=== PATIENT | male | born 1950 | race Caucasian/White ===

== ENCOUNTER 2017-10-13 17:18 | Inpatient (IN) | payer MEDICARE, OTHER ==
[2017-10-13] MEDS ORDERED: Ondansetron 4 MG Tab.DIS PO PRN (18:45)
[2017-10-13] MEDS ORDERED: Tamsulosin 0.4 MG Cap.ER PO ONE (18:54)
[2017-10-13] MEDS: buPROPion 150 MG Tab.ER PO SCH (20:20)
[2017-10-13] MEDS: DULoxetine 60 MG Cap PO SCH (20:20)
[2017-10-13] MEDS: Levofloxacin/Dextrose 5%-Water 500 MG in Premix Bag 1 BAG IV SCH (21:55)
[2017-10-13] MEDS: metroNIDAZOLE/Normal Saline 500 MG in Premix Bag 1 BAG IV SCH (23:03)
[2017-10-13] MEDS: Sodium Chloride 0.9% 10 ML Syringe FLUSH PRN (23:05)
[2017-10-13] MEDS: atorvaSTATin 40 MG Tab PO SCH (23:05)
[2017-10-13] MEDS: Baclofen 10 MG Tab PO SCH (23:05)
[2017-10-13] MEDS ORDERED: Vancomycin 1,000 MG SDV ONE (23:38)
[2017-10-14] MEDS: Sodium Chloride 0.9% 10 ML Syringe FLUSH PRN ×3 (02:31→05:33)
[2017-10-14] MEDS: metroNIDAZOLE/Normal Saline 500 MG in Premix Bag 1 BAG IV SCH ×3 (04:34→21:42)
[2017-10-14] MEDS: DULoxetine 60 MG Cap PO SCH (08:24)
[2017-10-14] MEDS: buPROPion 150 MG Tab.ER PO SCH (08:25)
[2017-10-14] MEDS: Baclofen 10 MG Tab PO SCH ×3 (08:25→21:46)
[2017-10-14] MEDS ORDERED: Furosemide 40 MG Tab PO SCH (09:00)
[2017-10-14] MEDS: Lactated Ringers 1,000 ML IV SCH ×2 (10:08→12:10)
[2017-10-14] MEDS ORDERED: Rocuronium 100 MG/10 ML MDV IV ONE (10:30)
[2017-10-14] MEDS ORDERED: Propofol 200 MG/20 ML SDV IV ONE (10:30)
[2017-10-14] MEDS ORDERED: Ondansetron 4 MG/2 ML SDV IVPUSH ONE (10:30)
[2017-10-14] MEDS ORDERED: Midazolam 1 MG/ML 2 ML SDV IV ONE (10:30)
[2017-10-14] MEDS ORDERED: Succinylcholine 200 MG/10 ML MDV IV ONE (10:30)
[2017-10-14] MEDS ORDERED: fentaNYL 100 MCG/2 ML SDV IV ONE (10:30)
--- NOTE | 2017-10-14 12:01 | PCM.OPNOTE ---
- General Post-Op/Procedure Note Date of Surgery/Procedure: 10/14/17 Operative Procedure(s): debridement of right buttock wound Findings: 12 x 16 cm decubitous ulcer Pre Op Diagnosis: Grade 3. 12 x 16 cm decubitous ulcer Post-Op Diagnosis: 12 x 16 cm decubitous ulcer Anesthesia Technique: General ET Tube Primary Surgeon: Salvador Hough Anesthesia Provider: Jonathan Ferguson Pathology: tissue for path and for culture Complications: None Condition: Good Free Text/Narrative:: Intake & Output 10/13/17 10/14/17 10/14/17 22:59 06:59 14:59 Intake Total 791 Balance 791 see dictation
--- NOTE | 2017-10-14 12:06 | CR ---
INDICATION: Preop, dyspnea. CHEST: An AP portable upright view of the chest was obtained. The right hemidiaphragm is somewhat elevated. This may be on the basis of anatomic variant. Subpulmonic effusion is felt to be less likely. A definite active infiltrate or effusion was not identified. The heart did not appear enlarged. The aorta is somewhat tortuous. IMPRESSION: No acute process. Report was given by phone to Dr. Hough at 1015 hours, 10/14/2017. [facility]
[2017-10-14] MEDS ORDERED: Vancomycin 1,000 MG, Vancomycin 750 MG in Sodium Chloride 0.9% 500 ML IV SCH (16:00)
--- NOTE | 2017-10-14 19:00 | PCM.CONS ---
H&P History of Present Illness - General Date of Service: 10/14/17 Admit Problem/Dx: Admission Diagnosis/Problem Admission Diagnosis/Problem Decubitus ulcer of buttock, stage 3 Source of Information: Patient History Limitations: Reports: No Limitations - History of Present Illness Initial Comments - Free Text/Narative: This patient is a 67-year-old male admitted yesterday for debridement of a large decubitus ulcer. I was asked to see the patient postoperatively for medical management and to aid in disposition by Dr. Hough. History of present illness: Patient has a history of multiple sclerosis and has been confined to a wheelchair for the most part for the past few years. A few months ago he was found to have a decubitus ulcer which she had seen Dr. Hough 4. He was supposed to follow up and when he came back into the clinic yesterday for follow -up, the original decubitus ulcer had healed but he developed a very large second decubitus ulcer which Dr. Hough felt should be debrided in the operating room. The patient's white count was quite elevated at almost 17,000 and he was admitted to the hospital for further management and antibiotic therapy. Patient currently lives in an assisted living type setting and requires significant help because of his weight and lack of mobility in repositioning so recommendation was made to look for long-term placement where the patient will have 24-hour nursing care. Past medical history: #1 multiple sclerosis currently confined to wheelchair. #2 hyperlipidemia #3 depression #4 thalassemia #5 hypertrophy of the prostate #6 neuropathic pain #7 hyperlipidemia #8 Pedal edema for which the patient takes Lasix. He does not believe he has any history of cardiovascular disease or congestive heart failure. Social history: The patient is a nonsmoker drinks an occasional glass of wine and lives in assisted living. Family history: Noncontributory. denies when asked Pain Score (Numeric/FACES): 0 - Related Data Allergies/Adverse Reactions: Allergies Allergy/AdvReac Type Severity Reaction Status Date / Time procaine [From Novocain] Allergy Numbness Verified 10/13/17 18:56 Home Medications: Home Meds Acetaminophen 2 cap PO ASDIRECTED PRN 10/14/17 [History] Aspirin [Low Dose Aspirin EC] 81 mg PO DAILY 10/14/17 [History] Baclofen 10 mg PO TID 10/14/17 [History] Calcium Carbonate/Vitamin D3 [Calcium Carb 500 MG] 1 tab PO BID 10/14/17 [ History] DULoxetine [Cymbalta] 60 mg PO DAILY 10/14/17 [History] Docusate Calcium [Stool Softener] 240 mg PO BID 10/14/17 [History] Furosemide [Lasix] 40 mg PO DAILY 10/14/17 [History] Psyllium [Metamucil] 1 gm PO DAILY 10/14/17 [History] Tamsulosin [Tamsulosin 24 Hr] 0.4 mg PO BEDTIME 10/14/17 [History] atorvaSTATin [Lipitor] 40 mg PO BEDTIME 10/14/17 [History] buPROPion HCl [Wellbutrin Xl] 300 mg PO DAILY 10/14/17 [History] Past Medical History HEENT History: Reports: Impaired Vision Other HEENT History: wears glasses that are not with him Cardiovascular History: Reports: High Cholesterol Other Cardiovascular History: edema to lower extremeties Respiratory History: Reports: SOB, Other (See Below) Other Respiratory History: sob with activity partly from obese abdomen Genitourinary History: Reports: Urinary Incontinence Musculoskeletal History: Reports: Other (See Below) Other Musculoskeletal History: multiple sclerosis muscle spasms Neurological History: Reports: Other (See Below) Other Neuro History: neuropathic pain Psychiatric History: Reports: Depression Other Psychiatric History: from record has depressive disorder Other Dermatologic History: scabbed areas on knees also decubitus of right buttock - Past Surgical History Male Surgical History: Reports: Other (See Below) Other Male Surgeries/Procedures: hypertrophy of prostate without urinary obstruction Social & Family History - Family History Family Medical History: Noncontributory - Tobacco Use Smoking Status *Q: Never Smoker Second Hand Smoke Exposure: No - Caffeine Use Caffeine Use: Reports: Coffee - Recreational Drug Use Recreational Drug Use: No H&P Review of Systems - Review of Systems: Review Of Systems: See Below General: Reports: No Symptoms (Patient specifically denies fevers, chills, fatigue, night sweats, or symptoms of illness.) HEENT: Reports: No Symptoms Pulmonary: Reports: No Symptoms Cardiovascular: Reports: No Symptoms Gastrointestinal: Reports: No Symptoms Genitourinary: Reports: No Symptoms Musculoskeletal: Reports: Other (Patient denies pain at this time. This decubitus ulcer is asymptomatic.) Exam - Exam Exam: See Below - Vital Signs Vital Signs: Last Vital Signs Temp 36.9 C 10/14/17 15:20 Pulse 65 10/14/17 15:20 Resp 18 10/14/17 15:20 BP 96/59 L 10/14/17 15:20 Pulse Ox 94 L 10/14/17 15:20 Weight: 143.335 kg - Exam General: Alert, Oriented, Cooperative HEENT: PERRLA Lungs: Clear to Auscultation, Normal Respiratory Effort Cardiovascular: Regular Rate, Regular Rhythm, Normal S1, Normal S2 GI/Abdominal Exam: Normal Bowel Sounds, Soft, Non-Tender, No Distention Extremities: Normal Inspection, Pedal Edema (Trace) Skin: Decubitis (Not examined by myself.) Psychiatric: Alert, Normal Affect, Normal Mood - Patient Data Lab Results Last 24 hrs: Laboratory Results - last 24 hr 10/13/17 10/13/17 10/14/17 Range/Units 19:00 19:00 09:45 WBC 16.7 H 8.9 (4.5-12.0) X10-3/uL RBC 6.32 H 5.62 (4.30-5.75) x10(6)uL Hgb 12.7 11.4 L (11.5-15.5) g/dL Hct 41.6 36.9 (30.0-51.3) % MCV 65.8 L 65.6 L (80-96) fL MCH 20.0 L 20.3 L (27.7-33.6) pg MCHC 30.4 L 31.0 L (32.2-35.4) g/dL RDW 14.3 14.4 (11.5-15.5) % Plt Count 634 H 605 H (125-369) X10(3)uL MPV 7.7 7.7 (7.4-10.4) fL Neut % (Auto) 71.1 (46-82) % Lymph % (Auto) 14.1 (13-37) % [place] % (Auto) 11.5 (4-12) % Eos % (Auto) 1 (1.0-5.0) % Baso % (Auto) 2 (0-2) % Neut # (Auto) 6.3 (1.6-8.3) # Lymph # (Auto) 1.3 (0.6-5.0) # [place] # (Auto) 1.0 (0.0-1.3) # Eos # (Auto) 0.1 (0.0-0.8) # Baso # (Auto) 0.2 (0.0-0.2) # Add Manual Diff Yes Neutrophils % (Manual) 80 (46-82) % Band Neutrophils % 2 (0-6) % Lymphocytes % (Manual) 10 L (13-37) % Monocytes % (Manual) 7 (4-12) % Basophils % (Manual) 1 (0-2) % Hypochromasia Moderate H Microcytosis Many H Sodium 138 (135-145) mmol/L Potassium 3.8 (3.5-5.3) mmol/L Chloride 99 L (100-110) mmol/L Carbon Dioxide 28 (21-32) mmol/L BUN 12 (7-18) mg/dL Creatinine 1.1 (0.70-1.30) mg/dL Est Cr Clr Drug Dosing 77.84 mL/min Estimated GFR (MDRD) > 60 (>60) BUN/Creatinine Ratio 10.9 (9-20) Glucose 114 (80-116) mg/dL Lactic Acid (0.4-2.2) mmol/L Calcium 8.8 (8.6-10.2) mg/dL Total Bilirubin 0.6 (0.1-1.3) mg/dL AST 35 H (5-25) IU/L ALT 35 (12-36) U/L Alkaline Phosphatase 129 H (56-112) IU/L Total Protein 7.8 (6.0-8.0) g/dL Albumin 2.4 L (3.2-4.6) g/dL Globulin 5.4 g/dL Albumin/Globulin Ratio 0.4 10/14/17 10/14/17 Range/Units 09:45 09:45 WBC (4.5-12.0) X10-3/uL RBC (4.30-5.75) x10(6)uL Hgb (11.5-15.5) g/dL Hct (30.0-51.3) % MCV (80-96) fL MCH (27.7-33.6) pg MCHC (32.2-35.4) g/dL RDW (11.5-15.5) % Plt Count (125-369) X10(3)uL MPV (7.4-10.4) fL Neut % (Auto) (46-82) % Lymph % (Auto) (13-37) % [place] % (Auto) (4-12) % Eos % (Auto) (1.0-5.0) % Baso % (Auto) (0-2) % Neut # (Auto) (1.6-8.3) # Lymph # (Auto) (0.6-5.0) # [place] # (Auto) (0.0-1.3) # Eos # (Auto) (0.0-0.8) # Baso # (Auto) (0.0-0.2) # Add Manual Diff Neutrophils % (Manual) (46-82) % Band Neutrophils % (0-6) % Lymphocytes % (Manual) (13-37) % Monocytes % (Manual) (4-12) % Basophils % (Manual) (0-2) % Hypochromasia Microcytosis Sodium 140 (135-145) mmol/L Potassium 3.6 (3.5-5.3) mmol/L Chloride 103 (100-110) mmol/L Carbon Dioxide 27 (21-32) mmol/L BUN 11 (7-18) mg/dL Creatinine 1.0 (0.70-1.30) mg/dL Est Cr Clr Drug Dosing 85.63 mL/min Estimated GFR (MDRD) > 60 (>60) BUN/Creatinine Ratio 11.0 (9-20) Glucose 110 (80-116) mg/dL Lactic Acid 0.7 (0.4-2.2) mmol/L Calcium 8.3 L (8.6-10.2) mg/dL Total Bilirubin 0.6 (0.1-1.3) mg/dL AST 24 D (5-25) IU/L ALT 27 D (12-36) U/L Alkaline Phosphatase 106 (56-112) IU/L Total Protein 6.8 (6.0-8.0) g/dL Albumin 2.0 L (3.2-4.6) g/dL Globulin 4.8 g/dL Albumin/Globulin Ratio 0.4 Result Diagrams: 10/14/17 09:45 03/16/18 09:45 Consult PN Assessment/Plan POD#: 0 (1) Decubitus skin ulcer SNOMED Code(s): 835868365 Code(s): L89.90 - PRESSURE ULCER OF UNSPECIFIED SITE, UNSPECIFIED STAGE Current Visit: Yes Comment: Now status post debridement. Patient is currently on vancomycin, Levaquin, Flagyl. Dr. Hough is directing antibiotic therapy. Wound culture and tissue cultures are pending. Patient will be having a PICC line placed by nursing staff is able to accommodate that. (2) Multiple sclerosis SNOMED Code(s): 81438251 Code(s): G35 - MULTIPLE SCLEROSIS Current Visit: Yes Comment: Currently quiescent. PT and OT to work with the patient and will be working with disposition. (3) Depression SNOMED Code(s): 91938216 Code(s): F32.9 - MAJOR DEPRESSIVE DISORDER, SINGLE EPISODE, UNSPECIFIED Current Visit: Yes Comment: Appears stable at this point. (4) DVT prophylaxis SNOMED Code(s): 853141491 Code(s): VFE4718 - Current Visit: Yes Comment: Would recommend twice a day Lovenox for subcutaneous DVT prophylaxis because of patient's weight (30 mg BID). With normal renal function he should be able to tolerate Lovenox. Will defer initiation of this to Dr. Hough as the surgeon. Patient is high risk for DVT/PE due to his obesity and immobility. Will see if PT/OT can mobilize this patient as well to offload buttocks more frequently during the day. Problem List Initiated/Reviewed/Updated: Yes Plan: Thank you for the consult. Will continue to follow to discharge.
--- NOTE | 2017-10-14 19:32 | OR ---
DATE OF OPERATION: 10/14/2017 SURGEON: Salvador Hough MD PROCEDURE PERFORMED: Debridement of decubitus ulcer, right buttock. PREOPERATIVE DIAGNOSIS: Grade 3 decubitus. POSTOPERATIVE DIAGNOSIS: Grade 3 decubitus. INDICATIONS FOR PROCEDURE: This is a 67-year-old white male who was referred to the clinic yesterday with a complaint of new decubitus ulcer basically involving the base of his right buttock. On exam, he was noted to have what appeared to be at least a 12 cm in diameter ulceration with necrotic skin. He was admitted for IV antibiotics and surgical debridement. DESCRIPTION OF OPERATION: After an excellent general anesthetic was administered, the patient was placed in left lateral decubitus position and using sharp dissection, the necrotic tissue was dissected free. The final size of the debrided wound was approximately 12 x 16 cm. This went down to the underlying muscle layer, but did not appear to track to the bone. Tissue that was debrided was passed off the field for both pathologic and culture. The patient tolerated the procedure well, and was taken to recovery room in good condition. /[id number] /MODL
[2017-10-14] MEDS: Levofloxacin/Dextrose 5%-Water 500 MG in Premix Bag 1 BAG IV SCH (20:11)
[2017-10-14] MEDS: atorvaSTATin 40 MG Tab PO SCH (21:46)
[2017-10-15] MEDS: Lactated Ringers 1,000 ML IV SCH (00:56)
[2017-10-15] MEDS: metroNIDAZOLE/Normal Saline 500 MG in Premix Bag 1 BAG IV SCH ×3 (05:09→21:07)
[2017-10-15] MEDS: Baclofen 10 MG Tab PO SCH ×3 (09:23→20:58)
[2017-10-15] MEDS: DULoxetine 60 MG Cap PO SCH (09:23)
[2017-10-15] MEDS: buPROPion 150 MG Tab.ER PO SCH (09:23)
--- NOTE | 2017-10-15 09:38 | PCM.SURGPN ---
- General Info Date of Service: 10/15/17 POD#: 1 Functional Status: Reports: Pain Controlled, Tolerating Diet, Urinating - Review of Systems General: Reports: No Symptoms Pulmonary: Reports: No Symptoms Cardiovascular: Reports: No Symptoms Gastrointestinal: Reports: No Symptoms - Patient Data Vitals - Most Recent: Last Vital Signs Temp 37.3 C 10/15/17 04:00 Pulse 86 10/15/17 04:00 Resp 20 10/15/17 01:00 BP 116/62 10/15/17 04:00 Pulse Ox 91 L 10/15/17 01:00 Weight - Most Recent: 143.335 kg I&O - Last 24 Hours: Intake & Output 10/14/17 10/15/17 10/15/17 22:59 06:59 14:59 Intake Total 1248 1014 Output Total 650 Balance 1248 364 Lab Results Last 24 Hrs: Laboratory Results - last 24 hr 10/14/17 10/14/17 10/14/17 Range/Units 09:45 09:45 09:45 WBC 8.9 (4.5-12.0) X10-3/uL RBC 5.62 (4.30-5.75) x10(6)uL Hgb 11.4 L (11.5-15.5) g/dL Hct 36.9 (30.0-51.3) % MCV 65.6 L (80-96) fL MCH 20.3 L (27.7-33.6) pg MCHC 31.0 L (32.2-35.4) g/dL RDW 14.4 (11.5-15.5) % Plt Count 605 H (125-369) X10(3)uL MPV 7.7 (7.4-10.4) fL Neut % (Auto) 71.1 (46-82) % Lymph % (Auto) 14.1 (13-37) % [place] % (Auto) 11.5 (4-12) % Eos % (Auto) 1 (1.0-5.0) % Baso % (Auto) 2 (0-2) % Neut # (Auto) 6.3 (1.6-8.3) # Lymph # (Auto) 1.3 (0.6-5.0) # [place] # (Auto) 1.0 (0.0-1.3) # Eos # (Auto) 0.1 (0.0-0.8) # Baso # (Auto) 0.2 (0.0-0.2) # Sodium 140 (135-145) mmol/L Potassium 3.6 (3.5-5.3) mmol/L Chloride 103 (100-110) mmol/L Carbon Dioxide 27 (21-32) mmol/L BUN 11 (7-18) mg/dL Creatinine 1.0 (0.70-1.30) mg/dL Est Cr Clr Drug Dosing 85.63 mL/min Estimated GFR (MDRD) > 60 (>60) BUN/Creatinine Ratio 11.0 (9-20) Glucose 110 (80-116) mg/dL Lactic Acid 0.7 (0.4-2.2) mmol/L Calcium 8.3 L (8.6-10.2) mg/dL Total Bilirubin 0.6 (0.1-1.3) mg/dL AST 24 D (5-25) IU/L ALT 27 D (12-36) U/L Alkaline Phosphatase 106 (56-112) IU/L Total Protein 6.8 (6.0-8.0) g/dL Albumin 2.0 L (3.2-4.6) g/dL Globulin 4.8 g/dL Albumin/Globulin Ratio 0.4 Vancomycin Trough (5.0-10.0) ug/mL 10/15/17 Range/Units 09:05 WBC (4.5-12.0) X10-3/uL RBC (4.30-5.75) x10(6)uL Hgb (11.5-15.5) g/dL Hct (30.0-51.3) % MCV (80-96) fL MCH (27.7-33.6) pg MCHC (32.2-35.4) g/dL RDW (11.5-15.5) % Plt Count (125-369) X10(3)uL MPV (7.4-10.4) fL Neut % (Auto) (46-82) % Lymph % (Auto) (13-37) % [place] % (Auto) (4-12) % Eos % (Auto) (1.0-5.0) % Baso % (Auto) (0-2) % Neut # (Auto) (1.6-8.3) # Lymph # (Auto) (0.6-5.0) # [place] # (Auto) (0.0-1.3) # Eos # (Auto) (0.0-0.8) # Baso # (Auto) (0.0-0.2) # Sodium (135-145) mmol/L Potassium (3.5-5.3) mmol/L Chloride (100-110) mmol/L Carbon Dioxide (21-32) mmol/L BUN (7-18) mg/dL Creatinine (0.70-1.30) mg/dL Est Cr Clr Drug Dosing mL/min Estimated GFR (MDRD) (>60) BUN/Creatinine Ratio (9-20) Glucose (80-116) mg/dL Lactic Acid (0.4-2.2) mmol/L Calcium (8.6-10.2) mg/dL Total Bilirubin (0.1-1.3) mg/dL AST (5-25) IU/L ALT (12-36) U/L Alkaline Phosphatase (56-112) IU/L Total Protein (6.0-8.0) g/dL Albumin (3.2-4.6) g/dL Globulin g/dL Albumin/Globulin Ratio Vancomycin Trough 7.4 (5.0-10.0) ug/mL Med Orders - Current: Current Medications Atorvastatin Calcium (Lipitor) 40 mg PO BEDTIME [facility] Last Admin: 10/14/17 21:46 Dose: 40 mg Baclofen (Lioresal) 10 mg PO TID [facility] Last Admin: 10/15/17 09:23 Dose: 10 mg Bupropion HCl (Wellbutrin Xl) 300 mg PO DAILY [facility] Last Admin: 10/15/17 09:23 Dose: 300 mg Duloxetine HCl (Cymbalta) 60 mg PO DAILY [facility] Last Admin: 10/15/17 09:23 Dose: 60 mg Levofloxacin/Dextrose 500 mg/ (Premix) 100 mls @ 100 mls/hr IV Q24H [facility] Last Admin: 10/14/17 20:11 Dose: 100 mls/hr Metronidazole 500 mg/ Premix 100 mls @ 100 mls/hr IV Q8H [facility] Last Admin: 10/15/17 05:09 Dose: 100 mls/hr Vancomycin HCl 500 mg/ Sodium (Chloride) 250 mls @ 166.667 mls/hr IV Q24H [facility] Lactated Ringer's (Ringers, Lactated) 1,000 mls @ 125 mls/hr IV ASDIRECTED [facility] Last Admin: 10/15/17 00:56 Dose: 125 mls/hr Vancomycin HCl 1,000 mg/Vancomycin HCl 750 mg/ Sodium Chloride 500 mls @ 250 mls/hr IV Q18H [facility] Last Admin: 10/14/17 16:38 Dose: 250 mls/hr Ondansetron HCl (Zofran Odt) 4 mg PO Q6H PRN PRN Reason: nausea, able to take PO Sodium Chloride (Saline Flush) 10 ml FLUSH ASDIRECTED PRN PRN Reason: Keep Vein Open Last Admin: 10/14/17 05:33 Dose: 10 ml Discontinued Medications Furosemide (Lasix) 40 mg PO DAILY [facility] Last Admin: 10/14/17 08:24 Dose: Not Given Vancomycin HCl 1,750 mg/ (Sodium Chloride) 500 mls @ 250 mls/hr IV Q18H [facility] Last Admin: 10/14/17 00:27 Dose: 250 mls/hr Tamsulosin HCl (Flomax) 0.4 mg PO ONETIME ONE Stop: 10/13/17 18:55 Last Admin: 10/13/17 20:19 Dose: 0.4 mg Vancomycin HCl (Vancomycin) Confirm Administered Dose 1,000 mg .ROUTE .STK-MED ONE Stop: 10/13/17 23:39 Last Admin: 10/14/17 00:33 Dose: Not Given - Exam Wound/Incisions: No Drainage, Erythema, Other (wound clean and dry with dressing change ) General: Alert, Cooperative, No Acute Distress Lungs: Clear to Auscultation, Normal Respiratory Effort Cardiovascular: Regular Rate, Regular Rhythm Physical Findings Comment:: dressing change performed. no signs of further necrosis at this time - Problem List & Annotations (1) Decubitus skin ulcer SNOMED Code(s): 747346273 Code(s): L89.90 - PRESSURE ULCER OF UNSPECIFIED SITE, UNSPECIFIED STAGE Status: Acute Current Visit: Yes Annotation/Comment:: Now status post debridement. Patient is currently on vancomycin, Levaquin, Flagyl. Dr. Hough is directing antibiotic therapy. Wound culture and tissue cultures are pending. Patient will be having a PICC line placed by nursing staff is able to accommodate that. - Problem List Review Problem List Initiated/Reviewed/Updated: Yes - My Orders Last 24 Hours: Active Orders 24 hr Category Date Time Status Central Line Assessment [RC] QSHIFT Care 10/14/17 11:55 Active Notify Provider Consults [RC] ASDIRECTED Care 10/14/17 09:31 Active Consult to Physician [CONS] Routine Cons 10/14/17 09:30 Ordered OT Evaluation and Treatment [CONS] Routine Cons 10/14/17 19:12 Active PT Evaluation and Treatment [CONS] Routine Cons 10/14/17 19:12 Active Regular Diet [DIET] Diet 10/14/17 Dinner Active CBC WITH AUTO DIFF [HEME] AM Lab 10/16/17 05:11 Ordered COMPREHENSIVE METABOLIC PN,CMP [CHEM] AM Lab 10/16/17 05:11 Ordered CULTURE ANAEROBIC + SMEAR [RM] Routine Lab 10/14/17 10:56 Received CULTURE ROUTINE + SMEAR [RM] Routine Lab 10/14/17 10:56 Received Vancomycin 1,000 mg Med 10/14/17 16:00 Active Vancomycin 750 mg Sodium Chloride 0.9% [Normal Saline] 500 ml IV Q18H Central Line PICC Insertion [Central Venous Line Oth 10/14/17 11:55 Ordered Insertion] [OM.PC] Routine Convert IV to Saline Lock [OM.PC] Routine Oth 10/15/17 09:35 Ordered Medication Orders Atorvastatin Calcium (Lipitor) 40 mg PO BEDTIME [facility] Last Admin: 10/14/17 21:46 Dose: 40 mg Admin: 10/13/17 23:05 Dose: 40 mg Baclofen (Lioresal) 10 mg PO TID [facility] Last Admin: 10/15/17 09:23 Dose: 10 mg Admin: 10/14/17 21:46 Dose: 10 mg Admin: 10/14/17 14:22 Dose: Not Given Admin: 10/14/17 08:25 Dose: Admin: 10/13/17 23:05 Dose: 10 mg Bupropion HCl (Wellbutrin Xl) 300 mg PO DAILY [facility] Last Admin: 10/15/17 09:23 Dose: 300 mg Admin: 10/14/17 08:25 Dose: Admin: 10/13/17 20:20 Dose: Duloxetine HCl (Cymbalta) 60 mg PO DAILY [facility] Last Admin: 10/15/17 09:23 Dose: 60 mg Admin: 10/14/17 08:24 Dose: Admin: 10/13/17 20:20 Dose: Levofloxacin/Dextrose 500 mg/ (Premix) 100 mls @ 100 mls/hr IV Q24H [facility] Last Admin: 10/14/17 20:11 Dose: 100 mls/hr Infusion: 10/13/17 22:55 Dose: 100 mls/hr Admin: 10/13/17 21:55 Dose: 100 mls/hr Metronidazole 500 mg/ Premix 100 mls @ 100 mls/hr IV Q8H [facility] Last Admin: 10/15/17 05:09 Dose: 100 mls/hr Infusion: 10/14/17 22:42 Dose: 100 mls/hr Admin: 10/14/17 21:42 Dose: 100 mls/hr Infusion: 10/14/17 14:03 Dose: 100 mls/hr Admin: 10/14/17 13:03 Dose: 100 mls/hr Infusion: 10/14/17 05:34 Dose: 100 mls/hr Admin: 10/14/17 04:34 Dose: 100 mls/hr Infusion: 10/14/17 00:03 Dose: 100 mls/hr Admin: 10/13/17 23:03 Dose: 100 mls/hr Vancomycin HCl 500 mg/ Sodium (Chloride) 250 mls @ 166.667 mls/hr IV Q24H [facility] Lactated Ringer's (Ringers, Lactated) 1,000 mls @ 125 mls/hr IV ASDIRECTED [facility] Last Admin: 10/15/17 00:56 Dose: 125 mls/hr Infusion: 10/14/17 20:10 Dose: 125 mls/hr Admin: 10/14/17 12:10 Dose: 125 mls/hr Infusion: 10/14/17 11:09 Dose: 999 mls/hr Admin: 10/14/17 10:08 Dose: 999 mls/hr Vancomycin HCl 1,000 mg/Vancomycin HCl 750 mg/ Sodium Chloride 500 mls @ 250 mls/hr IV Q18H [facility] Last Admin: 10/14/17 16:38 Dose: 250 mls/hr Ondansetron HCl (Zofran Odt) 4 mg PO Q6H PRN PRN Reason: nausea, able to take PO Sodium Chloride (Saline Flush) 10 ml FLUSH ASDIRECTED PRN PRN Reason: Keep Vein Open Last Admin: 10/14/17 05:33 Dose: 10 ml Admin: 10/14/17 02:31 Dose: 10 ml Admin: 10/14/17 00:00 Dose: 10 ml Admin: 10/13/17 23:05 Dose: 10 ml - Assessment Assessment (Free Text/Narrative):: unremarkable post op exam - Plan Plan (Free Text/Narrative):: saline lock iv start lovenox for dvt prophylaxis.
[2017-10-15] MEDS: Enoxaparin 40 MG/0.4 ML Syringe SUBCUT SCH ×2 (10:47→21:04)
[2017-10-15] MEDS: Vancomycin 1,000 MG, Vancomycin 750 MG in Sodium Chloride 0.9% 500 ML IV SCH ×2 (10:47→22:51)
--- NOTE | 2017-10-15 11:42 | PCM.PN ---
- General Info Date of Service: 10/15/17 Subjective Update: Feeling well, no concerns. No pain. No chest pain or shortness of breath. No nausea or vomiting. Has not yet had a bowel movement postoperatively. - Patient Data Vitals - Most Recent: Last Vital Signs Temp 37.3 C 10/15/17 04:00 Pulse 86 10/15/17 04:00 Resp 20 10/15/17 01:00 BP 116/62 10/15/17 04:00 Pulse Ox 91 L 10/15/17 01:00 Weight - Most Recent: 143.335 kg I&O - Last 24 Hours: Intake & Output 10/14/17 10/15/17 10/15/17 22:59 06:59 14:59 Intake Total 1248 1014 Output Total 650 Balance 1248 364 Lab Results Last 24 Hours: Laboratory Results - last 24 hr 10/15/17 Range/Units 09:05 Vancomycin Trough 7.4 (5.0-10.0) ug/mL Med Orders - Current: Current Medications Atorvastatin Calcium (Lipitor) 40 mg PO BEDTIME [facility] Last Admin: 10/14/17 21:46 Dose: 40 mg Baclofen (Lioresal) 10 mg PO TID [facility] Last Admin: 10/15/17 09:23 Dose: 10 mg Bupropion HCl (Wellbutrin Xl) 300 mg PO DAILY [facility] Last Admin: 10/15/17 09:23 Dose: 300 mg Duloxetine HCl (Cymbalta) 60 mg PO DAILY [facility] Last Admin: 10/15/17 09:23 Dose: 60 mg Enoxaparin Sodium (Lovenox) 40 mg SUBCUT Q12H [facility] Last Admin: 10/15/17 10:47 Dose: 40 mg Levofloxacin/Dextrose 500 mg/ (Premix) 100 mls @ 100 mls/hr IV Q24H [facility] Last Admin: 10/14/17 20:11 Dose: 100 mls/hr Metronidazole 500 mg/ Premix 100 mls @ 100 mls/hr IV Q8H [facility] Last Admin: 10/15/17 05:09 Dose: 100 mls/hr Vancomycin HCl 1,000 mg/Vancomycin HCl 750 mg/ Sodium Chloride 500 mls @ 250 mls/hr IV Q12H [facility] Last Admin: 10/15/17 10:47 Dose: 250 mls/hr Ondansetron HCl (Zofran Odt) 4 mg PO Q6H PRN PRN Reason: nausea, able to take PO Sodium Chloride (Saline Flush) 10 ml FLUSH ASDIRECTED PRN PRN Reason: Keep Vein Open Last Admin: 10/14/17 05:33 Dose: 10 ml Vancomycin HCl (Pharmacy To Dose - Vancomycin) 1 dose .XX ASDIRECTED [place] Discontinued Medications Furosemide (Lasix) 40 mg PO DAILY [facility] Last Admin: 10/14/17 08:24 Dose: Not Given Vancomycin HCl 500 mg/ Sodium (Chloride) 250 mls @ 166.667 mls/hr IV Q24H [facility] Vancomycin HCl 1,750 mg/ (Sodium Chloride) 500 mls @ 250 mls/hr IV Q18H [facility] Last Admin: 10/14/17 00:27 Dose: 250 mls/hr Lactated Ringer's (Ringers, Lactated) 1,000 mls @ 125 mls/hr IV ASDIRECTED [facility] Last Admin: 10/15/17 00:56 Dose: 125 mls/hr Vancomycin HCl 1,000 mg/Vancomycin HCl 750 mg/ Sodium Chloride 500 mls @ 250 mls/hr IV Q18H [facility] Last Admin: 10/14/17 16:38 Dose: 250 mls/hr Tamsulosin HCl (Flomax) 0.4 mg PO ONETIME ONE Stop: 10/13/17 18:55 Last Admin: 10/13/17 20:19 Dose: 0.4 mg Vancomycin HCl (Vancomycin) Confirm Administered Dose 1,000 mg .ROUTE .STK-MED ONE Stop: 10/13/17 23:39 Last Admin: 10/14/17 00:33 Dose: Not Given - Exam General: Alert, Oriented, Cooperative HEENT: Pupils Equal, Pupils Reactive Neck: Supple Lungs: Clear to Auscultation, Normal Respiratory Effort Cardiovascular: Regular Rate, Regular Rhythm, No Murmurs GI/Abdominal Exam: Normal Bowel Sounds, Soft, Non-Tender Back Exam: Normal Inspection Wound/Incisions: Dressing Dry and Intact - Problem List & Annotations (1) Decubitus skin ulcer SNOMED Code(s): 804354450 Code(s): L89.90 - PRESSURE ULCER OF UNSPECIFIED SITE, UNSPECIFIED STAGE Status: Acute Current Visit: Yes Annotation/Comment:: POD#1 debridement. Patient is currently on vancomycin, Levaquin, Flagyl. Dr. Hough is directing antibiotic therapy. Wound culture and tissue cultures are pending. (2) Multiple sclerosis SNOMED Code(s): 63667716 Code(s): G35 - MULTIPLE SCLEROSIS Status: Acute Current Visit: Yes Annotation/Comment:: Currently quiescent. PT and OT to work with the patient and will be working with disposition. (3) Depression SNOMED Code(s): 04235531 Code(s): F32.9 - MAJOR DEPRESSIVE DISORDER, SINGLE EPISODE, UNSPECIFIED Status: Acute Current Visit: Yes Annotation/Comment:: Appears stable at this point. (4) DVT prophylaxis SNOMED Code(s): 878510781 Code(s): BQG9753 - Status: Acute Current Visit: Yes Annotation/Comment :: Started today lovenox [address] Hough. - Problem List Review Problem List Initiated/Reviewed/Updated: Yes - My Orders Last 24 Hours: My Active Orders 10/14/17 19:12 OT Evaluation and Treatment [CONS] Routine PT Evaluation and Treatment [CONS] Routine 10/16/17 05:11 CBC WITH AUTO DIFF [HEME] AM COMPREHENSIVE METABOLIC PN,CMP [CHEM] AM
[2017-10-15] MEDS: Levofloxacin/Dextrose 5%-Water 500 MG in Premix Bag 1 BAG IV SCH (19:42)
[2017-10-15] MEDS: Sodium Chloride 0.9% 10 ML Syringe FLUSH PRN ×4 (19:42→22:50)
[2017-10-15] MEDS: atorvaSTATin 40 MG Tab PO SCH (20:59)
[2017-10-16] MEDS: Sodium Chloride 0.9% 10 ML Syringe FLUSH PRN ×2 (00:57→04:17)
[2017-10-16] MEDS: metroNIDAZOLE/Normal Saline 500 MG in Premix Bag 1 BAG IV SCH (04:15)
[2017-10-16] MEDS: DULoxetine 60 MG Cap PO SCH (08:43)
[2017-10-16] MEDS: buPROPion 150 MG Tab.ER PO SCH (08:44)
[2017-10-16] MEDS: Baclofen 10 MG Tab PO SCH ×3 (08:44→20:09)
--- NOTE | 2017-10-16 09:08 | PCM.SURGPN ---
- General Info Date of Service: 10/16/17 POD#: 2 Functional Status: Reports: Tolerating Diet - Review of Systems General: Reports: No Symptoms - Patient Data Vitals - Most Recent: Last Vital Signs Temp 37.0 C 10/16/17 04:00 Pulse 86 10/16/17 01:00 Resp 18 10/16/17 04:00 BP 117/62 10/16/17 01:00 Pulse Ox 90 L 10/16/17 01:00 Weight - Most Recent: 143.335 kg I&O - Last 24 Hours: Intake & Output 10/15/17 10/16/17 10/16/17 22:59 06:59 14:59 Intake Total 700 600 Output Total 650 1100 Balance 50 -500 Lab Results Last 24 Hrs: Laboratory Results - last 24 hr 10/15/17 10/16/17 10/16/17 Range/Units 09:05 05:50 05:50 WBC 7.7 (4.5-12.0) X10-3/uL RBC 5.24 (4.30-5.75) x10(6)uL Hgb 10.9 L (11.5-15.5) g/dL Hct 34.7 (30.0-51.3) % MCV 66.2 L (80-96) fL MCH 20.8 L (27.7-33.6) pg MCHC 31.4 L (32.2-35.4) g/dL RDW 14.6 (11.5-15.5) % Plt Count 524 H (125-369) X10(3)uL MPV 8.0 (7.4-10.4) fL Neut % (Auto) 70.7 (46-82) % Lymph % (Auto) 15.6 (13-37) % [place] % (Auto) 10.4 (4-12) % Eos % (Auto) 2 (1.0-5.0) % Baso % (Auto) 1 (0-2) % Neut # (Auto) 5.4 (1.6-8.3) # Lymph # (Auto) 1.2 (0.6-5.0) # [place] # (Auto) 0.8 (0.0-1.3) # Eos # (Auto) 0.2 (0.0-0.8) # Baso # (Auto) 0.1 (0.0-0.2) # Sodium 140 (135-145) mmol/L Potassium 3.6 (3.5-5.3) mmol/L Chloride 104 (100-110) mmol/L Carbon Dioxide 29 (21-32) mmol/L BUN 13 (7-18) mg/dL Creatinine 0.9 (0.70-1.30) mg/dL Est Cr Clr Drug Dosing 95.14 mL/min Estimated GFR (MDRD) > 60 (>60) BUN/Creatinine Ratio 14.4 (9-20) Glucose 104 (80-116) mg/dL Calcium 8.1 L (8.6-10.2) mg/dL Total Bilirubin 0.3 (0.1-1.3) mg/dL AST 29 H D (5-25) IU/L ALT 29 (12-36) U/L Alkaline Phosphatase 86 (56-112) IU/L Total Protein 6.2 (6.0-8.0) g/dL Albumin 1.8 L (3.2-4.6) g/dL Globulin 4.4 g/dL Albumin/Globulin Ratio 0.4 Vancomycin Trough 7.4 (5.0-10.0) ug/mL Med Orders - Current: Current Medications Atorvastatin Calcium (Lipitor) 40 mg PO BEDTIME [facility] Last Admin: 10/15/17 20:59 Dose: 40 mg Baclofen (Lioresal) 10 mg PO TID [facility] Last Admin: 10/16/17 08:44 Dose: 10 mg Bupropion HCl (Wellbutrin Xl) 300 mg PO DAILY [facility] Last Admin: 10/16/17 08:44 Dose: 300 mg Duloxetine HCl (Cymbalta) 60 mg PO DAILY [facility] Last Admin: 10/16/17 08:43 Dose: 60 mg Enoxaparin Sodium (Lovenox) 40 mg SUBCUT Q12H [facility] Last Admin: 10/15/17 21:04 Dose: 40 mg Levofloxacin (Levaquin) 500 mg PO Q24H [facility] Ondansetron HCl (Zofran Odt) 4 mg PO Q6H PRN PRN Reason: nausea, able to take PO Sodium Chloride (Saline Flush) 10 ml FLUSH ASDIRECTED PRN PRN Reason: Keep Vein Open Last Admin: 10/16/17 04:17 Dose: 10 ml Discontinued Medications Furosemide (Lasix) 40 mg PO DAILY [facility] Last Admin: 10/14/17 08:24 Dose: Not Given Levofloxacin/Dextrose 500 mg/ (Premix) 100 mls @ 100 mls/hr IV Q24H [facility] Last Admin: 10/15/17 19:42 Dose: 100 mls/hr Metronidazole 500 mg/ Premix 100 mls @ 100 mls/hr IV Q8H [facility] Last Admin: 10/16/17 04:15 Dose: 100 mls/hr Vancomycin HCl 500 mg/ Sodium (Chloride) 250 mls @ 166.667 mls/hr IV Q24H [facility] Last Admin: 10/15/17 23:56 Dose: Not Given Vancomycin HCl 1,750 mg/ (Sodium Chloride) 500 mls @ 250 mls/hr IV Q18H [facility] Last Admin: 10/14/17 00:27 Dose: 250 mls/hr Lactated Ringer's (Ringers, Lactated) 1,000 mls @ 125 mls/hr IV ASDIRECTED [facility] Last Admin: 10/15/17 00:56 Dose: 125 mls/hr Vancomycin HCl 1,000 mg/Vancomycin HCl 750 mg/ Sodium Chloride 500 mls @ 250 mls/hr IV Q18H [facility] Last Admin: 10/14/17 16:38 Dose: 250 mls/hr Vancomycin HCl 1,000 mg/Vancomycin HCl 750 mg/ Sodium Chloride 500 mls @ 250 mls/hr IV Q12H [facility] Last Admin: 10/15/17 22:51 Dose: 250 mls/hr Tamsulosin HCl (Flomax) 0.4 mg PO ONETIME ONE Stop: 10/13/17 18:55 Last Admin: 10/13/17 20:19 Dose: 0.4 mg Vancomycin HCl (Vancomycin) Confirm Administered Dose 1,000 mg .ROUTE .STK-MED ONE Stop: 10/13/17 23:39 Last Admin: 10/14/17 00:33 Dose: Not Given Vancomycin HCl (Pharmacy To Dose - Vancomycin) 1 dose .XX ASDIRECTED [facility] - Exam Wound/Incisions: No Drainage, Other (wound is dry. some color changes in the muscle bed. no evidence of active infection ) Lungs: Clear to Auscultation, Normal Respiratory Effort Cardiovascular: Regular Rate, Regular Rhythm Skin: Warm, Intact - Problem List & Annotations (1) Decubitus skin ulcer SNOMED Code(s): 807050257 Code(s): L89.90 - PRESSURE ULCER OF UNSPECIFIED SITE, UNSPECIFIED STAGE Status: Acute Current Visit: Yes Annotation/Comment:: POD#1 debridement. Patient is currently on vancomycin, Levaquin, Flagyl. Dr. Hough is directing antibiotic therapy. Wound culture and tissue cultures are pending. Qualifiers: Pressure ulcer location: buttock Pressure ulcer stage: stage 3 Laterality : right Qualified Code(s): L89.313 - Pressure ulcer of right buttock, stage 3 - Problem List Review Problem List Initiated/Reviewed/Updated: Yes - My Orders Last 24 Hours: Active Orders 24 hr Category Date Time Status PT Evaluation and Treatment [CONS] Routine Cons 10/16/17 09:04 Ordered VANCOMYCIN TROUGH [CHEM] Routine Lab 10/16/17 22:00 Ordered Enoxaparin [Lovenox] Med 10/15/17 10:00 Active 40 mg SUBCUT Q12H Levofloxacin [Levaquin] Med 10/16/17 09:15 Ordered 500 mg PO Q24H Convert IV to Saline Lock [OM.PC] Routine Oth 10/15/17 09:35 Ordered Medication Orders Atorvastatin Calcium (Lipitor) 40 mg PO BEDTIME [facility] Last Admin: 10/15/17 20:59 Dose: 40 mg Admin: 10/14/17 21:46 Dose: 40 mg Admin: 10/13/17 23:05 Dose: 40 mg Baclofen (Lioresal) 10 mg PO TID [facility] Last Admin: 10/16/17 08:44 Dose: 10 mg Admin: 10/15/17 20:58 Dose: 10 mg Admin: 10/15/17 14:14 Dose: 10 mg Admin: 10/15/17 09:23 Dose: 10 mg Admin: 10/14/17 21:46 Dose: 10 mg Admin: 10/14/17 14:22 Dose: Not Given Admin: 10/14/17 08:25 Dose: Admin: 10/13/17 23:05 Dose: 10 mg Bupropion HCl (Wellbutrin Xl) 300 mg PO DAILY [facility] Last Admin: 10/16/17 08:44 Dose: 300 mg Admin: 10/15/17 09:23 Dose: 300 mg Admin: 10/14/17 08:25 Dose: Admin: 10/13/17 20:20 Dose: Duloxetine HCl (Cymbalta) 60 mg PO DAILY [facility] Last Admin: 10/16/17 08:43 Dose: 60 mg Admin: 10/15/17 09:23 Dose: 60 mg Admin: 10/14/17 08:24 Dose: Admin: 10/13/17 20:20 Dose: Enoxaparin Sodium (Lovenox) 40 mg SUBCUT Q12H [facility] Last Admin: 10/15/17 21:04 Dose: 40 mg Admin: 10/15/17 10:47 Dose: 40 mg Levofloxacin (Levaquin) 500 mg PO Q24H [facility] Ondansetron HCl (Zofran Odt) 4 mg PO Q6H PRN PRN Reason: nausea, able to take PO Sodium Chloride (Saline Flush) 10 ml FLUSH ASDIRECTED PRN PRN Reason: Keep Vein Open Last Admin: 10/16/17 04:17 Dose: 10 ml Admin: 10/16/17 00:57 Dose: 10 ml Admin: 10/15/17 22:50 Dose: 10 ml Admin: 10/15/17 22:00 Dose: 10 ml Admin: 10/15/17 20:53 Dose: 10 ml Admin: 10/15/17 19:42 Dose: 10 ml Admin: 10/14/17 05:33 Dose: 10 ml Admin: 10/14/17 02:31 Dose: 10 ml Admin: 10/14/17 00:00 Dose: 10 ml Admin: 10/13/17 23:05 Dose: 10 ml - Assessment Assessment (Free Text/Narrative):: stable exam. culture results demonstrate light growth of strep dysgalactiae sensative to levaquin - Plan Plan (Free Text/Narrative):: cancel picc oral antibiotics wound vac consult in the am.
[2017-10-16] MEDS: Levofloxacin 500 MG Tab PO SCH (10:58)
[2017-10-16] MEDS: Enoxaparin 40 MG/0.4 ML Syringe SUBCUT SCH ×2 (10:58→21:40)
--- NOTE | 2017-10-16 12:53 | PCM.PN ---
- General Info Date of Service: 10/16/17 Subjective Update: Patient is a 67-year-old male currently on hospital day #4 postoperative day #2 for debridement of decubitus ulcer. Culture grew out Streptococcus collect a sensitive to Levaquin. Vancomycin has been stopped. PICC line placement has been canceled. The patient is doing well clinically. Dr. Hough feels he may require further debridement in the next few days. The patient denies chest pain , shortness of breath, nausea, vomiting, diarrhea. Feels things are going well. He normally straight catheterizes at home and has an indwelling Rivera catheter in at this time. He would like that removed. - Patient Data Vitals - Most Recent: Last Vital Signs Temp 37.0 C 10/16/17 08:00 Pulse 84 10/16/17 08:00 Resp 18 10/16/17 08:00 BP 120/78 10/16/17 08:00 Pulse Ox 91 L 10/16/17 08:00 Weight - Most Recent: 143.335 kg I&O - Last 24 Hours: Intake & Output 10/15/17 10/16/17 10/16/17 22:59 06:59 14:59 Intake Total 700 600 Output Total 650 1100 Balance 50 -500 Lab Results Last 24 Hours: Laboratory Results - last 24 hr 10/16/17 10/16/17 Range/Units 05:50 05:50 WBC 7.7 (4.5-12.0) X10-3/uL RBC 5.24 (4.30-5.75) x10(6)uL Hgb 10.9 L (11.5-15.5) g/dL Hct 34.7 (30.0-51.3) % MCV 66.2 L (80-96) fL MCH 20.8 L (27.7-33.6) pg MCHC 31.4 L (32.2-35.4) g/dL RDW 14.6 (11.5-15.5) % Plt Count 524 H (125-369) X10(3)uL MPV 8.0 (7.4-10.4) fL Neut % (Auto) 70.7 (46-82) % Lymph % (Auto) 15.6 (13-37) % [place] % (Auto) 10.4 (4-12) % Eos % (Auto) 2 (1.0-5.0) % Baso % (Auto) 1 (0-2) % Neut # (Auto) 5.4 (1.6-8.3) # Lymph # (Auto) 1.2 (0.6-5.0) # [place] # (Auto) 0.8 (0.0-1.3) # Eos # (Auto) 0.2 (0.0-0.8) # Baso # (Auto) 0.1 (0.0-0.2) # Sodium 140 (135-145) mmol/L Potassium 3.6 (3.5-5.3) mmol/L Chloride 104 (100-110) mmol/L Carbon Dioxide 29 (21-32) mmol/L BUN 13 (7-18) mg/dL Creatinine 0.9 (0.70-1.30) mg/dL Est Cr Clr Drug Dosing 95.14 mL/min Estimated GFR (MDRD) > 60 (>60) BUN/Creatinine Ratio 14.4 (9-20) Glucose 104 (80-116) mg/dL Calcium 8.1 L (8.6-10.2) mg/dL Total Bilirubin 0.3 (0.1-1.3) mg/dL AST 29 H D (5-25) IU/L ALT 29 (12-36) U/L Alkaline Phosphatase 86 (56-112) IU/L Total Protein 6.2 (6.0-8.0) g/dL Albumin 1.8 L (3.2-4.6) g/dL Globulin 4.4 g/dL Albumin/Globulin Ratio 0.4 Med Orders - Current: Current Medications Ascorbic Acid (Vitamin C) 500 mg PO DAILY [facility] Atorvastatin Calcium (Lipitor) 40 mg PO BEDTIME [facility] Last Admin: 10/15/17 20:59 Dose: 40 mg Baclofen (Lioresal) 10 mg PO TID [facility] Last Admin: 10/16/17 08:44 Dose: 10 mg Bupropion HCl (Wellbutrin Xl) 300 mg PO DAILY [facility] Last Admin: 10/16/17 08:44 Dose: 300 mg Duloxetine HCl (Cymbalta) 60 mg PO DAILY [facility] Last Admin: 10/16/17 08:43 Dose: 60 mg Enoxaparin Sodium (Lovenox) 40 mg SUBCUT Q12H [facility] Last Admin: 10/16/17 10:58 Dose: 40 mg Furosemide (Lasix) 20 mg PO DAILY [facility] Levofloxacin (Levaquin) 500 mg PO Q24H [facility] Last Admin: 10/16/17 10:58 Dose: 500 mg Ondansetron HCl (Zofran Odt) 4 mg PO Q6H PRN PRN Reason: nausea, able to take PO Sodium Chloride (Saline Flush) 10 ml FLUSH ASDIRECTED PRN PRN Reason: Keep Vein Open Last Admin: 10/16/17 04:17 Dose: 10 ml Zinc Sulfate (Zincate) 220 mg PO DAILY [facility] Discontinued Medications Furosemide (Lasix) 40 mg PO DAILY [facility] Last Admin: 10/14/17 08:24 Dose: Not Given Levofloxacin/Dextrose 500 mg/ (Premix) 100 mls @ 100 mls/hr IV Q24H [facility] Last Admin: 10/15/17 19:42 Dose: 100 mls/hr Metronidazole 500 mg/ Premix 100 mls @ 100 mls/hr IV Q8H [facility] Last Admin: 10/16/17 04:15 Dose: 100 mls/hr Vancomycin HCl 500 mg/ Sodium (Chloride) 250 mls @ 166.667 mls/hr IV Q24H [facility] Last Admin: 10/15/17 23:56 Dose: Not Given Vancomycin HCl 1,750 mg/ (Sodium Chloride) 500 mls @ 250 mls/hr IV Q18H [facility] Last Admin: 10/14/17 00:27 Dose: 250 mls/hr Lactated Ringer's (Ringers, Lactated) 1,000 mls @ 125 mls/hr IV ASDIRECTED [facility] Last Admin: 10/15/17 00:56 Dose: 125 mls/hr Vancomycin HCl 1,000 mg/Vancomycin HCl 750 mg/ Sodium Chloride 500 mls @ 250 mls/hr IV Q18H [facility] Last Admin: 10/14/17 16:38 Dose: 250 mls/hr Vancomycin HCl 1,000 mg/Vancomycin HCl 750 mg/ Sodium Chloride 500 mls @ 250 mls/hr IV Q12H [facility] Last Admin: 10/15/17 22:51 Dose: 250 mls/hr Tamsulosin HCl (Flomax) 0.4 mg PO ONETIME ONE Stop: 10/13/17 18:55 Last Admin: 10/13/17 20:19 Dose: 0.4 mg Vancomycin HCl (Vancomycin) Confirm Administered Dose 1,000 mg .ROUTE .STK-MED ONE Stop: 10/13/17 23:39 Last Admin: 10/14/17 00:33 Dose: Not Given Vancomycin HCl (Pharmacy To Dose - Vancomycin) 1 dose .XX ASDIRECTED [place] - Exam General: Alert, Oriented, Cooperative HEENT: Pupils Equal, Pupils Reactive Neck: Supple Lungs: Clear to Auscultation, Normal Respiratory Effort Cardiovascular: Regular Rate, Regular Rhythm, No Murmurs GI/Abdominal Exam: Normal Bowel Sounds, Soft, Non-Tender Extremities: Pedal Edema (+2 pitting edema on the legs and the hands bilaterally.) Psy/Mental Status: Alert (Affect is very flat.) - Problem List & Annotations (1) Decubitus skin ulcer SNOMED Code(s): 585687317 Code(s): L89.90 - PRESSURE ULCER OF UNSPECIFIED SITE, UNSPECIFIED STAGE Status: Acute Current Visit: Yes Qualifiers: Pressure ulcer location: buttock Pressure ulcer stage: stage 3 Laterality : right Qualified Code(s): L89.313 - Pressure ulcer of right buttock, stage 3 Annotation/Comment:: POD#2 debridement. Wound culture grew Streptococcus collect a sensitive to Levaquin. Vancomycin was stopped. Patient may require further debridement. (2) Multiple sclerosis SNOMED Code(s): 45897134 Code(s): G35 - MULTIPLE SCLEROSIS Status: Acute Current Visit: Yes Annotation/Comment:: We need to work on getting this patient out of bed and mobilized. PT/OT to work on chair accommodations to offload this ulcer. (3) Depression SNOMED Code(s): 76661082 Code(s): F32.9 - MAJOR DEPRESSIVE DISORDER, SINGLE EPISODE, UNSPECIFIED Status: Acute Current Visit: Yes Annotation/Comment:: Appears stable at this point. Patient denies depression but affect is very flat. (4) DVT prophylaxis SNOMED Code(s): 099203807 Code(s): KFA1282 - Status: Acute Current Visit: Yes Annotation/Comment :: Lovenox 40 mg BID, SCDs. (5) Hypoalbuminemia SNOMED Code(s): 792251196 Code(s): E88.09 - OTH DISORDERS OF PLASMA-PROTEIN METABOLISM, NEC Status: Acute Current Visit: Yes Annotation/Comment:: Recommended high protein diet. Discussed with the patient that an albumin below 2 impedes wound healing significantly. (6) Need for surveillance due to prolonged bedrest SNOMED Code(s): 684724909 Code(s): Z51.89 - ENCOUNTER FOR OTHER SPECIFIED AFTERCARE Status: Acute Current Visit: Yes Annotation/Comment:: We need to figure out a way that we can get this very heavy patient up and mobilized to improve his pulmonary toilet and decrease his risk of blood clots. We will work with PT/OT to come up with a chair that would be appropriate for this patient. The patient has been able to walk somewhat and hopefully ongoing physical therapy will improve his mobility. - Problem List Review Problem List Initiated/Reviewed/Updated: Yes - My Orders Last 24 Hours: My Active Orders 10/16/17 11:22 DC Rviera Catheter [Urinary Catheter Removal] [RC] Per Unit Routine 10/16/17 11:23 Communication Order [RC] ASDIRECTED Intermittent Pneumatic Compress Device [Sequential Compression Device] [OM.PC] Routine 10/16/17 11:25 Nutrition Dietitian Follow Up [OM.PC] Routine 10/16/17 11:30 Furosemide [Lasix] 20 mg PO DAILY 10/16/17 Dinner High Protein Diet [DIET] 10/17/17 09:00 Ascorbic Acid [Vitamin C] 500 mg PO DAILY Zinc Sulfate [Zincate] 220 mg PO DAILY
[2017-10-16] MEDS: Furosemide 20 MG Tab PO SCH (13:07)
--- NOTE | 2017-10-16 19:54 | PCM.SN ---
- Free Text/Narrative Note: called about T 101. other vitals are stable lungs are clear with some diminished breath sounds with wound's appearance this am, nl wbc this appears to represent atelectasis. will get ua, cbc in am, push IS.
[2017-10-16] MEDS: Acetaminophen 325 MG Tab PO PRN (20:08)
[2017-10-16] MEDS: atorvaSTATin 40 MG Tab PO SCH (20:09)
--- NOTE | 2017-10-17 07:56 | PCM.SURGPN ---
- General Info Date of Service: 10/17/17 Functional Status: Reports: Tolerating Diet (poor po intake ) - Review of Systems Pulmonary: Reports: No Symptoms Cardiovascular: Reports: No Symptoms Gastrointestinal: Reports: No Symptoms - Patient Data Vitals - Most Recent: Last Vital Signs Temp 36.9 C 10/17/17 04:15 Pulse 80 10/17/17 01:30 Resp 24 H 10/17/17 01:30 BP 108/68 10/17/17 01:30 Pulse Ox 96 10/17/17 01:30 Weight - Most Recent: 143.335 kg Med Orders - Current: Current Medications Acetaminophen (Tylenol) 650 mg PO Q6H PRN PRN Reason: Fever Last Admin: 10/16/17 20:08 Dose: 650 mg Ascorbic Acid (Vitamin C) 500 mg PO DAILY [facility] Atorvastatin Calcium (Lipitor) 40 mg PO BEDTIME [facility] Last Admin: 10/16/17 20:09 Dose: 40 mg Baclofen (Lioresal) 10 mg PO TID [facility] Last Admin: 10/16/17 20:09 Dose: 10 mg Bupropion HCl (Wellbutrin Xl) 300 mg PO DAILY [facility] Last Admin: 10/16/17 08:44 Dose: 300 mg Duloxetine HCl (Cymbalta) 60 mg PO DAILY [facility] Last Admin: 10/16/17 08:43 Dose: 60 mg Enoxaparin Sodium (Lovenox) 40 mg SUBCUT Q12H [facility] Last Admin: 10/16/17 21:40 Dose: 40 mg Furosemide (Lasix) 20 mg PO DAILY [facility] Last Admin: 10/16/17 13:07 Dose: 20 mg Levofloxacin (Levaquin) 500 mg PO Q24H [facility] Last Admin: 10/16/17 10:58 Dose: 500 mg Ondansetron HCl (Zofran Odt) 4 mg PO Q6H PRN PRN Reason: nausea, able to take PO Sodium Chloride (Saline Flush) 10 ml FLUSH ASDIRECTED PRN PRN Reason: Keep Vein Open Last Admin: 10/16/17 04:17 Dose: 10 ml Zinc Sulfate (Zincate) 220 mg PO DAILY [facility] Discontinued Medications Furosemide (Lasix) 40 mg PO DAILY [facility] Last Admin: 10/14/17 08:24 Dose: Not Given Levofloxacin/Dextrose 500 mg/ (Premix) 100 mls @ 100 mls/hr IV Q24H [facility] Last Admin: 10/15/17 19:42 Dose: 100 mls/hr Metronidazole 500 mg/ Premix 100 mls @ 100 mls/hr IV Q8H [facility] Last Admin: 10/16/17 04:15 Dose: 100 mls/hr Vancomycin HCl 500 mg/ Sodium (Chloride) 250 mls @ 166.667 mls/hr IV Q24H [facility] Last Admin: 10/15/17 23:56 Dose: Not Given Vancomycin HCl 1,750 mg/ (Sodium Chloride) 500 mls @ 250 mls/hr IV Q18H [facility] Last Admin: 10/14/17 00:27 Dose: 250 mls/hr Lactated Ringer's (Ringers, Lactated) 1,000 mls @ 125 mls/hr IV ASDIRECTED [facility] Last Admin: 10/15/17 00:56 Dose: 125 mls/hr Vancomycin HCl 1,000 mg/Vancomycin HCl 750 mg/ Sodium Chloride 500 mls @ 250 mls/hr IV Q18H [facility] Last Admin: 10/14/17 16:38 Dose: 250 mls/hr Vancomycin HCl 1,000 mg/Vancomycin HCl 750 mg/ Sodium Chloride 500 mls @ 250 mls/hr IV Q12H [facility] Last Admin: 10/15/17 22:51 Dose: 250 mls/hr Tamsulosin HCl (Flomax) 0.4 mg PO ONETIME ONE Stop: 10/13/17 18:55 Last Admin: 10/13/17 20:19 Dose: 0.4 mg Vancomycin HCl (Vancomycin) Confirm Administered Dose 1,000 mg .ROUTE .STK-MED ONE Stop: 10/13/17 23:39 Last Admin: 10/14/17 00:33 Dose: Not Given Vancomycin HCl (Pharmacy To Dose - Vancomycin) 1 dose .XX ASDIRECTED [facility] - Exam Wound/Incisions: No Drainage, Other (area of muscle that may require further debridement otherwise clean and dry ) Lungs: Clear to Auscultation, Decreased Breath Sounds Cardiovascular: Regular Rate, Regular Rhythm GI/Abdominal Exam: Normal Bowel Sounds - Problem List & Annotations (1) Decubitus skin ulcer SNOMED Code(s): 098745383 Code(s): L89.90 - PRESSURE ULCER OF UNSPECIFIED SITE, UNSPECIFIED STAGE Status: Acute Current Visit: Yes Annotation/Comment:: POD#2 debridement. Wound culture grew Streptococcus collect a sensitive to Levaquin. Vancomycin was stopped. Patient may require further debridement. Qualifiers: Pressure ulcer location: buttock Pressure ulcer stage: stage 3 Laterality : right Qualified Code(s): L89.313 - Pressure ulcer of right buttock, stage 3 - Problem List Review Problem List Initiated/Reviewed/Updated: Yes - My Orders Last 24 Hours: Active Orders 24 hr Category Date Time Status Communication Order [RC] 00,08,16 Care 10/16/17 11:23 Active Insert Rivera Catheter [Insert Urinary Catheter] [OM.PC] Care 10/17/17 08:00 Ordered Q24H Notify Provider Consults [RC] ASDIRECTED Care 10/17/17 07:52 Ordered Urinary Catheter Assessment [RC] QSHIFT Care 10/17/17 07:51 Ordered Consult to Physician [CONS] Routine Cons 10/17/17 07:51 Ordered PT Evaluation and Treatment [CONS] Routine Cons 10/16/17 09:04 Active High Protein Diet [DIET] Diet 10/16/17 Dinner Active CBC WITH AUTO DIFF [HEME] AM Lab 10/17/17 07:28 Received UA W/MICROSCOPIC [URIN] Routine Lab 10/17/17 06:00 Ordered Acetaminophen [Tylenol] Med 10/16/17 19:48 Active 650 mg PO Q6H PRN Ascorbic Acid [Vitamin C] Med 10/17/17 09:00 Active 500 mg PO DAILY Furosemide [Lasix] Med 10/16/17 11:30 Active 20 mg PO DAILY Levofloxacin [Levaquin] Med 10/16/17 10:00 Active 500 mg PO Q24H Zinc Sulfate [Zincate] Med 10/17/17 09:00 Active 220 mg PO DAILY Intermittent Pneumatic Compress Device [Sequential Oth 10/16/17 11:23 Ordered Compression Device] [OM.PC] Routine Nutrition Dietitian Follow Up [OM.PC] Routine Oth 10/16/17 11:25 Ordered Medication Orders Acetaminophen (Tylenol) 650 mg PO Q6H PRN PRN Reason: Fever Last Admin: 10/16/17 20:08 Dose: 650 mg Ascorbic Acid (Vitamin C) 500 mg PO DAILY [facility] Atorvastatin Calcium (Lipitor) 40 mg PO BEDTIME [facility] Last Admin: 10/16/17 20:09 Dose: 40 mg Admin: 10/15/17 20:59 Dose: 40 mg Admin: 10/14/17 21:46 Dose: 40 mg Admin: 10/13/17 23:05 Dose: 40 mg Baclofen (Lioresal) 10 mg PO TID [facility] Last Admin: 10/16/17 20:09 Dose: 10 mg Admin: 10/16/17 14:37 Dose: 10 mg Admin: 10/16/17 08:44 Dose: 10 mg Admin: 10/15/17 20:58 Dose: 10 mg Admin: 10/15/17 14:14 Dose: 10 mg Admin: 10/15/17 09:23 Dose: 10 mg Admin: 10/14/17 21:46 Dose: 10 mg Admin: 10/14/17 14:22 Dose: Not Given Admin: 10/14/17 08:25 Dose: Admin: 10/13/17 23:05 Dose: 10 mg Bupropion HCl (Wellbutrin Xl) 300 mg PO DAILY [facility] Last Admin: 10/16/17 08:44 Dose: 300 mg Admin: 10/15/17 09:23 Dose: 300 mg Admin: 10/14/17 08:25 Dose: Admin: 10/13/17 20:20 Dose: Duloxetine HCl (Cymbalta) 60 mg PO DAILY [facility] Last Admin: 10/16/17 08:43 Dose: 60 mg Admin: 10/15/17 09:23 Dose: 60 mg Admin: 10/14/17 08:24 Dose: Admin: 10/13/17 20:20 Dose: Enoxaparin Sodium (Lovenox) 40 mg SUBCUT Q12H [facility] Last Admin: 10/16/17 21:40 Dose: 40 mg Admin: 10/16/17 10:58 Dose: 40 mg Admin: 10/15/17 21:04 Dose: 40 mg Admin: 10/15/17 10:47 Dose: 40 mg Furosemide (Lasix) 20 mg PO DAILY [facility] Last Admin: 10/16/17 13:07 Dose: 20 mg Levofloxacin (Levaquin) 500 mg PO Q24H [facility] Last Admin: 10/16/17 10:58 Dose: 500 mg Ondansetron HCl (Zofran Odt) 4 mg PO Q6H PRN PRN Reason: nausea, able to take PO Sodium Chloride (Saline Flush) 10 ml FLUSH ASDIRECTED PRN PRN Reason: Keep Vein Open Last Admin: 10/16/17 04:17 Dose: 10 ml Admin: 10/16/17 00:57 Dose: 10 ml Admin: 10/15/17 22:50 Dose: 10 ml Admin: 10/15/17 22:00 Dose: 10 ml Admin: 10/15/17 20:53 Dose: 10 ml Admin: 10/15/17 19:42 Dose: 10 ml Admin: 10/14/17 05:33 Dose: 10 ml Admin: 10/14/17 02:31 Dose: 10 ml Admin: 10/14/17 00:00 Dose: 10 ml Admin: 10/13/17 23:05 Dose: 10 ml Zinc Sulfate (Zincate) 220 mg PO DAILY [facility] - Assessment Assessment (Free Text/Narrative):: low grades secondary to atelectasis wound may require further debridement will watch for now - Plan Plan (Free Text/Narrative):: tele psych consult rt consult
[2017-10-17] MEDS: buPROPion 150 MG Tab.ER PO SCH (08:45)
[2017-10-17] MEDS: Baclofen 10 MG Tab PO SCH ×3 (08:45→21:16)
[2017-10-17] MEDS: DULoxetine 60 MG Cap PO SCH (08:45)
[2017-10-17] MEDS: Ascorbic Acid 500 MG Tab PO SCH (08:47)
[2017-10-17] MEDS: Furosemide 20 MG Tab PO SCH (08:47)
[2017-10-17] MEDS ORDERED: Zinc Sulfate 220 MG Cap PO SCH (09:00)
[2017-10-17] MEDS: Enoxaparin 40 MG/0.4 ML Syringe SUBCUT SCH ×2 (10:16→21:16)
[2017-10-17] MEDS: Levofloxacin 500 MG Tab PO SCH (10:16)
[2017-10-17] MEDS: Zinc Sulfate 220 MG Cap PO SCH (12:36)
--- NOTE | 2017-10-17 13:09 | PCM.PN ---
- General Info Date of Service: 10/17/17 Subjective Update: Patient is a 67-year-old male currently on hospital day 5, postoperative day #3 for decubitus ulcer debridement. Patient had a temperature of 38.8 last night with sudden increased respiratory rate of 30 and O2 sats at 90% on room air. With I asked the fever resolved. Dr. Hough saw the patient and felt it was consistent with atelectasis. Physical therapy and occupational therapy have been working with the patient today and were able to get him up in the chair. The patient has been eating very little but took nutritional supplements without difficulty. He opened up her little bit to the single resource boss about her recent loss in the family that has been very difficult for him. He denies chest pain, shortness of breath, nausea, vomiting. Just doesn't have any appetite. Feels like it's good for him not to eat as he'll lose weight. - Patient Data Vitals - Most Recent: Last Vital Signs Temp 37.1 C 10/17/17 08:00 Pulse 88 10/17/17 08:00 Resp 18 10/17/17 08:00 BP 108/64 10/17/17 08:00 Pulse Ox 92 L 10/17/17 08:00 Weight - Most Recent: 143.335 kg Lab Results Last 24 Hours: Laboratory Results - last 24 hr 10/17/17 Range/Units 07:28 WBC 8.3 (4.5-12.0) X10-3/uL RBC 5.93 H (4.30-5.75) x10(6)uL Hgb 11.9 (11.5-15.5) g/dL Hct 38.7 (30.0-51.3) % MCV 65.3 L (80-96) fL MCH 20.1 L (27.7-33.6) pg MCHC 30.8 L (32.2-35.4) g/dL RDW 14.5 (11.5-15.5) % Plt Count 579 H (125-369) X10(3)uL MPV 7.6 (7.4-10.4) fL Neut % (Auto) 76.5 (46-82) % Lymph % (Auto) 11.3 L (13-37) % Mcmullen % (Auto) 8.2 (4-12) % Eos % (Auto) 1 (1.0-5.0) % Baso % (Auto) 3 H (0-2) % Neut # (Auto) 6.4 (1.6-8.3) # Lymph # (Auto) 0.9 (0.6-5.0) # Mcmullen # (Auto) 0.7 (0.0-1.3) # Eos # (Auto) 0.0 (0.0-0.8) # Baso # (Auto) 0.3 H (0.0-0.2) # Med Orders - Current: Current Medications Acetaminophen (Tylenol) 650 mg PO Q6H PRN PRN Reason: Fever Last Admin: 10/16/17 20:08 Dose: 650 mg Ascorbic Acid (Vitamin C) 500 mg PO DAILY [facility] Last Admin: 10/17/17 08:47 Dose: 500 mg Atorvastatin Calcium (Lipitor) 40 mg PO BEDTIME [facility] Last Admin: 10/16/17 20:09 Dose: 40 mg Baclofen (Lioresal) 10 mg PO TID [facility] Last Admin: 10/17/17 08:45 Dose: 10 mg Bupropion HCl (Wellbutrin Xl) 300 mg PO DAILY [facility] Last Admin: 10/17/17 08:45 Dose: 300 mg Duloxetine HCl (Cymbalta) 60 mg PO DAILY [facility] Last Admin: 10/17/17 08:45 Dose: 60 mg Enoxaparin Sodium (Lovenox) 40 mg SUBCUT Q12H [facility] Last Admin: 10/17/17 10:16 Dose: 40 mg Furosemide (Lasix) 20 mg PO DAILY [facility] Last Admin: 10/17/17 08:47 Dose: 20 mg Levofloxacin (Levaquin) 500 mg PO Q24H [facility] Last Admin: 10/17/17 10:16 Dose: 500 mg Ondansetron HCl (Zofran Odt) 4 mg PO Q6H PRN PRN Reason: nausea, able to take PO Sodium Chloride (Saline Flush) 10 ml FLUSH ASDIRECTED PRN PRN Reason: Keep Vein Open Last Admin: 10/16/17 04:17 Dose: 10 ml Zinc Sulfate (Zincate) 220 mg PO DAILY@1200 [facility] Last Admin: 10/17/17 12:36 Dose: 220 mg Discontinued Medications Furosemide (Lasix) 40 mg PO DAILY [facility] Last Admin: 10/14/17 08:24 Dose: Not Given Levofloxacin/Dextrose 500 mg/ (Premix) 100 mls @ 100 mls/hr IV Q24H [facility] Last Admin: 10/15/17 19:42 Dose: 100 mls/hr Metronidazole 500 mg/ Premix 100 mls @ 100 mls/hr IV Q8H [facility] Last Admin: 10/16/17 04:15 Dose: 100 mls/hr Vancomycin HCl 500 mg/ Sodium (Chloride) 250 mls @ 166.667 mls/hr IV Q24H [facility] Last Admin: 10/15/17 23:56 Dose: Not Given Vancomycin HCl 1,750 mg/ (Sodium Chloride) 500 mls @ 250 mls/hr IV Q18H [facility] Last Admin: 10/14/17 00:27 Dose: 250 mls/hr Lactated Ringer's (Ringers, Lactated) 1,000 mls @ 125 mls/hr IV ASDIRECTED [facility] Last Admin: 10/15/17 00:56 Dose: 125 mls/hr Vancomycin HCl 1,000 mg/Vancomycin HCl 750 mg/ Sodium Chloride 500 mls @ 250 mls/hr IV Q18H [facility] Last Admin: 10/14/17 16:38 Dose: 250 mls/hr Vancomycin HCl 1,000 mg/Vancomycin HCl 750 mg/ Sodium Chloride 500 mls @ 250 mls/hr IV Q12H [facility] Last Admin: 10/15/17 22:51 Dose: 250 mls/hr Tamsulosin HCl (Flomax) 0.4 mg PO ONETIME ONE Stop: 10/13/17 18:55 Last Admin: 10/13/17 20:19 Dose: 0.4 mg Vancomycin HCl (Vancomycin) Confirm Administered Dose 1,000 mg .ROUTE .STK-MED ONE Stop: 10/13/17 23:39 Last Admin: 10/14/17 00:33 Dose: Not Given Vancomycin HCl (Pharmacy To Dose - Vancomycin) 1 dose .XX ASDIRECTED [facility] Zinc Sulfate (Zincate) 220 mg PO DAILY [facility] - Exam Quality Assessment: Supplemental Oxygen General: Alert, Cooperative HEENT: Pupils Equal, Pupils Reactive Neck: Supple Lungs: Clear to Auscultation, Normal Respiratory Effort Cardiovascular: Regular Rate, Regular Rhythm, No Murmurs GI/Abdominal Exam: Normal Bowel Sounds, Soft, Non-Tender Extremities: Pedal Edema (Still has a trace pedal edema but no edema in the hands and the pedal edema is much improved.) Psy/Mental Status: Depressed - Problem List & Annotations (1) Decubitus skin ulcer SNOMED Code(s): 110747680 Code(s): L89.90 - PRESSURE ULCER OF UNSPECIFIED SITE, UNSPECIFIED STAGE Status: Acute Current Visit: Yes Qualifiers: Pressure ulcer location: buttock Pressure ulcer stage: stage 3 Laterality : right Qualified Code(s): L89.313 - Pressure ulcer of right buttock, stage 3 Annotation/Comment:: POD#3 after debridement. Wound culture grew Streptococcus galactaie sensitive to Levaquin. Patient may require further debridement. (2) Multiple sclerosis SNOMED Code(s): 46292558 Code(s): G35 - MULTIPLE SCLEROSIS Status: Acute Current Visit: Yes Annotation/Comment:: We need to work on getting this patient out of bed and mobilized. PT/OT to work on chair accommodations to offload this ulcer. vp celebrity services working on placement options. (3) Depression SNOMED Code(s): 98821264 Code(s): F32.9 - MAJOR DEPRESSIVE DISORDER, SINGLE EPISODE, UNSPECIFIED Status: Acute Current Visit: Yes Annotation/Comment:: Patient's affect is very flat and opened up about some grieving today with the single resource boss. Consult to telemedicine psychiatry to see if they can recommend atypical antidepressants or antipsychotics to help with the patient's mood. His social situation is very difficult as well. May be some adjustment disorder. (4) DVT prophylaxis SNOMED Code(s): 452081126 Code(s): PHV6369 - Status: Acute Current Visit: Yes Annotation/Comment :: Lovenox 40 mg BID, SCDs. (5) Hypoalbuminemia SNOMED Code(s): 020091174 Code(s): E88.09 - OTH DISORDERS OF PLASMA-PROTEIN METABOLISM, NEC Status: Acute Current Visit: Yes Annotation/Comment:: Continue high protein diet and mineral supplements to aid in wound healing. Wound VAC to be applied today. (6) Need for surveillance due to prolonged bedrest SNOMED Code(s): 553383255 Code(s): Z51.89 - ENCOUNTER FOR OTHER SPECIFIED AFTERCARE Status: Acute Current Visit: Yes Annotation/Comment:: PT and OT working with the patient. Continue to work with mobility and frequent position changes. (7) Urinary incontinence SNOMED Code(s): 026494228 Code(s): R32 - UNSPECIFIED URINARY INCONTINENCE Status: Acute Current Visit: Yes Annotation/Comment:: Patient states he straight catheters at home by yesterday with a Rivera removal the patient was incontinent multiple times. Rivera was replaced in order to protect the decubitus ulcer dressing and further skin breakdown. Ultimately this patient may just be incontinent and so foloey will be able to be removed since he was able to void without catheterization. Condom catheter would also be an option. - Problem List Review Problem List Initiated/Reviewed/Updated: Yes - My Orders Last 24 Hours: My Active Orders 10/16/17 Dinner High Protein Diet [DIET] 10/17/17 09:00 Ascorbic Acid [Vitamin C] 500 mg PO DAILY 10/17/17 10:45 Chest 1V Frontal [CR] Routine 10/17/17 12:00 Zinc Sulfate [Zincate] 220 mg PO DAILY@1200
[2017-10-17] MEDS ORDERED: Furosemide 40 MG/4 ML VIAL IVPUSH ONE (17:45)
[2017-10-17] MEDS: Sodium Chloride 0.9% 10 ML Syringe FLUSH PRN (19:08)
[2017-10-17] MEDS: Acetaminophen 325 MG Tab PO PRN (19:24)
[2017-10-17] MEDS: atorvaSTATin 40 MG Tab PO SCH (21:16)
[2017-10-18] MEDS: Acetaminophen 325 MG Tab PO PRN ×2 (02:48→09:02)
--- NOTE | 2017-10-18 08:29 | CR ---
INDICATION: Increasing cough. CHEST ONE VIEW FRONTAL: A single, semi-upright view of the chest was obtained, AP projection, and revealed patchily consolidating perihilar infiltration apparently in the right upper lobe, compatible with pneumonia. Follow-up to clearing is recommended, as a centrally obstructive lesion cannot be entirely excluded. No other evidence of an acute process was seen. Evidence of exogenous obesity is noted. The heart is normal in size and shape on this one projection. The aorta is somewhat tortuous. IMPRESSION: Right perihilar infiltration compatible with pneumonia. Follow-up to clearing recommended. Other findings as noted above. MTDD
[2017-10-18] MEDS: Baclofen 10 MG Tab PO SCH ×3 (08:30→20:24)
[2017-10-18] MEDS: DULoxetine 60 MG Cap PO SCH (08:30)
[2017-10-18] MEDS: buPROPion 150 MG Tab.ER PO SCH (08:30)
[2017-10-18] MEDS: Ascorbic Acid 500 MG Tab PO SCH (08:31)
[2017-10-18] MEDS: Furosemide 40 MG Tab PO SCH (09:02)
--- NOTE | 2017-10-18 09:41 | PCM.SN ---
- Free Text/Narrative Note: on 10/14/17 used succinylcholine 200mg IV and propofol 200mg.
--- NOTE | 2017-10-18 10:22 | PCM.PN ---
- General Info Date of Service: 10/18/17 Subjective Update: Patient is a 67-year-old male currently on hospital day #6 postoperative day #4 for decubitus ulcer debridement and infection. The patient spiked a temp overnight to MAXIMUM TEMPERATURE 38.8. Became hypoxic with this and respiratory rate increased to 28-30. IVS was done and was very low at 802,000. Was given Tylenol, I asked was done more aggressively over the night including waking him up to do deep breathing and he had no further temps overnight. Blood cultures were not done at the time of spike. This morning the patient has no complaints. Affect is still very flat. He denies chest pain, shortness of breath, pain, nausea or vomiting. Appetite is still poor but he's taking protein supplements well. He had a telemedicine video conference with psychiatry today, Dr. Kamran Murphy, who recommended continuing wellbutrin at current dose, could consider increasing cymbalta to 90 from 60 mg. 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 This will greatly inhibit his ability to participate in physical therapy and taken the nutrition that he needs in order to heal. With that additional information, Dr. Murphy recommended the addition of Abilify 2 mg daily. - Patient Data Vitals - Most Recent: Last Vital Signs Temp 36.1 C 10/18/17 06:30 Pulse 87 10/17/17 20:00 Resp 24 H 10/18/17 06:30 BP 121/77 10/18/17 04:05 Pulse Ox 96 10/18/17 06:30 Weight - Most Recent: 143.335 kg I&O - Last 24 Hours: Intake & Output 10/17/17 10/18/17 10/18/17 22:59 06:59 14:59 Intake Total 125 Output Total 400 Balance -275 Lab Results Last 24 Hours: Laboratory Results - last 24 hr 10/17/17 10/18/17 10/18/17 Range/Units 17:21 06:25 06:25 WBC 9.5 (4.5-12.0) X10-3/uL RBC 6.10 H (4.30-5.75) x10(6)uL Hgb 12.4 (11.5-15.5) g/dL Hct 39.2 (30.0-51.3) % MCV 64.3 L (80-96) fL MCH 20.3 L (27.7-33.6) pg MCHC 31.6 L (32.2-35.4) g/dL RDW 14.3 (11.5-15.5) % Plt Count 534 H (125-369) X10(3)uL MPV 7.9 (7.4-10.4) fL Neut % (Auto) 78.1 (46-82) % Lymph % (Auto) 15.1 (13-37) % [place] % (Auto) 6.5 (4-12) % Eos % (Auto) 0 L (1.0-5.0) % Baso % (Auto) 0 (0-2) % Neut # (Auto) 7.5 (1.6-8.3) # Lymph # (Auto) 1.4 (0.6-5.0) # [place] # (Auto) 0.6 (0.0-1.3) # Eos # (Auto) 0.0 (0.0-0.8) # Baso # (Auto) 0.0 (0.0-0.2) # Sodium 137 (135-145) mmol/L Potassium 3.8 (3.5-5.3) mmol/L Chloride 99 L D (100-110) mmol/L Carbon Dioxide 28 (21-32) mmol/L BUN 18 (7-18) mg/dL Creatinine 1.1 (0.70-1.30) mg/dL Est Cr Clr Drug Dosing 77.84 mL/min Estimated GFR (MDRD) > 60 (>60) BUN/Creatinine Ratio 16.4 (9-20) Glucose 121 H (80-116) mg/dL Calcium 8.5 L (8.6-10.2) mg/dL Urine Color Yellow (YELLOW) Urine Appearance Clear (CLEAR) Urine pH 7.0 H (5.0-6.5) Ur Specific [place] 1.005 L (1.010-1.025) Urine Protein Negative (NEGATIVE) mg/dL Urine Glucose (UA) Normal (NEGATIVE) mg/dL Urine Ketones Negative (NEGATIVE) mg/dL Urine Occult Blood Negative (NEGATIVE) Urine Nitrite Negative (NEGATIVE) Urine Bilirubin Negative (NEGATIVE) Urine Urobilinogen 8 H (NEGATIVE) mg/dL Ur Leukocyte Esterase Negative (NEGATIVE) Urine RBC 0-5 (0) Urine WBC 0-5 (0) Ur Squamous Epith Cells Few H (NS,R,O) Urine Bacteria Few H (NS) Urine Mucus Few H (NS) Jean-Pierre Results Last 24 Hours: Microbiology 10/14/17 10:56 Gram Stain - Final Buttock, Right Routine Culture - Preliminary Med Orders - Current: Current Medications Acetaminophen (Tylenol) 650 mg PO Q6H PRN PRN Reason: Fever Last Admin: 10/18/17 09:02 Dose: 650 mg Aripiprazole (Abilify) 2 mg PO DAILY [facility] Ascorbic Acid (Vitamin C) 500 mg PO DAILY [facility] Last Admin: 10/18/17 08:31 Dose: 500 mg Atorvastatin Calcium (Lipitor) 40 mg PO BEDTIME [facility] Last Admin: 10/17/17 21:16 Dose: 40 mg Baclofen (Lioresal) 10 mg PO TID [facility] Last Admin: 10/18/17 08:30 Dose: 10 mg Bupropion HCl (Wellbutrin Xl) 300 mg PO DAILY [facility] Last Admin: 10/18/17 08:30 Dose: 300 mg Duloxetine HCl (Cymbalta) 60 mg PO DAILY [facility] Last Admin: 10/18/17 08:30 Dose: 60 mg Enoxaparin Sodium (Lovenox) 40 mg SUBCUT Q12H [facility] Last Admin: 10/17/17 21:16 Dose: 40 mg Furosemide (Lasix) 40 mg PO DAILY [facility] Last Admin: 10/18/17 09:02 Dose: 40 mg Levofloxacin (Levaquin) 500 mg PO Q24H [facility] Last Admin: 10/17/17 10:16 Dose: 500 mg Ondansetron HCl (Zofran Odt) 4 mg PO Q6H PRN PRN Reason: nausea, able to take PO Sodium Chloride (Saline Flush) 10 ml FLUSH ASDIRECTED PRN PRN Reason: Keep Vein Open Last Admin: 10/17/17 19:08 Dose: 10 ml Zinc Sulfate (Zincate) 220 mg PO DAILY@1200 [facility] Last Admin: 10/17/17 12:36 Dose: 220 mg Discontinued Medications Furosemide (Lasix) 40 mg PO DAILY [facility] Last Admin: 10/14/17 08:24 Dose: Not Given Furosemide (Lasix) 20 mg PO DAILY [facility] Last Admin: 10/17/17 08:47 Dose: 20 mg Furosemide (Lasix) 40 mg IVPUSH NOW ONE Stop: 10/17/17 17:46 Last Admin: 10/17/17 19:05 Dose: 40 mg Levofloxacin/Dextrose 500 mg/ (Premix) 100 mls @ 100 mls/hr IV Q24H [facility] Last Admin: 10/15/17 19:42 Dose: 100 mls/hr Metronidazole 500 mg/ Premix 100 mls @ 100 mls/hr IV Q8H [facility] Last Admin: 10/16/17 04:15 Dose: 100 mls/hr Vancomycin HCl 500 mg/ Sodium (Chloride) 250 mls @ 166.667 mls/hr IV Q24H [facility] Last Admin: 10/15/17 23:56 Dose: Not Given Vancomycin HCl 1,750 mg/ (Sodium Chloride) 500 mls @ 250 mls/hr IV Q18H [facility] Last Admin: 10/14/17 00:27 Dose: 250 mls/hr Lactated Ringer's (Ringers, Lactated) 1,000 mls @ 125 mls/hr IV ASDIRECTED [facility] Last Admin: 10/15/17 00:56 Dose: 125 mls/hr Vancomycin HCl 1,000 mg/Vancomycin HCl 750 mg/ Sodium Chloride 500 mls @ 250 mls/hr IV Q18H [facility] Last Admin: 10/14/17 16:38 Dose: 250 mls/hr Vancomycin HCl 1,000 mg/Vancomycin HCl 750 mg/ Sodium Chloride 500 mls @ 250 mls/hr IV Q12H [facility] Last Admin: 10/15/17 22:51 Dose: 250 mls/hr Tamsulosin HCl (Flomax) 0.4 mg PO ONETIME ONE Stop: 10/13/17 18:55 Last Admin: 10/13/17 20:19 Dose: 0.4 mg Vancomycin HCl (Vancomycin) Confirm Administered Dose 1,000 mg .ROUTE .STK-MED ONE Stop: 10/13/17 23:39 Last Admin: 10/14/17 00:33 Dose: Not Given Vancomycin HCl (Pharmacy To Dose - Vancomycin) 1 dose .XX ASDIRECTED [facility] Zinc Sulfate (Zincate) 220 mg PO DAILY [facility] - Exam General: Alert, Oriented, Cooperative, No Acute Distress (To person and place only.) HEENT: Pupils Equal, Pupils Reactive Neck: Supple Lungs: Crackles (bibasilar crackles which clear with deep inspiration, rhonchi which clear with cough. ) Cardiovascular: Regular Rate, Regular Rhythm GI/Abdominal Exam: Normal Bowel Sounds, Soft, Non-Tender Extremities: Pedal Edema (1+ pedal edema. No calf tenderness.) - Problem List & Annotations (1) Decubitus skin ulcer SNOMED Code(s): 974562205 Code(s): L89.90 - PRESSURE ULCER OF UNSPECIFIED SITE, UNSPECIFIED STAGE Status: Acute Current Visit: Yes Qualifiers: Pressure ulcer location: buttock Pressure ulcer stage: stage 3 Laterality : right Qualified Code(s): L89.313 - Pressure ulcer of right buttock, stage 3 Annotation/Comment:: POD#4 after debridement. Wound culture grew Streptococcus galactaie sensitive to Levaquin. Patient may require further debridement. Wound vac and frequent repositioning. (2) Multiple sclerosis SNOMED Code(s): 41596972 Code(s): G35 - MULTIPLE SCLEROSIS Status: Acute Current Visit: Yes Annotation/Comment:: We need to work on getting this patient out of bed and mobilized. PT/OT to work on chair accommodations to offload this ulcer. director of special services working on placement options. Q2hour repositioning. (3) Depression SNOMED Code(s): 08700693 Code(s): F32.9 - MAJOR DEPRESSIVE DISORDER, SINGLE EPISODE, UNSPECIFIED Status: Acute Current Visit: Yes Annotation/Comment:: Saw telemedicine psych and will start Abilify. (4) Hypoalbuminemia SNOMED Code(s): 770541523 Code(s): E88.09 - [facility] DISORDERS OF PLASMA-PROTEIN METABOLISM, NEC Status: Acute Current Visit: Yes Annotation/Comment:: Continue high protein diet and mineral supplements to aid in wound healing. Wound VAC to be applied today. (5) Need for surveillance due to prolonged bedrest SNOMED Code(s): 245237887 Code(s): Z51.89 - ENCOUNTER FOR OTHER SPECIFIED AFTERCARE Status: Acute Current Visit: Yes Annotation/Comment:: PT and OT working with the patient. Continue to work with mobility and frequent position changes. (6) Urinary incontinence SNOMED Code(s): 843465695 Code(s): R32 - UNSPECIFIED URINARY INCONTINENCE Status: Acute Current Visit: Yes Annotation/Comment:: Patient states he straight catheters at home by yesterday with a Rivera removal the patient was incontinent multiple times. Rivera was replaced in order to protect the decubitus ulcer dressing and further skin breakdown. Ultimately this patient may just be incontinent and so foloey will be able to be removed since he was able to void without catheterization. Condom catheter would also be an option. (7) Fever SNOMED Code(s): 933446326 Code(s): R50.9 - FEVER, UNSPECIFIED Status: Acute Current Visit: Yes Annotation/Comment:: With the spike in temperature overnight and normal white count, chest x-ray yesterday which did not show any infiltrate, UA which did not show an infection, wound which is appropriately treated, I ordered a DVT study to rule out DVT as cause of fever. See below. (8) DVT (deep venous thrombosis) SNOMED Code(s): 753993989 Code(s): I82.409 - ACUTE EMBOLISM AND THOMBOS UNSP DEEP VN UNSP LOWER EXTREMITY Status: Acute Current Visit: Yes Annotation/Comment:: Because of the patient's ongoing fevers at night I ordered a DVT study and it was positive in the right lower extremity for DVT. Discussed with Dr. Hough. We'll going to get a CTA to see if there is any evidence of pulmonary embolus with a great enough clot burden that the patient would need intervention. Ordered full anticoagulation. - Problem List Review Problem List Initiated/Reviewed/Updated: Yes - My Orders Last 24 Hours: My Active Orders 10/17/17 12:00 Zinc Sulfate [Zincate] 220 mg PO DAILY@1200 10/18/17 06:25 RETIC AUTOMATED WITHOUT IRF [REF] Routine 10/18/17 07:11 CULTURE URINE [RM] Routine UA W/MICROSCOPIC [URIN] Routine 10/18/17 07:14 Communication Order [RC] QSHIFT 10/18/17 09:00 Furosemide [Lasix] 40 mg PO DAILY 10/18/17 10:00 ARIPiprazole [Abilify] 2 mg PO DAILY 10/19/17 05:00 FERRITIN [REF] Routine IRON AND IRON BINDING CAPACITY [REF] Routine
[2017-10-18] MEDS: Levofloxacin 500 MG Tab PO SCH (10:40)
[2017-10-18] MEDS: Enoxaparin 40 MG/0.4 ML Syringe SUBCUT SCH ×2 (10:41→19:14)
--- NOTE | 2017-10-18 10:50 | PCM.SURGPN ---
- General Info Date of Service: 10/18/17 - Review of Systems General: Reports: Fever, Malaise Pulmonary: Reports: No Symptoms Cardiovascular: Reports: No Symptoms Gastrointestinal: Reports: No Symptoms - Patient Data Vitals - Most Recent: Last Vital Signs Temp 36.1 C 10/18/17 06:30 Pulse 87 10/17/17 20:00 Resp 24 H 10/18/17 06:30 BP 121/77 10/18/17 04:05 Pulse Ox 96 10/18/17 06:30 Weight - Most Recent: 143.335 kg I&O - Last 24 Hours: Intake & Output 10/17/17 10/18/17 10/18/17 22:59 06:59 14:59 Intake Total 125 Output Total 400 Balance -275 Lab Results Last 24 Hrs: Laboratory Results - last 24 hr 10/17/17 10/18/17 10/18/17 Range/Units 17:21 06:25 06:25 WBC 9.5 (4.5-12.0) X10-3/uL RBC 6.10 H (4.30-5.75) x10(6)uL Hgb 12.4 (11.5-15.5) g/dL Hct 39.2 (30.0-51.3) % MCV 64.3 L (80-96) fL MCH 20.3 L (27.7-33.6) pg MCHC 31.6 L (32.2-35.4) g/dL RDW 14.3 (11.5-15.5) % Plt Count 534 H (125-369) X10(3)uL MPV 7.9 (7.4-10.4) fL Neut % (Auto) 78.1 (46-82) % Lymph % (Auto) 15.1 (13-37) % [place] % (Auto) 6.5 (4-12) % Eos % (Auto) 0 L (1.0-5.0) % Baso % (Auto) 0 (0-2) % Neut # (Auto) 7.5 (1.6-8.3) # Lymph # (Auto) 1.4 (0.6-5.0) # [place] # (Auto) 0.6 (0.0-1.3) # Eos # (Auto) 0.0 (0.0-0.8) # Baso # (Auto) 0.0 (0.0-0.2) # Sodium 137 (135-145) mmol/L Potassium 3.8 (3.5-5.3) mmol/L Chloride 99 L D (100-110) mmol/L Carbon Dioxide 28 (21-32) mmol/L BUN 18 (7-18) mg/dL Creatinine 1.1 (0.70-1.30) mg/dL Est Cr Clr Drug Dosing 77.84 mL/min Estimated GFR (MDRD) > 60 (>60) BUN/Creatinine Ratio 16.4 (9-20) Glucose 121 H (80-116) mg/dL Calcium 8.5 L (8.6-10.2) mg/dL Urine Color Yellow (YELLOW) Urine Appearance Clear (CLEAR) Urine pH 7.0 H (5.0-6.5) Ur Specific [place] 1.005 L (1.010-1.025) Urine Protein Negative (NEGATIVE) mg/dL Urine Glucose (UA) Normal (NEGATIVE) mg/dL Urine Ketones Negative (NEGATIVE) mg/dL Urine Occult Blood Negative (NEGATIVE) Urine Nitrite Negative (NEGATIVE) Urine Bilirubin Negative (NEGATIVE) Urine Urobilinogen 8 H (NEGATIVE) mg/dL Ur Leukocyte Esterase Negative (NEGATIVE) Urine RBC 0-5 (0) Urine WBC 0-5 (0) Ur Squamous Epith Cells Few H (NS,R,O) Urine Bacteria Few H (NS) Urine Mucus Few H (NS) 10/18/18 Range/Units 10:28 WBC (4.5-12.0) X10-3/uL RBC (4.30-5.75) x10(6)uL Hgb (11.5-15.5) g/dL Hct (30.0-51.3) % MCV (80-96) fL MCH (27.7-33.6) pg MCHC (32.2-35.4) g/dL RDW (11.5-15.5) % Plt Count (125-369) X10(3)uL MPV (7.4-10.4) fL Neut % (Auto) (46-82) % Lymph % (Auto) (13-37) % [place] % (Auto) (4-12) % Eos % (Auto) (1.0-5.0) % Baso % (Auto) (0-2) % Neut # (Auto) (1.6-8.3) # Lymph # (Auto) (0.6-5.0) # [place] # (Auto) (0.0-1.3) # Eos # (Auto) (0.0-0.8) # Baso # (Auto) (0.0-0.2) # Sodium (135-145) mmol/L Potassium (3.5-5.3) mmol/L Chloride (100-110) mmol/L Carbon Dioxide (21-32) mmol/L BUN (7-18) mg/dL Creatinine (0.70-1.30) mg/dL Est Cr Clr Drug Dosing mL/min Estimated GFR (MDRD) (>60) BUN/Creatinine Ratio (9-20) Glucose (80-116) mg/dL Calcium (8.6-10.2) mg/dL Urine Color Yellow (YELLOW) Urine Appearance Slightly cloudy (CLEAR) Urine pH 5.0 (5.0-6.5) Ur Specific [place] 1.020 (1.010-1.025) Urine Protein Negative (NEGATIVE) mg/dL Urine Glucose (UA) Normal (NEGATIVE) mg/dL Urine Ketones Negative (NEGATIVE) mg/dL Urine Occult Blood Moderate H (NEGATIVE) Urine Nitrite Negative (NEGATIVE) Urine Bilirubin Negative (NEGATIVE) Urine Urobilinogen 4 H (NEGATIVE) mg/dL Ur Leukocyte Esterase Negative (NEGATIVE) Urine RBC 10-20 H (0) Urine WBC 0-5 (0) Ur Squamous Epith Cells Occasional (NS,R,O) Urine Bacteria Rare H (NS) Urine Mucus (NS) Jean-Pierre Results Last 24 Hrs: Microbiology 10/14/17 10:56 Gram Stain - Final Buttock, Right Routine Culture - Preliminary Med Orders - Current: Current Medications Acetaminophen (Tylenol) 650 mg PO Q6H PRN PRN Reason: Fever Last Admin: 10/18/17 09:02 Dose: 650 mg Aripiprazole (Abilify) 2 mg PO DAILY [facility] Last Admin: 10/18/17 10:41 Dose: 2 mg Ascorbic Acid (Vitamin C) 500 mg PO DAILY [facility] Last Admin: 10/18/17 08:31 Dose: 500 mg Atorvastatin Calcium (Lipitor) 40 mg PO BEDTIME [facility] Last Admin: 10/17/17 21:16 Dose: 40 mg Baclofen (Lioresal) 10 mg PO TID [facility] Last Admin: 10/18/17 08:30 Dose: 10 mg Bupropion HCl (Wellbutrin Xl) 300 mg PO DAILY [facility] Last Admin: 10/18/17 08:30 Dose: 300 mg Duloxetine HCl (Cymbalta) 60 mg PO DAILY [facility] Last Admin: 10/18/17 08:30 Dose: 60 mg Enoxaparin Sodium (Lovenox) 40 mg SUBCUT Q12H [facility] Last Admin: 10/18/17 10:41 Dose: 40 mg Furosemide (Lasix) 40 mg PO DAILY [facility] Last Admin: 10/18/17 09:02 Dose: 40 mg Levofloxacin (Levaquin) 500 mg PO Q24H [facility] Last Admin: 10/18/17 10:40 Dose: 500 mg Ondansetron HCl (Zofran Odt) 4 mg PO Q6H PRN PRN Reason: nausea, able to take PO Sodium Chloride (Saline Flush) 10 ml FLUSH ASDIRECTED PRN PRN Reason: Keep Vein Open Last Admin: 10/17/17 19:08 Dose: 10 ml Zinc Sulfate (Zincate) 220 mg PO DAILY@1200 [facility] Last Admin: 10/17/17 12:36 Dose: 220 mg Discontinued Medications Furosemide (Lasix) 40 mg PO DAILY [facility] Last Admin: 10/14/17 08:24 Dose: Not Given Furosemide (Lasix) 20 mg PO DAILY [facility] Last Admin: 10/17/17 08:47 Dose: 20 mg Furosemide (Lasix) 40 mg IVPUSH NOW ONE Stop: 10/17/17 17:46 Last Admin: 10/17/17 19:05 Dose: 40 mg Levofloxacin/Dextrose 500 mg/ (Premix) 100 mls @ 100 mls/hr IV Q24H [facility] Last Admin: 10/15/17 19:42 Dose: 100 mls/hr Metronidazole 500 mg/ Premix 100 mls @ 100 mls/hr IV Q8H [facility] Last Admin: 10/16/17 04:15 Dose: 100 mls/hr Vancomycin HCl 500 mg/ Sodium (Chloride) 250 mls @ 166.667 mls/hr IV Q24H [facility] Last Admin: 10/15/17 23:56 Dose: Not Given Vancomycin HCl 1,750 mg/ (Sodium Chloride) 500 mls @ 250 mls/hr IV Q18H [facility] Last Admin: 10/14/17 00:27 Dose: 250 mls/hr Lactated Ringer's (Ringers, Lactated) 1,000 mls @ 125 mls/hr IV ASDIRECTED [facility] Last Admin: 10/15/17 00:56 Dose: 125 mls/hr Vancomycin HCl 1,000 mg/Vancomycin HCl 750 mg/ Sodium Chloride 500 mls @ 250 mls/hr IV Q18H [facility] Last Admin: 10/14/17 16:38 Dose: 250 mls/hr Vancomycin HCl 1,000 mg/Vancomycin HCl 750 mg/ Sodium Chloride 500 mls @ 250 mls/hr IV Q12H [facility] Last Admin: 10/15/17 22:51 Dose: 250 mls/hr Tamsulosin HCl (Flomax) 0.4 mg PO ONETIME ONE Stop: 10/13/17 18:55 Last Admin: 10/13/17 20:19 Dose: 0.4 mg Vancomycin HCl (Vancomycin) Confirm Administered Dose 1,000 mg .ROUTE .STK-MED ONE Stop: 10/13/17 23:39 Last Admin: 10/14/17 00:33 Dose: Not Given Vancomycin HCl (Pharmacy To Dose - Vancomycin) 1 dose .XX ASDIRECTED [facility] Zinc Sulfate (Zincate) 220 mg PO DAILY [place] - Exam Wound/Incisions: Other (wound vac in place ) General: Alert, Cooperative Lungs: Clear to Auscultation, Normal Respiratory Effort Cardiovascular: Regular Rate, Regular Rhythm GI/Abdominal Exam: Normal Bowel Sounds, Soft, Non-Tender - Problem List & Annotations (1) Decubitus skin ulcer SNOMED Code(s): 412421736 Code(s): L89.90 - PRESSURE ULCER OF UNSPECIFIED SITE, UNSPECIFIED STAGE Status: Acute Current Visit: Yes Annotation/Comment:: POD#3 after debridement. Wound culture grew Streptococcus galactaie sensitive to Levaquin. Patient may require further debridement. Qualifiers: Pressure ulcer location: buttock Pressure ulcer stage: stage 3 Laterality : right Qualified Code(s): L89.313 - Pressure ulcer of right buttock, stage 3 - Problem List Review Problem List Initiated/Reviewed/Updated: Yes - My Orders Last 24 Hours: Active Orders 24 hr Category Date Time Status Communication Order [RC] QSHIFT Care 10/18/17 07:14 Active VL Duplex Lwr Ext Veins Ltd Lt [US] Routine Exams 10/18/17 10:35 Ordered VL Duplex Lwr Ext Veins Ltd Rt [US] Routine Exams 10/18/17 10:35 Ordered CULTURE URINE [RM] Routine Lab 10/18/17 10:28 Received FERRITIN [REF] Routine Lab 10/19/17 05:00 Ordered IRON AND IRON BINDING CAPACITY [REF] Routine Lab 10/19/17 05:00 Ordered RETIC AUTOMATED WITHOUT IRF [REF] Routine Lab 10/18/17 06:25 Received ARIPiprazole [Abilify] Med 10/18/17 10:00 Active 2 mg PO DAILY Furosemide [Lasix] Med 10/18/17 09:00 Active 40 mg PO DAILY Zinc Sulfate [Zincate] Med 10/17/17 12:00 Active 220 mg PO DAILY@1200 Medication Orders Acetaminophen (Tylenol) 650 mg PO Q6H PRN PRN Reason: Fever Last Admin: 10/18/17 09:02 Dose: 650 mg Admin: 10/18/17 02:48 Dose: 650 mg Admin: 10/17/17 19:24 Dose: 650 mg Admin: 10/16/17 20:08 Dose: 650 mg Aripiprazole (Abilify) 2 mg PO DAILY [facility] Last Admin: 10/18/17 10:41 Dose: 2 mg Ascorbic Acid (Vitamin C) 500 mg PO DAILY [facility] Last Admin: 10/18/17 08:31 Dose: 500 mg Admin: 10/17/17 08:47 Dose: 500 mg Atorvastatin Calcium (Lipitor) 40 mg PO BEDTIME [facility] Last Admin: 10/17/17 21:16 Dose: 40 mg Admin: 10/16/17 20:09 Dose: 40 mg Admin: 10/15/17 20:59 Dose: 40 mg Admin: 10/14/17 21:46 Dose: 40 mg Admin: 10/13/17 23:05 Dose: 40 mg Baclofen (Lioresal) 10 mg PO TID [facility] Last Admin: 10/18/17 08:30 Dose: 10 mg Admin: 10/17/17 21:16 Dose: 10 mg Admin: 10/17/17 14:52 Dose: 10 mg Admin: 10/17/17 08:45 Dose: 10 mg Admin: 10/16/17 20:09 Dose: 10 mg Admin: 10/16/17 14:37 Dose: 10 mg Admin: 10/16/17 08:44 Dose: 10 mg Admin: 10/15/17 20:58 Dose: 10 mg Admin: 10/15/17 14:14 Dose: 10 mg Admin: 10/15/17 09:23 Dose: 10 mg Admin: 10/14/17 21:46 Dose: 10 mg Admin: 10/14/17 14:22 Dose: Not Given Admin: 10/14/17 08:25 Dose: Admin: 10/13/17 23:05 Dose: 10 mg Bupropion HCl (Wellbutrin Xl) 300 mg PO DAILY [facility] Last Admin: 10/18/17 08:30 Dose: 300 mg Admin: 10/17/17 08:45 Dose: 300 mg Admin: 10/16/17 08:44 Dose: 300 mg Admin: 10/15/17 09:23 Dose: 300 mg Admin: 10/14/17 08:25 Dose: Admin: 10/13/17 20:20 Dose: Duloxetine HCl (Cymbalta) 60 mg PO DAILY [facility] Last Admin: 10/18/17 08:30 Dose: 60 mg Admin: 10/17/17 08:45 Dose: 60 mg Admin: 10/16/17 08:43 Dose: 60 mg Admin: 10/15/17 09:23 Dose: 60 mg Admin: 10/14/17 08:24 Dose: Admin: 10/13/17 20:20 Dose: Enoxaparin Sodium (Lovenox) 40 mg SUBCUT Q12H [facility] Last Admin: 10/18/17 10:41 Dose: 40 mg Admin: 10/17/17 21:16 Dose: 40 mg Admin: 10/17/17 10:16 Dose: 40 mg Admin: 10/16/17 21:40 Dose: 40 mg Admin: 10/16/17 10:58 Dose: 40 mg Admin: 10/15/17 21:04 Dose: 40 mg Admin: 10/15/17 10:47 Dose: 40 mg Furosemide (Lasix) 40 mg PO DAILY [facility] Last Admin: 10/18/17 09:02 Dose: 40 mg Levofloxacin (Levaquin) 500 mg PO Q24H [facility] Last Admin: 10/18/17 10:40 Dose: 500 mg Admin: 10/17/17 10:16 Dose: 500 mg Admin: 03/18/18 10:58 Dose: 500 mg Ondansetron HCl (Zofran Odt) 4 mg PO Q6H PRN PRN Reason: nausea, able to take PO Sodium Chloride (Saline Flush) 10 ml FLUSH ASDIRECTED PRN PRN Reason: Keep Vein Open Last Admin: 10/17/17 19:08 Dose: 10 ml Admin: 10/16/17 04:17 Dose: 10 ml Admin: 10/16/17 00:57 Dose: 10 ml Admin: 10/15/17 22:50 Dose: 10 ml Admin: 10/15/17 22:00 Dose: 10 ml Admin: 10/15/17 20:53 Dose: 10 ml Admin: 10/15/17 19:42 Dose: 10 ml Admin: 10/14/17 05:33 Dose: 10 ml Admin: 10/14/17 02:31 Dose: 10 ml Admin: 10/14/17 00:00 Dose: 10 ml Admin: 10/13/17 23:05 Dose: 10 ml Zinc Sulfate (Zincate) 220 mg PO DAILY@1200 [place] Last Admin: 10/17/17 12:36 Dose: 220 mg - Assessment Assessment (Free Text/Narrative):: fevers most likely due to atelectasis. appreciate hospitalist assistance with management. - Plan Plan (Free Text/Narrative):: will reassess wound in am for need for further debridement.
[2017-10-18] MEDS: Zinc Sulfate 220 MG Cap PO SCH (12:42)
--- NOTE | 2017-10-18 14:52 | US ---
INDICATION: Fevers post-op. DUPLEX ULTRASOUND, LEFT LOWER EXTREMITY VEINS: Utilizing 2-D real time, duplex Doppler spectral analysis, and color flow imaging, examination of the left lower extremity veins revealed no evidence of deep venous thrombosis or obstruction. Compression views showed no abnormal lack of compression to suggest thrombosis. Valvular competence was not able to be obtained. IMPRESSION: Duplex ultrasound, left lower extremity veins, shows no evidence of deep venous thrombosis. DUPLEX ULTRASOUND, RIGHT LOWER EXTREMITY VEINS: Utilizing 2-D real time, duplex Doppler spectral analysis, and color flow imaging, examination of the right lower extremity veins revealed incompressible popliteal and posterior tibial veins, with suggestion of some very minimal flow within them. This is compatible with almost complete acute, not chronic, obstructive deep venous thrombosis in the popliteal and posterior tibial veins. The remainder of the deep venous structures was normal in appearance. Saphenous to the knee was patent also. IMPRESSION: Acute Deep venous thrombosis popliteal vein through the posterior tibial vein. Report was called to Dr. Ireland at 1434 hours, 10/18/2017. [place]
[2017-10-18] MEDS ORDERED: Iopamidol 755 Mg/ML 100 ML Bottle IV ONE (16:18)
[2017-10-18] MEDS: Enoxaparin 100 MG/1 ML Syringe SUBCUT SCH (19:26)
[2017-10-18] MEDS: Meropenem 1 GM in Sodium Chloride 0.9% 100 ML IV SCH (19:37)
[2017-10-18] MEDS: Sodium Chloride 0.9% 10 ML Syringe FLUSH PRN ×2 (19:41→20:20)
[2017-10-18] MEDS: atorvaSTATin 40 MG Tab PO SCH (20:24)
[2017-10-19] MEDS: Meropenem 1 GM in Sodium Chloride 0.9% 100 ML IV SCH ×2 (03:17→10:59)
[2017-10-19] MEDS: Sodium Chloride 0.9% 10 ML Syringe FLUSH PRN (03:20)
[2017-10-19] MEDS: Enoxaparin 40 MG/0.4 ML Syringe SUBCUT SCH (06:29)
[2017-10-19] MEDS: Enoxaparin 100 MG/1 ML Syringe SUBCUT SCH (06:29)
--- NOTE | 2017-10-19 08:59 | CONS ---
DATE OF CONSULTATION: 10/18/2017 IDENTIFICATION DATA: The patient is a 67-year-old male who was admitted to the inpatient medical unit at [facility] in [place], [place], secondary to decubitus ulcers on October 13, 2017. He is seen for psychiatric evaluation. CHIEF COMPLAINT: "Medical problems". HISTORY OF PRESENT ILLNESS: The patient is a 67-year-old male who was admitted for severe decubitus ulcers on his buttocks on October 13, 2017 from his assisted living facility in [place], [place]. The staff has been concerned that the patient has been having issues with possible dementia and they are wanting to see if the patient is able to go back to his assisted living facility or will he need a higher level of care such as usp placement when he is medically stabilized. On interviewing the patient, he has denied that he is depressed stating, "I am a happy person." He denies any suicidal or homicidal ideations. He denies any psychotic delusions or paranoid symptoms. He denies any problems with his memory, but he is alert and oriented x1 only for person. He is not able to state how old he is, what city he is in, or what the date is. He denies any illicit substance use or excessive alcohol use, complicating his clinical picture. He does feel that the medications he is taking for his mental health issues have helped him. He does not feel they need adjusting at this point in time when asked about these medications. MEDICATIONS: At the time of presentation: 1. Wellbutrin XL 300 mg q.a.m. 2. Cymbalta 60 mg q.a.m. 3. Oral Levaquin which had been switched from IV Levaquin for treatment of his decubitus ulcers. ALLERGIES: Procaine. PAST MEDICAL HISTORY: 1. Decubitus ulcer. 2. Status post stroke in the past. REVIEW OF SYSTEMS: Aside from musculoskeletal and neuro, all other major organ systems are negative at this point in time for acute difficulties or complications. FAMILY PSYCHIATRIC AND CD HISTORY: The patient denied. PAST PSYCHIATRIC AND CD HISTORY: Positive for depression. The patient is denying any previous psychiatric hospitalizations or chemical dependency treatments. He denies any excessive alcohol use or illicit substance use in the past. He states he is a nontobacco user. SOCIAL HISTORY: The patient was born in [place], [place], raised in the [place] area. He is the oldest of 2 siblings, had 1 younger sister. The patient's parents were throughout his childhood and adolescence. Father was a chapin, mother was a homemaker that worked in a local drug store. The patient highest level of education is trade school. 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 He has been x2, x2. He has "4 children maybe." It is unclear whether he has any meaningful relationship with his children at this point in time as he does not really articulate on that and is affirmative or negative when asked. He has most recently been living in [place], [place] in an assisted living facility. He states that he is in a relationship, but that his girlfriend is "down in [place]" at the moment. He denies any prior service, reports no legal difficulties. He states he was raised [facility], and he enjoys hunting and fishing. MENTAL STATUS EXAM: The patient is a 67-year-old white male in no apparent distress. Speech is of increased latency of response and shortened duration of utterance. There are no abnormal motor movements or tics. His gait and station are not observed as the patient is lying in bed during the interview. The patient is cognitively oriented x1 to person, but not the place and time. Mood is "good". Affect is cooperative overall for the purposes of the inpatient consult. There is no behavioral or stated evidence of acute suicidal or homicidal ideation or acute psychotic delusions or paranoid symptoms. Thought processes are significant for some thought blocking, possible dementia processes. There is no acute manic symptoms or loose associations evident. Judgement and insight appear impaired secondary to likely dementia process. Motivation throughout is fair to poor. IMPRESSION: [place] I: 1. Major depressive disorder, F32. 2. Suspected dementia, not otherwise specified, F03.90. 3. Rule out pseudo-dementia. 4. Rule out cognitive changes secondary to stroke. [place] II: None. [place] III: 1. Decubitus ulcer. 2. Status post stroke in the past. [place] IV: Severe. [place] V: 50. PLAN: 1. I would recommend possibly increasing the patient's Cymbalta from 60 mg to 90 mg q.a.m. to see if that will help with the patient's mood and cognition although this is at the discretion of the patient's medical staff. This patient does not appear overly depressed at this point in time. It is not entirely clear if the increase in Cymbalta would actually improve the patient's cognitive state, but it is worth a try if staff feel it is worthwhile. 2. Continue Wellbutrin XL 300 mg q.a.m. The possibility also exists to increase this medication if staff feels it is warranted although with past history of stroke, it might be better to continue this medication as currently dosed and prescribed. 3. May also begin a low dose trial of Abilify 2 mg q am to augment patient's current antidepressant medication regimen, and possibly provide enhanced clarity of thought and mood stability for the patient 4. I would recommend that OT Services be engaged to assess the patient for ADLs and to see if the patient can function independently if inpatient staff is looking to find usp placement for this patient. 5. Other medications as dosed and prescribed by the patient's inpatient medical treatment team. 6. We will continue to follow up with the patient on a regular basis as needed while he remains on the inpatient medical unit at [facility]. 7. We will follow up with the patient sooner if there are any complications in the interim. 8. Crisis plan is in place. /[id number] TYRESE/SUSAN BOYLE
[2017-10-19] MEDS: DULoxetine 60 MG Cap PO SCH (09:44)
[2017-10-19] MEDS: Furosemide 40 MG Tab PO SCH (09:45)
[2017-10-19] MEDS: buPROPion 150 MG Tab.ER PO SCH (09:45)
[2017-10-19] MEDS: Levofloxacin 500 MG Tab PO SCH (09:45)
[2017-10-19] MEDS: Ascorbic Acid 500 MG Tab PO SCH (09:45)
[2017-10-19] MEDS: Baclofen 10 MG Tab PO SCH ×3 (09:45→21:18)
--- NOTE | 2017-10-19 09:47 | CT ---
INDICATION: DVT by ultrasound, question pulmonary emboli with shortness of breath. COMPUTERIZED TOMOGRAPHY ANGIOGRAPHY OF THE CHEST FOR PULMONARY ARTERIES: Spiral 1.25-mm axial sections were obtained through the chest with 85-mL Isovue- 370 at 3 mL per second, with sagittal and coronal reconstructions. No comparison study was available. Total Exam DLP = 806.57 mGy-cm. Consolidating infiltration is noted in the right upper lobe with some extension into the right lower lobe from the apical superior segment through the posterior basilar segment, becoming less prominent at the posterior basilar segment. Findings may be on the basis of pneumonia. The left lung and both pleural spaces appeared relatively normal, with minimal basilar fibrosis at the left lower lobe. No definite mediastinal mass is identified. There are calcifications noted in the aorta. Coronary artery calcifications are suggested. The heart did not appear enlarged. The right adrenal gland was unremarkable. The left was unremarkable, as partly visualized - not fully included. There appears to be some renal cortical scarring on the small portion of the right kidney included on the study. There is an appearance suggesting a pulmonary embolus in a third order pulmonary artery extending into the anterior left upper lobe. No other filling defects suspicious for pulmonary emboli were identified. Detail of the arteries is slightly limited. IMPRESSION: 1. Extensive infiltration in the right upper lobe with extension of the infiltration into the right lower lobe. Significant degree of consolidation of the infiltrate is noted in the right upper lobe - densely consolidated. This infiltration is most likely on the basis of pneumonia, but should be correlated clinically. 2. What appears to be a single pulmonary embolus is noted in a third order left upper lobe pulmonary artery. 3. ASHD. Report was called to Dr. Mariel Espinoza at 1733 hours, 10/18/2017. MTDD
--- NOTE | 2017-10-19 09:57 | PCM.SURGPN ---
- General Info Date of Service: 10/19/17 POD#: 5 Functional Status: Reports: Pain Controlled, Tolerating Diet - Review of Systems Pulmonary: Reports: No Symptoms, Other (On ct scan noted to have a consolidation cw pneumonia. was started on wider antibiotics to cover. ) Cardiovascular: Reports: No Symptoms ( ) - Patient Data Vitals - Most Recent: Last Vital Signs Temp 36.9 C 10/19/17 07:19 Pulse 86 10/19/17 07:19 Resp 24 H 10/19/17 07:19 BP 106/62 10/19/17 07:19 Pulse Ox 92 L 10/19/17 08:37 Weight - Most Recent: 143.335 kg I&O - Last 24 Hours: Intake & Output 10/18/17 10/19/17 10/19/17 22:59 06:59 14:59 Intake Total 50 Output Total 450 400 Balance -450 -350 Lab Results Last 24 Hrs: Laboratory Results - last 24 hr 10/18/17 10/19/17 10/19/17 Range/Units 10:28 06:30 06:30 WBC 7.7 (4.5-12.0) X10-3/uL RBC 5.40 (4.30-5.75) x10(6)uL Hgb 11.1 L (11.5-15.5) g/dL Hct 34.8 (30.0-51.3) % MCV 64.4 L (80-96) fL MCH 20.5 L (27.7-33.6) pg MCHC 31.8 L (32.2-35.4) g/dL RDW 14.1 (11.5-15.5) % Plt Count 456 H (125-369) X10(3)uL MPV 8.2 (7.4-10.4) fL Add Manual Diff Yes Sodium 135 (135-145) mmol/L Potassium 3.6 (3.5-5.3) mmol/L Chloride 99 L (100-110) mmol/L Carbon Dioxide 27 (21-32) mmol/L BUN 17 (7-18) mg/dL Creatinine 0.9 (0.70-1.30) mg/dL Est Cr Clr Drug Dosing 95.14 mL/min Estimated GFR (MDRD) > 60 (>60) BUN/Creatinine Ratio 18.9 (9-20) Glucose 101 (80-116) mg/dL Calcium 8.0 L (8.6-10.2) mg/dL Urine Color Yellow (YELLOW) Urine Appearance Slightly cloudy (CLEAR) Urine pH 5.0 (5.0-6.5) Ur Specific Casey 1.020 (1.010-1.025) Urine Protein Negative (NEGATIVE) mg/dL Urine Glucose (UA) Normal (NEGATIVE) mg/dL Urine Ketones Negative (NEGATIVE) mg/dL Urine Occult Blood Moderate H (NEGATIVE) Urine Nitrite Negative (NEGATIVE) Urine Bilirubin Negative (NEGATIVE) Urine Urobilinogen 4 H (NEGATIVE) mg/dL Ur Leukocyte Esterase Negative (NEGATIVE) Urine RBC 10-20 H (0) Urine WBC 0-5 (0) Ur Squamous Epith Cells Occasional (NS,R,O) Urine Bacteria Rare H (NS) Med Orders - Current: Current Medications Acetaminophen (Tylenol) 650 mg PO Q6H PRN PRN Reason: Fever Last Admin: 10/18/17 09:02 Dose: 650 mg Aripiprazole (Abilify) 2 mg PO DAILY [facility] Last Admin: 10/19/17 09:44 Dose: 2 mg Ascorbic Acid (Vitamin C) 500 mg PO DAILY [facility] Last Admin: 10/19/17 09:45 Dose: 500 mg Atorvastatin Calcium (Lipitor) 40 mg PO BEDTIME [facility] Last Admin: 10/18/17 20:24 Dose: 40 mg Baclofen (Lioresal) 10 mg PO TID [facility] Last Admin: 10/19/17 09:45 Dose: 10 mg Bupropion HCl (Wellbutrin Xl) 300 mg PO DAILY [facility] Last Admin: 10/19/17 09:45 Dose: 300 mg Duloxetine HCl (Cymbalta) 60 mg PO DAILY [facility] Last Admin: 10/19/17 09:44 Dose: 60 mg Enoxaparin Sodium (Lovenox) 40 mg SUBCUT Q12H [facility] Last Admin: 10/19/17 06:29 Dose: 40 mg Enoxaparin Sodium (Lovenox) 100 mg SUBCUT Q12H [facility] Last Admin: 10/19/17 06:29 Dose: 100 mg Furosemide (Lasix) 40 mg PO DAILY [facility] Last Admin: 10/19/17 09:45 Dose: 40 mg Meropenem 1 gm/ Sodium (Chloride) 100 mls @ 200 mls/hr IV Q8H [facility] Last Admin: 10/19/17 03:17 Dose: 200 mls/hr Levofloxacin (Levaquin) 500 mg PO Q24H [facility] Last Admin: 10/19/17 09:45 Dose: 500 mg Ondansetron HCl (Zofran Odt) 4 mg PO Q6H PRN PRN Reason: nausea, able to take PO Sodium Chloride (Saline Flush) 10 ml FLUSH ASDIRECTED PRN PRN Reason: Keep Vein Open Last Admin: 10/19/17 03:20 Dose: 10 ml Zinc Sulfate (Zincate) 220 mg PO DAILY@1200 [facility] Last Admin: 10/18/17 12:42 Dose: 220 mg Discontinued Medications Enoxaparin Sodium (Lovenox) 40 mg SUBCUT Q12H [facility] Last Admin: 10/18/17 10:41 Dose: 40 mg Furosemide (Lasix) 40 mg PO DAILY [facility] Last Admin: 10/14/17 08:24 Dose: Not Given Furosemide (Lasix) 20 mg PO DAILY [facility] Last Admin: 10/17/17 08:47 Dose: 20 mg Furosemide (Lasix) 40 mg IVPUSH NOW ONE Stop: 10/17/17 17:46 Last Admin: 10/17/17 19:05 Dose: 40 mg Levofloxacin/Dextrose 500 mg/ (Premix) 100 mls @ 100 mls/hr IV Q24H [facility] Last Admin: 10/15/17 19:42 Dose: 100 mls/hr Metronidazole 500 mg/ Premix 100 mls @ 100 mls/hr IV Q8H [facility] Last Admin: 10/16/17 04:15 Dose: 100 mls/hr Vancomycin HCl 500 mg/ Sodium (Chloride) 250 mls @ 166.667 mls/hr IV Q24H [facility] Last Admin: 10/15/17 23:56 Dose: Not Given Vancomycin HCl 1,750 mg/ (Sodium Chloride) 500 mls @ 250 mls/hr IV Q18H [facility] Last Admin: 10/14/17 00:27 Dose: 250 mls/hr Lactated Ringer's (Ringers, Lactated) 1,000 mls @ 125 mls/hr IV ASDIRECTED [facility] Last Admin: 10/15/17 00:56 Dose: 125 mls/hr Vancomycin HCl 1,000 mg/Vancomycin HCl 750 mg/ Sodium Chloride 500 mls @ 250 mls/hr IV Q18H [facility] Last Admin: 10/14/17 16:38 Dose: 250 mls/hr Vancomycin HCl 1,000 mg/Vancomycin HCl 750 mg/ Sodium Chloride 500 mls @ 250 mls/hr IV Q12H [facility] Last Admin: 10/15/17 22:51 Dose: 250 mls/hr Iopamidol (Isovue-370 (76%)) 100 ml IV ONETIME ONE Stop: 10/18/17 16:19 Last Admin: 10/18/17 16:32 Dose: 85 ml Tamsulosin HCl (Flomax) 0.4 mg PO ONETIME ONE Stop: 10/13/17 18:55 Last Admin: 10/13/17 20:19 Dose: 0.4 mg Vancomycin HCl (Vancomycin) Confirm Administered Dose 1,000 mg .ROUTE .STK-MED ONE Stop: 10/13/17 23:39 Last Admin: 10/14/17 00:33 Dose: Not Given Vancomycin HCl (Pharmacy To Dose - Vancomycin) 1 dose .XX ASDIRECTED [facility] Zinc Sulfate (Zincate) 220 mg PO DAILY [facility] - Exam Wound/Incisions: Other (no sig changes still with a area muscle that may require debridment will reasses on Tuesday. ) Lungs: Decreased Breath Sounds Cardiovascular: Regular Rate, Regular Rhythm GI/Abdominal Exam: Normal Bowel Sounds Skin: Warm, Dry, Intact - Problem List & Annotations (1) Decubitus skin ulcer SNOMED Code(s): 514943165 Code(s): L89.90 - PRESSURE ULCER OF UNSPECIFIED SITE, UNSPECIFIED STAGE Status: Acute Current Visit: Yes Annotation/Comment:: POD#4 after debridement. Wound culture grew Streptococcus galactaie sensitive to Levaquin. Patient may require further debridement. Wound vac and frequent repositioning. Qualifiers: Pressure ulcer location: buttock Pressure ulcer stage: stage 3 Laterality : right Qualified Code(s): L89.313 - Pressure ulcer of right buttock, stage 3 - Problem List Review Problem List Initiated/Reviewed/Updated: Yes - My Orders Last 24 Hours: Active Orders 24 hr Category Date Time Status CBC WITH AUTO DIFF [HEME] Stat Lab 10/19/17 06:30 Results CULTURE URINE [RM] Routine Lab 10/18/17 10:28 Received FERRITIN [REF] Routine Lab 10/19/17 06:30 Received IRON AND IRON BINDING CAPACITY [REF] Routine Lab 10/19/17 06:30 Received ARIPiprazole [Abilify] Med 10/18/17 10:00 Active 2 mg PO DAILY Enoxaparin [Lovenox] Med 10/18/17 18:00 Active 100 mg SUBCUT Q12H Enoxaparin [Lovenox] Med 10/18/17 18:00 Active 40 mg SUBCUT Q12H Furosemide [Lasix] Med 10/18/17 09:00 Active 40 mg PO DAILY Meropenem [Merrem] 1 gm Med 10/18/17 19:00 Active Sodium Chloride 0.9% [Normal Saline] 100 ml IV Q8H Medication Orders Acetaminophen (Tylenol) 650 mg PO Q6H PRN PRN Reason: Fever Last Admin: 10/18/17 09:02 Dose: 650 mg Admin: 10/18/17 02:48 Dose: 650 mg Admin: 10/17/17 19:24 Dose: 650 mg Admin: 10/16/17 20:08 Dose: 650 mg Aripiprazole (Abilify) 2 mg PO DAILY [facility] Last Admin: 10/19/17 09:44 Dose: 2 mg Admin: 10/18/17 10:41 Dose: 2 mg Ascorbic Acid (Vitamin C) 500 mg PO DAILY [facility] Last Admin: 10/19/17 09:45 Dose: 500 mg Admin: 10/18/17 08:31 Dose: 500 mg Admin: 10/17/17 08:47 Dose: 500 mg Atorvastatin Calcium (Lipitor) 40 mg PO BEDTIME [facility] Last Admin: 10/18/17 20:24 Dose: 40 mg Admin: 10/17/17 21:16 Dose: 40 mg Admin: 10/16/17 20:09 Dose: 40 mg Admin: 10/15/17 20:59 Dose: 40 mg Admin: 10/14/17 21:46 Dose: 40 mg Admin: 10/13/17 23:05 Dose: 40 mg Baclofen (Lioresal) 10 mg PO TID [facility] Last Admin: 10/19/17 09:45 Dose: 10 mg Admin: 10/18/17 20:24 Dose: 10 mg Admin: 10/18/17 14:39 Dose: 10 mg Admin: 10/18/17 08:30 Dose: 10 mg Admin: 10/17/17 21:16 Dose: 10 mg Admin: 10/17/17 14:52 Dose: 10 mg Admin: 10/17/17 08:45 Dose: 10 mg Admin: 10/16/17 20:09 Dose: 10 mg Admin: 10/16/17 14:37 Dose: 10 mg Admin: 10/16/17 08:44 Dose: 10 mg Admin: 10/15/17 20:58 Dose: 10 mg Admin: 10/15/17 14:14 Dose: 10 mg Admin: 10/15/17 09:23 Dose: 10 mg Admin: 10/14/17 21:46 Dose: 10 mg Admin: 10/14/17 14:22 Dose: Not Given Admin: 10/14/17 08:25 Dose: Admin: 10/13/17 23:05 Dose: 10 mg Bupropion HCl (Wellbutrin Xl) 300 mg PO DAILY [facility] Last Admin: 10/19/17 09:45 Dose: 300 mg Admin: 10/18/17 08:30 Dose: 300 mg Admin: 10/17/17 08:45 Dose: 300 mg Admin: 10/16/17 08:44 Dose: 300 mg Admin: 10/15/17 09:23 Dose: 300 mg Admin: 10/14/17 08:25 Dose: Admin: 10/13/17 20:20 Dose: Duloxetine HCl (Cymbalta) 60 mg PO DAILY [facility] Last Admin: 10/19/17 09:44 Dose: 60 mg Admin: 10/18/17 08:30 Dose: 60 mg Admin: 10/17/17 08:45 Dose: 60 mg Admin: 10/16/17 08:43 Dose: 60 mg Admin: 10/15/17 09:23 Dose: 60 mg Admin: 10/14/17 08:24 Dose: Admin: 10/13/17 20:20 Dose: Enoxaparin Sodium (Lovenox) 40 mg SUBCUT Q12H [facility] Last Admin: 10/19/17 06:29 Dose: 40 mg Admin: 10/18/17 19:14 Dose: 40 mg Enoxaparin Sodium (Lovenox) 100 mg SUBCUT Q12H [facility] Last Admin: 10/19/17 06:29 Dose: 100 mg Admin: 10/18/17 19:26 Dose: 100 mg Furosemide (Lasix) 40 mg PO DAILY [facility] Last Admin: 10/19/17 09:45 Dose: 40 mg Admin: 10/18/17 09:02 Dose: 40 mg Meropenem 1 gm/ Sodium (Chloride) 100 mls @ 200 mls/hr IV Q8H [facility] Last Admin: 10/19/17 03:17 Dose: 200 mls/hr Admin: 10/18/17 19:37 Dose: 200 mls/hr Levofloxacin (Levaquin) 500 mg PO Q24H [facility] Last Admin: 10/19/17 09:45 Dose: 500 mg Admin: 10/18/17 10:40 Dose: 500 mg Admin: 10/17/17 10:16 Dose: 500 mg Admin: 10/16/17 10:58 Dose: 500 mg Ondansetron HCl (Zofran Odt) 4 mg PO Q6H PRN PRN Reason: nausea, able to take PO Sodium Chloride (Saline Flush) 10 ml FLUSH ASDIRECTED PRN PRN Reason: Keep Vein Open Last Admin: 10/19/17 03:20 Dose: 10 ml Admin: 10/18/17 20:20 Dose: 10 ml Admin: 10/18/17 19:41 Dose: 10 ml Admin: 10/17/17 19:08 Dose: 10 ml Admin: 10/16/17 04:17 Dose: 10 ml Admin: 10/16/17 00:57 Dose: 10 ml Admin: 10/15/17 22:50 Dose: 10 ml Admin: 10/15/17 22:00 Dose: 10 ml Admin: 10/15/17 20:53 Dose: 10 ml Admin: 10/15/17 19:42 Dose: 10 ml Admin: 10/14/17 05:33 Dose: 10 ml Admin: 10/14/17 02:31 Dose: 10 ml Admin: 10/14/17 00:00 Dose: 10 ml Admin: 10/13/17 23:05 Dose: 10 ml Zinc Sulfate (Zincate) 220 mg PO DAILY@1200 [facility] Last Admin: 10/18/17 12:42 Dose: 220 mg Admin: 10/17/17 12:36 Dose: 220 mg - Assessment Assessment (Free Text/Narrative):: decubitus ulcer healing slowly may need further debridement - Plan Plan (Free Text/Narrative):: reassess wound on Tuesday. will transfer to hospitalist.
[2017-10-19] MEDS: Zinc Sulfate 220 MG Cap PO SCH (11:00)
[2017-10-19] MEDS ORDERED: Meropenem 1 GM SDV IV SCH (11:15)
--- NOTE | 2017-10-19 12:06 | PCM.PN ---
- General Info Date of Service: 10/19/17 Subjective Update: Patient is a 67-year-old male currently on hospital day #7, postoperative day # 5 for decubitus ulcer. The patient's primary reason for remaining in the hospital at this time is right upper lobe pneumonia with hypoxia and PE. CT scan yesterday was done after DVT was found in the right lower leg because the patient was having nocturnal fevers and hypoxia. The patient is now fully anticoagulated and was started on meropenem in addition to his Levaquin because he developed this pneumonia on Levaquin, vancomycin, and Flagyl. The patient seems to be doing much better today. He is more talkative and actually smiles and laughs a couple of times in the room. He tells me that the decubitus ulcer is starting to become a little uncomfortable which previously had not been causing him any pain. He's had no chest pain, does not feel short of breath. He' s had no nausea, no vomiting, no loose stools. He does tell me his appetite is still quite diminished but taking the liquids has been fine and we are going to increase his protein in his liquids to be 100% of his calculated protein needs so that he can eat really for calories. - Patient Data Vitals - Most Recent: Last Vital Signs Temp 36.9 C 10/19/17 07:19 Pulse 86 10/19/17 07:19 Resp 24 H 10/19/17 07:19 BP 106/62 10/19/17 07:19 Pulse Ox 92 L 10/19/17 08:37 Weight - Most Recent: 143.335 kg I&O - Last 24 Hours: Intake & Output 10/18/17 10/19/17 10/19/17 22:59 06:59 14:59 Intake Total 50 360 Output Total 450 400 Balance -450 -350 360 Lab Results Last 24 Hours: Laboratory Results - last 24 hr 10/19/17 10/19/17 10/19/17 Range/Units 06:30 06:30 06:30 WBC Cancelled 8.0 Corrected WBC Cancelled RBC Cancelled 5.59 Hgb Cancelled 11.2 L Hct Cancelled 36.5 MCV Cancelled 65.3 L MCH Cancelled 20.0 L MCHC Cancelled 30.6 L RDW Cancelled 14.3 Plt Count Cancelled 448 H MPV Cancelled 8.3 Neut % (Auto) Cancelled 62.3 Lymph % (Auto) Cancelled 26.6 Carlton % (Auto) Cancelled 9.0 Eos % (Auto) Cancelled 1 Baso % (Auto) Cancelled 1 Neut # (Auto) Cancelled 4.9 Lymph # (Auto) Cancelled 2.1 Carlton # (Auto) Cancelled 0.7 Eos # (Auto) Cancelled 0.1 Baso # (Auto) Cancelled 0.1 Add Manual Diff Cancelled Neutrophils % (Manual) Cancelled Band Neutrophils % Cancelled Lymphocytes % (Manual) Cancelled Atypical Lymphs % Cancelled Monocytes % (Manual) Cancelled Eosinophils % (Manual) Cancelled Basophils % (Manual) Cancelled Metamyelocytes % Cancelled Myelocytes % Cancelled Promyelocytes % Cancelled Blast Cells % Cancelled Nucleated RBCs Cancelled Differential Comment Cancelled Hypersegmented Neuts Cancelled Smudge Cells Cancelled Toxic Granulation Cancelled Dohle Bodies Cancelled Patrick Rods Cancelled WBC Morphology Comment Cancelled Platelet Estimate Cancelled Clumped Platelets Cancelled Giant Platelets Cancelled Plt Morphology Comment Cancelled Polychromasia Cancelled Hypochromasia Cancelled Poikilocytosis Cancelled Basophilic Stippling Cancelled Anisocytosis Cancelled Microcytosis Cancelled Macrocytosis Cancelled Spherocytes Cancelled Pappenheimer Bodies Cancelled Siderocytes Cancelled Sickle Cells Cancelled Target Cells Cancelled Tear Drop Cells Cancelled Ovalocytes Cancelled Stomatocytes Cancelled Helmet Cells Cancelled [place] Bodies Cancelled Scott Rings Cancelled Sirena Cells Cancelled Elliptocytes Cancelled Acanthocytes (Spur) Cancelled Rouleaux Cancelled Schistocytes Cancelled Sodium 135 (135-145) mmol/L Potassium 3.6 (3.5-5.3) mmol/L Chloride 99 L (100-110) mmol/L Carbon Dioxide 27 (21-32) mmol/L BUN 17 (7-18) mg/dL Creatinine 0.9 (0.70-1.30) mg/dL Est Cr Clr Drug Dosing 95.14 mL/min Estimated GFR (MDRD) > 60 (>60) BUN/Creatinine Ratio 18.9 (9-20) Glucose 101 (80-116) mg/dL Calcium 8.0 L (8.6-10.2) mg/dL Jean-Pierre Results Last 24 Hours: Microbiology 10/18/17 10:28 Urine Culture - Preliminary Urine, Catheterized No Growth Med Orders - Current: Current Medications Acetaminophen (Tylenol) 650 mg PO Q6H PRN PRN Reason: Fever Last Admin: 10/18/17 09:02 Dose: 650 mg Albuterol/Ipratropium (Duoneb 3.0-0.5 Mg/3 Ml) 3 ml NEB QIDRT [facility] Aripiprazole (Abilify) 2 mg PO DAILY [facility] Last Admin: 10/19/17 09:44 Dose: 2 mg Ascorbic Acid (Vitamin C) 500 mg PO DAILY [facility] Last Admin: 10/19/17 09:45 Dose: 500 mg Atorvastatin Calcium (Lipitor) 40 mg PO BEDTIME [facility] Last Admin: 10/18/17 20:24 Dose: 40 mg Baclofen (Lioresal) 10 mg PO TID [facility] Last Admin: 10/19/17 09:45 Dose: 10 mg Bupropion HCl (Wellbutrin Xl) 300 mg PO DAILY [facility] Last Admin: 10/19/17 09:45 Dose: 300 mg Duloxetine HCl (Cymbalta) 60 mg PO DAILY [facility] Last Admin: 10/19/17 09:44 Dose: 60 mg Enoxaparin Sodium (Lovenox) 40 mg SUBCUT Q12H [facility] Last Admin: 10/19/17 06:29 Dose: 40 mg Enoxaparin Sodium (Lovenox) 100 mg SUBCUT Q12H [facility] Last Admin: 10/19/17 06:29 Dose: 100 mg Furosemide (Lasix) 40 mg PO DAILY [facility] Last Admin: 10/19/17 09:45 Dose: 40 mg Meropenem 1 gm/ Sodium (Chloride) 100 mls @ 200 mls/hr IV Q8H [facility] Stop: 10/19/17 13:00 Last Admin: 10/19/17 10:59 Dose: 200 mls/hr Levofloxacin (Levaquin) 500 mg PO Q24H [facility] Last Admin: 10/19/17 09:45 Dose: 500 mg Meropenem (Merrem) 1 gm IV Q8H [facility] Ondansetron HCl (Zofran Odt) 4 mg PO Q6H PRN PRN Reason: nausea, able to take PO Sodium Chloride (Saline Flush) 10 ml FLUSH ASDIRECTED PRN PRN Reason: Keep Vein Open Last Admin: 10/19/17 03:20 Dose: 10 ml Zinc Sulfate (Zincate) 220 mg PO DAILY@1200 [facility] Last Admin: 10/19/17 11:00 Dose: 220 mg Discontinued Medications Enoxaparin Sodium (Lovenox) 40 mg SUBCUT Q12H [facility] Last Admin: 10/18/17 10:41 Dose: 40 mg Furosemide (Lasix) 40 mg PO DAILY [facility] Last Admin: 10/14/17 08:24 Dose: Not Given Furosemide (Lasix) 20 mg PO DAILY [facility] Last Admin: 10/17/17 08:47 Dose: 20 mg Furosemide (Lasix) 40 mg IVPUSH NOW ONE Stop: 10/17/17 17:46 Last Admin: 10/17/17 19:05 Dose: 40 mg Levofloxacin/Dextrose 500 mg/ (Premix) 100 mls @ 100 mls/hr IV Q24H [facility] Last Admin: 10/15/17 19:42 Dose: 100 mls/hr Metronidazole 500 mg/ Premix 100 mls @ 100 mls/hr IV Q8H [facility] Last Admin: 10/16/17 04:15 Dose: 100 mls/hr Vancomycin HCl 500 mg/ Sodium (Chloride) 250 mls @ 166.667 mls/hr IV Q24H [facility] Last Admin: 10/15/17 23:56 Dose: Not Given Vancomycin HCl 1,750 mg/ (Sodium Chloride) 500 mls @ 250 mls/hr IV Q18H [facility] Last Admin: 10/14/17 00:27 Dose: 250 mls/hr Lactated Ringer's (Ringers, Lactated) 1,000 mls @ 125 mls/hr IV ASDIRECTED [facility] Last Admin: 10/15/17 00:56 Dose: 125 mls/hr Vancomycin HCl 1,000 mg/Vancomycin HCl 750 mg/ Sodium Chloride 500 mls @ 250 mls/hr IV Q18H [facility] Last Admin: 10/14/17 16:38 Dose: 250 mls/hr Vancomycin HCl 1,000 mg/Vancomycin HCl 750 mg/ Sodium Chloride 500 mls @ 250 mls/hr IV Q12H [facility] Last Admin: 10/15/17 22:51 Dose: 250 mls/hr Iopamidol (Isovue-370 (76%)) 100 ml IV ONETIME ONE Stop: 10/18/17 16:19 Last Admin: 10/18/17 16:32 Dose: 85 ml Tamsulosin HCl (Flomax) 0.4 mg PO ONETIME ONE Stop: 10/13/17 18:55 Last Admin: 10/13/17 20:19 Dose: 0.4 mg Vancomycin HCl (Vancomycin) Confirm Administered Dose 1,000 mg .ROUTE .STK-MED ONE Stop: 10/13/17 23:39 Last Admin: 10/14/17 00:33 Dose: Not Given Vancomycin HCl (Pharmacy To Dose - Vancomycin) 1 dose .XX ASDIRECTED [facility] Zinc Sulfate (Zincate) 220 mg PO DAILY [facility] - Exam General: Alert, Oriented, Cooperative, No Acute Distress HEENT: Pupils Equal, Pupils Reactive Neck: Supple Lungs: Crackles (Crackles, rhonchi, most prominent on the right. Groans on the left. Diminished breath sounds throughout. No wheezing.) Cardiovascular: Regular Rate, Regular Rhythm, No Murmurs GI/Abdominal Exam: Normal Bowel Sounds, Soft, Non-Tender, No Distention Back Exam: Normal Inspection Extremities: Pedal Edema (Trace.) - Problem List & Annotations (1) Decubitus skin ulcer SNOMED Code(s): 880434429 Code(s): L89.90 - PRESSURE ULCER OF UNSPECIFIED SITE, UNSPECIFIED STAGE Status: Acute Current Visit: Yes Qualifiers: Pressure ulcer location: buttock Pressure ulcer stage: stage 3 Laterality : right Qualified Code(s): L89.313 - Pressure ulcer of right buttock, stage 3 Annotation/Comment:: POD#5 after debridement. Currently on Levaquin and wound VAC. There is an area of muscle that's dusky and may need to go back to the OR on Tuesday for debridement. If so, Lovenox will need to be held Tuesday a.m. and restarted Tuesday p.m. Patient continues on Levaquin day #7. (2) Multiple sclerosis SNOMED Code(s): 72706819 Code(s): G35 - MULTIPLE SCLEROSIS Status: Acute Current Visit: Yes Annotation/Comment:: Continue PT/OT to work on chair accommodations to offload this ulcer. manager technical services working on placement options. Q2hour repositioning. (3) Depression SNOMED Code(s): 00644562 Code(s): F32.9 - MAJOR DEPRESSIVE DISORDER, SINGLE EPISODE, UNSPECIFIED Status: Acute Current Visit: Yes Annotation/Comment:: Soofy started yesterday. Tolerating well. (4) Hypoalbuminemia SNOMED Code(s): 079899734 Code(s): E88.09 - OTH DISORDERS OF PLASMA-PROTEIN METABOLISM, NEC Status: Acute Current Visit: Yes Annotation/Comment:: Continue high protein diet and mineral supplements to aid in wound healing. (5) Need for surveillance due to prolonged bedrest SNOMED Code(s): 040304533 Code(s): Z51.89 - ENCOUNTER FOR OTHER SPECIFIED AFTERCARE Status: Acute Current Visit: Yes Annotation/Comment:: PT and OT working with the patient. Continue to work with mobility and frequent position changes. (6) Urinary incontinence SNOMED Code(s): 654848040 Code(s): R32 - UNSPECIFIED URINARY INCONTINENCE Status: Acute Current Visit: Yes Annotation/Comment:: Rivera catheter in place for accurate I/O and to protect wound. (7) Fever SNOMED Code(s): 794969168 Code(s): R50.9 - FEVER, UNSPECIFIED Status: Acute Current Visit: Yes Annotation/Comment:: Still had temperature spike last night, not as high, blood cultures not done. (8) DVT (deep venous thrombosis) SNOMED Code(s): 404956632 Code(s): I82.409 - ACUTE EMBOLISM AND THOMBOS UNSP DEEP VN UNSP LOWER EXTREMITY Status: Acute Current Visit: Yes Annotation/Comment:: with small PE. Provoked or old, difficult to say. Continue full anticoagulation. Ultimately patient will require coumadinization. (9) HCAP (healthcare-associated pneumonia) SNOMED Code(s): 552167019 Code(s): J18.9 - PNEUMONIA, UNSPECIFIED ORGANISM Status: Acute Current Visit: Yes Annotation/Comment:: Right upper lobe. Because this developed on Levaquin, Flagyl, and vancomycin, patient was started on meropenem for this. Tolerated well. Significant consolidation so have asked RT to work with pulmonary toilet. Currently on day #2 of meropenem therapy. (10) Thalassemia SNOMED Code(s): 51211676 Code(s): D56.9 - THALASSEMIA, UNSPECIFIED Status: Acute Current Visit: Yes Annotation/Comment:: I did check iron studies just to make sure that the patient's microcytosis is purely a thalassemia issue and not due to iron deficiency. These are pending. - Problem List Review Problem List Initiated/Reviewed/Updated: Yes - My Orders Last 24 Hours: My Active Orders 10/18/17 18:00 Enoxaparin [Lovenox] 100 mg SUBCUT Q12H 10/18/17 19:00 Meropenem [Merrem] 1 gm Sodium Chloride 0.9% [Normal Saline] 100 ml IV Q8H 10/19/17 06:30 FERRITIN [REF] Routine IRON AND IRON BINDING CAPACITY [REF] Routine 10/19/17 11:54 Communication Order [RC] STAT 10/19/17 11:55 RT Communication [RC] Click to Edit 10/19/17 11:56 RT Aerosol Therapy [RC] ASDIRECTED 10/19/17 11:57 Positioning, Patient [RC] ASDIRECTED 10/19/17 16:00 Albuterol/Ipratropium [DuoNeb 3.0-0.5 MG/3 ML] 3 ml NEB QIDRT 10/19/17 19:00 Meropenem [Merrem] 1 gm IV Q8H - Assessment Assessment:: Disposition: [facility] agreed to accept on discharge.
[2017-10-19] MEDS: Albuterol/Ipratropium 3.0-0.5 MG/3 ML Neb Soln NEB SCH ×2 (15:38→21:17)
[2017-10-19] MEDS: Enoxaparin 150 MG/1 ML Syringe SUBCUT SCH (18:49)
[2017-10-19] MEDS: Meropenem 1 GM SDV IV SCH (19:03)
[2017-10-19] MEDS: atorvaSTATin 40 MG Tab PO SCH (21:18)
[2017-10-20] MEDS: Meropenem 1 GM SDV IV SCH ×3 (03:31→19:02)
[2017-10-20] MEDS: Sodium Chloride 0.9% 10 ML Syringe FLUSH PRN (03:31)
[2017-10-20] MEDS: Enoxaparin 150 MG/1 ML Syringe SUBCUT SCH ×2 (05:32→19:00)
[2017-10-20] MEDS: Albuterol/Ipratropium 3.0-0.5 MG/3 ML Neb Soln NEB SCH ×4 (07:04→20:04)
[2017-10-20] MEDS: Acetaminophen 325 MG Tab PO PRN (07:41)
[2017-10-20] MEDS: DULoxetine 60 MG Cap PO SCH (09:01)
[2017-10-20] MEDS: Baclofen 10 MG Tab PO SCH ×3 (09:01→20:05)
[2017-10-20] MEDS: Ascorbic Acid 500 MG Tab PO SCH (09:01)
[2017-10-20] MEDS: Furosemide 40 MG Tab PO SCH (09:01)
[2017-10-20] MEDS: buPROPion 150 MG Tab.ER PO SCH (09:02)
--- NOTE | 2017-10-20 13:35 | PCM.PN ---
- General Info Date of Service: 10/20/17 Subjective Update: Patient is a 67-year-old male currently on hospital day #8, postoperative day #6 , with decubitus ulcer stage III, DVT with small PE, right upper lobe pneumonia with large consolidation, hypoalbuminemia. The patient also struggles with severe depression and Abilify was started this hospitalization and he seems to be improving. His mood is better today. He tells me he is feeling better than yesterday. Interacting more with staff. Denies chest pain, shortness of breath, nausea, vomiting, diarrhea. Mobility is improving. Spoke with Dr. Hough, now consulting surgeon and he is still considering whether or not the patient should go to the operating room in the morning for debridement of an area of muscle that looks dusky. He is tentatively on the schedule for tomorrow. Lovenox will need to be held for this. I spoke with Dr. Hatfield from [facility] this morning regarding the patient's complex situation and his recommendations were to rule out hypoventilation syndrome with a blood gas. If the patient's PCO2 was greater than 45 he would be a candidate for BiPAP. He recommended an echocardiogram to look at his LV function and rule out pulmonary hypertension secondary to clot. Based on his infiltrate which was quite large he felt the patient should have a total of 7 days meropenem and then repeat the CAT scan in 6-8 weeks to make sure the infiltrate is resolving and there is not a malignancy in this consolidation. - Patient Data Vitals - Most Recent: Last Vital Signs Temp 36.6 C 10/20/17 08:00 Pulse 71 10/20/17 12:00 Resp 20 10/20/17 12:00 BP 113/72 10/20/17 12:00 Pulse Ox 93 L 10/20/17 12:00 Weight - Most Recent: 140.614 kg I&O - Last 24 Hours: Intake & Output 10/19/17 10/20/17 10/20/17 22:59 06:59 14:59 Intake Total 300 50 440 Output Total 350 400 Balance -50 -350 440 Lab Results Last 24 Hours: Laboratory Results - last 24 hr 10/18/17 10/20/17 Range/Units 06:25 08:38 Reticulocyte % (Auto) 1.4 (0.4-2.7) % Absolute Retic 86 (16-123) K/uL ABG pH 7.49 H (7.35-7.45) ABG pCO2 38 (35-45) mmHg ABG pO2 72 L (83-108) mmHg ABG HCO3 29 H (22-26) mmol/L ABG O2 Saturation 96 (96-97) % ABG Base Excess 5.7 H (-2-2) Mikey Test Passed O2 Delivery Device Nasal cannula Jean-Pierre Results Last 24 Hours: Microbiology 10/18/17 10:28 Urine Culture - Final Urine, Catheterized No Growth 10/14/17 10:56 Gram Stain - Final Buttock, Right Routine Culture - Final Anaerobic Culture - Final Med Orders - Current: Current Medications Acetaminophen (Tylenol) 650 mg PO Q6H PRN PRN Reason: Fever Last Admin: 10/20/17 07:41 Dose: 650 mg Albuterol/Ipratropium (Duoneb 3.0-0.5 Mg/3 Ml) 3 ml NEB QIDRT [facility] Last Admin: 10/20/17 10:46 Dose: 3 ml Aripiprazole (Abilify) 2 mg PO DAILY [facility] Last Admin: 10/20/17 09:00 Dose: 2 mg Ascorbic Acid (Vitamin C) 500 mg PO DAILY [facility] Last Admin: 10/20/17 09:01 Dose: 500 mg Atorvastatin Calcium (Lipitor) 40 mg PO BEDTIME [facility] Last Admin: 10/19/17 21:18 Dose: 40 mg Baclofen (Lioresal) 10 mg PO TID [facility] Last Admin: 10/20/17 09:01 Dose: 10 mg Bupropion HCl (Wellbutrin Xl) 300 mg PO DAILY [facility] Last Admin: 10/20/17 09:02 Dose: 300 mg Duloxetine HCl (Cymbalta) 60 mg PO DAILY [facility] Last Admin: 10/20/17 09:01 Dose: 60 mg Enoxaparin Sodium (Lovenox) 140 mg SUBCUT Q12H [facility] Last Admin: 10/20/17 05:32 Dose: 140 mg Furosemide (Lasix) 40 mg PO DAILY [facility] Last Admin: 10/20/17 09:01 Dose: 40 mg Meropenem (Merrem) 1 gm IV Q8H [facility] Last Admin: 10/20/17 10:23 Dose: 1 gm Ondansetron HCl (Zofran Odt) 4 mg PO Q6H PRN PRN Reason: nausea, able to take PO Sodium Chloride (Saline Flush) 10 ml FLUSH ASDIRECTED PRN PRN Reason: Keep Vein Open Last Admin: 10/20/17 03:31 Dose: 10 ml Zinc Sulfate (Zincate) 220 mg PO DAILY@1200 [facility] Last Admin: 10/19/17 11:00 Dose: 220 mg Discontinued Medications Enoxaparin Sodium (Lovenox) 40 mg SUBCUT Q12H [facility] Last Admin: 10/18/17 10:41 Dose: 40 mg Enoxaparin Sodium (Lovenox) 40 mg SUBCUT Q12H [facility] Last Admin: 10/19/17 06:29 Dose: 40 mg Enoxaparin Sodium (Lovenox) 100 mg SUBCUT Q12H [facility] Last Admin: 10/19/17 06:29 Dose: 100 mg Furosemide (Lasix) 40 mg PO DAILY [facility] Last Admin: 10/14/17 08:24 Dose: Not Given Furosemide (Lasix) 20 mg PO DAILY [facility] Last Admin: 10/17/17 08:47 Dose: 20 mg Furosemide (Lasix) 40 mg IVPUSH NOW ONE Stop: 10/17/17 17:46 Last Admin: 10/17/17 19:05 Dose: 40 mg Levofloxacin/Dextrose 500 mg/ (Premix) 100 mls @ 100 mls/hr IV Q24H [facility] Last Admin: 10/15/17 19:42 Dose: 100 mls/hr Metronidazole 500 mg/ Premix 100 mls @ 100 mls/hr IV Q8H [facility] Last Admin: 10/16/17 04:15 Dose: 100 mls/hr Vancomycin HCl 500 mg/ Sodium (Chloride) 250 mls @ 166.667 mls/hr IV Q24H [facility] Last Admin: 10/15/17 23:56 Dose: Not Given Vancomycin HCl 1,750 mg/ (Sodium Chloride) 500 mls @ 250 mls/hr IV Q18H [facility] Last Admin: 10/14/17 00:27 Dose: 250 mls/hr Lactated Ringer's (Ringers, Lactated) 1,000 mls @ 125 mls/hr IV ASDIRECTED [facility] Last Admin: 10/15/17 00:56 Dose: 125 mls/hr Vancomycin HCl 1,000 mg/Vancomycin HCl 750 mg/ Sodium Chloride 500 mls @ 250 mls/hr IV Q18H [facility] Last Admin: 10/14/17 16:38 Dose: 250 mls/hr Vancomycin HCl 1,000 mg/Vancomycin HCl 750 mg/ Sodium Chloride 500 mls @ 250 mls/hr IV Q12H [facility] Last Admin: 10/15/17 22:51 Dose: 250 mls/hr Meropenem 1 gm/ Sodium (Chloride) 100 mls @ 200 mls/hr IV Q8H [facility] Stop: 10/19/17 13:00 Last Admin: 10/19/17 10:59 Dose: 200 mls/hr Iopamidol (Isovue-370 (76%)) 100 ml IV ONETIME ONE Stop: 10/18/17 16:19 Last Admin: 10/18/17 16:32 Dose: 85 ml Levofloxacin (Levaquin) 500 mg PO Q24H [facility] Last Admin: 10/19/17 09:45 Dose: 500 mg Tamsulosin HCl (Flomax) 0.4 mg PO ONETIME ONE Stop: 10/13/17 18:55 Last Admin: 10/13/17 20:19 Dose: 0.4 mg Vancomycin HCl (Vancomycin) Confirm Administered Dose 1,000 mg .ROUTE .STK-MED ONE Stop: 10/13/17 23:39 Last Admin: 10/14/17 00:33 Dose: Not Given Vancomycin HCl (Pharmacy To Dose - Vancomycin) 1 dose .XX ASDIRECTED [facility] Zinc Sulfate (Zincate) 220 mg PO DAILY [facility] - Exam Quality Assessment: Supplemental Oxygen, Urine Catheter, Skin Breakdown General: Alert, Cooperative, No Acute Distress HEENT: Pupils Equal, Pupils Reactive Neck: Supple Lungs: Clear to Auscultation, Normal Respiratory Effort (Lungs are much clearer to auscultation today with just some fine crackles on the right upper lobe. No rhonchi, no wheezing, good air movement.) Cardiovascular: Regular Rate, Regular Rhythm, No Murmurs GI/Abdominal Exam: Normal Bowel Sounds, Soft, Non-Tender, No Distention Back Exam: Normal Inspection (On antibiotics the patient has a wound VAC over the right decubitus ulcer and he has a small linear abrasion on the upper portion of the right buttock.) Extremities: Pedal Edema (Trace pedal edema. Symmetric bilaterally.) Psy/Mental Status: Alert, Depressed (Patient's affect is still flat but he is much more talkative than he has been in the past.) - Problem List & Annotations (1) HCAP (healthcare-associated pneumonia) SNOMED Code(s): 108475302 Code(s): J18.9 - PNEUMONIA, UNSPECIFIED ORGANISM Status: Acute Current Visit: Yes Annotation/Comment:: Right upper lobe. Because this developed on Levaquin, Flagyl, and vancomycin, patient was started on meropenem for this at 7 PM on 10/18. Tolerated well. RT working with pulmonary toilet. Patient started to have some sputum so have asked for RT to get an induced sputum sample to see if we can get ID on this. Currently on day #3 of meropenem therapy. Per pulmonary's recommendations, 7 total days of therapy and repeat CT scan in 6-8 weeks. (2) Decubitus skin ulcer SNOMED Code(s): 880739331 Code(s): L89.90 - PRESSURE ULCER OF UNSPECIFIED SITE, UNSPECIFIED STAGE Status: Acute Current Visit: Yes Qualifiers: Pressure ulcer location: buttock Pressure ulcer stage: stage 3 Laterality : right Qualified Code(s): L89.313 - Pressure ulcer of right buttock, stage 3 Annotation/Comment:: POD#6 after debridement. Levaquin stopped yesterday after 7 days and wound VAC continued. There is an area of muscle that's dusky and may need to go back to the OR tomorrow for debridement. If so, Lovenox will need to be held Tuesday a.m. and restarted Tuesday p.m. (3) DVT (deep venous thrombosis) SNOMED Code(s): 402493417 Code(s): I82.409 - ACUTE EMBOLISM AND THOMBOS UNSP DEEP VN UNSP LOWER EXTREMITY Status: Acute Current Visit: Yes Annotation/Comment:: with small PE. Likely chronic as per US looked like organized clot and there was a small mount of tunneling through the clot, would recommend as long as patient remains minimally active and nonambulatory he should remain on lifetime anticoagulation. (4) Depression SNOMED Code(s): 75699448 Code(s): F32.9 - MAJOR DEPRESSIVE DISORDER, SINGLE EPISODE, UNSPECIFIED Status: Acute Current Visit: Yes Annotation/Comment:: Abilify started 10/18. Tolerating well. (5) Multiple sclerosis SNOMED Code(s): 21549791 Code(s): G35 - MULTIPLE SCLEROSIS Status: Acute Current Visit: Yes Annotation/Comment:: Continue PT/OT to work on chair accommodations to offload this ulcer. clinical services assistant working on placement options. Q2hour repositioning. (6) Hypoalbuminemia SNOMED Code(s): 337746332 Code(s): E88.09 - OTH DISORDERS OF PLASMA-PROTEIN METABOLISM, NEC Status: Acute Current Visit: Yes Annotation/Comment:: Continue high protein diet and mineral supplements to aid in wound healing. (7) Need for surveillance due to prolonged bedrest SNOMED Code(s): 652488598 Code(s): Z51.89 - ENCOUNTER FOR OTHER SPECIFIED AFTERCARE Status: Acute Current Visit: Yes Annotation/Comment:: PT and OT working with the patient. Continue to work with mobility and frequent position changes. (8) Urinary incontinence SNOMED Code(s): 682695116 Code(s): R32 - UNSPECIFIED URINARY INCONTINENCE Status: Acute Current Visit: Yes Annotation/Comment:: Rivera catheter in place for accurate I/O and to protect wound. (9) Fever SNOMED Code(s): 004419932 Code(s): R50.9 - FEVER, UNSPECIFIED Status: Acute Current Visit: Yes Annotation/Comment:: No fever spike last night. (10) Thalassemia SNOMED Code(s): 01901009 Code(s): D56.9 - THALASSEMIA, UNSPECIFIED Status: Acute Current Visit: Yes Annotation/Comment:: I did check iron studies just to make sure that the patient's microcytosis is purely a thalassemia issue and not due to iron deficiency. These are pending. (11) Morbid obesity with alveolar hypoventilation SNOMED Code(s): 038155371 Code(s): E66.2 - MORBID (SEVERE) OBESITY WITH ALVEOLAR HYPOVENTILATION Status: Acute Current Visit: Yes Annotation/Comment:: ABGs show a PCO2 of 38 during the day. We could recheck this before the patient gets up in the morning to the chair to see if he has hypoventilation syndrome. He still very highly suspect for this diagnosis. - Problem List Review Problem List Initiated/Reviewed/Updated: Yes - My Orders Last 24 Hours: My Active Orders 10/19/17 16:00 Albuterol/Ipratropium [DuoNeb 3.0-0.5 MG/3 ML] 3 ml NEB QIDRT 10/19/17 18:00 Enoxaparin [Lovenox] 140 mg SUBCUT Q12H 10/19/17 19:00 Meropenem [Merrem] 1 gm IV Q8H 10/20/17 13:22 RT Sputum Induction [RC] Click to Edit CULTURE SPUTUM + SMEAR [RM] Routine 10/21/17 05:11 CBC WITH AUTO DIFF [HEME] AM COMPREHENSIVE METABOLIC PN,CMP [CHEM] AM 10/21/17 08:21 Echo Comp wo Cont [US] Timed - Assessment Assessment:: [place] [facility] [facility] [place] their [place] given the patient's long-term need for wound VAC.
[2017-10-20] MEDS: Zinc Sulfate 220 MG Cap PO SCH (13:46)
[2017-10-20 16:55] LABS: UNSATURATED IRON BIND CAPACITY 111 ug/dL (112-347)
[2017-10-20] MEDS: atorvaSTATin 40 MG Tab PO SCH (20:05)
[2017-10-21] MEDS: Meropenem 1 GM SDV IV SCH ×3 (03:03→18:47)
[2017-10-21] MEDS: Sodium Chloride 0.9% 10 ML Syringe FLUSH PRN ×3 (03:03→18:51)
[2017-10-21] MEDS: Albuterol/Ipratropium 3.0-0.5 MG/3 ML Neb Soln NEB SCH ×5 (07:26→21:00)
--- NOTE | 2017-10-21 09:24 | PCM.PN ---
- General Info Date of Service: 10/21/17 Subjective Update: The vertebral 67-year-old male admitted for decubitus ulcer, depression, and diagnosed pneumonia and PE. He slept well overnight he has no complaints except mild pain around the wound VAC. He has no chest pain neither does have shortness of breath. - Review of Systems Gastrointestinal: Reports: No Symptoms Genitourinary: Reports: No Symptoms Musculoskeletal: Reports: No Symptoms - Patient Data Vitals - Most Recent: Last Vital Signs Temp 97.7 F 10/21/17 04:00 Pulse 76 10/21/17 07:30 Resp 20 10/21/17 04:00 BP 119/74 10/21/17 04:00 Pulse Ox 90 L 10/21/17 07:30 Weight - Most Recent: 141.43 kg I&O - Last 24 Hours: Intake & Output 10/20/17 10/21/17 10/21/17 22:59 06:59 14:59 Intake Total 673 Output Total 400 600 Balance 273 -600 Lab Results Last 24 Hours: Laboratory Results - last 24 hr 10/19/17 10/19/17 10/21/17 Range/Units 06:30 06:30 06:07 WBC 8.3 (4.5-12.0) X10-3/uL RBC 5.76 H (4.30-5.75) x10(6)uL Hgb 11.6 (11.5-15.5) g/dL Hct 37.7 (30.0-51.3) % MCV 65.4 L (80-96) fL MCH 20.1 L (27.7-33.6) pg MCHC 30.8 L (32.2-35.4) g/dL RDW 14.7 (11.5-15.5) % Plt Count 536 H (125-369) X10(3)uL MPV 7.8 (7.4-10.4) fL Neut % (Auto) 55.3 (46-82) % Lymph % (Auto) 32.2 (13-37) % Lucas % (Auto) 7.8 (4-12) % Eos % (Auto) 4 (1.0-5.0) % Baso % (Auto) 1 (0-2) % Neut # (Auto) 4.6 (1.6-8.3) # Lymph # (Auto) 2.7 (0.6-5.0) # Lucas # (Auto) 0.6 (0.0-1.3) # Eos # (Auto) 0.3 (0.0-0.8) # Baso # (Auto) 0.1 (0.0-0.2) # Sodium (135-145) mmol/L Potassium (3.5-5.3) mmol/L Chloride (100-110) mmol/L Carbon Dioxide (21-32) mmol/L BUN (7-18) mg/dL Creatinine (0.70-1.30) mg/dL Est Cr Clr Drug Dosing mL/min Estimated GFR (MDRD) (>60) BUN/Creatinine Ratio (9-20) Glucose (80-116) mg/dL Calcium (8.6-10.2) mg/dL Iron 20 L (45-190) ug/dL TIBC 131 L (157-537) ug/dL Iron Saturation 15 (15-55) % Unsaturated IBC 111 L (112-347) ug/dL Ferritin 1566 H (11-450) ng/mL Total Bilirubin (0.1-1.3) mg/dL AST (5-25) IU/L ALT (12-36) U/L Alkaline Phosphatase (56-112) IU/L Total Protein (6.0-8.0) g/dL Albumin (3.2-4.6) g/dL Globulin g/dL Albumin/Globulin Ratio //18 Range/Units 06:07 WBC (4.5-12.0) X10-3/uL RBC (4.30-5.75) x10(6)uL Hgb (11.5-15.5) g/dL Hct (30.0-51.3) % MCV (80-96) fL MCH (27.7-33.6) pg MCHC (32.2-35.4) g/dL RDW (11.5-15.5) % Plt Count (125-369) X10(3)uL MPV (7.4-10.4) fL Neut % (Auto) (46-82) % Lymph % (Auto) (13-37) % Lucas % (Auto) (4-12) % Eos % (Auto) (1.0-5.0) % Baso % (Auto) (0-2) % Neut # (Auto) (1.6-8.3) # Lymph # (Auto) (0.6-5.0) # Lucas # (Auto) (0.0-1.3) # Eos # (Auto) (0.0-0.8) # Baso # (Auto) (0.0-0.2) # Sodium 139 (135-145) mmol/L Potassium 3.8 (3.5-5.3) mmol/L Chloride 102 (100-110) mmol/L Carbon Dioxide 31 (21-32) mmol/L BUN 17 (7-18) mg/dL Creatinine 0.8 (0.70-1.30) mg/dL Est Cr Clr Drug Dosing 107.03 mL/min Estimated GFR (MDRD) > 60 (>60) BUN/Creatinine Ratio 21.3 H (9-20) Glucose 94 (80-116) mg/dL Calcium 8.2 L (8.6-10.2) mg/dL Iron (45-190) ug/dL TIBC (157-537) ug/dL Iron Saturation (15-55) % Unsaturated IBC (112-347) ug/dL Ferritin (11-450) ng/mL Total Bilirubin 0.4 (0.1-1.3) mg/dL AST 110 H D (5-25) IU/L ALT 81 H D (12-36) U/L Alkaline Phosphatase 133 H (56-112) IU/L Total Protein 6.5 (6.0-8.0) g/dL Albumin 2.0 L (3.2-4.6) g/dL Globulin 4.5 g/dL Albumin/Globulin Ratio 0.4 Jean-Pierre Results Last 24 Hours: Microbiology 10/18/17 10:28 Urine Culture - Final Urine, Catheterized No Growth Med Orders - Current: Current Medications Acetaminophen (Tylenol) 650 mg PO Q6H PRN PRN Reason: Fever Last Admin: 10/20/17 07:41 Dose: 650 mg Albuterol/Ipratropium (Duoneb 3.0-0.5 Mg/3 Ml) 3 ml NEB QIDRT [facility] Last Admin: 10/21/17 07:26 Dose: 3 ml Aripiprazole (Abilify) 2 mg PO DAILY [facility] Last Admin: 10/20/17 09:00 Dose: 2 mg Ascorbic Acid (Vitamin C) 500 mg PO DAILY [facility] Last Admin: 10/20/17 09:01 Dose: 500 mg Atorvastatin Calcium (Lipitor) 40 mg PO BEDTIME [facility] Last Admin: 10/20/17 20:05 Dose: 40 mg Baclofen (Lioresal) 10 mg PO TID [facility] Last Admin: 10/20/17 20:05 Dose: 10 mg Bupropion HCl (Wellbutrin Xl) 300 mg PO DAILY [facility] Last Admin: 10/20/17 09:02 Dose: 300 mg Duloxetine HCl (Cymbalta) 60 mg PO DAILY [facility] Last Admin: 10/20/17 09:01 Dose: 60 mg Enoxaparin Sodium (Lovenox) 140 mg SUBCUT Q12H [facility] Last Admin: 10/20/17 19:00 Dose: 140 mg Furosemide (Lasix) 40 mg PO DAILY [facility] Last Admin: 10/20/17 09:01 Dose: 40 mg Meropenem (Merrem) 1 gm IV Q8H [facility] Last Admin: 10/21/17 03:03 Dose: 1 gm Ondansetron HCl (Zofran Odt) 4 mg PO Q6H PRN PRN Reason: nausea, able to take PO Sodium Chloride (Saline Flush) 10 ml FLUSH ASDIRECTED PRN PRN Reason: Keep Vein Open Last Admin: 10/21/17 03:03 Dose: 10 ml Zinc Sulfate (Zincate) 220 mg PO DAILY@1200 [facility] Last Admin: 10/20/17 13:46 Dose: 220 mg Discontinued Medications Enoxaparin Sodium (Lovenox) 40 mg SUBCUT Q12H [facility] Last Admin: 10/18/17 10:41 Dose: 40 mg Enoxaparin Sodium (Lovenox) 40 mg SUBCUT Q12H [facility] Last Admin: 10/19/17 06:29 Dose: 40 mg Enoxaparin Sodium (Lovenox) 100 mg SUBCUT Q12H [facility] Last Admin: 10/19/17 06:29 Dose: 100 mg Furosemide (Lasix) 40 mg PO DAILY [facility] Last Admin: 10/14/17 08:24 Dose: Not Given Furosemide (Lasix) 20 mg PO DAILY [facility] Last Admin: 10/17/17 08:47 Dose: 20 mg Furosemide (Lasix) 40 mg IVPUSH NOW ONE Stop: 10/17/17 17:46 Last Admin: 10/17/17 19:05 Dose: 40 mg Levofloxacin/Dextrose 500 mg/ (Premix) 100 mls @ 100 mls/hr IV Q24H [facility] Last Admin: 10/15/17 19:42 Dose: 100 mls/hr Metronidazole 500 mg/ Premix 100 mls @ 100 mls/hr IV Q8H [facility] Last Admin: 10/16/17 04:15 Dose: 100 mls/hr Vancomycin HCl 500 mg/ Sodium (Chloride) 250 mls @ 166.667 mls/hr IV Q24H [facility] Last Admin: 10/15/17 23:56 Dose: Not Given Vancomycin HCl 1,750 mg/ (Sodium Chloride) 500 mls @ 250 mls/hr IV Q18H [facility] Last Admin: 10/14/17 00:27 Dose: 250 mls/hr Lactated Ringer's (Ringers, Lactated) 1,000 mls @ 125 mls/hr IV ASDIRECTED [facility] Last Admin: 10/15/17 00:56 Dose: 125 mls/hr Vancomycin HCl 1,000 mg/Vancomycin HCl 750 mg/ Sodium Chloride 500 mls @ 250 mls/hr IV Q18H [facility] Last Admin: 10/14/17 16:38 Dose: 250 mls/hr Vancomycin HCl 1,000 mg/Vancomycin HCl 750 mg/ Sodium Chloride 500 mls @ 250 mls/hr IV Q12H [facility] Last Admin: 10/15/17 22:51 Dose: 250 mls/hr Meropenem 1 gm/ Sodium (Chloride) 100 mls @ 200 mls/hr IV Q8H [facility] Stop: 10/19/17 13:00 Last Admin: 10/19/17 10:59 Dose: 200 mls/hr Iopamidol (Isovue-370 (76%)) 100 ml IV ONETIME ONE Stop: 10/18/17 16:19 Last Admin: 10/18/17 16:32 Dose: 85 ml Levofloxacin (Levaquin) 500 mg PO Q24H [facility] Last Admin: 10/19/17 09:45 Dose: 500 mg Tamsulosin HCl (Flomax) 0.4 mg PO ONETIME ONE Stop: 10/13/17 18:55 Last Admin: 10/13/17 20:19 Dose: 0.4 mg Vancomycin HCl (Vancomycin) Confirm Administered Dose 1,000 mg .ROUTE .STK-MED ONE Stop: 10/13/17 23:39 Last Admin: 10/14/17 00:33 Dose: Not Given Vancomycin HCl (Pharmacy To Dose - Vancomycin) 1 dose .XX ASDIRECTED [facility] Zinc Sulfate (Zincate) 220 mg PO DAILY [facility] - Exam Quality Assessment: Supplemental Oxygen General: Alert, Oriented HEENT: Pupils Equal Neck: Supple Lungs: Clear to Auscultation, Decreased Breath Sounds GI/Abdominal Exam: Normal Bowel Sounds Psy/Mental Status: Alert, Depressed. No: Hallucinations, Withdrawal Symptoms - Problem List & Annotations (1) Pulmonary emboli SNOMED Code(s): 90022805 Code(s): I26.99 - OTHER PULMONARY EMBOLISM WITHOUT ACUTE COR PULMONALE Status: Acute Current Visit: Yes Qualifiers: Pulmonary embolism type: other (2) DVT (deep venous thrombosis) SNOMED Code(s): 239582846 Code(s): I82.409 - ACUTE EMBOLISM AND THOMBOS UNSP DEEP VN UNSP LOWER EXTREMITY Status: Acute Current Visit: Yes Annotation/Comment:: with small PE. Likely chronic as per US looked like organized clot and there was a small mount of tunneling through the clot, would recommend as long as patient remains minimally active and nonambulatory he should remain on lifetime anticoagulation. (3) Decubitus skin ulcer SNOMED Code(s): 667576834 Code(s): L89.90 - PRESSURE ULCER OF UNSPECIFIED SITE, UNSPECIFIED STAGE Status: Acute Current Visit: Yes Qualifiers: Pressure ulcer location: buttock Pressure ulcer stage: stage 3 Laterality : right Qualified Code(s): L89.313 - Pressure ulcer of right buttock, stage 3 (4) Depression SNOMED Code(s): 46747577 Code(s): F32.9 - MAJOR DEPRESSIVE DISORDER, SINGLE EPISODE, UNSPECIFIED Status: Acute Current Visit: Yes Qualifiers: Depression Type: major depressive disorder Psychotic features: without psychotic features Annotation/Comment:: Abilify started 10/18. Tolerating well. (5) HCAP (healthcare-associated pneumonia) SNOMED Code(s): 164796132 Code(s): J18.9 - PNEUMONIA, UNSPECIFIED ORGANISM Status: Acute Current Visit: Yes (6) Morbid obesity with alveolar hypoventilation SNOMED Code(s): 673079702 Code(s): E66.2 - MORBID (SEVERE) OBESITY WITH ALVEOLAR HYPOVENTILATION Status: Acute Current Visit: Yes Annotation/Comment:: ABGs show a PCO2 of 38 during the day. We could recheck this before the patient gets up in the morning to the chair to see if he has hypoventilation syndrome. He still very highly suspect for this diagnosis. (7) Multiple sclerosis SNOMED Code(s): 49541048 Code(s): G35 - MULTIPLE SCLEROSIS Status: Acute Current Visit: Yes Annotation/Comment:: Continue PT/OT to work on chair accommodations to offload this ulcer. procurement services manager working on placement options. Q2hour repositioning. - Problem List Review Problem List Initiated/Reviewed/Updated: Yes - Assessment Assessment:: Disposition: [facility] rescinded their acceptance given the patient's long-term need for wound VAC. - Plan Plan:: Continue current therapy. Antibiotic and Lovenox. Dr. Hough managing pressure ulcer. Long-term disposition pending
[2017-10-21] MEDS ORDERED: Propofol 200 MG/20 ML SDV IV ONE (10:45)
[2017-10-21] MEDS ORDERED: Midazolam 1 MG/ML 2 ML SDV IV ONE (10:45)
[2017-10-21] MEDS ORDERED: Lidocaine 2% with EPINEPHrine 1:200,000 20 ML SDV INFILT ONE (10:54)
--- NOTE | 2017-10-21 11:29 | PCM.OPNOTE ---
- General Post-Op/Procedure Note Date of Surgery/Procedure: 10/21/17 Operative Procedure(s): debridement of decubitus ulcer Findings: two more pus pockets found opened and debrided. packed open Pre Op Diagnosis: decubitus ulcer with necrosis Post-Op Diagnosis: Same Anesthesia Technique: Local (7 ml 1 % lidos), MAC Primary Surgeon: Salvador Hough Anesthesia Provider: Ayde Gonzalez Complications: None Condition: Good Free Text/Narrative:: Intake & Output 10/20/17 10/21/17 10/21/17 22:59 06:59 14:59 Intake Total 673 Output Total 400 600 Balance 273 -600 see dictation
[2017-10-21] MEDS: Baclofen 10 MG Tab PO SCH ×3 (11:47→20:14)
[2017-10-21] MEDS: Ascorbic Acid 500 MG Tab PO SCH (11:47)
[2017-10-21] MEDS: DULoxetine 60 MG Cap PO SCH (11:47)
[2017-10-21] MEDS: Furosemide 40 MG Tab PO SCH (11:47)
[2017-10-21] MEDS: buPROPion 150 MG Tab.ER PO SCH (11:47)
[2017-10-21] MEDS: Zinc Sulfate 220 MG Cap PO SCH (12:17)
[2017-10-21] MEDS: Enoxaparin 150 MG/1 ML Syringe SUBCUT SCH (18:47)
[2017-10-21] MEDS: atorvaSTATin 40 MG Tab PO SCH (20:13)
[2017-10-22] MEDS ORDERED: Acetaminophen 325 MG Tab PO PRN (00:13)
[2017-10-22] MEDS: Sodium Chloride 0.9% 10 ML Syringe FLUSH PRN ×3 (02:38→11:36)
[2017-10-22] MEDS: Meropenem 1 GM SDV IV SCH ×3 (02:38→20:33)
[2017-10-22] MEDS ORDERED: Morphine 2 MG/ML Syringe IVPUSH ONE (05:42)
[2017-10-22] MEDS ORDERED: Morphine 2 MG/ML Syringe ONE (05:42)
[2017-10-22] MEDS: Enoxaparin 150 MG/1 ML Syringe SUBCUT SCH (06:00)
--- NOTE | 2017-10-22 06:04 | PCM.SURGPN ---
- General Info Date of Service: 10/22/17 POD#: 1 Functional Status: Reports: Pain Controlled, Tolerating Diet, New Symptoms ( some bleeding from the wound ) - Review of Systems Pulmonary: Reports: No Symptoms Cardiovascular: Reports: No Symptoms Gastrointestinal: Reports: No Symptoms - Patient Data Vitals - Most Recent: Last Vital Signs Temp 36.7 C 10/22/17 00:00 Pulse 88 10/22/17 00:00 Resp 19 10/22/17 00:00 BP 100/60 10/22/17 00:00 Pulse Ox 92 L 10/22/17 00:00 Weight - Most Recent: 141.43 kg I&O - Last 24 Hours: Intake & Output 10/21/17 10/21/17 10/22/17 14:59 22:59 06:59 Intake Total 337 Output Total 700 350 Balance -700 -13 Lab Results Last 24 Hrs: Laboratory Results - last 24 hr 10/21/17 10/21/17 Range/Units 06:07 06:07 WBC 8.3 (4.5-12.0) X10-3/uL RBC 5.76 H (4.30-5.75) x10(6)uL Hgb 11.6 (11.5-15.5) g/dL Hct 37.7 (30.0-51.3) % MCV 65.4 L (80-96) fL MCH 20.1 L (27.7-33.6) pg MCHC 30.8 L (32.2-35.4) g/dL RDW 14.7 (11.5-15.5) % Plt Count 536 H (125-369) X10(3)uL MPV 7.8 (7.4-10.4) fL Neut % (Auto) 55.3 (46-82) % Lymph % (Auto) 32.2 (13-37) % Hart % (Auto) 7.8 (4-12) % Eos % (Auto) 4 (1.0-5.0) % Baso % (Auto) 1 (0-2) % Neut # (Auto) 4.6 (1.6-8.3) # Lymph # (Auto) 2.7 (0.6-5.0) # Hart # (Auto) 0.6 (0.0-1.3) # Eos # (Auto) 0.3 (0.0-0.8) # Baso # (Auto) 0.1 (0.0-0.2) # Sodium 139 (135-145) mmol/L Potassium 3.8 (3.5-5.3) mmol/L Chloride 102 (100-110) mmol/L Carbon Dioxide 31 (21-32) mmol/L BUN 17 (7-18) mg/dL Creatinine 0.8 (0.70-1.30) mg/dL Est Cr Clr Drug Dosing 107.03 mL/min Estimated GFR (MDRD) > 60 (>60) BUN/Creatinine Ratio 21.3 H (9-20) Glucose 94 (80-116) mg/dL Calcium 8.2 L (8.6-10.2) mg/dL Total Bilirubin 0.4 (0.1-1.3) mg/dL AST 110 H D (5-25) IU/L ALT 81 H D (12-36) U/L Alkaline Phosphatase 133 H (56-112) IU/L Total Protein 6.5 (6.0-8.0) g/dL Albumin 2.0 L (3.2-4.6) g/dL Globulin 4.5 g/dL Albumin/Globulin Ratio 0.4 Med Orders - Current: Current Medications Acetaminophen (Tylenol) 650 mg PO Q6H PRN PRN Reason: Fever Last Admin: 10/20/17 07:41 Dose: 650 mg Acetaminophen (Tylenol) 650 mg PO Q4H PRN PRN Reason: Pain Last Admin: 10/22/17 00:56 Dose: 650 mg Albuterol/Ipratropium (Duoneb 3.0-0.5 Mg/3 Ml) 3 ml NEB QIDRT [facility] Last Admin: 10/21/17 21:00 Dose: 3 ml Aripiprazole (Abilify) 2 mg PO DAILY [facility] Last Admin: 10/21/17 11:46 Dose: 2 mg Ascorbic Acid (Vitamin C) 500 mg PO DAILY [facility] Last Admin: 10/21/17 11:47 Dose: 500 mg Atorvastatin Calcium (Lipitor) 40 mg PO BEDTIME [facility] Last Admin: 10/21/17 20:13 Dose: 40 mg Baclofen (Lioresal) 10 mg PO TID [facility] Last Admin: 10/21/17 20:14 Dose: 10 mg Bupropion HCl (Wellbutrin Xl) 300 mg PO DAILY [facility] Last Admin: 10/21/17 11:47 Dose: 300 mg Duloxetine HCl (Cymbalta) 60 mg PO DAILY [facility] Last Admin: 10/21/17 11:47 Dose: 60 mg Enoxaparin Sodium (Lovenox) 140 mg SUBCUT Q12H [facility] Last Admin: 10/21/17 18:47 Dose: 140 mg Furosemide (Lasix) 40 mg PO DAILY [facility] Last Admin: 10/21/17 11:47 Dose: 40 mg Meropenem (Merrem) 1 gm IV Q8H [facility] Last Admin: 10/22/17 02:38 Dose: 1 gm Ondansetron HCl (Zofran Odt) 4 mg PO Q6H PRN PRN Reason: nausea, able to take PO Sodium Chloride (Saline Flush) 10 ml FLUSH ASDIRECTED PRN PRN Reason: Keep Vein Open Last Admin: 10/22/17 02:38 Dose: 10 ml Zinc Sulfate (Zincate) 220 mg PO DAILY@1200 [facility] Last Admin: 10/21/17 12:17 Dose: 220 mg Discontinued Medications Enoxaparin Sodium (Lovenox) 40 mg SUBCUT Q12H [facility] Last Admin: 10/18/17 10:41 Dose: 40 mg Enoxaparin Sodium (Lovenox) 40 mg SUBCUT Q12H [facility] Last Admin: 10/19/17 06:29 Dose: 40 mg Enoxaparin Sodium (Lovenox) 100 mg SUBCUT Q12H [facility] Last Admin: 10/19/17 06:29 Dose: 100 mg Furosemide (Lasix) 40 mg PO DAILY [facility] Last Admin: 10/14/17 08:24 Dose: Not Given Furosemide (Lasix) 20 mg PO DAILY [facility] Last Admin: 10/17/17 08:47 Dose: 20 mg Furosemide (Lasix) 40 mg IVPUSH NOW ONE Stop: 10/17/17 17:46 Last Admin: 10/17/17 19:05 Dose: 40 mg Levofloxacin/Dextrose 500 mg/ (Premix) 100 mls @ 100 mls/hr IV Q24H [facility] Last Admin: 10/15/17 19:42 Dose: 100 mls/hr Metronidazole 500 mg/ Premix 100 mls @ 100 mls/hr IV Q8H [facility] Last Admin: 10/16/17 04:15 Dose: 100 mls/hr Vancomycin HCl 500 mg/ Sodium (Chloride) 250 mls @ 166.667 mls/hr IV Q24H [facility] Last Admin: 10/15/17 23:56 Dose: Not Given Vancomycin HCl 1,750 mg/ (Sodium Chloride) 500 mls @ 250 mls/hr IV Q18H [facility] Last Admin: 10/14/17 00:27 Dose: 250 mls/hr Lactated Ringer's (Ringers, Lactated) 1,000 mls @ 125 mls/hr IV ASDIRECTED [facility] Last Admin: 10/15/17 00:56 Dose: 125 mls/hr Vancomycin HCl 1,000 mg/Vancomycin HCl 750 mg/ Sodium Chloride 500 mls @ 250 mls/hr IV Q18H [facility] Last Admin: 10/14/17 16:38 Dose: 250 mls/hr Vancomycin HCl 1,000 mg/Vancomycin HCl 750 mg/ Sodium Chloride 500 mls @ 250 mls/hr IV Q12H [facility] Last Admin: 10/15/17 22:51 Dose: 250 mls/hr Meropenem 1 gm/ Sodium (Chloride) 100 mls @ 200 mls/hr IV Q8H [facility] Stop: 10/19/17 13:00 Last Admin: 10/19/17 10:59 Dose: 200 mls/hr Iopamidol (Isovue-370 (76%)) 100 ml IV ONETIME ONE Stop: 10/18/17 16:19 Last Admin: 10/18/17 16:32 Dose: 85 ml Levofloxacin (Levaquin) 500 mg PO Q24H [facility] Last Admin: 10/19/17 09:45 Dose: 500 mg Lidocaine/Epinephrine (Xylocaine-Mpf 2%-Epi 1:200,000) 20 ml INFILT .STK-MED ONE Stop: 10/21/17 10:55 Last Admin: 10/21/17 10:54 Dose: 20 ml Morphine Sulfate (Morphine) Confirm Administered Dose 2 mg .ROUTE .STK-MED ONE Stop: 10/22/17 05:43 Tamsulosin HCl (Flomax) 0.4 mg PO ONETIME ONE Stop: 10/13/17 18:55 Last Admin: 10/13/17 20:19 Dose: 0.4 mg Vancomycin HCl (Vancomycin) Confirm Administered Dose 1,000 mg .ROUTE .STK-MED ONE Stop: 10/13/17 23:39 Last Admin: 10/14/17 00:33 Dose: Not Given Vancomycin HCl (Pharmacy To Dose - Vancomycin) 1 dose .XX ASDIRECTED [facility] Zinc Sulfate (Zincate) 220 mg PO DAILY [facility] - Exam Wound/Incisions: Other (bleeding from the wound edge. controlled with electrocautery. otherwise wound was clean and dry. repacked with Kerlix. ) - Problem List & Annotations (1) Decubitus skin ulcer SNOMED Code(s): 386593161 Code(s): L89.90 - PRESSURE ULCER OF UNSPECIFIED SITE, UNSPECIFIED STAGE Status: Acute Current Visit: Yes Qualifiers: Pressure ulcer location: buttock Pressure ulcer stage: stage 3 Laterality : right Qualified Code(s): L89.313 - Pressure ulcer of right buttock, stage 3 - Problem List Review Problem List Initiated/Reviewed/Updated: Yes - My Orders Last 24 Hours: Active Orders 24 hr Category Date Time Status Verify Patient Consent Obtain [RC] ASDIRECTED Care 10/21/17 08:32 Active Echo Comp wo Cont [US] Routine Exams 10/25/17 08:00 Ordered CBC WITH AUTO DIFF [HEME] AM Lab 10/22/17 05:11 Ordered COMPREHENSIVE METABOLIC PN,CMP [CHEM] AM Lab 10/22/17 05:11 Ordered GLYCOSYLATED HEMOGLOBIN,HGBA1C [CHEM] AM Lab 10/22/17 05:11 Ordered Acetaminophen [Tylenol] Med 10/22/17 00:13 Active 650 mg PO Q4H PRN Medication Orders Acetaminophen (Tylenol) 650 mg PO Q6H PRN PRN Reason: Fever Last Admin: 10/20/17 07:41 Dose: 650 mg Admin: 10/18/17 09:02 Dose: 650 mg Admin: 10/18/17 02:48 Dose: 650 mg Admin: 10/17/17 19:24 Dose: 650 mg Admin: 10/16/17 20:08 Dose: 650 mg Acetaminophen (Tylenol) 650 mg PO Q4H PRN PRN Reason: Pain Last Admin: 10/22/17 00:56 Dose: 650 mg Albuterol/Ipratropium (Duoneb 3.0-0.5 Mg/3 Ml) 3 ml NEB QIDRT [facility] Last Admin: 10/21/17 21:00 Dose: 3 ml Admin: 10/21/17 12:03 Dose: 3 ml Admin: 10/21/17 07:26 Dose: 3 ml Admin: 10/20/17 20:04 Dose: 3 ml Admin: 10/20/17 15:26 Dose: 3 ml Admin: 10/20/17 10:46 Dose: 3 ml Admin: 10/20/17 07:04 Dose: 3 ml Admin: 10/19/17 21:17 Dose: 3 ml Admin: 10/19/17 15:38 Dose: 3 ml Aripiprazole (Abilify) 2 mg PO DAILY [facility] Last Admin: 10/21/17 11:46 Dose: 2 mg Admin: 10/20/17 09:00 Dose: 2 mg Admin: 10/19/17 09:44 Dose: 2 mg Admin: 10/18/17 10:41 Dose: 2 mg Ascorbic Acid (Vitamin C) 500 mg PO DAILY [facility] Last Admin: 10/21/17 11:47 Dose: 500 mg Admin: 10/20/17 09:01 Dose: 500 mg Admin: 10/19/17 09:45 Dose: 500 mg Admin: 10/18/17 08:31 Dose: 500 mg Admin: 10/17/17 08:47 Dose: 500 mg Atorvastatin Calcium (Lipitor) 40 mg PO BEDTIME [facility] Last Admin: 10/21/17 20:13 Dose: 40 mg Admin: 10/20/17 20:05 Dose: 40 mg Admin: 10/19/17 21:18 Dose: 40 mg Admin: 10/18/17 20:24 Dose: 40 mg Admin: 10/17/17 21:16 Dose: 40 mg Admin: 10/16/17 20:09 Dose: 40 mg Admin: 10/15/17 20:59 Dose: 40 mg Admin: 10/14/17 21:46 Dose: 40 mg Admin: 10/13/17 23:05 Dose: 40 mg Baclofen (Lioresal) 10 mg PO TID [facility] Last Admin: 10/21/17 20:14 Dose: 10 mg Admin: 10/21/17 14:22 Dose: 10 mg Admin: 10/21/17 11:47 Dose: 10 mg Admin: 10/20/17 20:05 Dose: 10 mg Admin: 10/20/17 13:46 Dose: 10 mg Admin: 10/20/17 09:01 Dose: 10 mg Admin: 10/19/17 21:18 Dose: 10 mg Admin: 10/19/17 14:42 Dose: 10 mg Admin: 10/19/17 09:45 Dose: 10 mg Admin: 10/18/17 20:24 Dose: 10 mg Admin: 10/18/17 14:39 Dose: 10 mg Admin: 10/18/17 08:30 Dose: 10 mg Admin: 10/17/17 21:16 Dose: 10 mg Admin: 10/17/17 14:52 Dose: 10 mg Admin: 10/17/17 08:45 Dose: 10 mg Admin: 10/16/17 20:09 Dose: 10 mg Admin: 10/16/17 14:37 Dose: 10 mg Admin: 10/16/17 08:44 Dose: 10 mg Admin: 10/15/17 20:58 Dose: 10 mg Admin: 10/15/17 14:14 Dose: 10 mg Admin: 10/15/17 09:23 Dose: 10 mg Admin: 10/14/17 21:46 Dose: 10 mg Admin: 10/14/17 14:22 Dose: Not Given Admin: 10/14/17 08:25 Dose: Admin: 10/13/17 23:05 Dose: 10 mg Bupropion HCl (Wellbutrin Xl) 300 mg PO DAILY [facility] Last Admin: 10/21/17 11:47 Dose: 300 mg Admin: 10/20/17 09:02 Dose: 300 mg Admin: 10/19/17 09:45 Dose: 300 mg Admin: 10/18/17 08:30 Dose: 300 mg Admin: 10/17/17 08:45 Dose: 300 mg Admin: 10/16/17 08:44 Dose: 300 mg Admin: 10/15/17 09:23 Dose: 300 mg Admin: 10/14/17 08:25 Dose: Admin: 10/13/17 20:20 Dose: Duloxetine HCl (Cymbalta) 60 mg PO DAILY [facility] Last Admin: 10/21/17 11:47 Dose: 60 mg Admin: 10/20/17 09:01 Dose: 60 mg Admin: 10/19/17 09:44 Dose: 60 mg Admin: 10/18/17 08:30 Dose: 60 mg Admin: 10/17/17 08:45 Dose: 60 mg Admin: 10/16/17 08:43 Dose: 60 mg Admin: 10/15/17 09:23 Dose: 60 mg Admin: 10/14/17 08:24 Dose: Admin: 10/13/17 20:20 Dose: Enoxaparin Sodium (Lovenox) 140 mg SUBCUT Q12H [facility] Last Admin: 10/21/17 18:47 Dose: 140 mg Admin: 10/20/17 19:00 Dose: 140 mg Admin: 10/20/17 05:32 Dose: 140 mg Admin: 10/19/17 18:49 Dose: 140 mg Furosemide (Lasix) 40 mg PO DAILY [facility] Last Admin: 10/21/17 11:47 Dose: 40 mg Admin: 10/20/17 09:01 Dose: 40 mg Admin: 10/19/17 09:45 Dose: 40 mg Admin: 10/18/17 09:02 Dose: 40 mg Meropenem (Merrem) 1 gm IV Q8H [facility] Last Admin: 10/22/17 02:38 Dose: 1 gm Admin: 10/21/17 18:47 Dose: 1 gm Admin: 10/21/17 12:07 Dose: 1 gm Admin: 10/21/17 03:03 Dose: 1 gm Admin: 10/20/17 19:02 Dose: 1 gm Admin: 10/20/17 10:23 Dose: 1 gm Admin: 10/20/17 03:31 Dose: 1 gm Admin: 10/19/17 19:03 Dose: 1 gm Ondansetron HCl (Zofran Odt) 4 mg PO Q6H PRN PRN Reason: nausea, able to take PO Sodium Chloride (Saline Flush) 10 ml FLUSH ASDIRECTED PRN PRN Reason: Keep Vein Open Last Admin: 10/22/17 02:38 Dose: 10 ml Admin: 10/21/17 18:51 Dose: 10 ml Admin: 10/21/17 12:14 Dose: 10 ml Admin: 10/21/17 03:03 Dose: 10 ml Admin: 10/20/17 03:31 Dose: 10 ml Admin: 10/19/17 03:20 Dose: 10 ml Admin: 10/18/17 20:20 Dose: 10 ml Admin: 10/18/17 19:41 Dose: 10 ml Admin: 10/17/17 19:08 Dose: 10 ml Admin: 10/16/17 04:17 Dose: 10 ml Admin: 10/16/17 00:57 Dose: 10 ml Admin: 10/15/17 22:50 Dose: 10 ml Admin: 10/15/17 22:00 Dose: 10 ml Admin: 10/15/17 20:53 Dose: 10 ml Admin: 10/15/17 19:42 Dose: 10 ml Admin: 10/14/17 05:33 Dose: 10 ml Admin: 10/14/17 02:31 Dose: 10 ml Admin: 10/14/17 00:00 Dose: 10 ml Admin: 10/13/17 23:05 Dose: 10 ml Zinc Sulfate (Zincate) 220 mg PO DAILY@1200 [facility] Last Admin: 10/21/17 12:17 Dose: 220 mg Admin: 10/20/17 13:46 Dose: 220 mg Admin: 10/19/17 11:00 Dose: 220 mg Admin: 10/18/17 12:42 Dose: 220 mg Admin: 10/17/17 12:36 Dose: 220 mg - Assessment Assessment (Free Text/Narrative):: wound is clean nursing requesting PICC line - Plan Plan (Free Text/Narrative):: will hold lovenox this am until assessed for PICC Line. continue current wound care.
[2017-10-22] MEDS: Albuterol/Ipratropium 3.0-0.5 MG/3 ML Neb Soln NEB SCH ×4 (07:09→20:46)
[2017-10-22] MEDS: Ascorbic Acid 500 MG Tab PO SCH (08:01)
[2017-10-22] MEDS: Baclofen 10 MG Tab PO SCH ×3 (08:01→20:46)
[2017-10-22] MEDS: DULoxetine 60 MG Cap PO SCH (08:01)
[2017-10-22] MEDS: Furosemide 40 MG Tab PO SCH (08:01)
[2017-10-22] MEDS: buPROPion 150 MG Tab.ER PO SCH (08:01)
--- NOTE | 2017-10-22 09:32 | PCM.PN ---
- General Info Date of Service: 10/22/17 Admission Dx/Problem (Free Text): Admission Diagnosis/Problem Admission Diagnosis/Problem Decubitus ulcer of buttock, stage 3 Subjective Update: Patient went for second debridement yesterday. He is POD #1.This evening and this morning when I saw him he was sleeping comfortably in the afternoon seated in the chair he did not have any specific complaints. He sleeps fairly well is eating well still has 2 L of oxygenation to keep his sats above 90% no fever. His Lovenox was held because of bleeding from the surgical wound. - Review of Systems HEENT: Reports: No Symptoms Pulmonary: Reports: Shortness of Breath. Denies: Sputum Cardiovascular: Reports: No Symptoms Gastrointestinal: Reports: No Symptoms Genitourinary: Reports: No Symptoms - Patient Data Vitals - Most Recent: Last Vital Signs Temp 98.1 F 10/22/17 04:00 Pulse 80 10/22/17 07:14 Resp 18 10/22/17 04:00 BP 111/63 10/22/17 04:00 Pulse Ox 90 L 10/22/17 07:15 Weight - Most Recent: 141.43 kg I&O - Last 24 Hours: Intake & Output 10/21/17 10/22/17 10/22/17 22:59 06:59 14:59 Intake Total 337 200 200 Output Total 350 300 Balance -13 -100 200 Lab Results Last 24 Hours: Laboratory Results - last 24 hr 10/22/17 10/22/17 10/22/17 Range/Units 06:18 06:18 06:18 WBC 11.6 (4.5-12.0) X10-3/uL RBC 5.85 H (4.30-5.75) x10(6)uL Hgb 11.7 (11.5-15.5) g/dL Hct 37.4 (30.0-51.3) % MCV 63.8 L (80-96) fL MCH 20.1 L (27.7-33.6) pg MCHC 31.4 L (32.2-35.4) g/dL RDW 14.5 (11.5-15.5) % Plt Count 570 H (125-369) X10(3)uL MPV 7.9 (7.4-10.4) fL Add Manual Diff Yes Neutrophils % (Manual) 70 (46-82) % Lymphocytes % (Manual) 24 (13-37) % Monocytes % (Manual) 5 (4-12) % Eosinophils % (Manual) 1 (0-5) % Hypochromasia Moderate H Microcytosis Many H Sodium 140 (135-145) mmol/L Potassium 4.1 (3.5-5.3) mmol/L Chloride 104 (100-110) mmol/L Carbon Dioxide 28 (21-32) mmol/L BUN 19 H (7-18) mg/dL Creatinine 0.9 (0.70-1.30) mg/dL Est Cr Clr Drug Dosing 95.14 mL/min Estimated GFR (MDRD) > 60 (>60) BUN/Creatinine Ratio 21.1 H (9-20) Glucose 110 (80-116) mg/dL Hemoglobin A1c 6.5 H (4.5-6.2) % Calcium 8.5 L (8.6-10.2) mg/dL Total Bilirubin 0.6 (0.1-1.3) mg/dL AST 147 H D (5-25) IU/L ALT 123 H D (12-36) U/L Alkaline Phosphatase 180 H (56-112) IU/L Total Protein 6.7 (6.0-8.0) g/dL Albumin 2.1 L (3.2-4.6) g/dL Globulin 4.6 g/dL Albumin/Globulin Ratio 0.5 Med Orders - Current: Current Medications Acetaminophen (Tylenol) 650 mg PO Q6H PRN PRN Reason: Fever Last Admin: 10/20/17 07:41 Dose: 650 mg Acetaminophen (Tylenol) 650 mg PO Q4H PRN PRN Reason: Pain Last Admin: 10/22/17 00:56 Dose: 650 mg Hydrocodone Bitart/Acetaminophen ([place] 325-10 Mg) 1 tab PO Q4H PRN PRN Reason: Pain Albuterol/Ipratropium (Duoneb 3.0-0.5 Mg/3 Ml) 3 ml NEB QIDRT [facility] Last Admin: 10/22/17 07:09 Dose: 3 ml Aripiprazole (Abilify) 2 mg PO DAILY [facility] Last Admin: 10/22/17 08:01 Dose: 2 mg Ascorbic Acid (Vitamin C) 500 mg PO DAILY [facility] Last Admin: 10/22/17 08:01 Dose: 500 mg Atorvastatin Calcium (Lipitor) 40 mg PO BEDTIME [facility] Last Admin: 10/21/17 20:13 Dose: 40 mg Baclofen (Lioresal) 10 mg PO TID [facility] Last Admin: 10/22/17 08:01 Dose: 10 mg Bupropion HCl (Wellbutrin Xl) 300 mg PO DAILY [facility] Last Admin: 10/22/17 08:01 Dose: 300 mg Duloxetine HCl (Cymbalta) 60 mg PO DAILY [facility] Last Admin: 10/22/17 08:01 Dose: 60 mg Enoxaparin Sodium (Lovenox) 140 mg SUBCUT Q12H [facility] Last Admin: 10/22/17 06:00 Dose: Not Given Furosemide (Lasix) 40 mg PO DAILY [facility] Last Admin: 10/22/17 08:01 Dose: 40 mg Meropenem (Merrem) 1 gm IV Q8H [facility] Last Admin: 10/22/17 02:38 Dose: 1 gm Ondansetron HCl (Zofran Odt) 4 mg PO Q6H PRN PRN Reason: nausea, able to take PO Sodium Chloride (Saline Flush) 10 ml FLUSH ASDIRECTED PRN PRN Reason: Keep Vein Open Last Admin: 10/22/17 07:55 Dose: 10 ml Zinc Sulfate (Zincate) 220 mg PO DAILY@1200 [facility] Last Admin: 10/21/17 12:17 Dose: 220 mg Discontinued Medications Enoxaparin Sodium (Lovenox) 40 mg SUBCUT Q12H [facility] Last Admin: 10/18/17 10:41 Dose: 40 mg Enoxaparin Sodium (Lovenox) 40 mg SUBCUT Q12H [facility] Last Admin: 10/19/17 06:29 Dose: 40 mg Enoxaparin Sodium (Lovenox) 100 mg SUBCUT Q12H [facility] Last Admin: 10/19/17 06:29 Dose: 100 mg Furosemide (Lasix) 40 mg PO DAILY [facility] Last Admin: 10/14/17 08:24 Dose: Not Given Furosemide (Lasix) 20 mg PO DAILY [facility] Last Admin: 10/17/17 08:47 Dose: 20 mg Furosemide (Lasix) 40 mg IVPUSH NOW ONE Stop: 10/17/17 17:46 Last Admin: 10/17/17 19:05 Dose: 40 mg Levofloxacin/Dextrose 500 mg/ (Premix) 100 mls @ 100 mls/hr IV Q24H [facility] Last Admin: 10/15/17 19:42 Dose: 100 mls/hr Metronidazole 500 mg/ Premix 100 mls @ 100 mls/hr IV Q8H [facility] Last Admin: 10/16/17 04:15 Dose: 100 mls/hr Vancomycin HCl 500 mg/ Sodium (Chloride) 250 mls @ 166.667 mls/hr IV Q24H [facility] Last Admin: 10/15/17 23:56 Dose: Not Given Vancomycin HCl 1,750 mg/ (Sodium Chloride) 500 mls @ 250 mls/hr IV Q18H [facility] Last Admin: 10/14/17 00:27 Dose: 250 mls/hr Lactated Ringer's (Ringers, Lactated) 1,000 mls @ 125 mls/hr IV ASDIRECTED [facility] Last Admin: 10/15/17 00:56 Dose: 125 mls/hr Vancomycin HCl 1,000 mg/Vancomycin HCl 750 mg/ Sodium Chloride 500 mls @ 250 mls/hr IV Q18H [facility] Last Admin: 10/14/17 16:38 Dose: 250 mls/hr Vancomycin HCl 1,000 mg/Vancomycin HCl 750 mg/ Sodium Chloride 500 mls @ 250 mls/hr IV Q12H [facility] Last Admin: 10/15/17 22:51 Dose: 250 mls/hr Meropenem 1 gm/ Sodium (Chloride) 100 mls @ 200 mls/hr IV Q8H [facility] Stop: 10/19/17 13:00 Last Admin: 10/19/17 10:59 Dose: 200 mls/hr Iopamidol (Isovue-370 (76%)) 100 ml IV ONETIME ONE Stop: 10/18/17 16:19 Last Admin: 10/18/17 16:32 Dose: 85 ml Levofloxacin (Levaquin) 500 mg PO Q24H [facility] Last Admin: 10/19/17 09:45 Dose: 500 mg Lidocaine/Epinephrine (Xylocaine-Mpf 2%-Epi 1:200,000) 20 ml INFILT .STK-MED ONE Stop: 10/21/17 10:55 Last Admin: 10/21/17 10:54 Dose: 20 ml Morphine Sulfate (Morphine) Confirm Administered Dose 2 mg .ROUTE .STK-MED ONE Stop: 10/22/17 05:43 Last Admin: 10/22/17 06:51 Dose: Not Given Morphine Sulfate (Morphine) 2 mg IVPUSH ONETIME ONE Stop: 10/22/17 05:43 Last Admin: 10/22/17 05:43 Dose: 2 mg Tamsulosin HCl (Flomax) 0.4 mg PO ONETIME ONE Stop: 10/13/17 18:55 Last Admin: 10/13/17 20:19 Dose: 0.4 mg Vancomycin HCl (Vancomycin) Confirm Administered Dose 1,000 mg .ROUTE .STK-MED ONE Stop: 10/13/17 23:39 Last Admin: 10/14/17 00:33 Dose: Not Given Vancomycin HCl (Pharmacy To Dose - Vancomycin) 1 dose .XX ASDIRECTED [facility] Zinc Sulfate (Zincate) 220 mg PO DAILY [facility] - Exam Quality Assessment: Supplemental Oxygen General: Alert HEENT: Pupils Equal Neck: Supple Lungs: Clear to Auscultation, Decreased Breath Sounds Extremities: Normal Inspection Skin: Warm Psy/Mental Status: Alert, Depressed - Problem List & Annotations (1) Pulmonary emboli SNOMED Code(s): 72814331 Code(s): I26.99 - OTHER PULMONARY EMBOLISM WITHOUT ACUTE COR PULMONALE Status: Acute Current Visit: Yes Qualifiers: Pulmonary embolism type: other (2) DVT (deep venous thrombosis) SNOMED Code(s): 415196303 Code(s): I82.409 - ACUTE EMBOLISM AND THOMBOS UNSP DEEP VN UNSP LOWER EXTREMITY Status: Acute Current Visit: Yes (3) Decubitus skin ulcer SNOMED Code(s): 580407797 Code(s): L89.90 - PRESSURE ULCER OF UNSPECIFIED SITE, UNSPECIFIED STAGE Status: Acute Current Visit: Yes Qualifiers: Pressure ulcer location: buttock Pressure ulcer stage: stage 3 Laterality : right Qualified Code(s): L89.313 - Pressure ulcer of right buttock, stage 3 (4) Depression SNOMED Code(s): 59160256 Code(s): F32.9 - MAJOR DEPRESSIVE DISORDER, SINGLE EPISODE, UNSPECIFIED Status: Acute Current Visit: Yes Qualifiers: Depression Type: major depressive disorder Psychotic features: without psychotic features Annotation/Comment:: Abilify started 10/18. Tolerating well. (5) HCAP (healthcare-associated pneumonia) SNOMED Code(s): 808725091 Code(s): J18.9 - PNEUMONIA, UNSPECIFIED ORGANISM Status: Acute Current Visit: Yes (6) Morbid obesity with alveolar hypoventilation SNOMED Code(s): 881232401 Code(s): E66.2 - MORBID (SEVERE) OBESITY WITH ALVEOLAR HYPOVENTILATION Status: Acute Current Visit: Yes (7) Multiple sclerosis SNOMED Code(s): 41574293 Code(s): G35 - MULTIPLE SCLEROSIS Status: Acute Current Visit: Yes Annotation/Comment:: Continue PT/OT to work on chair accommodations to offload this ulcer. outpatient services director working on placement options. Q2hour repositioning. - Problem List Review Problem List Initiated/Reviewed/Updated: Yes - Assessment Assessment:: Disposition: [facility] rescinded their acceptance given the patient's long-term need for wound VAC. - Plan Plan:: Continue current therapy- Antibiotic. Lovenox managed by Dr. Hough,along managing pressure ulcer. Long-term disposition pending
[2017-10-22] MEDS: Zinc Sulfate 220 MG Cap PO SCH (11:44)
[2017-10-22] MEDS ORDERED: Lidocaine 1% PF 2 ML SDV INJECT ONE (13:30)
[2017-10-22] MEDS: atorvaSTATin 40 MG Tab PO SCH (20:45)
[2017-10-23] MEDS: Acetaminophen/HYDROcodone 325-10 MG Tab PO PRN ×3 (01:47→20:19)
[2017-10-23] MEDS: Sodium Chloride 0.9% 10 ML Syringe FLUSH PRN ×3 (03:00→19:36)
[2017-10-23] MEDS: Meropenem 1 GM SDV IV SCH ×3 (03:02→19:33)
[2017-10-23] MEDS: Albuterol/Ipratropium 3.0-0.5 MG/3 ML Neb Soln NEB SCH ×4 (06:19→20:12)
[2017-10-23] MEDS: Enoxaparin 150 MG/1 ML Syringe SUBCUT SCH ×2 (06:58→17:35)
[2017-10-23] MEDS: Baclofen 10 MG Tab PO SCH ×3 (08:05→20:12)
[2017-10-23] MEDS: Furosemide 40 MG Tab PO SCH (08:05)
[2017-10-23] MEDS: buPROPion 150 MG Tab.ER PO SCH (08:05)
[2017-10-23] MEDS: Ascorbic Acid 500 MG Tab PO SCH (08:05)
[2017-10-23] MEDS: DULoxetine 60 MG Cap PO SCH (08:05)
--- NOTE | 2017-10-23 09:10 | PCM.PN ---
- General Info Date of Service: 10/23/17 Subjective Update: Sleeping comfortably. No new concerns - Review of Systems HEENT: Reports: No Symptoms Pulmonary: Reports: No Symptoms Cardiovascular: Reports: No Symptoms Gastrointestinal: Reports: No Symptoms - Patient Data Vitals - Most Recent: Last Vital Signs Temp 98.3 F 10/23/17 04:00 Pulse 79 10/23/17 04:00 Resp 20 10/23/17 04:00 BP 118/64 10/23/17 04:00 Pulse Ox 95 10/23/17 04:00 Weight - Most Recent: 140.869 kg I&O - Last 24 Hours: Intake & Output 10/22/17 10/23/17 10/23/17 22:59 06:59 14:59 Intake Total 100 Output Total 300 350 Balance -300 -350 100 Med Orders - Current: Current Medications Acetaminophen (Tylenol) 650 mg PO Q6H PRN PRN Reason: Fever Last Admin: 10/20/17 07:41 Dose: 650 mg Acetaminophen (Tylenol) 650 mg PO Q4H PRN PRN Reason: Pain Last Admin: 10/22/17 00:56 Dose: 650 mg Hydrocodone Bitart/Acetaminophen ([place] 325-10 Mg) 1 tab PO Q4H PRN PRN Reason: Pain Last Admin: 10/23/17 07:57 Dose: 1 tab Albuterol/Ipratropium (Duoneb 3.0-0.5 Mg/3 Ml) 3 ml NEB QIDRT [facility] Last Admin: 10/23/17 06:19 Dose: 3 ml Aripiprazole (Abilify) 2 mg PO DAILY [facility] Last Admin: 10/23/17 08:05 Dose: 2 mg Ascorbic Acid (Vitamin C) 500 mg PO DAILY [facility] Last Admin: 10/23/17 08:05 Dose: 500 mg Atorvastatin Calcium (Lipitor) 40 mg PO BEDTIME [facility] Last Admin: 10/22/17 20:45 Dose: 40 mg Baclofen (Lioresal) 10 mg PO TID [facility] Last Admin: 10/23/17 08:05 Dose: 10 mg Bupropion HCl (Wellbutrin Xl) 300 mg PO DAILY [facility] Last Admin: 10/23/17 08:05 Dose: 300 mg Duloxetine HCl (Cymbalta) 60 mg PO DAILY [facility] Last Admin: 10/23/17 08:05 Dose: 60 mg Enoxaparin Sodium (Lovenox) 140 mg SUBCUT Q12H [facility] Last Admin: 10/23/17 06:58 Dose: 140 mg Furosemide (Lasix) 40 mg PO DAILY [facility] Last Admin: 10/23/17 08:05 Dose: 40 mg Meropenem (Merrem) 1 gm IV Q8H [facility] Last Admin: 10/23/17 03:02 Dose: 1 gm Ondansetron HCl (Zofran Odt) 4 mg PO Q6H PRN PRN Reason: nausea, able to take PO Sodium Chloride (Saline Flush) 10 ml FLUSH ASDIRECTED PRN PRN Reason: Keep Vein Open Last Admin: 10/23/17 08:10 Dose: 10 ml Zinc Sulfate (Zincate) 220 mg PO DAILY@1200 [facility] Last Admin: 10/22/17 11:44 Dose: 220 mg Discontinued Medications Enoxaparin Sodium (Lovenox) 40 mg SUBCUT Q12H [facility] Last Admin: 10/18/17 10:41 Dose: 40 mg Enoxaparin Sodium (Lovenox) 40 mg SUBCUT Q12H [facility] Last Admin: 10/19/17 06:29 Dose: 40 mg Enoxaparin Sodium (Lovenox) 100 mg SUBCUT Q12H [facility] Last Admin: 10/19/17 06:29 Dose: 100 mg Furosemide (Lasix) 40 mg PO DAILY [facility] Last Admin: 10/14/17 08:24 Dose: Not Given Furosemide (Lasix) 20 mg PO DAILY [facility] Last Admin: 10/17/17 08:47 Dose: 20 mg Furosemide (Lasix) 40 mg IVPUSH NOW ONE Stop: 10/17/17 17:46 Last Admin: 10/17/17 19:05 Dose: 40 mg Levofloxacin/Dextrose 500 mg/ (Premix) 100 mls @ 100 mls/hr IV Q24H [facility] Last Admin: 10/15/17 19:42 Dose: 100 mls/hr Metronidazole 500 mg/ Premix 100 mls @ 100 mls/hr IV Q8H [facility] Last Admin: 10/16/17 04:15 Dose: 100 mls/hr Vancomycin HCl 500 mg/ Sodium (Chloride) 250 mls @ 166.667 mls/hr IV Q24H [facility] Last Admin: 10/15/17 23:56 Dose: Not Given Vancomycin HCl 1,750 mg/ (Sodium Chloride) 500 mls @ 250 mls/hr IV Q18H [facility] Last Admin: 10/14/17 00:27 Dose: 250 mls/hr Lactated Ringer's (Ringers, Lactated) 1,000 mls @ 125 mls/hr IV ASDIRECTED [facility] Last Admin: 10/15/17 00:56 Dose: 125 mls/hr Vancomycin HCl 1,000 mg/Vancomycin HCl 750 mg/ Sodium Chloride 500 mls @ 250 mls/hr IV Q18H [facility] Last Admin: 10/14/17 16:38 Dose: 250 mls/hr Vancomycin HCl 1,000 mg/Vancomycin HCl 750 mg/ Sodium Chloride 500 mls @ 250 mls/hr IV Q12H [facility] Last Admin: 10/15/17 22:51 Dose: 250 mls/hr Meropenem 1 gm/ Sodium (Chloride) 100 mls @ 200 mls/hr IV Q8H [facility] Stop: 10/19/17 13:00 Last Admin: 10/19/17 10:59 Dose: 200 mls/hr Iopamidol (Isovue-370 (76%)) 100 ml IV ONETIME ONE Stop: 10/18/17 16:19 Last Admin: 10/18/17 16:32 Dose: 85 ml Levofloxacin (Levaquin) 500 mg PO Q24H [facility] Last Admin: 10/19/17 09:45 Dose: 500 mg Lidocaine HCl (Xylocaine-Mpf 1%) 2 ml INJECT ONETIME ONE Stop: 10/22/17 13:31 Last Admin: 10/22/17 14:10 Dose: 2 ml Lidocaine/Epinephrine (Xylocaine-Mpf 2%-Epi 1:200,000) 20 ml INFILT .STK-MED ONE Stop: 10/21/17 10:55 Last Admin: 10/21/17 10:54 Dose: 20 ml Morphine Sulfate (Morphine) Confirm Administered Dose 2 mg .ROUTE .STK-MED ONE Stop: 10/22/17 05:43 Last Admin: 10/22/17 06:51 Dose: Not Given Morphine Sulfate (Morphine) 2 mg IVPUSH ONETIME ONE Stop: 10/22/17 05:43 Last Admin: 10/22/17 05:43 Dose: 2 mg Tamsulosin HCl (Flomax) 0.4 mg PO ONETIME ONE Stop: 10/13/17 18:55 Last Admin: 10/13/17 20:19 Dose: 0.4 mg Vancomycin HCl (Vancomycin) Confirm Administered Dose 1,000 mg .ROUTE .STK-MED ONE Stop: 10/13/17 23:39 Last Admin: 10/14/17 00:33 Dose: Not Given Vancomycin HCl (Pharmacy To Dose - Vancomycin) 1 dose .XX ASDIRECTED [facility] Zinc Sulfate (Zincate) 220 mg PO DAILY [facility] - Exam Quality Assessment: Supplemental Oxygen General: Other (sleeping) Lungs: Decreased Breath Sounds Cardiovascular: Regular Rate - Problem List & Annotations (1) Pulmonary emboli SNOMED Code(s): 08578391 Code(s): I26.99 - OTHER PULMONARY EMBOLISM WITHOUT ACUTE COR PULMONALE Status: Acute Current Visit: Yes Qualifiers: Pulmonary embolism type: other (2) DVT (deep venous thrombosis) SNOMED Code(s): 550578518 Code(s): I82.409 - ACUTE EMBOLISM AND THOMBOS UNSP DEEP VN UNSP LOWER EXTREMITY Status: Acute Current Visit: Yes (3) Decubitus skin ulcer SNOMED Code(s): 628593195 Code(s): L89.90 - PRESSURE ULCER OF UNSPECIFIED SITE, UNSPECIFIED STAGE Status: Acute Current Visit: Yes Qualifiers: Pressure ulcer location: buttock Pressure ulcer stage: stage 3 Laterality : right Qualified Code(s): L89.313 - Pressure ulcer of right buttock, stage 3 (4) Depression SNOMED Code(s): 72943574 Code(s): F32.9 - MAJOR DEPRESSIVE DISORDER, SINGLE EPISODE, UNSPECIFIED Status: Acute Current Visit: Yes Qualifiers: Depression Type: major depressive disorder Psychotic features: without psychotic features Annotation/Comment:: [place] started 10/18. Tolerating well. (5) HCAP (healthcare-associated pneumonia) SNOMED Code(s): 903380916 Code(s): J18.9 - PNEUMONIA, UNSPECIFIED ORGANISM Status: Acute Current Visit: Yes (6) Morbid obesity with alveolar hypoventilation SNOMED Code(s): 661979054 Code(s): E66.2 - MORBID (SEVERE) OBESITY WITH ALVEOLAR HYPOVENTILATION Status: Acute Current Visit: Yes (7) Multiple sclerosis SNOMED Code(s): 17430434 Code(s): G35 - MULTIPLE SCLEROSIS Status: Acute Current Visit: Yes Annotation/Comment:: Continue PT/OT to work on chair accommodations to offload this ulcer. phlebotomy services technician working on placement options. Q2hour repositioning. - Problem List Review Problem List Initiated/Reviewed/Updated: Yes - Assessment Assessment:: Disposition: [facility] rescinded their acceptance given the patient's long-term need for wound VAC. - Plan Plan:: Post op #2. IV Meropenem day #5. Complete 7 days. Lovenox managed by Dr Hough.
[2017-10-23] MEDS ORDERED: Morphine 2 MG/ML Syringe IM ONE (10:01)
--- NOTE | 2017-10-23 10:21 | PCM.SURGPN ---
- General Info Date of Service: 10/23/17 POD#: 2 Functional Status: Reports: Pain Controlled, Tolerating Diet, New Symptoms - Patient Data Vitals - Most Recent: Last Vital Signs Temp 36.3 C 10/23/17 08:00 Pulse 82 10/23/17 08:00 Resp 22 H 10/23/17 08:00 BP 121/85 10/23/17 08:00 Pulse Ox 93 L 10/23/17 08:00 Weight - Most Recent: 140.869 kg I&O - Last 24 Hours: Intake & Output 10/22/17 10/23/17 10/23/17 22:59 06:59 14:59 Intake Total 100 Output Total 300 350 Balance -300 -350 100 Med Orders - Current: Current Medications Acetaminophen (Tylenol) 650 mg PO Q6H PRN PRN Reason: Fever Last Admin: 10/20/17 07:41 Dose: 650 mg Acetaminophen (Tylenol) 650 mg PO Q4H PRN PRN Reason: Pain Last Admin: 10/22/17 00:56 Dose: 650 mg Hydrocodone Bitart/Acetaminophen ([place] 325-10 Mg) 1 tab PO Q4H PRN PRN Reason: Pain Last Admin: 10/23/17 07:57 Dose: 1 tab Albuterol/Ipratropium (Duoneb 3.0-0.5 Mg/3 Ml) 3 ml NEB QIDRT [facility] Last Admin: 10/23/17 06:19 Dose: 3 ml Aripiprazole (Abilify) 2 mg PO DAILY [facility] Last Admin: 10/23/17 08:05 Dose: 2 mg Ascorbic Acid (Vitamin C) 500 mg PO DAILY [facility] Last Admin: 10/23/17 08:05 Dose: 500 mg Atorvastatin Calcium (Lipitor) 40 mg PO BEDTIME [facility] Last Admin: 10/22/17 20:45 Dose: 40 mg Baclofen (Lioresal) 10 mg PO TID [facility] Last Admin: 10/23/17 08:05 Dose: 10 mg Bupropion HCl (Wellbutrin Xl) 300 mg PO DAILY [facility] Last Admin: 10/23/17 08:05 Dose: 300 mg Duloxetine HCl (Cymbalta) 60 mg PO DAILY [facility] Last Admin: 10/23/17 08:05 Dose: 60 mg Enoxaparin Sodium (Lovenox) 140 mg SUBCUT Q12H [facility] Last Admin: 10/23/17 06:58 Dose: 140 mg Furosemide (Lasix) 40 mg PO DAILY [facility] Last Admin: 10/23/17 08:05 Dose: 40 mg Meropenem (Merrem) 1 gm IV Q8H [facility] Last Admin: 10/23/17 03:02 Dose: 1 gm Ondansetron HCl (Zofran Odt) 4 mg PO Q6H PRN PRN Reason: nausea, able to take PO Sodium Chloride (Saline Flush) 10 ml FLUSH ASDIRECTED PRN PRN Reason: Keep Vein Open Last Admin: 10/23/17 08:10 Dose: 10 ml Zinc Sulfate (Zincate) 220 mg PO DAILY@1200 [facility] Last Admin: 10/22/17 11:44 Dose: 220 mg Discontinued Medications Enoxaparin Sodium (Lovenox) 40 mg SUBCUT Q12H [facility] Last Admin: 10/18/17 10:41 Dose: 40 mg Enoxaparin Sodium (Lovenox) 40 mg SUBCUT Q12H [facility] Last Admin: 10/19/17 06:29 Dose: 40 mg Enoxaparin Sodium (Lovenox) 100 mg SUBCUT Q12H [facility] Last Admin: 10/19/17 06:29 Dose: 100 mg Furosemide (Lasix) 40 mg PO DAILY [facility] Last Admin: 10/14/17 08:24 Dose: Not Given Furosemide (Lasix) 20 mg PO DAILY [facility] Last Admin: 10/17/17 08:47 Dose: 20 mg Furosemide (Lasix) 40 mg IVPUSH NOW ONE Stop: 10/17/17 17:46 Last Admin: 10/17/17 19:05 Dose: 40 mg Levofloxacin/Dextrose 500 mg/ (Premix) 100 mls @ 100 mls/hr IV Q24H [facility] Last Admin: 10/15/17 19:42 Dose: 100 mls/hr Metronidazole 500 mg/ Premix 100 mls @ 100 mls/hr IV Q8H [facility] Last Admin: 10/16/17 04:15 Dose: 100 mls/hr Vancomycin HCl 500 mg/ Sodium (Chloride) 250 mls @ 166.667 mls/hr IV Q24H [facility] Last Admin: 10/15/17 23:56 Dose: Not Given Vancomycin HCl 1,750 mg/ (Sodium Chloride) 500 mls @ 250 mls/hr IV Q18H [facility] Last Admin: 10/14/17 00:27 Dose: 250 mls/hr Lactated Ringer's (Ringers, Lactated) 1,000 mls @ 125 mls/hr IV ASDIRECTED [facility] Last Admin: 10/15/17 00:56 Dose: 125 mls/hr Vancomycin HCl 1,000 mg/Vancomycin HCl 750 mg/ Sodium Chloride 500 mls @ 250 mls/hr IV Q18H [facility] Last Admin: 10/14/17 16:38 Dose: 250 mls/hr Vancomycin HCl 1,000 mg/Vancomycin HCl 750 mg/ Sodium Chloride 500 mls @ 250 mls/hr IV Q12H [facility] Last Admin: 10/15/17 22:51 Dose: 250 mls/hr Meropenem 1 gm/ Sodium (Chloride) 100 mls @ 200 mls/hr IV Q8H [facility] Stop: 10/19/17 13:00 Last Admin: 10/19/17 10:59 Dose: 200 mls/hr Iopamidol (Isovue-370 (76%)) 100 ml IV ONETIME ONE Stop: 10/18/17 16:19 Last Admin: 10/18/17 16:32 Dose: 85 ml Levofloxacin (Levaquin) 500 mg PO Q24H [facility] Last Admin: 10/19/17 09:45 Dose: 500 mg Lidocaine HCl (Xylocaine-Mpf 1%) 2 ml INJECT ONETIME ONE Stop: 10/22/17 13:31 Last Admin: 10/22/17 14:10 Dose: 2 ml Lidocaine/Epinephrine (Xylocaine-Mpf 2%-Epi 1:200,000) 20 ml INFILT .STK-MED ONE Stop: 10/21/17 10:55 Last Admin: 10/21/17 10:54 Dose: 20 ml Morphine Sulfate (Morphine) Confirm Administered Dose 2 mg .ROUTE .STK-MED ONE Stop: 10/22/17 05:43 Last Admin: 10/22/17 06:51 Dose: Not Given Morphine Sulfate (Morphine) 2 mg IVPUSH ONETIME ONE Stop: 10/22/17 05:43 Last Admin: 10/22/17 05:43 Dose: 2 mg Morphine Sulfate (Morphine) 2 mg IM ONETIME ONE Stop: 10/23/17 10:02 Last Admin: 10/23/17 10:07 Dose: 2 mg Tamsulosin HCl (Flomax) 0.4 mg PO ONETIME ONE Stop: 10/13/17 18:55 Last Admin: 10/13/17 20:19 Dose: 0.4 mg Vancomycin HCl (Vancomycin) Confirm Administered Dose 1,000 mg .ROUTE .STK-MED ONE Stop: 10/13/17 23:39 Last Admin: 10/14/17 00:33 Dose: Not Given Vancomycin HCl (Pharmacy To Dose - Vancomycin) 1 dose .XX ASDIRECTED [facility] Zinc Sulfate (Zincate) 220 mg PO DAILY [facility] - Exam Wound/Incisions: No Drainage, Other (wound is clean and dry on dressing change. redressed. ) - Problem List & Annotations (1) Decubitus skin ulcer SNOMED Code(s): 555792068 Code(s): L89.90 - PRESSURE ULCER OF UNSPECIFIED SITE, UNSPECIFIED STAGE Status: Acute Current Visit: Yes Qualifiers: Pressure ulcer location: buttock Pressure ulcer stage: stage 3 Laterality : right Qualified Code(s): L89.313 - Pressure ulcer of right buttock, stage 3 - Problem List Review Problem List Initiated/Reviewed/Updated: Yes - My Orders Last 24 Hours: Active Orders 24 hr Category Date Time Status Echo Comp wo Cont [US] Routine Exams 10/25/17 08:00 Ordered Medication Orders Acetaminophen (Tylenol) 650 mg PO Q6H PRN PRN Reason: Fever Last Admin: 10/20/17 07:41 Dose: 650 mg Admin: 10/18/17 09:02 Dose: 650 mg Admin: 10/18/17 02:48 Dose: 650 mg Admin: 10/17/17 19:24 Dose: 650 mg Admin: 10/16/17 20:08 Dose: 650 mg Acetaminophen (Tylenol) 650 mg PO Q4H PRN PRN Reason: Pain Last Admin: 10/22/17 00:56 Dose: 650 mg Hydrocodone Bitart/Acetaminophen (Verbena 325-10 Mg) 1 tab PO Q4H PRN PRN Reason: Pain Last Admin: 10/23/17 07:57 Dose: 1 tab Admin: 10/23/17 01:47 Dose: 1 tab Albuterol/Ipratropium (Duoneb 3.0-0.5 Mg/3 Ml) 3 ml NEB QIDRT [facility] Last Admin: 10/23/17 06:19 Dose: 3 ml Admin: 10/22/17 20:46 Dose: 3 ml Admin: 10/22/17 14:59 Dose: 3 ml Admin: 10/22/17 11:42 Dose: 3 ml Admin: 10/22/17 07:09 Dose: 3 ml Admin: 10/21/17 21:00 Dose: 3 ml Admin: 10/21/17 15:10 Dose: 3 ml Admin: 10/21/17 12:03 Dose: 3 ml Admin: 10/21/17 07:26 Dose: 3 ml Admin: 10/20/17 20:04 Dose: 3 ml Admin: 10/20/17 15:26 Dose: 3 ml Admin: 10/20/17 10:46 Dose: 3 ml Admin: 10/20/17 07:04 Dose: 3 ml Admin: 10/19/17 21:17 Dose: 3 ml Admin: 10/19/17 15:38 Dose: 3 ml Aripiprazole (Abilify) 2 mg PO DAILY [facility] Last Admin: 10/23/17 08:05 Dose: 2 mg Admin: 10/22/17 08:01 Dose: 2 mg Admin: 10/21/17 11:46 Dose: 2 mg Admin: 10/20/17 09:00 Dose: 2 mg Admin: 10/19/17 09:44 Dose: 2 mg Admin: 10/18/17 10:41 Dose: 2 mg Ascorbic Acid (Vitamin C) 500 mg PO DAILY [facility] Last Admin: 10/23/17 08:05 Dose: 500 mg Admin: 10/22/17 08:01 Dose: 500 mg Admin: 10/21/17 11:47 Dose: 500 mg Admin: 10/20/17 09:01 Dose: 500 mg Admin: 10/19/17 09:45 Dose: 500 mg Admin: 10/18/17 08:31 Dose: 500 mg Admin: 10/17/17 08:47 Dose: 500 mg Atorvastatin Calcium (Lipitor) 40 mg PO BEDTIME [facility] Last Admin: 10/22/17 20:45 Dose: 40 mg Admin: 10/21/17 20:13 Dose: 40 mg Admin: 10/20/17 20:05 Dose: 40 mg Admin: 10/19/17 21:18 Dose: 40 mg Admin: 10/18/17 20:24 Dose: 40 mg Admin: 10/17/17 21:16 Dose: 40 mg Admin: 10/16/17 20:09 Dose: 40 mg Admin: 10/15/17 20:59 Dose: 40 mg Admin: 10/14/17 21:46 Dose: 40 mg Admin: 10/13/17 23:05 Dose: 40 mg Baclofen (Lioresal) 10 mg PO TID [facility] Last Admin: 10/23/17 08:05 Dose: 10 mg Admin: 10/22/17 20:46 Dose: 10 mg Admin: 10/22/17 14:43 Dose: 10 mg Admin: 10/22/17 08:01 Dose: 10 mg Admin: 10/21/17 20:14 Dose: 10 mg Admin: 10/21/17 14:22 Dose: 10 mg Admin: 10/21/17 11:47 Dose: 10 mg Admin: 10/20/17 20:05 Dose: 10 mg Admin: 10/20/17 13:46 Dose: 10 mg Admin: 10/20/17 09:01 Dose: 10 mg Admin: 10/19/17 21:18 Dose: 10 mg Admin: 10/19/17 14:42 Dose: 10 mg Admin: 10/19/17 09:45 Dose: 10 mg Admin: 10/18/17 20:24 Dose: 10 mg Admin: 10/18/17 14:39 Dose: 10 mg Admin: 10/18/17 08:30 Dose: 10 mg Admin: 10/17/17 21:16 Dose: 10 mg Admin: 10/17/17 14:52 Dose: 10 mg Admin: 10/17/17 08:45 Dose: 10 mg Admin: 10/16/17 20:09 Dose: 10 mg Admin: 10/16/17 14:37 Dose: 10 mg Admin: 10/16/17 08:44 Dose: 10 mg Admin: 10/15/17 20:58 Dose: 10 mg Admin: 10/15/17 14:14 Dose: 10 mg Admin: 10/15/17 09:23 Dose: 10 mg Admin: 10/14/17 21:46 Dose: 10 mg Admin: 10/14/17 14:22 Dose: Not Given Admin: 10/14/17 08:25 Dose: Admin: 10/13/17 23:05 Dose: 10 mg Bupropion HCl (Wellbutrin Xl) 300 mg PO DAILY [facility] Last Admin: 10/23/17 08:05 Dose: 300 mg Admin: 10/22/17 08:01 Dose: 300 mg Admin: 10/21/17 11:47 Dose: 300 mg Admin: 10/20/17 09:02 Dose: 300 mg Admin: 10/19/17 09:45 Dose: 300 mg Admin: 10/18/17 08:30 Dose: 300 mg Admin: 10/17/17 08:45 Dose: 300 mg Admin: 10/16/17 08:44 Dose: 300 mg Admin: 10/15/17 09:23 Dose: 300 mg Admin: 10/14/17 08:25 Dose: Admin: 10/13/17 20:20 Dose: Duloxetine HCl (Cymbalta) 60 mg PO DAILY [facility] Last Admin: 10/23/17 08:05 Dose: 60 mg Admin: 10/22/17 08:01 Dose: 60 mg Admin: 10/21/17 11:47 Dose: 60 mg Admin: 10/20/17 09:01 Dose: 60 mg Admin: 10/19/17 09:44 Dose: 60 mg Admin: 10/18/17 08:30 Dose: 60 mg Admin: 10/17/17 08:45 Dose: 60 mg Admin: 10/16/17 08:43 Dose: 60 mg Admin: 10/15/17 09:23 Dose: 60 mg Admin: 10/14/17 08:24 Dose: Admin: 10/13/17 20:20 Dose: Enoxaparin Sodium (Lovenox) 140 mg SUBCUT Q12H [facility] Last Admin: 10/23/17 06:58 Dose: 140 mg Admin: 10/22/17 06:00 Dose: Admin: 10/21/17 18:47 Dose: 140 mg Admin: 10/20/17 19:00 Dose: 140 mg Admin: 10/20/17 05:32 Dose: 140 mg Admin: 10/19/17 18:49 Dose: 140 mg Furosemide (Lasix) 40 mg PO DAILY [facility] Last Admin: 10/23/17 08:05 Dose: 40 mg Admin: 10/22/17 08:01 Dose: 40 mg Admin: 10/21/17 11:47 Dose: 40 mg Admin: 10/20/17 09:01 Dose: 40 mg Admin: 10/19/17 09:45 Dose: 40 mg Admin: 10/18/17 09:02 Dose: 40 mg Meropenem (Merrem) 1 gm IV Q8H [facility] Last Admin: 10/23/17 03:02 Dose: 1 gm Admin: 10/22/17 20:33 Dose: 1 gm Admin: 10/22/17 11:29 Dose: 1 gm Admin: 10/22/17 02:38 Dose: 1 gm Admin: 10/21/17 18:47 Dose: 1 gm Admin: 10/21/17 12:07 Dose: 1 gm Admin: 10/21/17 03:03 Dose: 1 gm Admin: 10/20/17 19:02 Dose: 1 gm Admin: 10/20/17 10:23 Dose: 1 gm Admin: 10/20/17 03:31 Dose: 1 gm Admin: 10/19/17 19:03 Dose: 1 gm Ondansetron HCl (Zofran Odt) 4 mg PO Q6H PRN PRN Reason: nausea, able to take PO Sodium Chloride (Saline Flush) 10 ml FLUSH ASDIRECTED PRN PRN Reason: Keep Vein Open Last Admin: 10/23/17 08:10 Dose: 10 ml Admin: 10/23/17 03:00 Dose: 10 ml Admin: 10/22/17 11:36 Dose: 10 ml Admin: 10/22/17 07:55 Dose: 10 ml Admin: 10/22/17 02:38 Dose: 10 ml Admin: 10/21/17 18:51 Dose: 10 ml Admin: 10/21/17 12:14 Dose: 10 ml Admin: 10/21/17 03:03 Dose: 10 ml Admin: 10/20/17 03:31 Dose: 10 ml Admin: 10/19/17 03:20 Dose: 10 ml Admin: 10/18/17 20:20 Dose: 10 ml Admin: 10/18/17 19:41 Dose: 10 ml Admin: 10/17/17 19:08 Dose: 10 ml Admin: 10/16/17 04:17 Dose: 10 ml Admin: 10/16/17 00:57 Dose: 10 ml Admin: 10/15/17 22:50 Dose: 10 ml Admin: 10/15/17 22:00 Dose: 10 ml Admin: 10/15/17 20:53 Dose: 10 ml Admin: 10/15/17 19:42 Dose: 10 ml Admin: 10/14/17 05:33 Dose: 10 ml Admin: 10/14/17 02:31 Dose: 10 ml Admin: 10/14/17 00:00 Dose: 10 ml Admin: 10/13/17 23:05 Dose: 10 ml Zinc Sulfate (Zincate) 220 mg PO DAILY@1200 [facility] Last Admin: 10/22/17 11:44 Dose: 220 mg Admin: 10/21/17 12:17 Dose: 220 mg Admin: 10/20/17 13:46 Dose: 220 mg Admin: 10/19/17 11:00 Dose: 220 mg Admin: 10/18/17 12:42 Dose: 220 mg Admin: 10/17/17 12:36 Dose: 220 mg - Assessment Assessment (Free Text/Narrative):: will be okay to progress to wound vac in am. - Plan Plan (Free Text/Narrative):: wound vac in am.
[2017-10-23] MEDS: Zinc Sulfate 220 MG Cap PO SCH (11:17)
[2017-10-23] MEDS: atorvaSTATin 40 MG Tab PO SCH (20:12)
[2017-10-24] MEDS: Acetaminophen/HYDROcodone 325-10 MG Tab PO PRN ×3 (02:14→23:48)
[2017-10-24] MEDS: Meropenem 1 GM SDV IV SCH ×3 (03:30→22:20)
[2017-10-24] MEDS: Sodium Chloride 0.9% 10 ML Syringe FLUSH PRN ×4 (03:30→22:21)
[2017-10-24] MEDS: Albuterol/Ipratropium 3.0-0.5 MG/3 ML Neb Soln NEB SCH ×4 (07:05→20:34)
[2017-10-24] MEDS ORDERED: Enoxaparin 150 MG/1 ML Syringe SUBCUT SCH (08:00)
[2017-10-24] MEDS: Ascorbic Acid 500 MG Tab PO SCH (08:09)
[2017-10-24] MEDS: Furosemide 40 MG Tab PO SCH (08:09)
[2017-10-24] MEDS: buPROPion 150 MG Tab.ER PO SCH (08:09)
[2017-10-24] MEDS: DULoxetine 60 MG Cap PO SCH (08:09)
[2017-10-24] MEDS: Baclofen 10 MG Tab PO SCH ×3 (08:09→20:34)
--- NOTE | 2017-10-24 09:23 | PCM.PN ---
- General Info Date of Service: 10/24/17 Subjective Update: Patient has no new complaints today. He sedated in the room appears comfortable in no distress, more verbal today and smiling at times. - Review of Systems General: Reports: No Symptoms Pulmonary: Reports: No Symptoms - Patient Data Vitals - Most Recent: Last Vital Signs Temp 98.0 F 10/24/17 08:00 Pulse 66 10/24/17 08:00 Resp 18 10/24/17 08:00 BP 108/71 10/24/17 08:00 Pulse Ox 94 L 10/24/17 08:00 Weight - Most Recent: 140.886 kg I&O - Last 24 Hours: Intake & Output 10/23/17 10/24/17 10/24/17 22:59 06:59 14:59 Intake Total 537 100 240 Output Total 250 250 Balance 287 -150 240 Lab Results Last 24 Hours: Laboratory Results - last 24 hr 10/24/17 10/24/17 10/24/17 Range/Units 06:35 06:35 06:35 WBC 11.3 (4.5-12.0) X10-3/uL RBC 5.60 (4.30-5.75) x10(6)uL Hgb 11.1 L (11.5-15.5) g/dL Hct 36.2 (30.0-51.3) % MCV 64.7 L (80-96) fL MCH 19.8 L (27.7-33.6) pg MCHC 30.7 L (32.2-35.4) g/dL RDW 14.8 (11.5-15.5) % Plt Count 668 H (125-369) X10(3)uL MPV 8.2 (7.4-10.4) fL Neut % (Auto) 64.7 (46-82) % Lymph % (Auto) 21.8 (13-37) % [place] % (Auto) 8.3 (4-12) % Eos % (Auto) 4 (1.0-5.0) % Baso % (Auto) 1 (0-2) % Neut # (Auto) 7.3 (1.6-8.3) # Lymph # (Auto) 2.5 (0.6-5.0) # [place] # (Auto) 0.9 (0.0-1.3) # Eos # (Auto) 0.5 (0.0-0.8) # Baso # (Auto) 0.1 (0.0-0.2) # Sodium 137 (135-145) mmol/L Potassium 4.1 (3.5-5.3) mmol/L Chloride 101 (100-110) mmol/L Carbon Dioxide 29 (21-32) mmol/L BUN 21 H (7-18) mg/dL Creatinine 0.8 (0.70-1.30) mg/dL Est Cr Clr Drug Dosing 107.03 mL/min Estimated GFR (MDRD) > 60 (>60) BUN/Creatinine Ratio 26.3 H (9-20) Glucose 109 (80-116) mg/dL Calcium 8.5 L (8.6-10.2) mg/dL Total Bilirubin 0.6 (0.1-1.3) mg/dL AST 81 H D (5-25) IU/L ALT 109 H D (12-36) U/L Alkaline Phosphatase 206 H (56-112) IU/L C-Reactive Protein 5.2 H* (0.5-0.9) mg/dL Total Protein 6.7 (6.0-8.0) g/dL Albumin 2.1 L (3.2-4.6) g/dL Globulin 4.6 g/dL Albumin/Globulin Ratio 0.5 Med Orders - Current: Current Medications Acetaminophen (Tylenol) 650 mg PO Q6H PRN PRN Reason: Fever Last Admin: 10/20/17 07:41 Dose: 650 mg Acetaminophen (Tylenol) 650 mg PO Q4H PRN PRN Reason: Pain Last Admin: 10/22/17 00:56 Dose: 650 mg Hydrocodone Bitart/Acetaminophen ([place] 325-10 Mg) 1 tab PO Q4H PRN PRN Reason: Pain Last Admin: 10/24/17 02:14 Dose: 1 tab Albuterol/Ipratropium (Duoneb 3.0-0.5 Mg/3 Ml) 3 ml NEB QIDRT [facility] Last Admin: 10/24/17 07:05 Dose: 3 ml Aripiprazole (Abilify) 2 mg PO DAILY [facility] Last Admin: 10/24/17 08:09 Dose: 2 mg Ascorbic Acid (Vitamin C) 500 mg PO DAILY [facility] Last Admin: 10/24/17 08:09 Dose: 500 mg Atorvastatin Calcium (Lipitor) 40 mg PO BEDTIME [facility] Last Admin: 10/23/17 20:12 Dose: 40 mg Baclofen (Lioresal) 10 mg PO TID [facility] Last Admin: 10/24/17 08:09 Dose: 10 mg Bupropion HCl (Wellbutrin Xl) 300 mg PO DAILY [facility] Last Admin: 10/24/17 08:09 Dose: 300 mg Duloxetine HCl (Cymbalta) 60 mg PO DAILY [facility] Last Admin: 10/24/17 08:09 Dose: 60 mg Enoxaparin Sodium (Lovenox) 140 mg SUBCUT Q12H [facility] Furosemide (Lasix) 40 mg PO DAILY [facility] Last Admin: 10/24/17 08:09 Dose: 40 mg Meropenem (Merrem) 1 gm IV Q8H [facility] Last Admin: 10/24/17 03:30 Dose: 1 gm Ondansetron HCl (Zofran Odt) 4 mg PO Q6H PRN PRN Reason: nausea, able to take PO Sodium Chloride (Saline Flush) 10 ml FLUSH ASDIRECTED PRN PRN Reason: Keep Vein Open Last Admin: 10/24/17 03:30 Dose: 10 ml Zinc Sulfate (Zincate) 220 mg PO DAILY@1200 [facility] Last Admin: 10/23/17 11:17 Dose: 220 mg Discontinued Medications Enoxaparin Sodium (Lovenox) 40 mg SUBCUT Q12H [facility] Last Admin: 10/18/17 10:41 Dose: 40 mg Enoxaparin Sodium (Lovenox) 40 mg SUBCUT Q12H [facility] Last Admin: 10/19/17 06:29 Dose: 40 mg Enoxaparin Sodium (Lovenox) 100 mg SUBCUT Q12H [facility] Last Admin: 10/19/17 06:29 Dose: 100 mg Enoxaparin Sodium (Lovenox) 140 mg SUBCUT Q12H [facility] Last Admin: 10/23/17 17:35 Dose: 140 mg Enoxaparin Sodium (Lovenox) 140 mg SUBCUT Q12H [facility] Last Admin: 10/24/17 08:04 Dose: 140 mg Fentanyl (Sublimaze) 100 mcg IV .STK-MED ONE Stop: 10/14/17 10:31 Furosemide (Lasix) 40 mg PO DAILY [facility] Last Admin: 10/14/17 08:24 Dose: Not Given Furosemide (Lasix) 20 mg PO DAILY [facility] Last Admin: 10/17/17 08:47 Dose: 20 mg Furosemide (Lasix) 40 mg IVPUSH NOW ONE Stop: 10/17/17 17:46 Last Admin: 10/17/17 19:05 Dose: 40 mg Levofloxacin/Dextrose 500 mg/ (Premix) 100 mls @ 100 mls/hr IV Q24H [facility] Last Admin: 10/15/17 19:42 Dose: 100 mls/hr Metronidazole 500 mg/ Premix 100 mls @ 100 mls/hr IV Q8H [facility] Last Admin: 10/16/17 04:15 Dose: 100 mls/hr Vancomycin HCl 500 mg/ Sodium (Chloride) 250 mls @ 166.667 mls/hr IV Q24H [facility] Last Admin: 10/15/17 23:56 Dose: Not Given Vancomycin HCl 1,750 mg/ (Sodium Chloride) 500 mls @ 250 mls/hr IV Q18H [facility] Last Admin: 10/14/17 00:27 Dose: 250 mls/hr Lactated Ringer's (Ringers, Lactated) 1,000 mls @ 125 mls/hr IV ASDIRECTED [facility] Last Admin: 10/15/17 00:56 Dose: 125 mls/hr Vancomycin HCl 1,000 mg/Vancomycin HCl 750 mg/ Sodium Chloride 500 mls @ 250 mls/hr IV Q18H [facility] Last Admin: 10/14/17 16:38 Dose: 250 mls/hr Vancomycin HCl 1,000 mg/Vancomycin HCl 750 mg/ Sodium Chloride 500 mls @ 250 mls/hr IV Q12H [facility] Last Admin: 10/15/17 22:51 Dose: 250 mls/hr Meropenem 1 gm/ Sodium (Chloride) 100 mls @ 200 mls/hr IV Q8H [facility] Stop: 10/19/17 13:00 Last Admin: 10/19/17 10:59 Dose: 200 mls/hr Iopamidol (Isovue-370 (76%)) 100 ml IV ONETIME ONE Stop: 10/18/17 16:19 Last Admin: 10/18/17 16:32 Dose: 85 ml Levofloxacin (Levaquin) 500 mg PO Q24H [facility] Last Admin: 10/19/17 09:45 Dose: 500 mg Lidocaine HCl (Xylocaine-Mpf 1%) 2 ml INJECT ONETIME ONE Stop: 10/22/17 13:31 Last Admin: 10/22/17 14:10 Dose: 2 ml Lidocaine/Epinephrine (Xylocaine-Mpf 2%-Epi 1:200,000) 20 ml INFILT .STK-MED ONE Stop: 10/21/17 10:55 Last Admin: 10/21/17 10:54 Dose: 20 ml Midazolam HCl (Versed 1 Mg/Ml) 3 mg IV .STK-MED ONE Stop: 10/21/17 10:46 Midazolam HCl (Versed 1 Mg/Ml) 2 mg IV .STK-MED ONE Stop: 10/14/17 10:31 Morphine Sulfate (Morphine) Confirm Administered Dose 2 mg .ROUTE .STK-MED ONE Stop: 10/22/17 05:43 Last Admin: 10/22/17 06:51 Dose: Not Given Morphine Sulfate (Morphine) 2 mg IVPUSH ONETIME ONE Stop: 10/22/17 05:43 Last Admin: 10/22/17 05:43 Dose: 2 mg Morphine Sulfate (Morphine) 2 mg IM ONETIME ONE Stop: 10/23/17 10:02 Last Admin: 10/23/17 10:07 Dose: 2 mg Ondansetron HCl (Zofran) 4 mg IVPUSH .STK-MED ONE Stop: 10/14/17 10:31 Propofol (Diprivan 20 Ml) 70 mg IV .STK-MED ONE Stop: 10/21/17 10:46 Propofol (Diprivan 20 Ml) 200 mg IV .STK-MED ONE Stop: 10/14/17 10:31 Rocuronium [place] (Zemuron) 25 mg IV .STK-MED ONE Stop: 10/14/17 10:31 Succinylcholine Chloride (Quelicin) 200 mg IV .STK-MED ONE Stop: 10/14/17 10:31 Tamsulosin HCl (Flomax) 0.4 mg PO ONETIME ONE Stop: 10/13/17 18:55 Last Admin: 10/13/17 20:19 Dose: 0.4 mg Vancomycin HCl (Vancomycin) Confirm Administered Dose 1,000 mg .ROUTE .STK-MED ONE Stop: 10/13/17 23:39 Last Admin: 10/14/17 00:33 Dose: Not Given Vancomycin HCl (Pharmacy To Dose - Vancomycin) 1 dose .XX ASDIRECTED [facility] Zinc Sulfate (Zincate) 220 mg PO DAILY [facility] - Exam Quality Assessment: Supplemental Oxygen General: Alert HEENT: Pupils Equal, Pupils Reactive, EOMI, Mucous Membr. Moist/[place] Neck: Supple Lungs: Clear to Auscultation, Normal Respiratory Effort Cardiovascular: Regular Rate Psy/Mental Status: Alert, Normal Affect - Problem List & Annotations (1) Pulmonary emboli SNOMED Code(s): 75452067 Code(s): I26.99 - OTHER PULMONARY EMBOLISM WITHOUT ACUTE COR PULMONALE Status: Acute Current Visit: Yes Qualifiers: Pulmonary embolism type: other (2) DVT (deep venous thrombosis) SNOMED Code(s): 379450543 Code(s): I82.409 - ACUTE EMBOLISM AND THOMBOS UNSP DEEP VN UNSP LOWER EXTREMITY Status: Acute Current Visit: Yes (3) Decubitus skin ulcer SNOMED Code(s): 561246570 Code(s): L89.90 - PRESSURE ULCER OF UNSPECIFIED SITE, UNSPECIFIED STAGE Status: Acute Current Visit: Yes Qualifiers: Pressure ulcer location: buttock Pressure ulcer stage: stage 3 Laterality : right Qualified Code(s): L89.313 - Pressure ulcer of right buttock, stage 3 (4) Depression SNOMED Code(s): 80000726 Code(s): F32.9 - MAJOR DEPRESSIVE DISORDER, SINGLE EPISODE, UNSPECIFIED Status: Acute Current Visit: Yes Qualifiers: Depression Type: major depressive disorder Psychotic features: without psychotic features Annotation/Comment:: [place] started 10/18. Tolerating well. (5) HCAP (healthcare-associated pneumonia) SNOMED Code(s): 982301900 Code(s): J18.9 - PNEUMONIA, UNSPECIFIED ORGANISM Status: Acute Current Visit: Yes (6) Morbid obesity with alveolar hypoventilation SNOMED Code(s): 966004278 Code(s): E66.2 - MORBID (SEVERE) OBESITY WITH ALVEOLAR HYPOVENTILATION Status: Acute Current Visit: Yes (7) Multiple sclerosis SNOMED Code(s): 46375778 Code(s): G35 - MULTIPLE SCLEROSIS Status: Acute Current Visit: Yes Annotation/Comment:: Continue PT/OT to work on chair accommodations to offload this ulcer. account services coordinator working on placement options. Q2hour repositioning. - Problem List Review Problem List Initiated/Reviewed/Updated: Yes - Assessment Assessment:: Disposition: [facility] rescinded their acceptance given the patient's long-term need for wound VAC. - Plan Plan:: Post op #3,s/o Debridement Decubitous Ulcer. IV Meropenem day #5. Complete 7 days on 10/26.I see no reason to keep him here,except I suggest starting Coumadin for VTE,in place of LMWH,if no further pkans for Surgery. I allso discuss terminal superintendent disposition-patient has no current plans. I will consult [facility] WORKER
--- NOTE | 2017-10-24 10:59 | US ---
INDICATION: Guide for PICC line placement. ULTRASONIC GUIDANCE FOR VASCULAR ACCESS: Ultrasonic guidance was utilized. A depth of 1.8 cm is noted apparently to the required vessel. Apparently access was not able to be obtained despite use of ultrasonic guidance - left anterior arm. MTDD
[2017-10-24] MEDS: Zinc Sulfate 220 MG Cap PO SCH (14:27)
[2017-10-24] MEDS ORDERED: Warfarin 5 MG Tab PO SCH (16:00)
[2017-10-24] MEDS ORDERED: Warfarin Sliding Scale PO SCH (16:30)
--- NOTE | 2017-10-24 16:52 | PCM.SN ---
- Free Text/Narrative Note: wound vac reapplied today. okay to change levenox to coumadin.
[2017-10-24] MEDS: Enoxaparin 150 MG/1 ML Syringe SUBCUT SCH (20:33)
[2017-10-24] MEDS: atorvaSTATin 40 MG Tab PO SCH (20:34)
[2017-10-25] MEDS: Albuterol/Ipratropium 3.0-0.5 MG/3 ML Neb Soln NEB SCH ×3 (07:05→15:23)
--- NOTE | 2017-10-25 10:42 | PCM.PN ---
- General Info Date of Service: 10/25/17 Subjective Update: Patient has no new complaints today. He sedated in the room appears comfortable in no distress, more verbal today and smiling at times. - Review of Systems HEENT: Reports: No Symptoms Pulmonary: Reports: No Symptoms Cardiovascular: Reports: No Symptoms - Patient Data Vitals - Most Recent: Last Vital Signs Temp 97.6 F 10/25/17 08:00 Pulse 78 10/25/17 08:00 Resp 18 10/25/17 08:00 BP 107/61 10/25/17 08:00 Pulse Ox 91 L 10/25/17 08:00 Weight - Most Recent: 140.886 kg I&O - Last 24 Hours: Intake & Output 10/24/17 10/25/17 10/25/17 22:59 06:59 14:59 Intake Total 660 Output Total 300 Balance 360 Lab Results Last 24 Hours: Laboratory Results - last 24 hr 10/24/17 10/25/17 Range/Units 16:34 06:30 PT 10.4 10.4 (8.7-11.1) INR 1.03 1.03 (0.89-1.13) Med Orders - Current: Current Medications Acetaminophen (Tylenol) 650 mg PO Q6H PRN PRN Reason: Fever Last Admin: 10/20/17 07:41 Dose: 650 mg Acetaminophen (Tylenol) 650 mg PO Q4H PRN PRN Reason: Pain Last Admin: 10/22/17 00:56 Dose: 650 mg Hydrocodone Bitart/Acetaminophen ([place] 325-10 Mg) 1 tab PO Q4H PRN PRN Reason: Pain Last Admin: 10/24/17 23:48 Dose: 1 tab Albuterol/Ipratropium (Duoneb 3.0-0.5 Mg/3 Ml) 3 ml NEB QIDRT [facility] Last Admin: 10/24/17 20:34 Dose: 3 ml Aripiprazole (Abilify) 2 mg PO DAILY [facility] Last Admin: 10/24/17 08:09 Dose: 2 mg Ascorbic Acid (Vitamin C) 500 mg PO DAILY [facility] Last Admin: 10/24/17 08:09 Dose: 500 mg Atorvastatin Calcium (Lipitor) 40 mg PO BEDTIME [facility] Last Admin: 10/24/17 20:34 Dose: 40 mg Baclofen (Lioresal) 10 mg PO TID [facility] Last Admin: 10/24/17 20:34 Dose: 10 mg Bupropion HCl (Wellbutrin Xl) 300 mg PO DAILY [facility] Last Admin: 10/24/17 08:09 Dose: 300 mg Duloxetine HCl (Cymbalta) 60 mg PO DAILY [facility] Last Admin: 10/24/17 08:09 Dose: 60 mg Enoxaparin Sodium (Lovenox) 140 mg SUBCUT Q12H [facility] Last Admin: 10/24/17 20:33 Dose: 140 mg Furosemide (Lasix) 40 mg PO DAILY [facility] Last Admin: 10/24/17 08:09 Dose: 40 mg Meropenem (Merrem) 1 gm IV Q8H [facility] Stop: 10/25/17 14:01 Last Admin: 10/24/17 22:20 Dose: 1 gm Ondansetron HCl (Zofran Odt) 4 mg PO Q6H PRN PRN Reason: nausea, able to take PO Sodium Chloride (Saline Flush) 10 ml FLUSH ASDIRECTED PRN PRN Reason: Keep Vein Open Last Admin: 10/24/17 22:21 Dose: 10 ml Warfarin Sodium (Coumadin Sliding Scale) 0 each PO ASDIRECTED [facility] Warfarin Sodium 2.5 mg/ (Warfarin Sodium 5 mg) 7.5 mg PO 10/25/17@1600 [facility] Stop: 10/25/17 17:00 Zinc Sulfate (Zincate) 220 mg PO DAILY@1200 [facility] Last Admin: 10/24/17 14:27 Dose: 220 mg Discontinued Medications Enoxaparin Sodium (Lovenox) 40 mg SUBCUT Q12H [facility] Last Admin: 10/18/17 10:41 Dose: 40 mg Enoxaparin Sodium (Lovenox) 40 mg SUBCUT Q12H [facility] Last Admin: 10/19/17 06:29 Dose: 40 mg Enoxaparin Sodium (Lovenox) 100 mg SUBCUT Q12H [facility] Last Admin: 10/19/17 06:29 Dose: 100 mg Enoxaparin Sodium (Lovenox) 140 mg SUBCUT Q12H [facility] Last Admin: 10/23/17 17:35 Dose: 140 mg Enoxaparin Sodium (Lovenox) 140 mg SUBCUT Q12H [facility] Last Admin: 10/24/17 08:04 Dose: 140 mg Fentanyl (Sublimaze) 100 mcg IV .STK-MED ONE Stop: 10/14/17 10:31 Furosemide (Lasix) 40 mg PO DAILY [facility] Last Admin: 10/14/17 08:24 Dose: Not Given Furosemide (Lasix) 20 mg PO DAILY [facility] Last Admin: 10/17/17 08:47 Dose: 20 mg Furosemide (Lasix) 40 mg IVPUSH NOW ONE Stop: 10/17/17 17:46 Last Admin: 10/17/17 19:05 Dose: 40 mg Levofloxacin/Dextrose 500 mg/ (Premix) 100 mls @ 100 mls/hr IV Q24H [facility] Last Admin: 10/15/17 19:42 Dose: 100 mls/hr Metronidazole 500 mg/ Premix 100 mls @ 100 mls/hr IV Q8H [facility] Last Admin: 10/16/17 04:15 Dose: 100 mls/hr Vancomycin HCl 500 mg/ Sodium (Chloride) 250 mls @ 166.667 mls/hr IV Q24H [facility] Last Admin: 10/15/17 23:56 Dose: Not Given Vancomycin HCl 1,750 mg/ (Sodium Chloride) 500 mls @ 250 mls/hr IV Q18H [facility] Last Admin: 10/14/17 00:27 Dose: 250 mls/hr Lactated Ringer's (Ringers, Lactated) 1,000 mls @ 125 mls/hr IV ASDIRECTED [facility] Last Admin: 10/15/17 00:56 Dose: 125 mls/hr Vancomycin HCl 1,000 mg/Vancomycin HCl 750 mg/ Sodium Chloride 500 mls @ 250 mls/hr IV Q18H [facility] Last Admin: 10/14/17 16:38 Dose: 250 mls/hr Vancomycin HCl 1,000 mg/Vancomycin HCl 750 mg/ Sodium Chloride 500 mls @ 250 mls/hr IV Q12H [facility] Last Admin: 10/15/17 22:51 Dose: 250 mls/hr Meropenem 1 gm/ Sodium (Chloride) 100 mls @ 200 mls/hr IV Q8H [facility] Stop: 10/19/17 13:00 Last Admin: 10/19/17 10:59 Dose: 200 mls/hr Iopamidol (Isovue-370 (76%)) 100 ml IV ONETIME ONE Stop: 10/18/17 16:19 Last Admin: 10/18/17 16:32 Dose: 85 ml Levofloxacin (Levaquin) 500 mg PO Q24H [facility] Last Admin: 10/19/17 09:45 Dose: 500 mg Lidocaine HCl (Xylocaine-Mpf 1%) 2 ml INJECT ONETIME ONE Stop: 10/22/17 13:31 Last Admin: 10/22/17 14:10 Dose: 2 ml Lidocaine/Epinephrine (Xylocaine-Mpf 2%-Epi 1:200,000) 20 ml INFILT .STK-MED ONE Stop: 10/21/17 10:55 Last Admin: 10/21/17 10:54 Dose: 20 ml Meropenem (Merrem) 1 gm IV Q8H [facility] Stop: 10/25/17 11:01 Last Admin: 10/24/17 14:52 Dose: 1 gm Midazolam HCl (Versed 1 Mg/Ml) 3 mg IV .STK-MED ONE Stop: 10/21/17 10:46 Midazolam HCl (Versed 1 Mg/Ml) 2 mg IV .STK-MED ONE Stop: 10/14/17 10:31 Morphine Sulfate (Morphine) Confirm Administered Dose 2 mg .ROUTE .STK-MED ONE Stop: 10/22/17 05:43 Last Admin: 10/22/17 06:51 Dose: Not Given Morphine Sulfate (Morphine) 2 mg IVPUSH ONETIME ONE Stop: 10/22/17 05:43 Last Admin: 10/22/17 05:43 Dose: 2 mg Morphine Sulfate (Morphine) 2 mg IM ONETIME ONE Stop: 10/23/17 10:02 Last Admin: 10/23/17 10:07 Dose: 2 mg Ondansetron HCl (Zofran) 4 mg IVPUSH .STK-MED ONE Stop: 10/14/17 10:31 Propofol (Diprivan 20 Ml) 70 mg IV .STK-MED ONE Stop: 10/21/17 10:46 Propofol (Diprivan 20 Ml) 200 mg IV .STK-MED ONE Stop: 10/14/17 10:31 Rocuronium [place] (Zemuron) 25 mg IV .STK-MED ONE Stop: 10/14/17 10:31 Succinylcholine Chloride (Quelicin) 200 mg IV .STK-MED ONE Stop: 10/14/17 10:31 Tamsulosin HCl (Flomax) 0.4 mg PO ONETIME ONE Stop: 10/13/17 18:55 Last Admin: 10/13/17 20:19 Dose: 0.4 mg Vancomycin HCl (Vancomycin) Confirm Administered Dose 1,000 mg .ROUTE .STK-MED ONE Stop: 10/13/17 23:39 Last Admin: 10/14/17 00:33 Dose: Not Given Vancomycin HCl (Pharmacy To Dose - Vancomycin) 1 dose .XX ASDIRECTED [facility] Warfarin Sodium (Coumadin) 5 mg PO 1600 [facility] Stop: 10/24/17 16:01 Last Admin: 10/24/17 17:48 Dose: 5 mg Zinc Sulfate (Zincate) 220 mg PO DAILY [facility] - Exam Quality Assessment: No: Supplemental Oxygen General: Alert, Oriented HEENT: Pupils Equal Neck: Supple Lungs: Clear to Auscultation Cardiovascular: Regular Rate Psy/Mental Status: Alert, Normal Affect - Problem List & Annotations (1) Pulmonary emboli SNOMED Code(s): 09064636 Code(s): I26.99 - OTHER PULMONARY EMBOLISM WITHOUT ACUTE COR PULMONALE Status: Acute Current Visit: Yes Qualifiers: Pulmonary embolism type: other (2) DVT (deep venous thrombosis) SNOMED Code(s): 907947966 Code(s): I82.409 - ACUTE EMBOLISM AND THOMBOS UNSP DEEP VN UNSP LOWER EXTREMITY Status: Acute Current Visit: Yes (3) Decubitus skin ulcer SNOMED Code(s): 029281944 Code(s): L89.90 - PRESSURE ULCER OF UNSPECIFIED SITE, UNSPECIFIED STAGE Status: Acute Current Visit: Yes Qualifiers: Pressure ulcer location: buttock Pressure ulcer stage: stage 3 Laterality : right Qualified Code(s): L89.313 - Pressure ulcer of right buttock, stage 3 (4) Depression SNOMED Code(s): 81508719 Code(s): F32.9 - MAJOR DEPRESSIVE DISORDER, SINGLE EPISODE, UNSPECIFIED Status: Acute Current Visit: Yes Qualifiers: Depression Type: major depressive disorder Psychotic features: without psychotic features Annotation/Comment:: [place] started 10/18. Tolerating well. (5) HCAP (healthcare-associated pneumonia) SNOMED Code(s): 006463997 Code(s): J18.9 - PNEUMONIA, UNSPECIFIED ORGANISM Status: Acute Current Visit: Yes (6) Morbid obesity with alveolar hypoventilation SNOMED Code(s): 061120996 Code(s): E66.2 - MORBID (SEVERE) OBESITY WITH ALVEOLAR HYPOVENTILATION Status: Acute Current Visit: Yes (7) Multiple sclerosis SNOMED Code(s): 90648456 Code(s): G35 - MULTIPLE SCLEROSIS Status: Acute Current Visit: Yes Annotation/Comment:: Continue PT/OT to work on chair accommodations to offload this ulcer. office services representative working on placement options. Q2hour repositioning. - Problem List Review Problem List Initiated/Reviewed/Updated: Yes - My Orders Last 24 Hours: My Active Orders 10/24/17 16:30 Warfarin Sliding Scale [Coumadin Sliding Scale] See Dose Instructions PO ASDIRECTED 10/25/17 16:00 Warfarin [Coumadin] 7.5 mg PO 10/25/17@1600 10/26/17 06:00 INR,PT,PROTHROMBIN TIME [COAG] DAILY 10/27/17 06:00 INR,PT,PROTHROMBIN TIME [COAG] DAILY 10/28/17 06:00 INR,PT,PROTHROMBIN TIME [COAG] DAILY 10/29/17 06:00 INR,PT,PROTHROMBIN TIME [COAG] DAILY 10/30/17 06:00 INR,PT,PROTHROMBIN TIME [COAG] DAILY 10/31/17 06:00 INR,PT,PROTHROMBIN TIME [COAG] DAILY - Assessment Assessment:: Disposition: [facility] rescinded their acceptance given the patient's long-term need for wound VAC. - Plan Plan:: He is post post op#4. He is off O2. Started Coumadin yesterday.I will Plan discharge in AM,after completion of IV abx. Continue Lovenox until INR is 2-3
[2017-10-25] MEDS: Enoxaparin 150 MG/1 ML Syringe SUBCUT SCH ×2 (11:12→20:28)
[2017-10-25] MEDS: Ascorbic Acid 500 MG Tab PO SCH (11:13)
[2017-10-25] MEDS: Baclofen 10 MG Tab PO SCH ×3 (11:13→20:30)
[2017-10-25] MEDS: Furosemide 40 MG Tab PO SCH (11:13)
[2017-10-25] MEDS: buPROPion 150 MG Tab.ER PO SCH (11:13)
[2017-10-25] MEDS: DULoxetine 60 MG Cap PO SCH (11:13)
[2017-10-25] MEDS: Zinc Sulfate 220 MG Cap PO SCH (11:53)
[2017-10-25] MEDS: Meropenem 1 GM SDV IV SCH ×2 (14:59→15:55)
[2017-10-25] MEDS: Sodium Chloride 0.9% 10 ML Syringe FLUSH PRN (15:14)
[2017-10-25] MEDS ORDERED: Warfarin 2.5 MG, Warfarin 5 MG PO SCH ×2 (16:00)
[2017-10-26] MEDS: Albuterol/Ipratropium 3.0-0.5 MG/3 ML Neb Soln NEB SCH ×5 (07:06→20:11)
[2017-10-26] MEDS: Enoxaparin 150 MG/1 ML Syringe SUBCUT SCH ×2 (08:34→20:08)
[2017-10-26] MEDS: DULoxetine 60 MG Cap PO SCH (08:35)
[2017-10-26] MEDS: Furosemide 40 MG Tab PO SCH (08:36)
[2017-10-26] MEDS: Ascorbic Acid 500 MG Tab PO SCH (08:37)
[2017-10-26] MEDS: buPROPion 150 MG Tab.ER PO SCH (08:37)
[2017-10-26] MEDS: Baclofen 10 MG Tab PO SCH ×3 (08:37→20:10)
--- NOTE | 2017-10-26 08:52 | PCM.PN ---
- General Info Date of Service: 10/26/17 Subjective Update: Patient has no new complaints today. He sedated in the room appears comfortable in no distress, more verbal today and smiling at times. Functional Status: Reports: Pain Controlled - Review of Systems HEENT: Reports: No Symptoms Pulmonary: Reports: Cough Gastrointestinal: Reports: No Symptoms Genitourinary: Reports: No Symptoms - Patient Data Vitals - Most Recent: Last Vital Signs Temp 97.9 F 10/26/17 07:41 Pulse 76 10/26/17 07:41 Resp 18 10/26/17 07:41 BP 112/69 10/26/17 07:41 Pulse Ox 91 L 10/26/17 07:41 Weight - Most Recent: 139.797 kg I&O - Last 24 Hours: Intake & Output 10/25/17 10/26/17 10/26/17 22:59 06:59 14:59 Intake Total 2040 0 Output Total 750 2000 Balance 1290 -2000 Lab Results Last 24 Hours: Laboratory Results - last 24 hr 10/25/17 10/26/17 Range/Units 06:30 06:05 PT 10.4 11.4 H (8.7-11.1) INR 1.03 1.13 (0.89-1.13) Med Orders - Current: Current Medications Acetaminophen (Tylenol) 650 mg PO Q6H PRN PRN Reason: Fever Last Admin: 10/20/17 07:41 Dose: 650 mg Acetaminophen (Tylenol) 650 mg PO Q4H PRN PRN Reason: Pain Last Admin: 10/22/17 00:56 Dose: 650 mg Hydrocodone Bitart/Acetaminophen ([place] 325-10 Mg) 1 tab PO Q4H PRN PRN Reason: Pain Last Admin: 10/24/17 23:48 Dose: 1 tab Albuterol/Ipratropium (Duoneb 3.0-0.5 Mg/3 Ml) 3 ml NEB QIDRT [facility] Last Admin: 10/26/17 07:06 Dose: 3 ml Aripiprazole (Abilify) 2 mg PO DAILY [facility] Last Admin: 10/26/17 08:35 Dose: 2 mg Ascorbic Acid (Vitamin C) 500 mg PO DAILY [facility] Last Admin: 10/26/17 08:37 Dose: 500 mg Atorvastatin Calcium (Lipitor) 40 mg PO BEDTIME [facility] Last Admin: 10/24/17 20:34 Dose: 40 mg Baclofen (Lioresal) 10 mg PO TID [facility] Last Admin: 10/26/17 08:37 Dose: 10 mg Bupropion HCl (Wellbutrin Xl) 300 mg PO DAILY [facility] Last Admin: 10/26/17 08:37 Dose: 300 mg Duloxetine HCl (Cymbalta) 60 mg PO DAILY [facility] Last Admin: 10/26/17 08:35 Dose: 60 mg Enoxaparin Sodium (Lovenox) 140 mg SUBCUT Q12H [facility] Last Admin: 10/26/17 08:34 Dose: 140 mg Furosemide (Lasix) 40 mg PO DAILY [facility] Last Admin: 10/26/17 08:36 Dose: 40 mg Ondansetron HCl (Zofran Odt) 4 mg PO Q6H PRN PRN Reason: nausea, able to take PO Sodium Chloride (Saline Flush) 10 ml FLUSH ASDIRECTED PRN PRN Reason: Keep Vein Open Last Admin: 10/25/17 15:14 Dose: 10 ml Warfarin Sodium (Coumadin Sliding Scale) 0 each PO ASDIRECTED [facility] Warfarin Sodium (Coumadin) 10 mg PO 10/26/17@1600 [facility] Stop: 10/26/17 17:00 Zinc Sulfate (Zincate) 220 mg PO DAILY@1200 [facility] Last Admin: 10/25/17 11:53 Dose: 220 mg Discontinued Medications Enoxaparin Sodium (Lovenox) 40 mg SUBCUT Q12H [facility] Last Admin: 10/18/17 10:41 Dose: 40 mg Enoxaparin Sodium (Lovenox) 40 mg SUBCUT Q12H [facility] Last Admin: 10/19/17 06:29 Dose: 40 mg Enoxaparin Sodium (Lovenox) 100 mg SUBCUT Q12H [facility] Last Admin: 10/19/17 06:29 Dose: 100 mg Enoxaparin Sodium (Lovenox) 140 mg SUBCUT Q12H [facility] Last Admin: 10/23/17 17:35 Dose: 140 mg Enoxaparin Sodium (Lovenox) 140 mg SUBCUT Q12H [facility] Last Admin: 10/24/17 08:04 Dose: 140 mg Fentanyl (Sublimaze) 100 mcg IV .STK-MED ONE Stop: 10/14/17 10:31 Furosemide (Lasix) 40 mg PO DAILY [facility] Last Admin: 10/14/17 08:24 Dose: Not Given Furosemide (Lasix) 20 mg PO DAILY [facility] Last Admin: 10/17/17 08:47 Dose: 20 mg Furosemide (Lasix) 40 mg IVPUSH NOW ONE Stop: 10/17/17 17:46 Last Admin: 10/17/17 19:05 Dose: 40 mg Levofloxacin/Dextrose 500 mg/ (Premix) 100 mls @ 100 mls/hr IV Q24H [facility] Last Admin: 10/15/17 19:42 Dose: 100 mls/hr Metronidazole 500 mg/ Premix 100 mls @ 100 mls/hr IV Q8H [facility] Last Admin: 10/16/17 04:15 Dose: 100 mls/hr Vancomycin HCl 500 mg/ Sodium (Chloride) 250 mls @ 166.667 mls/hr IV Q24H [facility] Last Admin: 10/15/17 23:56 Dose: Not Given Vancomycin HCl 1,750 mg/ (Sodium Chloride) 500 mls @ 250 mls/hr IV Q18H [facility] Last Admin: 10/14/17 00:27 Dose: 250 mls/hr Lactated Ringer's (Ringers, Lactated) 1,000 mls @ 125 mls/hr IV ASDIRECTED [facility] Last Admin: 10/15/17 00:56 Dose: 125 mls/hr Vancomycin HCl 1,000 mg/Vancomycin HCl 750 mg/ Sodium Chloride 500 mls @ 250 mls/hr IV Q18H [facility] Last Admin: 10/14/17 16:38 Dose: 250 mls/hr Vancomycin HCl 1,000 mg/Vancomycin HCl 750 mg/ Sodium Chloride 500 mls @ 250 mls/hr IV Q12H [facility] Last Admin: 10/15/17 22:51 Dose: 250 mls/hr Meropenem 1 gm/ Sodium (Chloride) 100 mls @ 200 mls/hr IV Q8H [facility] Stop: 10/19/17 13:00 Last Admin: 10/19/17 10:59 Dose: 200 mls/hr Iopamidol (Isovue-370 (76%)) 100 ml IV ONETIME ONE Stop: 10/18/17 16:19 Last Admin: 10/18/17 16:32 Dose: 85 ml Levofloxacin (Levaquin) 500 mg PO Q24H [facility] Last Admin: 10/19/17 09:45 Dose: 500 mg Lidocaine HCl (Xylocaine-Mpf 1%) 2 ml INJECT ONETIME ONE Stop: 10/22/17 13:31 Last Admin: 10/22/17 14:10 Dose: 2 ml Lidocaine/Epinephrine (Xylocaine-Mpf 2%-Epi 1:200,000) 20 ml INFILT .STK-MED ONE Stop: 10/21/17 10:55 Last Admin: 10/21/17 10:54 Dose: 20 ml Meropenem (Merrem) 1 gm IV Q8H [facility] Stop: 10/25/17 11:01 Last Admin: 10/24/17 14:52 Dose: 1 gm Meropenem (Merrem) 1 gm IV Q8H [facility] Stop: 10/25/17 14:01 Last Admin: 10/25/17 15:55 Dose: Not Given Midazolam HCl (Versed 1 Mg/Ml) 3 mg IV .STK-MED ONE Stop: 10/21/17 10:46 Midazolam HCl (Versed 1 Mg/Ml) 2 mg IV .STK-MED ONE Stop: 10/14/17 10:31 Morphine Sulfate (Morphine) Confirm Administered Dose 2 mg .ROUTE .STK-MED ONE Stop: 10/22/17 05:43 Last Admin: 10/22/17 06:51 Dose: Not Given Morphine Sulfate (Morphine) 2 mg IVPUSH ONETIME ONE Stop: 10/22/17 05:43 Last Admin: 10/22/17 05:43 Dose: 2 mg Morphine Sulfate (Morphine) 2 mg IM ONETIME ONE Stop: 10/23/17 10:02 Last Admin: 10/23/17 10:07 Dose: 2 mg Ondansetron HCl (Zofran) 4 mg IVPUSH .STK-MED ONE Stop: 10/14/17 10:31 Propofol (Diprivan 20 Ml) 70 mg IV .STK-MED ONE Stop: 10/21/17 10:46 Propofol (Diprivan 20 Ml) 200 mg IV .STK-MED ONE Stop: 10/14/17 10:31 Rocuronium [place] (Zemuron) 25 mg IV .STK-MED ONE Stop: 10/14/17 10:31 Succinylcholine Chloride (Quelicin) 200 mg IV .STK-MED ONE Stop: 10/14/17 10:31 Tamsulosin HCl (Flomax) 0.4 mg PO ONETIME ONE Stop: 10/13/17 18:55 Last Admin: 10/13/17 20:19 Dose: 0.4 mg Vancomycin HCl (Vancomycin) Confirm Administered Dose 1,000 mg .ROUTE .STK-MED ONE Stop: 10/13/17 23:39 Last Admin: 10/14/17 00:33 Dose: Not Given Vancomycin HCl (Pharmacy To Dose - Vancomycin) 1 dose .XX ASDIRECTED [facility] Warfarin Sodium (Coumadin) 5 mg PO 1600 [facility] Stop: 10/24/17 16:01 Last Admin: 10/24/17 17:48 Dose: 5 mg Warfarin Sodium 2.5 mg/ (Warfarin Sodium 5 mg) 7.5 mg PO 10/25/17@1600 [facility] Stop: 10/25/17 17:00 Last Admin: 10/25/17 15:56 Dose: 7.5 mg Zinc Sulfate (Zincate) 220 mg PO DAILY [facility] - Exam Quality Assessment: No: Supplemental Oxygen General: Alert, Oriented HEENT: Pupils Equal, Pupils Reactive, EOMI, Mucous Membr. Moist/[place] Neck: Supple Lungs: Decreased Breath Sounds, Rhonchi - Problem List & Annotations (1) Pulmonary emboli SNOMED Code(s): 06660069 Code(s): I26.99 - OTHER PULMONARY EMBOLISM WITHOUT ACUTE COR PULMONALE Status: Acute Current Visit: Yes Qualifiers: Pulmonary embolism type: other (2) DVT (deep venous thrombosis) SNOMED Code(s): 905068807 Code(s): I82.409 - ACUTE EMBOLISM AND THOMBOS UNSP DEEP VN UNSP LOWER EXTREMITY Status: Acute Current Visit: Yes (3) Decubitus skin ulcer SNOMED Code(s): 460418770 Code(s): L89.90 - PRESSURE ULCER OF UNSPECIFIED SITE, UNSPECIFIED STAGE Status: Acute Current Visit: Yes Qualifiers: Pressure ulcer location: buttock Pressure ulcer stage: stage 3 Laterality : right Qualified Code(s): L89.313 - Pressure ulcer of right buttock, stage 3 (4) Depression SNOMED Code(s): 18958585 Code(s): F32.9 - MAJOR DEPRESSIVE DISORDER, SINGLE EPISODE, UNSPECIFIED Status: Acute Current Visit: Yes Qualifiers: Depression Type: major depressive disorder Psychotic features: without psychotic features Annotation/Comment:: Horacio started 10/18. Tolerating well. (5) HCAP (healthcare-associated pneumonia) SNOMED Code(s): 662438927 Code(s): J18.9 - PNEUMONIA, UNSPECIFIED ORGANISM Status: Acute Current Visit: Yes (6) Morbid obesity with alveolar hypoventilation SNOMED Code(s): 519849190 Code(s): E66.2 - MORBID (SEVERE) OBESITY WITH ALVEOLAR HYPOVENTILATION Status: Acute Current Visit: Yes (7) Multiple sclerosis SNOMED Code(s): 98586167 Code(s): G35 - MULTIPLE SCLEROSIS Status: Acute Current Visit: Yes Annotation/Comment:: Continue PT/OT to work on chair accommodations to offload this ulcer. environmental services specialist working on placement options. Q2hour repositioning. - Problem List Review Problem List Initiated/Reviewed/Updated: Yes - My Orders Last 24 Hours: My Active Orders 10/26/17 16:00 Warfarin [Coumadin] 10 mg PO 10/26/17@1600 10/27/17 06:00 INR,PT,PROTHROMBIN TIME [COAG] DAILY 10/28/17 06:00 INR,PT,PROTHROMBIN TIME [COAG] DAILY 10/29/17 06:00 INR,PT,PROTHROMBIN TIME [COAG] DAILY 10/30/17 06:00 INR,PT,PROTHROMBIN TIME [COAG] DAILY 10/31/17 06:00 INR,PT,PROTHROMBIN TIME [COAG] DAILY - Plan Plan:: He is post post op#5. He is off O2. Started Coumadin yesterday.I will Plan discharge in AM,after completion of IV abx today. Continue Lovenox until INR is 2-3
[2017-10-26] MEDS: Zinc Sulfate 220 MG Cap PO SCH (12:04)
--- NOTE | 2017-10-26 14:13 | PCM.SN ---
- Free Text/Narrative Note: wound vac change.. wound is granulating except for a 2 cm wide strip which will need to be debrided will plan on doing at the bedside on Tuesday.
[2017-10-26] MEDS ORDERED: Warfarin 10 MG Tab PO SCH (16:00)
[2017-10-26] MEDS: atorvaSTATin 40 MG Tab PO SCH ×2 (20:10→20:11)
[2017-10-27] MEDS: Albuterol/Ipratropium 3.0-0.5 MG/3 ML Neb Soln NEB SCH ×2 (07:33→10:58)
[2017-10-27] MEDS: Enoxaparin 150 MG/1 ML Syringe SUBCUT SCH (08:08)
[2017-10-27] MEDS: DULoxetine 60 MG Cap PO SCH (08:11)
[2017-10-27] MEDS: Baclofen 10 MG Tab PO SCH (08:12)
[2017-10-27] MEDS: Furosemide 40 MG Tab PO SCH (08:12)
[2017-10-27] MEDS: Ascorbic Acid 500 MG Tab PO SCH (08:13)
[2017-10-27] MEDS: buPROPion 150 MG Tab.ER PO SCH (08:14)
--- NOTE | 2017-10-27 09:15 | PCM.PN ---
- General Info Date of Service: 10/27/17 Subjective Update: Patient has no new complaints today. He sedated in the room appears comfortable in no distress, more verbal today and smiling at times. Functional Status: Reports: Pain Controlled, Tolerating Diet. Denies: New Symptoms, Incentive Spirometry - Review of Systems General: Reports: No Symptoms HEENT: Reports: No Symptoms Pulmonary: Reports: No Symptoms Cardiovascular: Reports: No Symptoms Gastrointestinal: Reports: No Symptoms - Patient Data Vitals - Most Recent: Last Vital Signs Temp 97.4 F 10/27/17 00:18 Pulse 76 10/27/17 07:36 Resp 18 10/27/17 04:00 BP 128/63 10/27/17 00:18 Pulse Ox 93 L 10/27/17 07:36 Weight - Most Recent: 142.247 kg I&O - Last 24 Hours: Intake & Output 10/26/17 10/27/17 10/27/17 22:59 06:59 14:59 Intake Total 240 Output Total 450 600 Balance -210 -600 Lab Results Last 24 Hours: Laboratory Results - last 24 hr 10/27/17 Range/Units 06:30 PT 16.6 H (8.7-11.1) INR 1.62 H (0.89-1.13) Med Orders - Current: Current Medications Acetaminophen (Tylenol) 650 mg PO Q6H PRN PRN Reason: Fever Last Admin: 10/20/17 07:41 Dose: 650 mg Acetaminophen (Tylenol) 650 mg PO Q4H PRN PRN Reason: Pain Last Admin: 10/22/17 00:56 Dose: 650 mg Hydrocodone Bitart/Acetaminophen ([place] 325-10 Mg) 1 tab PO Q4H PRN PRN Reason: Pain Last Admin: 10/24/17 23:48 Dose: 1 tab Albuterol/Ipratropium (Duoneb 3.0-0.5 Mg/3 Ml) 3 ml NEB QIDRT [facility] Last Admin: 10/27/17 07:33 Dose: 3 ml Aripiprazole (Abilify) 2 mg PO DAILY [facility] Last Admin: 10/27/17 08:11 Dose: 2 mg Ascorbic Acid (Vitamin C) 500 mg PO DAILY [facility] Last Admin: 10/27/17 08:13 Dose: 500 mg Atorvastatin Calcium (Lipitor) 40 mg PO BEDTIME [facility] Last Admin: 10/26/17 20:11 Dose: 40 mg Baclofen (Lioresal) 10 mg PO TID [facility] Last Admin: 10/27/17 08:12 Dose: 10 mg Bupropion HCl (Wellbutrin Xl) 300 mg PO DAILY [facility] Last Admin: 10/27/17 08:14 Dose: 300 mg Duloxetine HCl (Cymbalta) 60 mg PO DAILY [facility] Last Admin: 10/27/17 08:11 Dose: 60 mg Enoxaparin Sodium (Lovenox) 140 mg SUBCUT Q12H [facility] Last Admin: 10/27/17 08:08 Dose: 140 mg Furosemide (Lasix) 40 mg PO DAILY [facility] Last Admin: 10/27/17 08:12 Dose: 40 mg Ondansetron HCl (Zofran Odt) 4 mg PO Q6H PRN PRN Reason: nausea, able to take PO Sodium Chloride (Saline Flush) 10 ml FLUSH ASDIRECTED PRN PRN Reason: Keep Vein Open Last Admin: 10/25/17 15:14 Dose: 10 ml Warfarin Sodium (Coumadin Sliding Scale) 0 each PO ASDIRECTED [facility] Warfarin Sodium (Coumadin) 7.5 mg PO 1600 [facility] Stop: 10/27/17 16:01 Zinc Sulfate (Zincate) 220 mg PO DAILY@1200 [facility] Last Admin: 10/26/17 12:04 Dose: 220 mg Discontinued Medications Enoxaparin Sodium (Lovenox) 40 mg SUBCUT Q12H [facility] Last Admin: 10/18/17 10:41 Dose: 40 mg Enoxaparin Sodium (Lovenox) 40 mg SUBCUT Q12H [facility] Last Admin: 10/19/17 06:29 Dose: 40 mg Enoxaparin Sodium (Lovenox) 100 mg SUBCUT Q12H [facility] Last Admin: 10/19/17 06:29 Dose: 100 mg Enoxaparin Sodium (Lovenox) 140 mg SUBCUT Q12H [facility] Last Admin: 10/23/17 17:35 Dose: 140 mg Enoxaparin Sodium (Lovenox) 140 mg SUBCUT Q12H [facility] Last Admin: 10/24/17 08:04 Dose: 140 mg Fentanyl (Sublimaze) 100 mcg IV .STK-MED ONE Stop: 10/14/17 10:31 Furosemide (Lasix) 40 mg PO DAILY [facility] Last Admin: 10/14/17 08:24 Dose: Not Given Furosemide (Lasix) 20 mg PO DAILY [facility] Last Admin: 10/17/17 08:47 Dose: 20 mg Furosemide (Lasix) 40 mg IVPUSH NOW ONE Stop: 10/17/17 17:46 Last Admin: 10/17/17 19:05 Dose: 40 mg Levofloxacin/Dextrose 500 mg/ (Premix) 100 mls @ 100 mls/hr IV Q24H [facility] Last Admin: 10/15/17 19:42 Dose: 100 mls/hr Metronidazole 500 mg/ Premix 100 mls @ 100 mls/hr IV Q8H [facility] Last Admin: 10/16/17 04:15 Dose: 100 mls/hr Vancomycin HCl 500 mg/ Sodium (Chloride) 250 mls @ 166.667 mls/hr IV Q24H [facility] Last Admin: 10/15/17 23:56 Dose: Not Given Vancomycin HCl 1,750 mg/ (Sodium Chloride) 500 mls @ 250 mls/hr IV Q18H [facility] Last Admin: 10/14/17 00:27 Dose: 250 mls/hr Lactated Ringer's (Ringers, Lactated) 1,000 mls @ 125 mls/hr IV ASDIRECTED [facility] Last Admin: 10/15/17 00:56 Dose: 125 mls/hr Vancomycin HCl 1,000 mg/Vancomycin HCl 750 mg/ Sodium Chloride 500 mls @ 250 mls/hr IV Q18H [facility] Last Admin: 10/14/17 16:38 Dose: 250 mls/hr Vancomycin HCl 1,000 mg/Vancomycin HCl 750 mg/ Sodium Chloride 500 mls @ 250 mls/hr IV Q12H [facility] Last Admin: 10/15/17 22:51 Dose: 250 mls/hr Meropenem 1 gm/ Sodium (Chloride) 100 mls @ 200 mls/hr IV Q8H [facility] Stop: 10/19/17 13:00 Last Admin: 10/19/17 10:59 Dose: 200 mls/hr Iopamidol (Isovue-370 (76%)) 100 ml IV ONETIME ONE Stop: 10/18/17 16:19 Last Admin: 10/18/17 16:32 Dose: 85 ml Levofloxacin (Levaquin) 500 mg PO Q24H [facility] Last Admin: 10/19/17 09:45 Dose: 500 mg Lidocaine HCl (Xylocaine-Mpf 1%) 2 ml INJECT ONETIME ONE Stop: 10/22/17 13:31 Last Admin: 10/22/17 14:10 Dose: 2 ml Lidocaine/Epinephrine (Xylocaine-Mpf 2%-Epi 1:200,000) 20 ml INFILT .STK-MED ONE Stop: 10/21/17 10:55 Last Admin: 10/21/17 10:54 Dose: 20 ml Meropenem (Merrem) 1 gm IV Q8H [facility] Stop: 10/25/17 11:01 Last Admin: 10/24/17 14:52 Dose: 1 gm Meropenem (Merrem) 1 gm IV Q8H [facility] Stop: 10/25/17 14:01 Last Admin: 10/25/17 15:55 Dose: Not Given Midazolam HCl (Versed 1 Mg/Ml) 3 mg IV .STK-MED ONE Stop: 10/21/17 10:46 Midazolam HCl (Versed 1 Mg/Ml) 2 mg IV .STK-MED ONE Stop: 10/14/17 10:31 Morphine Sulfate (Morphine) Confirm Administered Dose 2 mg .ROUTE .STK-MED ONE Stop: 10/22/17 05:43 Last Admin: 10/22/17 06:51 Dose: Not Given Morphine Sulfate (Morphine) 2 mg IVPUSH ONETIME ONE Stop: 10/22/17 05:43 Last Admin: 10/22/17 05:43 Dose: 2 mg Morphine Sulfate (Morphine) 2 mg IM ONETIME ONE Stop: 10/23/17 10:02 Last Admin: 10/23/17 10:07 Dose: 2 mg Ondansetron HCl (Zofran) 4 mg IVPUSH .STK-MED ONE Stop: 10/14/17 10:31 Propofol (Diprivan 20 Ml) 70 mg IV .STK-MED ONE Stop: 10/21/17 10:46 Propofol (Diprivan 20 Ml) 200 mg IV .STK-MED ONE Stop: 10/14/17 10:31 Rocuronium [place] (Zemuron) 25 mg IV .STK-MED ONE Stop: 10/14/17 10:31 Succinylcholine Chloride (Quelicin) 200 mg IV .STK-MED ONE Stop: 10/14/17 10:31 Tamsulosin HCl (Flomax) 0.4 mg PO ONETIME ONE Stop: 10/13/17 18:55 Last Admin: 10/13/17 20:19 Dose: 0.4 mg Vancomycin HCl (Vancomycin) Confirm Administered Dose 1,000 mg .ROUTE .STK-MED ONE Stop: 10/13/17 23:39 Last Admin: 10/14/17 00:33 Dose: Not Given Vancomycin HCl (Pharmacy To Dose - Vancomycin) 1 dose .XX ASDIRECTED [facility] Warfarin Sodium (Coumadin) 5 mg PO 1600 [facility] Stop: 10/24/17 16:01 Last Admin: 10/24/17 17:48 Dose: 5 mg Warfarin Sodium 2.5 mg/ (Warfarin Sodium 5 mg) 7.5 mg PO 10/25/17@1600 [facility] Stop: 10/25/17 17:00 Last Admin: 10/25/17 15:56 Dose: 7.5 mg Warfarin Sodium (Coumadin) 10 mg PO 10/26/17@1600 [facility] Stop: 10/26/17 17:00 Last Admin: 10/26/17 16:46 Dose: 10 mg Zinc Sulfate (Zincate) 220 mg PO DAILY [facility] - Exam Quality Assessment: No: Supplemental Oxygen General: Alert, Oriented HEENT: Pupils Equal, Pupils Reactive, EOMI, Mucous Membr. Moist/[place] Neck: Supple Lungs: Clear to Auscultation, Normal Respiratory Effort Cardiovascular: Regular Rate, Regular Rhythm Psy/Mental Status: Alert, Depressed - Problem List & Annotations (1) Pulmonary emboli SNOMED Code(s): 94537708 Code(s): I26.99 - OTHER PULMONARY EMBOLISM WITHOUT ACUTE COR PULMONALE Status: Acute Current Visit: Yes Qualifiers: Pulmonary embolism type: other (2) DVT (deep venous thrombosis) SNOMED Code(s): 650358814 Code(s): I82.409 - ACUTE EMBOLISM AND THOMBOS UNSP DEEP VN UNSP LOWER EXTREMITY Status: Acute Current Visit: Yes (3) Decubitus skin ulcer SNOMED Code(s): 621087965 Code(s): L89.90 - PRESSURE ULCER OF UNSPECIFIED SITE, UNSPECIFIED STAGE Status: Acute Current Visit: Yes Qualifiers: Pressure ulcer location: buttock Pressure ulcer stage: stage 3 Laterality : right Qualified Code(s): L89.313 - Pressure ulcer of right buttock, stage 3 (4) Depression SNOMED Code(s): 06470660 Code(s): F32.9 - MAJOR DEPRESSIVE DISORDER, SINGLE EPISODE, UNSPECIFIED Status: Acute Current Visit: Yes Qualifiers: Depression Type: major depressive disorder Psychotic features: without psychotic features Annotation/Comment:: Horacio started 10/18. Tolerating well. (5) HCAP (healthcare-associated pneumonia) SNOMED Code(s): 334504814 Code(s): J18.9 - PNEUMONIA, UNSPECIFIED ORGANISM Status: Acute Current Visit: Yes (6) Morbid obesity with alveolar hypoventilation SNOMED Code(s): 486622962 Code(s): E66.2 - MORBID (SEVERE) OBESITY WITH ALVEOLAR HYPOVENTILATION Status: Acute Current Visit: Yes (7) Multiple sclerosis SNOMED Code(s): 90735334 Code(s): G35 - MULTIPLE SCLEROSIS Status: Acute Current Visit: Yes Annotation/Comment:: Continue PT/OT to work on chair accommodations to offload this ulcer. volunteer services coordinator working on placement options. Q2hour repositioning. - Problem List Review Problem List Initiated/Reviewed/Updated: Yes - My Orders Last 24 Hours: My Active Orders 10/27/17 16:00 Warfarin [Coumadin] 7.5 mg PO 1600 10/28/17 06:00 INR,PT,PROTHROMBIN TIME [CO[facility]] DAILY 10/29/17 06:00 INR,PT,PROTHROMBIN TIME [[facility]] DAILY 10/30/17 06:00 INR,PT,PROTHROMBIN TIME [COAG] DAILY 10/31/17 06:00 INR,PT,PROTHROMBIN TIME [COAG] DAILY - Assessment Assessment:: Disposition: [facility] rescinded their acceptance given the patient's long-term need for wound VAC. - Plan Plan:: He is post post op#6. He is off O2. Started Coumadin yesterday.I will Plan discharge today to for PT and OT,Wound Vac Management Continue Lovenox until INR is 2-3
[2017-10-27] MEDS: Zinc Sulfate 220 MG Cap PO SCH (11:34)
--- NOTE | 2017-10-27 14:11 | DISCH ---
DISCHARGE DATE: 10/27/2017 REASON FOR ADMISSION: 1. Bed ulcer. 2. Multiple sclerosis, confined to a wheelchair. 3. Depression. 4. Thalassemia. 5. Hypertrophy of the prostate. 6. Neuropathic pain. 7. Hyperlipidemia. 8. Pulmonary embolism. 9. Pneumonia. DISCHARGE DIAGNOSES: He had acute deep venous thrombosis of the popliteal vein on 10/18/2017. BRIEF HISTORY AND HOSPITAL COURSE: This is a 67-year-old male who was admitted by Dr. Hough for a decubitus ulcer treatment. The [facility] service was consulted because of multiple medical problems. The patient is confined to a wheelchair for the past few years because of multiple sclerosis. He also has depression, hyperlipidemia, history of thalassemia, and neuropathic pain. He had debridement of the ulcer, and on postoperative day #3 the patient was hypoxic and a CT of the chest revealed PE and mass that was possibly due to pneumonia. The patient was placed on IV antibiotics, meropenem and Lovenox. 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 Murphy was consulted, Cymbalta was increased, and Abilify was given during the day, and his symptoms seemed to have improved. Pulmonology was consulted over the telephone and suggested IV antibiotics and a repeat CT scan in 4 weeks. Physical Therapy was working with him throughout. He went back to surgery on the for debridement, and this went well. He was off oxygen 2 days later and finished 7 days of IV meropenem on the . I discharged him to swing bed for physical rehab, strengthening, and wound VAC management on the . He will go there on Coumadin and Lovenox until his INR is therapeutic. Other medications that he will be continuing will be albuterol p.r.n., Abilify 2 mg a day, acetaminophen as needed, Cymbalta 60 mg a day, Wellbutrin 300 mg a day, baclofen 10 mg t.i.d., Lipitor 40 mg at bedtime, ascorbic 500 mg p.o. daily, Lasix 40 mg a day, and zinc sulfate 220 mg daily. FOLLOWUP: The patient will continue physical therapy for 7 weeks. Please note that a CT scan needs to be done in 3 weeks' time. Pharmacy will be managing his Coumadin and anticoagulation. It is suggested that he continue long-term anticoagulation because of his bedridden status and multiple sclerosis, and therefore, he is high risk for development of recurrent PE. Please note that I spent more than 35 minutes in the discharge of the patient. /[id number] ABHISHEK/SUSAN
[2017-10-27] MEDS ORDERED: Warfarin 2.5 MG Tab PO SCH (16:00)
== END 2017-10-27 10:00 | disposition swing bed (61) | DRG 579 ==
LOC: FB.MS 17:18
PROVIDERS: ADMIT Family Medicine; ATTEND Family Medicine
PROC: 0KBN0ZZ Excision of Right Hip Muscle, Open Approach (ICD-10-PCS; principal; 2017-10-14)
PROC: 0HD8XZZ Extraction of Buttock Skin, External Approach (ICD-10-PCS; 2017-10-21)
PROC: 05JY3ZZ Inspection of Upper Vein, Percutaneous Approach (ICD-10-PCS; 2017-10-22)
PROC: 2W05X6Z Change Pressure Dressing on Back (ICD-10-PCS; 2017-10-24)
PROC: 2W05X6Z Change Pressure Dressing on Back (ICD-10-PCS; 2017-10-26)
DX: L89.313 Pressure ulcer of right buttock, stage 3 (principal); I26.99 Other pulmonary embolism without acute cor pulmonale; J18.9 Pneumonia, unspecified organism; J98.11 Atelectasis; I82.4Z1 Acute embolism and thrombosis of unspecified deep veins of right distal lower extremity; E66.2 Morbid (severe) obesity with alveolar hypoventilation; Z68.41 Body mass index [BMI] 40.0-44.9, adult; G35 Multiple sclerosis; Z99.3 Dependence on wheelchair; E78.5 Hyperlipidemia, unspecified; F32.9 Major depressive disorder, single episode, unspecified; N40.0 Benign prostatic hyperplasia without lower urinary tract symptoms; R60.9 Edema, unspecified; M79.2 Neuralgia and neuritis, unspecified; H54.7 Unspecified visual loss; Z79.82 Long term (current) use of aspirin; Z88.8 Allergy status to other drugs, medicaments and biological substances; E88.09 Other disorders of plasma-protein metabolism, not elsewhere classified; R32 Unspecified urinary incontinence; Z86.73 Personal history of transient ischemic attack (TIA), and cerebral infarction without residual deficits; R50.9 Fever, unspecified; R09.02 Hypoxemia; Y95 Nosocomial condition; D56.9 Thalassemia, unspecified; Z79.01 Long term (current) use of anticoagulants
CPT/HCPCS: 36415; 36569; 36600; 51702; 71045; 71275; 76937; 80048; 80053; 80202; 81001; 82728; 82803; 83036; 83540; 83550; 83605; 85025; 85045; 85610; 86140; 87070; 87075; 87086; 87205; 88304; 93005; 93306; 93970; 94150; 94640; 94667; 94668; 97110-GO; 97163-GP; 97165-GO; 97530-GO; 97535-GO; 97542-GO; 97606-GP; A9270-GY; G0425; J0330; J1650; J1940; J1956; J2185; J2250; J2270; J2405; J2704; J3010; J3370; J7030; J7040; J7050; J7120; J7620; Q9967

== ENCOUNTER 2017-10-27 10:00 | Inpatient (IN) | payer MEDICARE, OTHER ==
[2017-10-27] MEDS ORDERED: Albuterol/Ipratropium 3.0-0.5 MG/3 ML Neb Soln NEB PRN (12:53)
[2017-10-27] MEDS: Baclofen 10 MG Tab PO SCH ×2 (14:08→20:32)
[2017-10-27] MEDS ORDERED: Warfarin Sliding Scale PO SCH (14:15)
[2017-10-27] MEDS ORDERED: Warfarin 2.5 MG Tab PO SCH (16:00)
[2017-10-27] MEDS ORDERED: Enoxaparin 150 MG/1 ML Syringe SUBCUT SCH (20:00)
[2017-10-27] MEDS: Docusate Sodium 250 MG Cap PO SCH (20:31)
[2017-10-27] MEDS: atorvaSTATin 40 MG Tab PO SCH (20:32)
[2017-10-28] MEDS: Acetaminophen 325 MG Tab PO PRN (09:37)
[2017-10-28] MEDS: Ascorbic Acid 500 MG Tab PO SCH (09:37)
[2017-10-28] MEDS: buPROPion 150 MG Tab.ER PO SCH (09:37)
[2017-10-28] MEDS: Docusate Sodium 250 MG Cap PO SCH ×2 (09:37→20:12)
[2017-10-28] MEDS: DULoxetine 60 MG Cap PO SCH (09:37)
[2017-10-28] MEDS: Baclofen 10 MG Tab PO SCH ×3 (09:37→20:12)
[2017-10-28] MEDS: Furosemide 40 MG Tab PO SCH (09:37)
[2017-10-28] MEDS ORDERED: Zinc Sulfate 220 MG Cap PO SCH (12:00)
--- NOTE | 2017-10-28 12:27 | PCM.SN ---
- Free Text/Narrative Note: wound vac dressing change performed. wound looks better than it did earlier this week. some necrotic tissue removed. wound does track inferio/anteriorly. however no pus noted when clean packing inserted, and this is the same tract noted in the OR. it is deeper will continue wound vac, I will restart levaquin. understand coumadin is affected, and this was discussed with pharm. should be okay since we are tracking. clinically he is better. will recheck cbc. w
--- NOTE | 2017-10-28 13:35 | PN ---
DATE SEEN: 10/28/2017 HISTORY OF PRESENT ILLNESS: Crow Lunsford is a 67-year-old, male, admitted to swing bed. He has a complicated decubitus ulcer, being followed by Surgery. Health issues include MS, Rivera catheter, and decubitus ulcer. Being followed closely by Surgery. MEDICATIONS: Reviewed and include: 1. Tylenol 650 q.4 hours p.r.n. for pain. 2. DuoNeb 3 mL q.i.d. p.r.n. breathing. 3. Abilify 2 mg 1 p.o. daily, mood stabilizer. 4. Vitamin C 500 mg 1 p.o. daily, nutrition. 5. Lipitor 40 mg 1 p.o. daily, hyperlipidemia. 6. Baclofen 10 mg t.i.d., muscle spasm. 7. Wellbutrin XL 300 mg 1 p.o. daily, mood stabilizer. 8. Docusate 250 1 p.o. b.i.d., stools. 9. Cymbalta 60 mg 1 p.o. daily, mood stabilizer. 10.Furosemide 40 mg p.o. daily, edema. 11.Coumadin per protocol. 12.Zinc sulfate 220 1 p.o. daily, nutrition. 13.Lovenox 140 mg subcu q.12 hours, transitioning from Coumadin. ALLERGIES: To procaine. PAST MEDICAL HISTORY: Updated on most recent visit. SOCIAL HISTORY: Updated on most recent visit. CLINICAL DATA: Updated on most recent visit. PHYSICAL EXAMINATION: VITAL SIGNS: Stable. 142.2 kg, 36.6, pulse is 100, blood pressure 104/72, respirations 20, O2 saturation 95%. GENERAL: Young man, cooperative, conversant, heavily bearded, long nice hair. HEENT: Speech was fluent. Clear nasal discharge. Mouth and oropharynx clear. CHEST: Clear in all lung boone. HEART: Regular rate without ectopy or murmur. ABDOMEN: Benign. No hepatosplenomegaly. EXTREMITIES: Moderate edema and venous stasis in lower extremities. Rivera catheter in place. Decubitus ulcer not viewed per Surgery. IMPRESSION: Decubitus ulcer, wound VAC, surgical intervention. PLAN: Medications, care and treatment appropriate. Dr. Hough will continue care and treatment. /[id number] YUDITH/SUSAN
[2017-10-28] MEDS: Levofloxacin 500 MG Tab PO SCH (13:44)
[2017-10-28] MEDS ORDERED: Warfarin 2.5 MG Tab PO SCH (16:00)
[2017-10-28] MEDS ORDERED: Warfarin 5 MG Tab PO SCH (16:00)
[2017-10-28] MEDS: atorvaSTATin 40 MG Tab PO SCH (20:12)
[2017-10-29] MEDS: buPROPion 150 MG Tab.ER PO SCH (08:54)
[2017-10-29] MEDS: Zinc Sulfate 220 MG Cap PO SCH (08:55)
[2017-10-29] MEDS: Ascorbic Acid 500 MG Tab PO SCH (08:55)
[2017-10-29] MEDS: Furosemide 40 MG Tab PO SCH (08:55)
[2017-10-29] MEDS: Docusate Sodium 250 MG Cap PO SCH ×2 (08:55→20:29)
[2017-10-29] MEDS: DULoxetine 60 MG Cap PO SCH (08:55)
[2017-10-29] MEDS: Baclofen 10 MG Tab PO SCH ×3 (08:55→20:30)
[2017-10-29] MEDS: Levofloxacin 500 MG Tab PO SCH (13:07)
[2017-10-29] MEDS ORDERED: Warfarin 2.5 MG Tab PO SCH (16:00)
[2017-10-29] MEDS: atorvaSTATin 40 MG Tab PO SCH (20:30)
[2017-10-30] MEDS: Baclofen 10 MG Tab PO SCH ×3 (08:56→20:02)
[2017-10-30] MEDS: Ascorbic Acid 500 MG Tab PO SCH (08:56)
[2017-10-30] MEDS: buPROPion 150 MG Tab.ER PO SCH (08:56)
[2017-10-30] MEDS: Zinc Sulfate 220 MG Cap PO SCH (08:56)
[2017-10-30] MEDS: Acetaminophen 325 MG Tab PO PRN (08:56)
[2017-10-30] MEDS: DULoxetine 60 MG Cap PO SCH (08:56)
[2017-10-30] MEDS: Docusate Sodium 250 MG Cap PO SCH ×2 (08:56→20:01)
[2017-10-30] MEDS: Furosemide 40 MG Tab PO SCH (08:56)
--- NOTE | 2017-10-30 12:27 | PN ---
DATE SEEN: 10/30/2017 Crow Lunsford is a young man, 67 years of age, seen today for review. Long-term stay plan, complicated decubitus ulcer with wound VAC intact. Doing well. Pain is controlled. Medications and timing appropriate. He voices no complaints. We will review his wound tomorrow with change of wound VAC. /[id number] YUDITH/SUSAN
[2017-10-30] MEDS: Levofloxacin 500 MG Tab PO SCH (13:07)
[2017-10-30] MEDS ORDERED: Warfarin 3 MG Tab PO SCH (16:00)
[2017-10-30] MEDS: atorvaSTATin 40 MG Tab PO SCH (20:02)
--- NOTE | 2017-10-31 09:33 | PN ---
DATE SEEN: 10/29/2017 SUBJECTIVE: Crow Lunsford is a 67-year-old male, in swing bed. Treatment of complicated decubitus ulcer. Dr. Hough involved surgically. LABORATORY DATA: Lab work today: White count 14,500, hemoglobin 11.7, microcytic indices of interest, platelets elevated at 208,000. INR therapeutic at 2.77. OBJECTIVE: VITAL SIGNS: Otherwise stable. 142 kg, 60 is the pulse, blood pressure 113/58, pulse 76, respirations 20, O2 saturations 94%. GENERAL: In good spirits. Supine. NECK: Benign. Thyroid small. CHEST: Clear. HEART: Regular. IMPRESSION: Decubitus ulcer, under treatment. PLAN: Medications, care, and treatment appropriate. Dr. Hough will continue his care. /[id number] YUDITH/SUSAN
--- NOTE | 2017-10-31 09:37 | PN ---
DATE SEEN: 10/31/2017 Mr. Lunsford's wound was inspected with Dr. Hough and Physical Therapy. Granulation and healing are slow, but intact. No changes. CBC revealed mildly elevated white count of 12,500, INR satisfactory at 1.86. Intervention and care, surgery, primary provider. /[id number] YUDITH/SUSAN
[2017-10-31] MEDS: buPROPion 150 MG Tab.ER PO SCH (09:53)
[2017-10-31] MEDS: Ascorbic Acid 500 MG Tab PO SCH (09:53)
[2017-10-31] MEDS: Baclofen 10 MG Tab PO SCH ×3 (09:53→20:40)
[2017-10-31] MEDS: Furosemide 40 MG Tab PO SCH (09:53)
[2017-10-31] MEDS: DULoxetine 60 MG Cap PO SCH (09:53)
[2017-10-31] MEDS: Docusate Sodium 250 MG Cap PO SCH ×2 (09:53→20:40)
[2017-10-31] MEDS: Zinc Sulfate 220 MG Cap PO SCH (09:53)
[2017-10-31] MEDS: Levofloxacin 500 MG Tab PO SCH (13:30)
--- NOTE | 2017-10-31 14:10 | PCM.SN ---
- Free Text/Narrative Note: dressing change this am. wound bed is clean. the tract noted on Tuesday appeared to have closed. gentle palpation did not reveal any abscess. will continue current rx and antibiotic. wound vac change on Tuesday.
[2017-10-31] MEDS ORDERED: Warfarin 5 MG, Warfarin 2.5 MG PO SCH ×2 (16:00)
[2017-10-31] MEDS: atorvaSTATin 40 MG Tab PO SCH (20:40)
[2017-11-01] MEDS: Furosemide 40 MG Tab PO SCH (09:46)
[2017-11-01] MEDS: DULoxetine 60 MG Cap PO SCH (09:46)
[2017-11-01] MEDS: Zinc Sulfate 220 MG Cap PO SCH (09:47)
[2017-11-01] MEDS: Ascorbic Acid 500 MG Tab PO SCH (09:47)
[2017-11-01] MEDS: buPROPion 150 MG Tab.ER PO SCH (09:47)
[2017-11-01] MEDS: Baclofen 10 MG Tab PO SCH ×3 (09:47→20:29)
[2017-11-01] MEDS: Docusate Sodium 250 MG Cap PO SCH ×2 (09:47→20:29)
[2017-11-01] MEDS: Levofloxacin 500 MG Tab PO SCH (14:46)
[2017-11-01] MEDS ORDERED: Warfarin 5 MG, Warfarin 2.5 MG PO SCH ×2 (16:00)
[2017-11-01] MEDS: atorvaSTATin 40 MG Tab PO SCH (20:29)
[2017-11-01] MEDS: Acetaminophen 325 MG Tab PO PRN (20:31)
[2017-11-01] MEDS: Sodium Chloride 0.9% 10 ML Syringe FLUSH PRN (20:40)
[2017-11-02] MEDS: Acetaminophen 325 MG Tab PO PRN (09:12)
[2017-11-02] MEDS: Zinc Sulfate 220 MG Cap PO SCH (09:15)
[2017-11-02] MEDS: DULoxetine 60 MG Cap PO SCH (09:15)
[2017-11-02] MEDS: Ascorbic Acid 500 MG Tab PO SCH (09:15)
[2017-11-02] MEDS: Docusate Sodium 250 MG Cap PO SCH ×2 (09:16→21:16)
[2017-11-02] MEDS: buPROPion 150 MG Tab.ER PO SCH (09:16)
[2017-11-02] MEDS: Furosemide 40 MG Tab PO SCH (09:17)
[2017-11-02] MEDS: Baclofen 10 MG Tab PO SCH ×3 (09:17→21:16)
[2017-11-02] MEDS: Levofloxacin 500 MG Tab PO SCH (14:00)
[2017-11-02] MEDS ORDERED: Warfarin 5 MG Tab PO SCH (16:00)
[2017-11-02] MEDS: atorvaSTATin 40 MG Tab PO SCH (21:16)
[2017-11-03] MEDS: Acetaminophen 325 MG Tab PO PRN (08:27)
[2017-11-03] MEDS: Baclofen 10 MG Tab PO SCH ×3 (08:28→20:57)
[2017-11-03] MEDS: Furosemide 40 MG Tab PO SCH (08:28)
[2017-11-03] MEDS: Docusate Sodium 250 MG Cap PO SCH ×2 (08:29→20:57)
[2017-11-03] MEDS: buPROPion 150 MG Tab.ER PO SCH (08:29)
[2017-11-03] MEDS: DULoxetine 60 MG Cap PO SCH (08:29)
[2017-11-03] MEDS: Zinc Sulfate 220 MG Cap PO SCH (08:29)
[2017-11-03] MEDS: Ascorbic Acid 500 MG Tab PO SCH (08:29)
--- NOTE | 2017-11-03 13:41 | PN ---
DATE SEEN: 11/03/2017 Crow Lunsford is a 67-year-old male, predominantly being followed by Surgery. Wound VAC for large right buttock's decubitus ulcer. INR returned 3.39, PT 35.1. Adjustments accordingly. Has been therapeutic prior to that time. Pharmacy involved accordingly. Surgical care per Dr. Hough. /[id number] YUDITH/SUSAN
[2017-11-03] MEDS: Levofloxacin 500 MG Tab PO SCH (13:50)
[2017-11-03] MEDS ORDERED: Warfarin 2 MG Tab PO SCH (16:00)
[2017-11-03] MEDS: atorvaSTATin 40 MG Tab PO SCH (20:58)
[2017-11-04] MEDS: Baclofen 10 MG Tab PO SCH ×3 (08:28→21:47)
[2017-11-04] MEDS: Furosemide 40 MG Tab PO SCH (08:28)
[2017-11-04] MEDS: DULoxetine 60 MG Cap PO SCH (08:28)
[2017-11-04] MEDS: Ascorbic Acid 500 MG Tab PO SCH (08:28)
[2017-11-04] MEDS: Zinc Sulfate 220 MG Cap PO SCH (08:29)
[2017-11-04] MEDS: Docusate Sodium 250 MG Cap PO SCH ×2 (08:29→21:47)
[2017-11-04] MEDS: buPROPion 150 MG Tab.ER PO SCH (08:29)
[2017-11-04] MEDS: Acetaminophen 325 MG Tab PO PRN ×2 (08:32→13:53)
[2017-11-04] MEDS: Levofloxacin 500 MG Tab PO SCH (13:53)
[2017-11-04] MEDS: Warfarin 4 MG Tab PO SCH (16:55)
[2017-11-04] MEDS: atorvaSTATin 40 MG Tab PO SCH (21:47)
[2017-11-05] MEDS: buPROPion 150 MG Tab.ER PO SCH (09:26)
[2017-11-05] MEDS: Docusate Sodium 250 MG Cap PO SCH ×2 (09:26→20:24)
[2017-11-05] MEDS: Ascorbic Acid 500 MG Tab PO SCH (09:26)
[2017-11-05] MEDS: Furosemide 40 MG Tab PO SCH (09:26)
[2017-11-05] MEDS: Zinc Sulfate 220 MG Cap PO SCH (09:26)
[2017-11-05] MEDS: DULoxetine 60 MG Cap PO SCH (09:27)
[2017-11-05] MEDS: Baclofen 10 MG Tab PO SCH ×3 (09:27→20:24)
[2017-11-05] MEDS: Levofloxacin 500 MG Tab PO SCH (13:44)
[2017-11-05] MEDS: Warfarin 4 MG Tab PO SCH (17:00)
[2017-11-05] MEDS: atorvaSTATin 40 MG Tab PO SCH (20:24)
[2017-11-05] MEDS: Acetaminophen 325 MG Tab PO PRN (20:25)
[2017-11-06] MEDS: buPROPion 150 MG Tab.ER PO SCH (08:39)
[2017-11-06] MEDS: Baclofen 10 MG Tab PO SCH ×3 (08:39→20:09)
[2017-11-06] MEDS: Docusate Sodium 250 MG Cap PO SCH ×2 (08:39→20:09)
[2017-11-06] MEDS: Furosemide 40 MG Tab PO SCH (08:39)
[2017-11-06] MEDS: Ascorbic Acid 500 MG Tab PO SCH (08:39)
[2017-11-06] MEDS: DULoxetine 60 MG Cap PO SCH (08:39)
[2017-11-06] MEDS: Zinc Sulfate 220 MG Cap PO SCH (08:40)
--- NOTE | 2017-11-06 09:51 | PCM.SN ---
- Free Text/Narrative Note: wound vac was leaking suction tube had been pulled off the sponge. new one was applied with good suction maintained.
[2017-11-06] MEDS: Levofloxacin 500 MG Tab PO SCH (13:24)
[2017-11-06] MEDS: Warfarin 4 MG Tab PO SCH (15:47)
[2017-11-06] MEDS: Acetaminophen 325 MG Tab PO PRN (19:30)
[2017-11-06] MEDS: atorvaSTATin 40 MG Tab PO SCH (20:08)
[2017-11-07] MEDS: Docusate Sodium 250 MG Cap PO SCH ×2 (08:47→21:07)
[2017-11-07] MEDS: DULoxetine 60 MG Cap PO SCH (08:47)
[2017-11-07] MEDS: Furosemide 40 MG Tab PO SCH (08:47)
[2017-11-07] MEDS: buPROPion 150 MG Tab.ER PO SCH (08:48)
[2017-11-07] MEDS: Ascorbic Acid 500 MG Tab PO SCH (08:48)
[2017-11-07] MEDS: Baclofen 10 MG Tab PO SCH ×3 (08:48→21:07)
[2017-11-07] MEDS: Zinc Sulfate 220 MG Cap PO SCH (08:48)
[2017-11-07] MEDS: Levofloxacin 500 MG Tab PO SCH (13:23)
[2017-11-07] MEDS: Acetaminophen 325 MG Tab PO PRN (14:13)
--- NOTE | 2017-11-07 16:27 | PCM.SN ---
- Free Text/Narrative Note: wound vac changed. wound demonstrates a good bed of granulation tissue. no measurements taken. sponge reapplied. good suction noted.
[2017-11-07] MEDS: Warfarin 4 MG Tab PO SCH (16:28)
[2017-11-07] MEDS: atorvaSTATin 40 MG Tab PO SCH (21:07)
[2017-11-08] MEDS: DULoxetine 60 MG Cap PO SCH (09:21)
[2017-11-08] MEDS: Docusate Sodium 250 MG Cap PO SCH ×2 (09:21→21:11)
[2017-11-08] MEDS: Baclofen 10 MG Tab PO SCH ×3 (09:24→21:11)
[2017-11-08] MEDS: buPROPion 150 MG Tab.ER PO SCH (09:24)
[2017-11-08] MEDS: Ascorbic Acid 500 MG Tab PO SCH (09:24)
[2017-11-08] MEDS: Furosemide 40 MG Tab PO SCH (09:26)
[2017-11-08] MEDS: Zinc Sulfate 220 MG Cap PO SCH (09:26)
[2017-11-08] MEDS: Warfarin 4 MG Tab PO SCH (16:20)
[2017-11-08] MEDS: atorvaSTATin 40 MG Tab PO SCH (21:11)
[2017-11-09] MEDS: Docusate Sodium 250 MG Cap PO SCH ×2 (08:37→21:28)
[2017-11-09] MEDS: DULoxetine 60 MG Cap PO SCH (08:37)
[2017-11-09] MEDS: Furosemide 40 MG Tab PO SCH (08:38)
[2017-11-09] MEDS: Baclofen 10 MG Tab PO SCH ×3 (08:38→21:28)
[2017-11-09] MEDS: Ascorbic Acid 500 MG Tab PO SCH (08:38)
[2017-11-09] MEDS: buPROPion 150 MG Tab.ER PO SCH (08:39)
[2017-11-09] MEDS: Zinc Sulfate 220 MG Cap PO SCH (08:39)
[2017-11-09] MEDS: Warfarin 4 MG Tab PO SCH (15:48)
[2017-11-09] MEDS: atorvaSTATin 40 MG Tab PO SCH (21:28)
--- NOTE | 2017-11-10 07:47 | PCM.PN ---
- General Info Date of Service: 11/10/17 Subjective Update: Mr. Lunsford is a 67-year-old gentleman admitted from the clinic on 10/13/2017 for surgical debridement of right lower buttock decubitus ulcer and IV antibiotic. He underwent surgical debridement 10/14/2017 in the care of Dr. Gianluca Kennedy which resulted in a clean 12 x 16 cm diameter surgical wound with the depth down to the muscle layer. Wound VAC was instituted to help with healing. Wound cultures came back Streptococcus for which IV vancomycin and metronidazole were discontinued. On 10/18/2017 patient developed dyspnea, hypoxia and elevated temp prompting DVT PE evaluation which both were positive. Full anticoagulation was been started and will be continued long-term due to the likelihood of chronicity.. Pharmacy is an monitoring warfarin dose and INRs. Thus far no complications regarding bleeding and wound management. He was on appropriate DVT prophylaxis prior to this. Also developed right upper lobe consolidating pneumonia, prompting pulmonary consult who requested meropenem IV for 7 days which have been completed. Recommendation for repeat CT lungs to show resolving consolidation and to ensure no mass within is recommended for November 29, 2017. This will be scheduled. He was showing severe depressive state for which psychiatry was consult to who recommended addition of Abilify to his current outpatient regimen. Tells me he has no concerns. Denies pain. He is being lifted with a mechanical lift onto his wheelchair to sit up for that. He does not blindness. Wound VAC in place. Salvador catheter in place. No shortness of breath or chest pain. No headache fevers chills nausea vomiting back pain or intolerance of wound VAC. No bleeding from injection site or wound VAC site. Feels his outlook is improved. Eating better. Allergies/Adverse Reactions: Allergies Allergy/AdvReac Type Severity Reaction Status Date / Time procaine [From Novocain] Allergy Numbness Verified 10/13/17 18:56 Home Medications Upon Admission to hospital 10/13/2017: Acetaminophen 2 cap PO ASDIRECTED PRN 10/14/17 [History] Aspirin [Low Dose Aspirin EC] 81 mg PO DAILY 10/14/17 [History] Baclofen 10 mg PO TID 10/14/17 [History] Calcium Carbonate/Vitamin D3 [Calcium Carb 500 MG] 1 tab PO BID 10/14/17 [ History] DULoxetine [Cymbalta] 60 mg PO DAILY 10/14/17 [History] Docusate Calcium [Stool Softener] 240 mg PO BID 10/14/17 [History] Furosemide [Lasix] 40 mg PO DAILY 10/14/17 [History] Psyllium [Metamucil] 1 gm PO DAILY 10/14/17 [History] Tamsulosin [Tamsulosin 24 Hr] 0.4 mg PO BEDTIME 10/14/17 [History] atorvaSTATin [Lipitor] 40 mg PO BEDTIME 10/14/17 [History] buPROPion HCl [Wellbutrin Xl] 300 mg PO DAILY 10/14/17 [History] Past Medical History HEENT History: Impaired Vision Other HEENT History: wears glasses Cardiovascular History: High Cholesterol Cardiovascular History: edema to lower extremeties Respiratory History: SOB with activity secondary to restrictive from obesity and deconditioning. Musculoskeletal History: Impaired mobility and weakness of the proximal muscle secondary to MS with frequent muscle spasms. No contractures. Uses a motorized wheelchair with pressure reducing cushion. Neuro History: Polyneuropathy Psychiatric History: Depression-active Dermatologic History: decubitus of right buttock active with recent healed left decubitus ulcer of the buttocks. Status post operative debridement. - Past Surgical History Male Surgeries/Procedures: hypertrophy of prostate with urinary obstruction leading to episodes of incontinence which complicates jenna-cares and skin integrity. Social & Family History Comes from assisted living center, but current status will likely be for placement in a long term secondary to above - Family History Family Medical History: Noncontributory - Tobacco Use Smoking Status *Q: Never Smoker Second Hand Smoke Exposure: No - Caffeine Use Caffeine Use: Reports: Coffee - Recreational Drug Use Recreational Drug Use: No - Review of Systems Systems Review Comment:: Please see subjective - Patient Data Vitals - Most Recent: Last Vital Signs Temp 97.8 F 11/09/17 07:24 Pulse 92 11/09/17 07:24 Resp 16 11/09/17 07:24 BP 122/74 11/09/17 07:24 Pulse Ox 91 L 11/09/17 07:24 Weight - Most Recent: 142.247 kg I&O - Last 24 Hours: Intake & Output 11/09/17 11/10/17 11/10/17 22:59 06:59 14:59 Output Total 550 Balance -550 Lab Results Last 24 Hours: Laboratory Results - last 24 hr 11/10/17 Range/Units 06:35 PT 28.9 H (8.7-11.1) INR 2.80 H (0.89-1.13) Med Orders - Current: Current Medications Acetaminophen (Tylenol) 650 mg PO Q4H PRN PRN Reason: PAIN Last Admin: 11/07/17 14:13 Dose: 650 mg Albuterol/Ipratropium (Duoneb 3.0-0.5 Mg/3 Ml) 3 ml NEB QID PRN PRN Reason: wheezing Aripiprazole (Abilify) 2 mg PO DAILY [facility] Last Admin: 11/09/17 08:37 Dose: 2 mg Ascorbic Acid (Vitamin C) 500 mg PO DAILY [facility] Last Admin: 11/09/17 08:38 Dose: 500 mg Atorvastatin Calcium (Lipitor) 40 mg PO BEDTIME [facility] Last Admin: 11/09/17 21:28 Dose: 40 mg Baclofen (Lioresal) 10 mg PO TID [facility] Last Admin: 11/09/17 21:28 Dose: 10 mg Bupropion HCl (Wellbutrin Xl) 300 mg PO DAILY [facility] Last Admin: 11/09/17 08:39 Dose: 300 mg Docusate Sodium (Dok) 250 mg PO BID [facility] Last Admin: 11/09/17 21:28 Dose: 250 mg Duloxetine HCl (Cymbalta) 60 mg PO DAILY [facility] Last Admin: 11/09/17 08:37 Dose: 60 mg Furosemide (Lasix) 40 mg PO DAILY [facility] Last Admin: 11/09/17 08:38 Dose: 40 mg Sodium Chloride (Saline Flush) 10 ml FLUSH ASDIRECTED PRN PRN Reason: Keep Vein Open Last Admin: 11/01/17 20:40 Dose: 10 ml Warfarin Sodium (Coumadin Sliding Scale) 0 each PO ASDIRECTED [facility] Warfarin Sodium (Coumadin) 4 mg PO DAILY@1600 [facility] Last Admin: 11/09/17 15:48 Dose: 4 mg Zinc Sulfate (Zincate) 220 mg PO DAILY [facility] Last Admin: 11/09/17 08:39 Dose: 220 mg Discontinued Medications Enoxaparin Sodium (Lovenox) 140 mg SUBCUT Q12H [facility] Last Admin: 10/27/17 20:30 Dose: 140 mg Levofloxacin (Levaquin) 500 mg PO Q24H [facility] Last Admin: 11/07/17 13:23 Dose: 500 mg Warfarin Sodium (Coumadin) 7.5 mg PO 1600 [facility] Stop: 10/27/17 16:01 Last Admin: 10/27/17 16:17 Dose: 7.5 mg Warfarin Sodium (Coumadin) 2.5 mg PO 1600 [facility] Stop: 10/28/17 16:01 Last Admin: 10/28/17 16:52 Dose: 2.5 mg Warfarin Sodium (Coumadin) 2.5 mg PO 1600 [facility] Stop: 10/29/17 16:01 Last Admin: 10/29/17 16:28 Dose: 2.5 mg Warfarin Sodium (Coumadin) 3 mg PO 1600 [facility] Stop: 10/30/17 16:01 Last Admin: 10/30/17 16:58 Dose: 3 mg Warfarin Sodium (Coumadin) Confirm Administered Dose 1 mg .ROUTE .STK-MED [facility] Stop: 10/30/17 16:56 Last Admin: 10/30/17 16:57 Dose: Not Given Warfarin Sodium (Coumadin) Confirm Administered Dose 2 mg .ROUTE .STK-MED [facility] Stop: 10/30/17 16:56 Last Admin: 10/30/17 18:07 Dose: Not Given Warfarin Sodium 5 mg/ Warfarin (Sodium 2.5 mg) 7.5 mg PO 1600 [facility] Stop: 10/31/17 16:01 Last Admin: 10/31/17 16:55 Dose: 7.5 mg Warfarin Sodium 5 mg/ Warfarin (Sodium 2.5 mg) 7.5 mg PO 1600 [facility] Stop: 11/01/17 16:01 Last Admin: 11/01/17 16:01 Dose: 7.5 mg Warfarin Sodium (Coumadin) 5 mg PO 1600 [facility] Stop: 11/02/17 16:30 Last Admin: 11/02/17 15:38 Dose: 5 mg Warfarin Sodium (Coumadin) 2 mg PO 1600 [facility] Stop: 11/03/17 16:01 Last Admin: 11/03/17 18:19 Dose: 2 mg Zinc Sulfate (Zincate) 220 mg PO DAILY@1200 [facility] Last Admin: 10/28/17 13:11 Dose: 220 mg - Exam Quality Assessment: Urine Catheter, Skin Breakdown General: Alert, Oriented, Cooperative, No Acute Distress HEENT: Mucous Membr. Moist/[place] Lungs: Normal Respiratory Effort Cardiovascular: Regular Rate, Regular Rhythm GI/Abdominal Exam: Soft Back Exam: Other (Right lower buttock with malodorous drainage.) Extremities: Pedal Edema. No: Leg Pain Wound/Incisions: Decubitis Neurological: Normal Speech Psy/Mental Status: Normal Affect, Normal Mood - Problem List & Annotations (1) Decubitus skin ulcer SNOMED Code(s): 581655322 Code(s): L89.90 - PRESSURE ULCER OF UNSPECIFIED SITE, UNSPECIFIED STAGE Status: Acute Current Visit: Yes Qualifiers: Pressure ulcer location: buttock Pressure ulcer stage: stage 3 Laterality : right Qualified Code(s): L89.313 - Pressure ulcer of right buttock, stage 3 (2) HCAP (healthcare-associated pneumonia) SNOMED Code(s): 695015633 Code(s): J18.9 - PNEUMONIA, UNSPECIFIED ORGANISM Status: Acute Current Visit: Yes (3) Morbid obesity with alveolar hypoventilation SNOMED Code(s): 921325656 Code(s): E66.2 - MORBID (SEVERE) OBESITY WITH ALVEOLAR HYPOVENTILATION Status: Chronic Current Visit: Yes (4) Pulmonary emboli SNOMED Code(s): 27772731 Code(s): I26.99 - OTHER PULMONARY EMBOLISM WITHOUT ACUTE COR PULMONALE Status: Acute Current Visit: Yes Qualifiers: Pulmonary embolism type: other Chronicity: unspecified (5) DVT (deep venous thrombosis) SNOMED Code(s): 401948551 Code(s): I82.409 - ACUTE EMBOLISM AND THOMBOS UNSP DEEP VN UNSP LOWER EXTREMITY Status: Acute Current Visit: Yes Qualifiers: DVT location: lower extremity Chronicity: unspecified (6) Chronic anticoagulation SNOMED Code(s): 840134544 Code(s): Z79.01 - [facility] (CURRENT) USE OF ANTICOAGULANTS Status: Acute Current Visit: Yes (7) Urinary incontinence SNOMED Code(s): 122460706 Code(s): R32 - UNSPECIFIED URINARY INCONTINENCE Status: Chronic Current Visit: Yes Annotation/Comment:: Salvador catheter in place for accurate I/O and to protect wound. (8) Depression SNOMED Code(s): 08955141 Code(s): F32.9 - MAJOR DEPRESSIVE DISORDER, SINGLE EPISODE, UNSPECIFIED Status: Chronic Current Visit: Yes Qualifiers: Depression Type: major depressive disorder Psychotic features: without psychotic features Annotation/Comment:: Abilify started 10/18. Tolerating well. (9) Hypoalbuminemia SNOMED Code(s): 714091562 Code(s): E88.09 - OTH DISORDERS OF PLASMA-PROTEIN METABOLISM, NEC Status: Chronic Current Visit: Yes Annotation/Comment:: Continue high protein diet and mineral supplements to aid in wound healing. (10) Encounter for management of wound VAC SNOMED Code(s): 212382672 Code(s): EKG3482 - Status: Acute Current Visit: Yes (11) Salvador catheter in place SNOMED Code(s): 865433566 Code(s): Z92.89 - PERSONAL HISTORY OF OTHER MEDICAL TREATMENT Status: Acute Current Visit: Yes (12) Thalassemia SNOMED Code(s): 04267645 Code(s): D56.9 - THALASSEMIA, UNSPECIFIED Status: Chronic Current Visit: Yes (13) Need for surveillance due to prolonged bedrest SNOMED Code(s): 566899575 Code(s): Z51.89 - ENCOUNTER FOR OTHER SPECIFIED AFTERCARE Status: Chronic Current Visit: Yes Annotation/Comment:: PT and OT working with the patient. Continue to work with mobility and frequent position changes. (14) Multiple sclerosis SNOMED Code(s): 29366613 Code(s): G35 - MULTIPLE SCLEROSIS Status: Chronic Current Visit: Yes Annotation/Comment:: Continue PT/OT to work on chair accommodations to offload this ulcer. patient services specialist working on placement options. Q2hour repositioning. (15) Fever SNOMED Code(s): 953468125 Code(s): R50.9 - FEVER, UNSPECIFIED Status: Resolved Current Visit: Yes - Problem List Review Problem List Initiated/Reviewed/Updated: Yes - My Orders Last 24 Hours: Active Orders 24 hr Category Date Time Status Chest w wo Cont [CT] Routine Exams 11/29/17 08:00 Ordered INR,PT,PROTHROMBIN TIME [COAG] Q72H Lab 11/13/17 06:00 Ordered INR,PT,PROTHROMBIN TIME [COAG] Q72H Lab 11/16/17 06:00 Ordered INR,PT,PROTHROMBIN TIME [COAG] Q72H Lab 11/19/17 06:00 Ordered INR,PT,PROTHROMBIN TIME [COAG] Q72H Lab 11/22/17 06:00 Ordered INR,PT,PROTHROMBIN TIME [COAG] Q72H Lab 11/25/17 06:00 Ordered My Active Orders 11/29/17 08:00 Chest w wo Cont [CT] Routine - Plan Plan:: continue wound cares per surgery. antibiotic regimen per surgery. repeat ct chest on 11/29/17 per pulmonology recommendations. pharmacy continuing to monitory anticoag to maintain inr 2-3. nutrition management. salvador cares. depression controlled. PT OT and social work nurse to continue for strengthening, mobility and disposition at discharge.
[2017-11-10] MEDS: DULoxetine 60 MG Cap PO SCH (08:53)
[2017-11-10] MEDS: Docusate Sodium 250 MG Cap PO SCH ×2 (08:54→22:13)
[2017-11-10] MEDS: Ascorbic Acid 500 MG Tab PO SCH (08:54)
[2017-11-10] MEDS: Baclofen 10 MG Tab PO SCH ×3 (08:54→22:13)
[2017-11-10] MEDS: Furosemide 40 MG Tab PO SCH (08:54)
[2017-11-10] MEDS: Zinc Sulfate 220 MG Cap PO SCH (08:55)
[2017-11-10] MEDS: buPROPion 150 MG Tab.ER PO SCH (09:03)
[2017-11-10] MEDS: Warfarin 4 MG Tab PO SCH (15:40)
[2017-11-10] MEDS: atorvaSTATin 40 MG Tab PO SCH (22:13)
[2017-11-11] MEDS: Acetaminophen 325 MG Tab PO PRN ×2 (08:29→13:00)
[2017-11-11] MEDS: Docusate Sodium 250 MG Cap PO SCH ×2 (08:40→20:00)
[2017-11-11] MEDS: DULoxetine 60 MG Cap PO SCH (08:40)
[2017-11-11] MEDS: Furosemide 40 MG Tab PO SCH (08:40)
[2017-11-11] MEDS: Ascorbic Acid 500 MG Tab PO SCH (08:41)
[2017-11-11] MEDS: Baclofen 10 MG Tab PO SCH ×3 (08:41→20:00)
[2017-11-11] MEDS: Zinc Sulfate 220 MG Cap PO SCH (08:41)
[2017-11-11] MEDS: buPROPion 150 MG Tab.ER PO SCH (08:41)
[2017-11-11] MEDS: Warfarin 4 MG Tab PO SCH (17:11)
[2017-11-11] MEDS: atorvaSTATin 40 MG Tab PO SCH (20:00)
[2017-11-12] MEDS: Acetaminophen 325 MG Tab PO PRN ×2 (09:03→20:33)
[2017-11-12] MEDS: Furosemide 40 MG Tab PO SCH (09:05)
[2017-11-12] MEDS: buPROPion 150 MG Tab.ER PO SCH (09:05)
[2017-11-12] MEDS: Baclofen 10 MG Tab PO SCH ×3 (09:06→20:34)
[2017-11-12] MEDS: Docusate Sodium 250 MG Cap PO SCH ×2 (09:06→20:34)
[2017-11-12] MEDS: Ascorbic Acid 500 MG Tab PO SCH (09:06)
[2017-11-12] MEDS: DULoxetine 60 MG Cap PO SCH (09:06)
[2017-11-12] MEDS: Zinc Sulfate 220 MG Cap PO SCH (09:07)
[2017-11-12] MEDS: Warfarin 4 MG Tab PO SCH (16:57)
[2017-11-12] MEDS: atorvaSTATin 40 MG Tab PO SCH (20:34)
[2017-11-13] MEDS: Acetaminophen 325 MG Tab PO PRN (09:00)
[2017-11-13] MEDS: buPROPion 150 MG Tab.ER PO SCH (09:01)
[2017-11-13] MEDS: Baclofen 10 MG Tab PO SCH ×3 (09:02→20:12)
[2017-11-13] MEDS: Docusate Sodium 250 MG Cap PO SCH ×2 (09:02→20:11)
[2017-11-13] MEDS: Ascorbic Acid 500 MG Tab PO SCH (09:02)
[2017-11-13] MEDS: Zinc Sulfate 220 MG Cap PO SCH (09:02)
[2017-11-13] MEDS: Furosemide 40 MG Tab PO SCH (09:03)
[2017-11-13] MEDS: DULoxetine 60 MG Cap PO SCH (09:03)
[2017-11-13] MEDS: atorvaSTATin 40 MG Tab PO SCH (20:12)
[2017-11-14] MEDS: DULoxetine 60 MG Cap PO SCH (08:50)
[2017-11-14] MEDS: buPROPion 150 MG Tab.ER PO SCH (08:50)
[2017-11-14] MEDS: Zinc Sulfate 220 MG Cap PO SCH (08:50)
[2017-11-14] MEDS: Furosemide 40 MG Tab PO SCH (08:50)
[2017-11-14] MEDS: Ascorbic Acid 500 MG Tab PO SCH (08:50)
[2017-11-14] MEDS: Docusate Sodium 250 MG Cap PO SCH ×2 (08:50→20:39)
[2017-11-14] MEDS: Baclofen 10 MG Tab PO SCH ×3 (08:50→20:41)
[2017-11-14] MEDS: Acetaminophen 325 MG Tab PO PRN (08:56)
[2017-11-14] MEDS ORDERED: Warfarin 2 MG Tab PO SCH (16:00)
[2017-11-14] MEDS: atorvaSTATin 40 MG Tab PO SCH (20:41)
--- NOTE | 2017-11-15 08:55 | PCM.PN ---
- General Info Date of Service: 11/15/17 Admission Dx/Problem (Free Text): Patient is without complaints. Says his wound is healing nicely. He has no fevers, chills, cough or chest pain. I told him there is concerns from registered dietitian that he is not eating well and taking supplements. He says he feels he is eating fine. - Patient Data Vitals - Most Recent: Last Vital Signs Temp 97.8 F 11/15/17 07:27 Pulse 79 11/15/17 07:27 Resp 18 11/15/17 07:27 BP 112/79 11/15/17 07:27 Pulse Ox 97 11/15/17 07:27 Weight - Most Recent: 302 lb I&O - Last 24 Hours: Intake & Output 11/14/17 11/15/17 11/15/17 22:59 06:59 14:59 Intake Total 600 Output Total 900 Balance 600 -900 Lab Results Last 24 Hours: Laboratory Results - last 24 hr 11/15/17 Range/Units 06:15 PT 23.2 H (8.7-11.1) INR 2.26 H (0.89-1.13) Med Orders - Current: Current Medications Acetaminophen (Tylenol) 650 mg PO Q4H PRN PRN Reason: PAIN Last Admin: 11/14/17 08:56 Dose: 650 mg Albuterol/Ipratropium (Duoneb 3.0-0.5 Mg/3 Ml) 3 ml NEB QID PRN PRN Reason: wheezing Aripiprazole (Abilify) 2 mg PO DAILY [facility] Last Admin: 11/14/17 08:50 Dose: 2 mg Ascorbic Acid (Vitamin C) 500 mg PO DAILY [facility] Last Admin: 11/14/17 08:50 Dose: 500 mg Atorvastatin Calcium (Lipitor) 40 mg PO BEDTIME [facility] Last Admin: 11/14/17 20:41 Dose: 40 mg Baclofen (Lioresal) 10 mg PO TID [facility] Last Admin: 11/14/17 20:41 Dose: 10 mg Bupropion HCl (Wellbutrin Xl) 300 mg PO DAILY [facility] Last Admin: 11/14/17 08:50 Dose: 300 mg Docusate Sodium (Dok) 250 mg PO BID [facility] Last Admin: 11/14/17 20:39 Dose: 250 mg Duloxetine HCl (Cymbalta) 60 mg PO DAILY [facility] Last Admin: 11/14/17 08:50 Dose: 60 mg Furosemide (Lasix) 40 mg PO DAILY [facility] Last Admin: 11/14/17 08:50 Dose: 40 mg Sodium Chloride (Saline Flush) 10 ml FLUSH ASDIRECTED PRN PRN Reason: Keep Vein Open Last Admin: 11/01/17 20:40 Dose: 10 ml Warfarin Sodium (Coumadin Sliding Scale) 0 each PO ASDIRECTED [facility] Warfarin Sodium (Coumadin) 3 mg PO 1600 [facility] Zinc Sulfate (Zincate) 220 mg PO DAILY [facility] Last Admin: 11/14/17 08:50 Dose: 220 mg Discontinued Medications Enoxaparin Sodium (Lovenox) 140 mg SUBCUT Q12H [facility] Last Admin: 10/27/17 20:30 Dose: 140 mg Levofloxacin (Levaquin) 500 mg PO Q24H [facility] Last Admin: 11/07/17 13:23 Dose: 500 mg Warfarin Sodium (Coumadin) 7.5 mg PO 1600 [facility] Stop: 10/27/17 16:01 Last Admin: 10/27/17 16:17 Dose: 7.5 mg Warfarin Sodium (Coumadin) 2.5 mg PO 1600 [facility] Stop: 10/28/17 16:01 Last Admin: 10/28/17 16:52 Dose: 2.5 mg Warfarin Sodium (Coumadin) 2.5 mg PO 1600 [facility] Stop: 10/29/17 16:01 Last Admin: 10/29/17 16:28 Dose: 2.5 mg Warfarin Sodium (Coumadin) 3 mg PO 1600 [facility] Stop: 10/30/17 16:01 Last Admin: 10/30/17 16:58 Dose: 3 mg Warfarin Sodium (Coumadin) Confirm Administered Dose 1 mg .ROUTE .STK-MED [facility] Stop: 10/30/17 16:56 Last Admin: 10/30/17 16:57 Dose: Not Given Warfarin Sodium (Coumadin) Confirm Administered Dose 2 mg .ROUTE .STK-MED [facility] Stop: 10/30/17 16:56 Last Admin: 10/30/17 18:07 Dose: Not Given Warfarin Sodium 5 mg/ Warfarin (Sodium 2.5 mg) 7.5 mg PO 1600 [facility] Stop: 10/31/17 16:01 Last Admin: 10/31/17 16:55 Dose: 7.5 mg Warfarin Sodium 5 mg/ Warfarin (Sodium 2.5 mg) 7.5 mg PO 1600 [facility] Stop: 11/01/17 16:01 Last Admin: 11/01/17 16:01 Dose: 7.5 mg Warfarin Sodium (Coumadin) 5 mg PO 1600 [facility] Stop: 11/02/17 16:30 Last Admin: 11/02/17 15:38 Dose: 5 mg Warfarin Sodium (Coumadin) 2 mg PO 1600 [facility] Stop: 11/03/17 16:01 Last Admin: 11/03/17 18:19 Dose: 2 mg Warfarin Sodium (Coumadin) 4 mg PO DAILY@1600 [facility] Last Admin: 11/12/17 16:57 Dose: 4 mg Warfarin Sodium (Coumadin) 2 mg PO 1600 [facility] Stop: 11/14/17 16:01 Last Admin: 11/14/17 17:42 Dose: 2 mg Zinc Sulfate (Zincate) 220 mg PO DAILY@1200 [facility] Last Admin: 10/28/17 13:11 Dose: 220 mg - Exam General: Alert, Oriented, Cooperative Lungs: Clear to Auscultation, Normal Respiratory Effort Cardiovascular: Regular Rate, Regular Rhythm, No Murmurs Skin: Other (Deferred to [place]) - Problem List & Annotations (1) DVT (deep venous thrombosis) SNOMED Code(s): 636551704 Code(s): I82.409 - ACUTE EMBOLISM AND THOMBOS UNSP DEEP VN UNSP LOWER EXTREMITY Status: Acute Current Visit: Yes Qualifiers: DVT location: lower extremity Chronicity: unspecified (2) Decubitus skin ulcer SNOMED Code(s): 437527470 Code(s): L89.90 - PRESSURE ULCER OF UNSPECIFIED SITE, UNSPECIFIED STAGE Status: Acute Current Visit: Yes Qualifiers: Pressure ulcer location: buttock Pressure ulcer stage: stage 3 Laterality : right Qualified Code(s): L89.313 - Pressure ulcer of right buttock, stage 3 (3) Encounter for management of wound VAC SNOMED Code(s): 489522504 Code(s): YIE6613 - Status: Acute Current Visit: Yes (4) Pulmonary emboli SNOMED Code(s): 90540107 Code(s): I26.99 - OTHER PULMONARY EMBOLISM WITHOUT ACUTE COR PULMONALE Status: Acute Current Visit: Yes Qualifiers: Pulmonary embolism type: other Chronicity: unspecified - Problem List Review Problem List Initiated/Reviewed/Updated: Yes - My Orders Last 24 Hours: My Active Orders 11/15/17 16:00 Warfarin [Coumadin] 3 mg PO 1600 11/16/17 07:54 INR,PT,PROTHROMBIN TIME [COAG] DAILY 11/17/17 07:54 INR,PT,PROTHROMBIN TIME [[facility]] DAILY 11/18/17 07:54 INR,PT,PROTHROMBIN TIME [[facility]] DAILY 11/19/17 07:54 INR,PT,PROTHROMBIN TIME [[facility]] DAILY 11/20/17 06:00 Weight [Height and Weight] [RC] ASDIRECTED 11/20/17 07:54 INR,PT,PROTHROMBIN TIME [[facility]] DAILY - Plan Plan:: 1. Continue current care. Dr. Hough in charge of wound management
[2017-11-15] MEDS: DULoxetine 60 MG Cap PO SCH (08:57)
[2017-11-15] MEDS: Docusate Sodium 250 MG Cap PO SCH ×2 (08:58→20:11)
[2017-11-15] MEDS: Furosemide 40 MG Tab PO SCH (08:58)
[2017-11-15] MEDS: Baclofen 10 MG Tab PO SCH ×3 (08:59→20:11)
[2017-11-15] MEDS: buPROPion 150 MG Tab.ER PO SCH (08:59)
[2017-11-15] MEDS: Ascorbic Acid 500 MG Tab PO SCH (08:59)
[2017-11-15] MEDS: Zinc Sulfate 220 MG Cap PO SCH (08:59)
[2017-11-15] MEDS: Warfarin 3 MG Tab PO SCH (16:25)
[2017-11-15] MEDS: atorvaSTATin 40 MG Tab PO SCH (20:11)
[2017-11-15] MEDS: Acetaminophen 325 MG Tab PO PRN (20:11)
[2017-11-16] MEDS: DULoxetine 60 MG Cap PO SCH (08:46)
[2017-11-16] MEDS: Ascorbic Acid 500 MG Tab PO SCH (08:46)
[2017-11-16] MEDS: Furosemide 40 MG Tab PO SCH (08:46)
[2017-11-16] MEDS: Docusate Sodium 250 MG Cap PO SCH ×2 (08:46→20:21)
[2017-11-16] MEDS: Baclofen 10 MG Tab PO SCH ×3 (08:46→20:21)
[2017-11-16] MEDS: Zinc Sulfate 220 MG Cap PO SCH (08:47)
[2017-11-16] MEDS: buPROPion 150 MG Tab.ER PO SCH (08:47)
--- NOTE | 2017-11-16 13:56 | PCM.SN ---
- Free Text/Narrative Note: Present for the wound vac change. granulating has a small area that may need some sharp debridement in furture. will continue current rx for now.
[2017-11-16] MEDS: Warfarin 3 MG Tab PO SCH (16:24)
[2017-11-16] MEDS: atorvaSTATin 40 MG Tab PO SCH (20:21)
[2017-11-17] MEDS: Furosemide 40 MG Tab PO SCH (08:50)
[2017-11-17] MEDS: DULoxetine 60 MG Cap PO SCH (08:50)
[2017-11-17] MEDS: Docusate Sodium 250 MG Cap PO SCH ×2 (08:50→20:00)
[2017-11-17] MEDS: Baclofen 10 MG Tab PO SCH ×3 (08:50→20:00)
[2017-11-17] MEDS: buPROPion 150 MG Tab.ER PO SCH (08:51)
[2017-11-17] MEDS: Ascorbic Acid 500 MG Tab PO SCH (08:51)
[2017-11-17] MEDS: Zinc Sulfate 220 MG Cap PO SCH (08:55)
[2017-11-17] MEDS ORDERED: Warfarin 5 MG Tab PO SCH (16:00)
[2017-11-17] MEDS: Acetaminophen 325 MG Tab PO PRN (16:20)
[2017-11-17] MEDS: atorvaSTATin 40 MG Tab PO SCH (20:00)
[2017-11-18] MEDS: Docusate Sodium 250 MG Cap PO SCH ×2 (09:08→21:18)
[2017-11-18] MEDS: Furosemide 40 MG Tab PO SCH (09:08)
[2017-11-18] MEDS: DULoxetine 60 MG Cap PO SCH (09:08)
[2017-11-18] MEDS: Baclofen 10 MG Tab PO SCH ×3 (09:08→21:18)
[2017-11-18] MEDS: Zinc Sulfate 220 MG Cap PO SCH (09:09)
[2017-11-18] MEDS: buPROPion 150 MG Tab.ER PO SCH (09:09)
[2017-11-18] MEDS: Ascorbic Acid 500 MG Tab PO SCH (09:09)
[2017-11-18] MEDS: Acetaminophen 325 MG Tab PO PRN ×2 (09:09→20:17)
--- NOTE | 2017-11-18 10:44 | PCM.PN ---
- General Info Date of Service: 11/18/17 Admission Dx/Problem (Free Text): Patient is a 67-year-old male currently on swing bed day #23 with decubitus ulcer with wound VAC, status post PE/DVT from immobility due to multiple sclerosis and partial paralysis. He also has depression and anxiety. I cared for the patient while he was inpatient and he was subsequently placed in swing bed status to continue wound care. Per Dr. Hough, the patient will likely need further debridement. However, much of the wound is healing well. The patient's mood has improved. There is no plan for long-term disposition at this point. He is on anticoagulation with warfarin which has been difficult to manage per pharmacy due to the patient's irregular oral intake. The patient has had no chest pain, no shortness of breath, no nausea or vomiting, continues to have Rivera catheter in place. As an outpatient was doing intermittent straight catheterization with significant incontinence. He has been incontinent of bowels as well. Functional Status: Reports: Pain Controlled, Tolerating Diet - Patient Data Vitals - Most Recent: Last Vital Signs Temp 36.8 C 11/18/17 08:00 Pulse 88 11/17/17 08:45 Resp 20 11/18/17 08:00 BP 107/75 11/18/17 08:00 Pulse Ox 94 L 11/18/17 08:00 Weight - Most Recent: 136.985 kg I&O - Last 24 Hours: Intake & Output 11/17/17 11/18/17 11/18/17 22:59 06:59 14:59 Intake Total 500 0 Output Total 300 400 Balance 200 -400 Lab Results Last 24 Hours: Laboratory Results - last 24 hr 11/18/17 Range/Units 06:55 PT 20.4 H (8.7-11.1) INR 1.99 H (0.89-1.13) Med Orders - Current: Current Medications Acetaminophen (Tylenol) 650 mg PO Q4H PRN PRN Reason: PAIN Last Admin: 11/18/17 09:09 Dose: 650 mg Albuterol/Ipratropium (Duoneb 3.0-0.5 Mg/3 Ml) 3 ml NEB QID PRN PRN Reason: wheezing Aripiprazole (Abilify) 2 mg PO DAILY [facility] Last Admin: 11/18/17 09:07 Dose: 2 mg Ascorbic Acid (Vitamin C) 500 mg PO DAILY [facility] Last Admin: 11/18/17 09:09 Dose: 500 mg Atorvastatin Calcium (Lipitor) 40 mg PO BEDTIME [facility] Last Admin: 11/17/17 20:00 Dose: 40 mg Baclofen (Lioresal) 10 mg PO TID [facility] Last Admin: 11/18/17 09:08 Dose: 10 mg Bupropion HCl (Wellbutrin Xl) 300 mg PO DAILY [facility] Last Admin: 11/18/17 09:09 Dose: 300 mg Docusate Sodium (Dok) 250 mg PO BID [facility] Last Admin: 11/18/17 09:08 Dose: 250 mg Duloxetine HCl (Cymbalta) 60 mg PO DAILY [facility] Last Admin: 11/18/17 09:08 Dose: 60 mg Furosemide (Lasix) 40 mg PO DAILY [facility] Last Admin: 11/18/17 09:08 Dose: 40 mg Sodium Chloride (Saline Flush) 10 ml FLUSH ASDIRECTED PRN PRN Reason: Keep Vein Open Last Admin: 11/01/17 20:40 Dose: 10 ml Warfarin Sodium (Coumadin Sliding Scale) 0 each PO ASDIRECTED [facility] Warfarin Sodium (Coumadin) 4 mg PO DAILY@1600 [facility] Zinc Sulfate (Zincate) 220 mg PO DAILY [facility] Last Admin: 11/18/17 09:09 Dose: 220 mg Discontinued Medications Enoxaparin Sodium (Lovenox) 140 mg SUBCUT Q12H [facility] Last Admin: 10/27/17 20:30 Dose: 140 mg Levofloxacin (Levaquin) 500 mg PO Q24H [facility] Last Admin: 11/07/17 13:23 Dose: 500 mg Warfarin Sodium (Coumadin) 7.5 mg PO 1600 [facility] Stop: 10/27/17 16:01 Last Admin: 10/27/17 16:17 Dose: 7.5 mg Warfarin Sodium (Coumadin) 2.5 mg PO 1600 [facility] Stop: 10/28/17 16:01 Last Admin: 10/28/17 16:52 Dose: 2.5 mg Warfarin Sodium (Coumadin) 2.5 mg PO 1600 [facility] Stop: 10/29/17 16:01 Last Admin: 10/29/17 16:28 Dose: 2.5 mg Warfarin Sodium (Coumadin) 3 mg PO 1600 [facility] Stop: 10/30/17 16:01 Last Admin: 10/30/17 16:58 Dose: 3 mg Warfarin Sodium (Coumadin) Confirm Administered Dose 1 mg .ROUTE .STK-MED ONE Stop: 10/30/17 16:56 Last Admin: 10/30/17 16:57 Dose: Not Given Warfarin Sodium (Coumadin) Confirm Administered Dose 2 mg .ROUTE .STK-MED ONE Stop: 10/30/17 16:56 Last Admin: 10/30/17 18:07 Dose: Not Given Warfarin Sodium 5 mg/ Warfarin (Sodium 2.5 mg) 7.5 mg PO 1600 [facility] Stop: 10/31/17 16:01 Last Admin: 10/31/17 16:55 Dose: 7.5 mg Warfarin Sodium 5 mg/ Warfarin (Sodium 2.5 mg) 7.5 mg PO 1600 [facility] Stop: 11/01/17 16:01 Last Admin: 11/01/17 16:01 Dose: 7.5 mg Warfarin Sodium (Coumadin) 5 mg PO 1600 [facility] Stop: 11/02/17 16:30 Last Admin: 11/02/17 15:38 Dose: 5 mg Warfarin Sodium (Coumadin) 2 mg PO 1600 [facility] Stop: 11/03/17 16:01 Last Admin: 11/03/17 18:19 Dose: 2 mg Warfarin Sodium (Coumadin) 4 mg PO DAILY@1600 [facility] Last Admin: 11/12/17 16:57 Dose: 4 mg Warfarin Sodium (Coumadin) 2 mg PO 1600 [facility] Stop: 11/14/17 16:01 Last Admin: 11/14/17 17:42 Dose: 2 mg Warfarin Sodium (Coumadin) 3 mg PO 1600 [facility] Last Admin: 11/16/17 16:24 Dose: 3 mg Warfarin Sodium (Coumadin) 5 mg PO 1600 [facility] Stop: 11/17/17 16:01 Last Admin: 11/17/17 16:20 Dose: 5 mg Zinc Sulfate (Zincate) 220 mg PO DAILY@1200 [facility] Last Admin: 10/28/17 13:11 Dose: 220 mg - Exam Quality Assessment: Urine Catheter, Skin Breakdown (wound vac) General: Alert, Oriented, Cooperative HEENT: Pupils Equal, Pupils Reactive Neck: Supple Lungs: Clear to Auscultation, Normal Respiratory Effort Cardiovascular: Regular Rate, Regular Rhythm, No Murmurs GI/Abdominal Exam: Normal Bowel Sounds, Soft, Non-Tender, No Distention Back Exam: Normal Inspection, Full Range of Motion Extremities: Normal Inspection, Pedal Edema (trace) Skin: Warm Wound/Incisions: Healing Well Psy/Mental Status: Alert (much brighter than when I previously saw him, more spontaneous speech and affect is more labile.) - Problem List & Annotations (1) Decubitus skin ulcer SNOMED Code(s): 289290060 Code(s): L89.90 - PRESSURE ULCER OF UNSPECIFIED SITE, UNSPECIFIED STAGE Status: Acute Current Visit: Yes Qualifiers: Pressure ulcer location: buttock Pressure ulcer stage: stage 3 Laterality : right Qualified Code(s): L89.313 - Pressure ulcer of right buttock, stage 3 Annotation/Comment:: Surgery continues to follow. Wound VAC in place. May require further debridement per Dr. Hough. 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 Would recommend lifetime therapy for this patient as long as he continues to have limited mobility. Indication as DVT/PE. (3) Rivera catheter in place SNOMED Code(s): 505953866 Code(s): Z92.89 - PERSONAL HISTORY OF OTHER MEDICAL TREATMENT Status: Acute Current Visit: Yes Annotation/Comment:: Patient previously was incontinent with intermittent straight catheterization. We'll plan to DC Rivera, attempt Condom catheterization or bag placement externally to reduce risk of infection. Of importance to keep skin dry and protected due to ulcer. Straight catheter and bladder scan when necessary for residuals greater than 350 mL. (4) Pulmonary emboli SNOMED Code(s): 08376064 Code(s): I26.99 - OTHER PULMONARY EMBOLISM WITHOUT ACUTE COR PULMONALE Status: Acute Current Visit: Yes Qualifiers: Pulmonary embolism type: other Chronicity: unspecified Annotation/Comment:: Anticoagulation as above. (5) Depression SNOMED Code(s): 53572235 Code(s): F32.9 - MAJOR DEPRESSIVE DISORDER, SINGLE EPISODE, UNSPECIFIED Status: Chronic Current Visit: Yes Qualifiers: Depression Type: major depressive disorder Psychotic features: without psychotic features Annotation/Comment:: Abilify started 10/18. Tolerating well. Much improved from my last visit with him on the . (6) Hypoalbuminemia SNOMED Code(s): 168103342 Code(s): E88.09 - OTH DISORDERS OF PLASMA-PROTEIN METABOLISM, NEC Status: Chronic Current Visit: Yes Annotation/Comment:: Continue high protein diet and mineral supplements to aid in wound healing. We will recheck albumin level tomorrow. (7) Multiple sclerosis SNOMED Code(s): 75103776 Code(s): G35 - MULTIPLE SCLEROSIS Status: Chronic Current Visit: Yes Annotation/Comment:: Continue PT/OT to work on chair accommodations to offload this ulcer. Q2hour repositioning. Will need to work with guardian to pursue ultimate disposition. - Problem List Review Problem List Initiated/Reviewed/Updated: Yes - My Orders Last 24 Hours: My Active Orders 11/18/17 16:00 Warfarin [Coumadin] 4 mg PO DAILY@1600 11/19/17 05:11 CBC WITH AUTO DIFF [HEME] AM COMPREHENSIVE METABOLIC PN,CMP [CHEM] AM
[2017-11-18] MEDS: Warfarin 4 MG Tab PO SCH (16:47)
[2017-11-18] MEDS: atorvaSTATin 40 MG Tab PO SCH (21:18)
[2017-11-19] MEDS: DULoxetine 60 MG Cap PO SCH (09:02)
[2017-11-19] MEDS: Baclofen 10 MG Tab PO SCH ×3 (09:03→21:26)
[2017-11-19] MEDS: Furosemide 40 MG Tab PO SCH (09:03)
[2017-11-19] MEDS: Docusate Sodium 250 MG Cap PO SCH ×2 (09:03→21:26)
[2017-11-19] MEDS: Ascorbic Acid 500 MG Tab PO SCH (09:04)
[2017-11-19] MEDS: buPROPion 150 MG Tab.ER PO SCH (09:04)
[2017-11-19] MEDS: Zinc Sulfate 220 MG Cap PO SCH (09:04)
--- NOTE | 2017-11-19 12:44 | PCM.SN ---
- Free Text/Narrative Note: Patient doing well today. Catheter was removed yesterday and condom catheter with reinforced pad has prevented incontinence from wetting vacuum dressing. Patient has not required straight catheterization as of yet. We'll continue to monitor.
[2017-11-19] MEDS: Warfarin 4 MG Tab PO SCH (16:22)
[2017-11-19] MEDS: atorvaSTATin 40 MG Tab PO SCH (21:26)
[2017-11-20] MEDS: Acetaminophen 325 MG Tab PO PRN (09:22)
[2017-11-20] MEDS: buPROPion 150 MG Tab.ER PO SCH (09:23)
[2017-11-20] MEDS: Baclofen 10 MG Tab PO SCH ×3 (09:23→21:46)
[2017-11-20] MEDS: Docusate Sodium 250 MG Cap PO SCH ×2 (09:23→21:45)
[2017-11-20] MEDS: DULoxetine 60 MG Cap PO SCH (09:23)
[2017-11-20] MEDS: Ascorbic Acid 500 MG Tab PO SCH (09:23)
[2017-11-20] MEDS: Furosemide 40 MG Tab PO SCH (09:23)
[2017-11-20] MEDS: Zinc Sulfate 220 MG Cap PO SCH (09:24)
[2017-11-20] MEDS: Warfarin 4 MG Tab PO SCH (16:28)
[2017-11-20] MEDS: atorvaSTATin 40 MG Tab PO SCH (21:46)
[2017-11-21] MEDS: Docusate Sodium 250 MG Cap PO SCH ×2 (08:34→20:43)
[2017-11-21] MEDS: Baclofen 10 MG Tab PO SCH ×3 (08:34→20:43)
[2017-11-21] MEDS: Furosemide 40 MG Tab PO SCH (08:34)
[2017-11-21] MEDS: Ascorbic Acid 500 MG Tab PO SCH (08:35)
[2017-11-21] MEDS: Zinc Sulfate 220 MG Cap PO SCH (08:35)
[2017-11-21] MEDS: buPROPion 150 MG Tab.ER PO SCH (08:35)
[2017-11-21] MEDS: DULoxetine 60 MG Cap PO SCH (08:37)
--- NOTE | 2017-11-21 08:46 | PCM.PN ---
- General Info Date of Service: 11/21/17 Subjective Update: Patient says he is doing well today. He is more alert and interactive than I have ever seen him. He actually smiles and laughs once during our conversation. He says his care is going well here. He has no chest pain, no shortness of breath, no nausea or vomiting. Bowels are moving well. His appetite is still somewhat poor but he is trying to take high protein. For long-term disposition, he feels staying in [place] is the closest family he has and would like to remain in this area. He continues to require straight catheterization about once a day and otherwise is voiding on his own. He is incontinent of both urine and stool. - Patient Data Vitals - Most Recent: Last Vital Signs Temp 36.7 C 11/20/17 08:00 Pulse 87 11/20/17 08:00 Resp 18 11/20/17 08:00 BP 120/72 11/20/17 08:00 Pulse Ox 95 11/20/17 08:00 Weight - Most Recent: 138.572 kg I&O - Last 24 Hours: Intake & Output 11/20/17 11/21/17 11/21/17 22:59 06:59 14:59 Output Total 1100 1100 Balance -1100 -1100 Med Orders - Current: Current Medications Acetaminophen (Tylenol) 650 mg PO Q4H PRN PRN Reason: PAIN Last Admin: 11/20/17 09:22 Dose: 650 mg Albuterol/Ipratropium (Duoneb 3.0-0.5 Mg/3 Ml) 3 ml NEB QID PRN PRN Reason: wheezing Aripiprazole (Abilify) 2 mg PO DAILY [facility] Last Admin: 11/21/17 08:34 Dose: 2 mg Ascorbic Acid (Vitamin C) 500 mg PO DAILY [facility] Last Admin: 11/21/17 08:35 Dose: 500 mg Atorvastatin Calcium (Lipitor) 40 mg PO BEDTIME [facility] Last Admin: 11/20/17 21:46 Dose: 40 mg Baclofen (Lioresal) 10 mg PO TID [facility] Last Admin: 11/21/17 08:34 Dose: 10 mg Bupropion HCl (Wellbutrin Xl) 300 mg PO DAILY [facility] Last Admin: 11/21/17 08:35 Dose: 300 mg Docusate Sodium (Dok) 250 mg PO BID [facility] Last Admin: 11/21/17 08:34 Dose: 250 mg Duloxetine HCl (Cymbalta) 60 mg PO DAILY [facility] Last Admin: 11/21/17 08:37 Dose: 60 mg Furosemide (Lasix) 40 mg PO DAILY [facility] Last Admin: 11/21/17 08:34 Dose: 40 mg Sodium Chloride (Saline Flush) 10 ml FLUSH ASDIRECTED PRN PRN Reason: Keep Vein Open Last Admin: 11/01/17 20:40 Dose: 10 ml Warfarin Sodium (Coumadin Sliding Scale) 0 each PO ASDIRECTED [facility] Warfarin Sodium (Coumadin) 4 mg PO DAILY@1600 [facility] Last Admin: 11/20/17 16:28 Dose: 4 mg Zinc Sulfate (Zincate) 220 mg PO DAILY [facility] Last Admin: 11/21/17 08:35 Dose: 220 mg Discontinued Medications Enoxaparin Sodium (Lovenox) 140 mg SUBCUT Q12H [facility] Last Admin: 10/27/17 20:30 Dose: 140 mg Levofloxacin (Levaquin) 500 mg PO Q24H [facility] Last Admin: 11/07/17 13:23 Dose: 500 mg Warfarin Sodium (Coumadin) 7.5 mg PO 1600 [facility] Stop: 10/27/17 16:01 Last Admin: 10/27/17 16:17 Dose: 7.5 mg Warfarin Sodium (Coumadin) 2.5 mg PO 1600 [facility] Stop: 10/28/17 16:01 Last Admin: 10/28/17 16:52 Dose: 2.5 mg Warfarin Sodium (Coumadin) 2.5 mg PO 1600 [facility] Stop: 10/29/17 16:01 Last Admin: 10/29/17 16:28 Dose: 2.5 mg Warfarin Sodium (Coumadin) 3 mg PO 1600 [facility] Stop: 10/30/17 16:01 Last Admin: 10/30/17 16:58 Dose: 3 mg Warfarin Sodium (Coumadin) Confirm Administered Dose 1 mg .ROUTE .STK-MED [facility] Stop: 10/30/17 16:56 Last Admin: 10/30/17 16:57 Dose: Not Given Warfarin Sodium (Coumadin) Confirm Administered Dose 2 mg .ROUTE .STK-MED ONE Stop: 10/30/17 16:56 Last Admin: 10/30/17 18:07 Dose: Not Given Warfarin Sodium 5 mg/ Warfarin (Sodium 2.5 mg) 7.5 mg PO 1600 [facility] Stop: 10/31/17 16:01 Last Admin: 10/31/17 16:55 Dose: 7.5 mg Warfarin Sodium 5 mg/ Warfarin (Sodium 2.5 mg) 7.5 mg PO 1600 [facility] Stop: 11/01/17 16:01 Last Admin: 11/01/17 16:01 Dose: 7.5 mg Warfarin Sodium (Coumadin) 5 mg PO 1600 [facility] Stop: 11/02/17 16:30 Last Admin: 11/02/17 15:38 Dose: 5 mg Warfarin Sodium (Coumadin) 2 mg PO 1600 [facility] Stop: 11/03/17 16:01 Last Admin: 11/03/17 18:19 Dose: 2 mg Warfarin Sodium (Coumadin) 4 mg PO DAILY@1600 [facility] Last Admin: 11/12/17 16:57 Dose: 4 mg Warfarin Sodium (Coumadin) 2 mg PO 1600 [facility] Stop: 11/14/17 16:01 Last Admin: 11/14/17 17:42 Dose: 2 mg Warfarin Sodium (Coumadin) 3 mg PO 1600 [facility] Last Admin: 11/16/17 16:24 Dose: 3 mg Warfarin Sodium (Coumadin) 5 mg PO 1600 [facility] Stop: 11/17/17 16:01 Last Admin: 11/17/17 16:20 Dose: 5 mg Zinc Sulfate (Zincate) 220 mg PO DAILY@1200 [facility] Last Admin: 10/28/17 13:11 Dose: 220 mg - Exam General: Alert, Oriented, Cooperative, No Acute Distress HEENT: Pupils Equal, Pupils Reactive Neck: Supple Lungs: Clear to Auscultation, Normal Respiratory Effort Cardiovascular: Regular Rate, Regular Rhythm, No Murmurs GI/Abdominal Exam: Normal Bowel Sounds, Soft, Non-Tender, No Distention Extremities: Normal Inspection (improved woody stasis dermatitis and less edema , still about 1+.) Psy/Mental Status: Alert - Problem List & Annotations (1) Decubitus skin ulcer SNOMED Code(s): 420392996 Code(s): L89.90 - PRESSURE ULCER OF UNSPECIFIED SITE, UNSPECIFIED STAGE Status: Acute Current Visit: Yes Qualifiers: Pressure ulcer location: buttock Pressure ulcer stage: stage 3 Laterality : right Qualified Code(s): L89.313 - Pressure ulcer of right buttock, stage 3 Annotation/Comment:: Surgery continues to follow. Wound VAC in place. May require further debridement per Dr. Hough. 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 Continue warfarin. Would recommend lifetime therapy for this patient as long as he continues to have limited mobility. Indication as DVT/PE. (3) Rivera catheter in place SNOMED Code(s): 200414491 Code(s): Z92.89 - PERSONAL HISTORY OF OTHER MEDICAL TREATMENT Status: Acute Current Visit: Yes Annotation/Comment:: Doing well with bladder scan, intermittent catheterization about once day. Straight catheter for residuals greater than 350 mL. (4) Pulmonary emboli SNOMED Code(s): 74843217 Code(s): I26.99 - OTHER PULMONARY EMBOLISM WITHOUT ACUTE COR PULMONALE Status: Acute Current Visit: Yes Qualifiers: Pulmonary embolism type: other Chronicity: unspecified Annotation/Comment:: Anticoagulation as above. (5) Depression SNOMED Code(s): 40151026 Code(s): F32.9 - MAJOR DEPRESSIVE DISORDER, SINGLE EPISODE, UNSPECIFIED Status: Chronic Current Visit: Yes Qualifiers: Depression Type: major depressive disorder Psychotic features: without psychotic features Annotation/Comment:: Abilify started 10/18. Tolerating well. Continues to improve. Increase social support, get patient into the sun and doing activities as much as possible. (6) Hypoalbuminemia SNOMED Code(s): 139803041 Code(s): E88.09 - [facility] DISORDERS OF PLASMA-PROTEIN METABOLISM, NEC Status: Chronic Current Visit: Yes Annotation/Comment:: Continue high protein diet and mineral supplements to aid in wound healing. We will recheck albumin level tomorrow. (7) Multiple sclerosis SNOMED Code(s): 65212794 Code(s): G35 - MULTIPLE SCLEROSIS Status: Chronic Current Visit: Yes Annotation/Comment:: Continue PT/OT. Q2hour repositioning. Will need to work with guardian to pursue ultimate disposition. Patient prefers to stay in [place] area. - Problem List Review Problem List Initiated/Reviewed/Updated: Yes - My Orders Last 24 Hours: My Active Orders 11/21/17 08:25 INR,PT,PROTHROMBIN TIME [[facility]] Q2D 11/23/17 08:25 INR,PT,PROTHROMBIN TIME [[facility]] Q2D 11/25/17 08:25 INR,PT,PROTHROMBIN TIME [[facility]] Q2D 11/27/17 08:25 INR,PT,PROTHROMBIN TIME [[facility]] Q2D 11/29/17 08:25 INR,PT,PROTHROMBIN TIME [[facility]] Q2D 12/01/17 08:25 INR,PT,PROTHROMBIN TIME [[facility]] Q2D 12/03/17 08:25 INR,PT,PROTHROMBIN TIME [[facility]] Q2D
[2017-11-21] MEDS: Warfarin 4 MG Tab PO SCH (15:58)
[2017-11-21] MEDS: atorvaSTATin 40 MG Tab PO SCH (20:43)
[2017-11-21] MEDS: Acetaminophen 325 MG Tab PO PRN (23:39)
[2017-11-22] MEDS: Levofloxacin 750 MG Tab PO SCH (03:09)
[2017-11-22] MEDS: buPROPion 150 MG Tab.ER PO SCH (09:10)
[2017-11-22] MEDS: DULoxetine 60 MG Cap PO SCH (09:10)
[2017-11-22] MEDS: Ascorbic Acid 500 MG Tab PO SCH (09:11)
[2017-11-22] MEDS: Docusate Sodium 250 MG Cap PO SCH ×2 (09:11→20:25)
[2017-11-22] MEDS: Baclofen 10 MG Tab PO SCH ×3 (09:11→20:25)
[2017-11-22] MEDS: Furosemide 40 MG Tab PO SCH (09:12)
[2017-11-22] MEDS: Zinc Sulfate 220 MG Cap PO SCH (09:12)
--- NOTE | 2017-11-22 10:24 | PCM.PN ---
- General Info Date of Service: 11/22/17 Subjective Update: Patient is a 67-year-old male currently on hospital day #27 swing bed status for decubitus ulcer. Last night the patient spiked a fever of 102.3. Urinalysis was grossly positive for white blood cells and bacteria as well as nitrates and leukocyte esterase. The patient was started on Levaquin 750 mg IV every 24 hours. He defervesced and has had no further fevers. He feels well this morning. Denies chest pain, shortness of breath, nausea, vomiting. He's had no burning with urination and is incontinent of both urine and stool. He also has some urinary retention and has been requiring straight catheterization intermittently about once a day. Currently has condom catheter on. - Patient Data Vitals - Most Recent: Last Vital Signs Temp 37.2 C 11/22/17 04:00 Pulse 96 11/21/17 08:30 Resp 16 11/21/17 08:30 BP 135/82 11/21/17 08:30 Pulse Ox 95 11/21/17 08:30 Weight - Most Recent: 138.572 kg I&O - Last 24 Hours: Intake & Output 11/21/17 11/22/17 11/22/17 22:59 06:59 14:59 Output Total 650 1600 Balance -650 -1600 Lab Results Last 24 Hours: Laboratory Results - last 24 hr 11/21/17 11/21/17 11/21/17 Range/Units 17:19 17:19 19:25 WBC 13.3 H (4.5-12.0) X10-3/uL RBC 6.02 H (4.30-5.75) x10(6)uL Hgb 12.3 (11.5-15.5) g/dL Hct 39.2 (30.0-51.3) % MCV 65.1 L (80-96) fL MCH 20.4 L (27.7-33.6) pg MCHC 31.3 L (32.2-35.4) g/dL RDW 16.7 H (11.5-15.5) % Plt Count 677 H (125-369) X10(3)uL MPV 7.6 (7.4-10.4) fL Add Manual Diff Yes Neutrophils % (Manual) 74 (46-82) % Band Neutrophils % 4 (0-6) % Lymphocytes % (Manual) 16 (13-37) % Monocytes % (Manual) 6 (4-12) % Sodium 139 (135-145) mmol/L Potassium 3.7 (3.5-5.3) mmol/L Chloride 100 (100-110) mmol/L Carbon Dioxide 30 (21-32) mmol/L BUN 20 H (7-18) mg/dL Creatinine 1.0 (0.70-1.30) mg/dL Est Cr Clr Drug Dosing 61.67 mL/min Estimated GFR (MDRD) > 60 (>60) BUN/Creatinine Ratio 20.0 (9-20) Glucose 129 H (80-116) mg/dL Calcium 8.9 (8.6-10.2) mg/dL Total Bilirubin 0.4 (0.1-1.3) mg/dL AST 24 (5-25) IU/L ALT 35 (12-36) U/L Alkaline Phosphatase 170 H (56-112) IU/L Total Protein 7.7 (6.0-8.0) g/dL Albumin 2.3 L (3.2-4.6) g/dL Globulin 5.4 g/dL Albumin/Globulin Ratio 0.4 Urine Color Yellow (YELLOW) Urine Appearance Cloudy (CLEAR) Urine pH 6.0 (5.0-6.5) Ur Specific [place] 1.020 (1.010-1.025) Urine Protein Negative (NEGATIVE) mg/dL Urine Glucose (UA) Normal (NEGATIVE) mg/dL Urine Ketones Negative (NEGATIVE) mg/dL Urine Occult Blood Negative (NEGATIVE) Urine Nitrite Positive H (NEGATIVE) Urine Bilirubin Negative (NEGATIVE) Urine Urobilinogen Normal (NEGATIVE) mg/dL Ur Leukocyte Esterase Large H (NEGATIVE) Urine RBC 0-5 (0) Urine WBC 30-40 H (0) Ur Squamous Epith Cells Rare (NS,R,O) Urine Bacteria Moderate H (NS) Urine Yeast Rare H (NS) Med Orders - Current: Current Medications Acetaminophen (Tylenol) 650 mg PO Q4H PRN PRN Reason: PAIN Last Admin: 11/21/17 23:39 Dose: 650 mg Albuterol/Ipratropium (Duoneb 3.0-0.5 Mg/3 Ml) 3 ml NEB QID PRN PRN Reason: wheezing Aripiprazole (Abilify) 2 mg PO DAILY [facility] Last Admin: 11/22/17 09:10 Dose: 2 mg Ascorbic Acid (Vitamin C) 500 mg PO DAILY [facility] Last Admin: 11/22/17 09:11 Dose: 500 mg Atorvastatin Calcium (Lipitor) 40 mg PO BEDTIME [facility] Last Admin: 11/21/17 20:43 Dose: 40 mg Baclofen (Lioresal) 10 mg PO TID [facility] Last Admin: 11/22/17 09:11 Dose: 10 mg Bupropion HCl (Wellbutrin Xl) 300 mg PO DAILY [facility] Last Admin: 11/22/17 09:10 Dose: 300 mg Docusate Sodium (Dok) 250 mg PO BID [facility] Last Admin: 11/22/17 09:11 Dose: 250 mg Duloxetine HCl (Cymbalta) 60 mg PO DAILY [facility] Last Admin: 11/22/17 09:10 Dose: 60 mg Furosemide (Lasix) 40 mg PO DAILY [facility] Last Admin: 11/22/17 09:12 Dose: 40 mg Levofloxacin (Levaquin) 750 mg PO Q24H [facility] Last Admin: 11/22/17 03:09 Dose: 750 mg Sodium Chloride (Saline Flush) 10 ml FLUSH ASDIRECTED PRN PRN Reason: Keep Vein Open Last Admin: 11/01/17 20:40 Dose: 10 ml Warfarin Sodium (Coumadin Sliding Scale) 0 each PO ASDIRECTED [facility] Warfarin Sodium (Coumadin) 4 mg PO DAILY@1600 [facility] Last Admin: 11/21/17 15:58 Dose: 4 mg Zinc Sulfate (Zincate) 220 mg PO DAILY [facility] Last Admin: 11/22/17 09:12 Dose: 220 mg Discontinued Medications Enoxaparin Sodium (Lovenox) 140 mg SUBCUT Q12H [facility] Last Admin: 10/27/17 20:30 Dose: 140 mg Levofloxacin (Levaquin) 500 mg PO Q24H [facility] Last Admin: 11/07/17 13:23 Dose: 500 mg Warfarin Sodium (Coumadin) 7.5 mg PO 1600 [facility] Stop: 10/27/17 16:01 Last Admin: 10/27/17 16:17 Dose: 7.5 mg Warfarin Sodium (Coumadin) 2.5 mg PO 1600 [facility] Stop: 10/28/17 16:01 Last Admin: 10/28/17 16:52 Dose: 2.5 mg Warfarin Sodium (Coumadin) 2.5 mg PO 1600 [facility] Stop: 10/29/17 16:01 Last Admin: 10/29/17 16:28 Dose: 2.5 mg Warfarin Sodium (Coumadin) 3 mg PO 1600 [facility] Stop: 10/30/17 16:01 Last Admin: 10/30/17 16:58 Dose: 3 mg Warfarin Sodium (Coumadin) Confirm Administered Dose 1 mg .ROUTE .STK-MED [facility] Stop: 10/30/17 16:56 Last Admin: 10/30/17 16:57 Dose: Not Given Warfarin Sodium (Coumadin) Confirm Administered Dose 2 mg .ROUTE .STK-MED [facility] Stop: 10/30/17 16:56 Last Admin: 10/30/17 18:07 Dose: Not Given Warfarin Sodium 5 mg/ Warfarin (Sodium 2.5 mg) 7.5 mg PO 1600 [facility] Stop: 10/31/17 16:01 Last Admin: 10/31/17 16:55 Dose: 7.5 mg Warfarin Sodium 5 mg/ Warfarin (Sodium 2.5 mg) 7.5 mg PO 1600 [facility] Stop: 11/01/17 16:01 Last Admin: 11/01/17 16:01 Dose: 7.5 mg Warfarin Sodium (Coumadin) 5 mg PO 1600 [facility] Stop: 11/02/17 16:30 Last Admin: 11/02/17 15:38 Dose: 5 mg Warfarin Sodium (Coumadin) 2 mg PO 1600 [facility] Stop: 11/03/17 16:01 Last Admin: 11/03/17 18:19 Dose: 2 mg Warfarin Sodium (Coumadin) 4 mg PO DAILY@1600 [facility] Last Admin: 11/12/17 16:57 Dose: 4 mg Warfarin Sodium (Coumadin) 2 mg PO 1600 [facility] Stop: 11/14/17 16:01 Last Admin: 11/14/17 17:42 Dose: 2 mg Warfarin Sodium (Coumadin) 3 mg PO 1600 [facility] Last Admin: 11/16/17 16:24 Dose: 3 mg Warfarin Sodium (Coumadin) 5 mg PO 1600 [facility] Stop: 11/17/17 16:01 Last Admin: 11/17/17 16:20 Dose: 5 mg Zinc Sulfate (Zincate) 220 mg PO DAILY@1200 [facility] Last Admin: 10/28/17 13:11 Dose: 220 mg - Exam General: Alert, Oriented, Cooperative, No Acute Distress HEENT: Pupils Equal, Pupils Reactive Neck: Supple (to person and place only.) Lungs: Clear to Auscultation, Normal Respiratory Effort Cardiovascular: Regular Rate, Regular Rhythm, No Murmurs GI/Abdominal Exam: Normal Bowel Sounds, Soft, Non-Tender, No Distention Extremities: Pedal Edema (1+ pedal edema unchanged.) Skin: Warm, Dry Psy/Mental Status: Alert - Problem List & Annotations (1) Complicated UTI (urinary tract infection) SNOMED Code(s): 35400079 Code(s): N39.0 - URINARY TRACT INFECTION, SITE NOT SPECIFIED Status: Acute Current Visit: Yes Annotation/Comment:: Patient was started on Levaquin with defervescence. Urine cultures pending and will narrow spectrum as soon as ID and sensitivities are back. Of note, patient has had a number of courses of Levaquin in the past 2 months. (2) Decubitus skin ulcer SNOMED Code(s): 015712708 Code(s): L89.90 - PRESSURE ULCER OF UNSPECIFIED SITE, UNSPECIFIED STAGE Status: Acute Current Visit: Yes Qualifiers: Pressure ulcer location: buttock Pressure ulcer stage: stage 3 Laterality : right Qualified Code(s): L89.313 - Pressure ulcer of right buttock, stage 3 Annotation/Comment:: Surgery continues to follow. Wound VAC in place. May require further debridement per Dr. Hough. (3) Chronic anticoagulation SNOMED Code(s): 985272771 Code(s): Z79.01 - MAMMOGRAPHER (CURRENT) USE OF ANTICOAGULANTS Status: Acute Current Visit: Yes Annotation/Comment:: Patient's insurance will not cover direct oral anticoagulants. Continue warfarin. Would recommend lifetime therapy for this patient as long as he continues to have limited mobility. Indication as DVT/PE. (4) Pulmonary emboli SNOMED Code(s): 78556815 Code(s): I26.99 - OTHER PULMONARY EMBOLISM WITHOUT ACUTE COR PULMONALE Status: Acute Current Visit: Yes Qualifiers: Pulmonary embolism type: other Chronicity: unspecified Annotation/Comment:: Anticoagulation as above. (5) Depression SNOMED Code(s): 01850154 Code(s): F32.9 - MAJOR DEPRESSIVE DISORDER, SINGLE EPISODE, UNSPECIFIED Status: Chronic Current Visit: Yes Qualifiers: Depression Type: major depressive disorder Psychotic features: without psychotic features Annotation/Comment:: Horacio started 10/18. Tolerating well. Continues to improve. Increase social support, get patient into the sun and doing activities as much as possible. (6) Hypoalbuminemia SNOMED Code(s): 003957199 Code(s): E88.09 - OT DISORDERS OF PLASMA-PROTEIN METABOLISM, NEC Status: Chronic Current Visit: Yes Annotation/Comment:: Continue high protein diet and mineral supplements to aid in wound healing. We will recheck albumin level tomorrow. (7) Multiple sclerosis SNOMED Code(s): 05459779 Code(s): G35 - MULTIPLE SCLEROSIS Status: Chronic Current Visit: Yes Annotation/Comment:: Continue PT/OT. Q2hour repositioning. Will need to work with guardian to pursue ultimate disposition. Patient prefers to stay in [facility]. (8) Urinary retention with incomplete bladder emptying SNOMED Code(s): 380308324 Code(s): R33.9 - RETENTION OF URINE, UNSPECIFIED Status: Acute Current Visit: Yes Annotation/Comment:: Continues with incontinence and intermittent straight catheterization about once daily. 4 times a day bladder scans. - Problem List Review Problem List Initiated/Reviewed/Updated: Yes - My Orders Last 24 Hours: My Active Orders 11/21/17 17:19 CULTURE BLOOD [BC] Urgent 11/21/17 19:25 CULTURE URINE [RM] Routine URINALYSIS W/MICROSCOPIC [UA W/MICROSCOPIC] [URIN] Routine 11/23/17 08:25 INR,PT,PROTHROMBIN TIME [COAG] Q2D 11/25/17 08:25 INR,PT,PROTHROMBIN TIME [COAG] Q2D 11/27/17 08:25 INR,PT,PROTHROMBIN TIME [COAG] Q2D 11/29/17 08:25 INR,PT,PROTHROMBIN TIME [COAG] Q2D 12/01/17 08:25 INR,PT,PROTHROMBIN TIME [COAG] Q2D 12/03/17 08:25 INR,PT,PROTHROMBIN TIME [COAG] Q2D - Plan Plan:: 1. Continue current care. Dr. Hough in charge of wound management
[2017-11-22] MEDS: Acetaminophen 325 MG Tab PO PRN (14:32)
[2017-11-22] MEDS: Warfarin 4 MG Tab PO SCH (15:51)
[2017-11-22] MEDS ORDERED: Sodium Chloride 0.9% 10 ML Syringe FLUSH PRN (18:33)
[2017-11-22] MEDS: atorvaSTATin 40 MG Tab PO SCH (20:25)
[2017-11-23] MEDS: Levofloxacin 750 MG Tab PO SCH (00:53)
[2017-11-23] MEDS: Acetaminophen 325 MG Tab PO PRN (08:07)
[2017-11-23] MEDS: Sodium Chloride 0.9% 10 ML Syringe FLUSH PRN ×3 (08:57→22:59)
[2017-11-23] MEDS: Ascorbic Acid 500 MG Tab PO SCH (09:03)
[2017-11-23] MEDS: Docusate Sodium 250 MG Cap PO SCH ×2 (09:04→21:51)
[2017-11-23] MEDS: Baclofen 10 MG Tab PO SCH ×3 (09:04→21:51)
[2017-11-23] MEDS: Zinc Sulfate 220 MG Cap PO SCH (09:04)
[2017-11-23] MEDS: Furosemide 40 MG Tab PO SCH (09:05)
[2017-11-23] MEDS: buPROPion 150 MG Tab.ER PO SCH (09:05)
[2017-11-23] MEDS: DULoxetine 60 MG Cap PO SCH (09:07)
--- NOTE | 2017-11-23 11:38 | PCM.PN ---
- General Info Date of Service: 11/23/17 Subjective Update: 67-year-old male currently on swing bed day #28 for decubitus ulcer with wound VAC, depression, PE/DVT, status post healthcare acquired pneumonia. Patient developed a UTI with fever on the evening of the . Started on Levaquin at that time. Yesterday initial urine culture came back showing gram-positive cocci and I started vancomycin. Patient doing well today. No chest pain or shortness of breath. No nausea or vomiting. Eating well. Is alert and cheerful. Much brighter affect than previous. He actually laughs a couple of times in the exam room. He realizes is in the hospital but doesn't know what city. Knows that it's October but doesn't know the year or the date. Knew today was Tuesday. - Patient Data Vitals - Most Recent: Last Vital Signs Temp 37.4 C 11/23/17 08:00 Pulse 99 11/23/17 08:00 Resp 18 11/23/17 08:00 BP 118/60 11/23/17 08:00 Pulse Ox 93 L 11/23/17 08:00 Weight - Most Recent: 138.572 kg I&O - Last 24 Hours: Intake & Output 11/22/17 11/23/17 11/23/17 22:59 06:59 14:59 Intake Total 1702 500 Output Total 1000 Balance 702 500 Lab Results Last 24 Hours: Laboratory Results - last 24 hr 11/23/17 Range/Units 06:20 PT 26.1 H (8.7-11.1) INR 2.53 H (0.89-1.13) Jean-Pierre Results Last 24 Hours: Microbiology 11/21/17 17:19 Aerobic Blood Culture - Preliminary Blood - Venous NO GROWTH AFTER 1 DAY Anaerobic Blood Culture - Preliminary NO GROWTH AFTER 1 DAY 11/21/17 19:25 Urine Culture - Preliminary Urine, Catheterized Gram Positive Cocci Med Orders - Current: Current Medications Acetaminophen (Tylenol) 650 mg PO Q4H PRN PRN Reason: PAIN Last Admin: 11/23/17 08:07 Dose: 650 mg Albuterol/Ipratropium (Duoneb 3.0-0.5 Mg/3 Ml) 3 ml NEB QID PRN PRN Reason: wheezing Aripiprazole (Abilify) 2 mg PO DAILY [facility] Last Admin: 11/23/17 09:03 Dose: 2 mg Ascorbic Acid (Vitamin C) 500 mg PO DAILY [facility] Last Admin: 11/23/17 09:03 Dose: 500 mg Atorvastatin Calcium (Lipitor) 40 mg PO BEDTIME [facility] Last Admin: 11/22/17 20:25 Dose: 40 mg Baclofen (Lioresal) 10 mg PO TID [facility] Last Admin: 11/23/17 09:04 Dose: 10 mg Bupropion HCl (Wellbutrin Xl) 300 mg PO DAILY [facility] Last Admin: 11/23/17 09:05 Dose: 300 mg Docusate Sodium (Dok) 250 mg PO BID [facility] Last Admin: 11/23/17 09:04 Dose: 250 mg Duloxetine HCl (Cymbalta) 60 mg PO DAILY [facility] Last Admin: 11/23/17 09:07 Dose: 60 mg Furosemide (Lasix) 40 mg PO DAILY [facility] Last Admin: 11/23/17 09:05 Dose: 40 mg Vancomycin HCl 2,000 mg/ (Sodium Chloride) 500 mls @ 250 mls/hr IV Q12H [facility] Last Admin: 11/23/17 08:58 Dose: 250 mls/hr Levofloxacin (Levaquin) 750 mg PO Q24H [facility] Last Admin: 11/23/17 00:53 Dose: 750 mg Sodium Chloride (Saline Flush) 10 ml FLUSH ASDIRECTED PRN PRN Reason: Keep Vein Open Last Admin: 11/23/17 11:15 Dose: 10 ml Sodium Chloride (Saline Flush) 10 ml FLUSH ASDIRECTED PRN PRN Reason: Keep Vein Open Vancomycin HCl (Pharmacy To Dose - Vancomycin) 1 dose .XX ASDIRECTED [facility] Warfarin Sodium (Coumadin Sliding Scale) 0 each PO ASDIRECTED [facility] Warfarin Sodium (Coumadin) 4 mg PO DAILY@1600 [facility] Last Admin: 11/22/17 15:51 Dose: 4 mg Zinc Sulfate (Zincate) 220 mg PO DAILY [facility] Last Admin: 11/23/17 09:04 Dose: 220 mg Discontinued Medications Enoxaparin Sodium (Lovenox) 140 mg SUBCUT Q12H [facility] Last Admin: 10/27/17 20:30 Dose: 140 mg Vancomycin HCl 2,500 mg/ (Sodium Chloride) 500 mls @ 200 mls/hr IV Q18H [facility] Last Admin: 11/22/17 18:35 Dose: 200 mls/hr Levofloxacin (Levaquin) 500 mg PO Q24H [facility] Last Admin: 11/07/17 13:23 Dose: 500 mg Warfarin Sodium (Coumadin) 7.5 mg PO 1600 [facility] Stop: 10/27/17 16:01 Last Admin: 10/27/17 16:17 Dose: 7.5 mg Warfarin Sodium (Coumadin) 2.5 mg PO 1600 [facility] Stop: 10/28/17 16:01 Last Admin: 10/28/17 16:52 Dose: 2.5 mg Warfarin Sodium (Coumadin) 2.5 mg PO 1600 [facility] Stop: 10/29/17 16:01 Last Admin: 10/29/17 16:28 Dose: 2.5 mg Warfarin Sodium (Coumadin) 3 mg PO 1600 [facility] Stop: 10/30/17 16:01 Last Admin: 10/30/17 16:58 Dose: 3 mg Warfarin Sodium (Coumadin) Confirm Administered Dose 1 mg .ROUTE .STK-MED [facility] Stop: 10/30/17 16:56 Last Admin: 10/30/17 16:57 Dose: Not Given Warfarin Sodium (Coumadin) Confirm Administered Dose 2 mg .ROUTE .STK-MED [facility] Stop: 10/30/17 16:56 Last Admin: 10/30/17 18:07 Dose: Not Given Warfarin Sodium 5 mg/ Warfarin (Sodium 2.5 mg) 7.5 mg PO 1600 [facility] Stop: 10/31/17 16:01 Last Admin: 10/31/17 16:55 Dose: 7.5 mg Warfarin Sodium 5 mg/ Warfarin (Sodium 2.5 mg) 7.5 mg PO 1600 [facility] Stop: 11/01/17 16:01 Last Admin: 11/01/17 16:01 Dose: 7.5 mg Warfarin Sodium (Coumadin) 5 mg PO 1600 [facility] Stop: 11/02/17 16:30 Last Admin: 11/02/17 15:38 Dose: 5 mg Warfarin Sodium (Coumadin) 2 mg PO 1600 [facility] Stop: 11/03/17 16:01 Last Admin: 11/03/17 18:19 Dose: 2 mg Warfarin Sodium (Coumadin) 4 mg PO DAILY@1600 [facility] Last Admin: 11/12/17 16:57 Dose: 4 mg Warfarin Sodium (Coumadin) 2 mg PO 1600 [facility] Stop: 11/14/17 16:01 Last Admin: 11/14/17 17:42 Dose: 2 mg Warfarin Sodium (Coumadin) 3 mg PO 1600 [facility] Last Admin: 11/16/17 16:24 Dose: 3 mg Warfarin Sodium (Coumadin) 5 mg PO 1600 [facility] Stop: 11/17/17 16:01 Last Admin: 11/17/17 16:20 Dose: 5 mg Zinc Sulfate (Zincate) 220 mg PO DAILY@1200 [facility] Last Admin: 10/28/17 13:11 Dose: 220 mg - Exam General: Alert, Cooperative, No Acute Distress HEENT: Pupils Equal, Pupils Reactive Neck: Supple Lungs: Clear to Auscultation, Normal Respiratory Effort Cardiovascular: Regular Rate, Regular Rhythm, No Murmurs GI/Abdominal Exam: Soft, Non-Tender, No Distention Extremities: Pedal Edema (Trace) - Problem List & Annotations (1) Complicated UTI (urinary tract infection) SNOMED Code(s): 76018935 Code(s): N39.0 - URINARY TRACT INFECTION, SITE NOT SPECIFIED Status: Acute Current Visit: Yes Annotation/Comment:: Diagnosed 11/21/17 after patient spiked a fever of 102.3. Patient was started on Levaquin with defervescence. Showed gram-positive cocci on initial ID. Vancomycin started yesterday, . (2) Decubitus skin ulcer SNOMED Code(s): 893231070 Code(s): L89.90 - PRESSURE ULCER OF UNSPECIFIED SITE, UNSPECIFIED STAGE Status: Acute Current Visit: Yes Qualifiers: Pressure ulcer location: buttock Pressure ulcer stage: stage 3 Laterality : right Qualified Code(s): L89.313 - Pressure ulcer of right buttock, stage 3 Annotation/Comment:: Surgery continues to follow. Wound VAC in place. May require further debridement per Dr. Hough. (3) Chronic anticoagulation SNOMED Code(s): 412765667 Code(s): Z79.01 - RETIREMENT (CURRENT) USE OF ANTICOAGULANTS Status: Acute Current Visit: Yes Annotation/Comment:: Patient's insurance will not cover direct oral anticoagulants. Continue warfarin. Would recommend lifetime therapy for this patient as long as he continues to have limited mobility. Indication as DVT/PE. (4) Pulmonary emboli SNOMED Code(s): 58300496 Code(s): I26.99 - OTHER PULMONARY EMBOLISM WITHOUT ACUTE COR PULMONALE Status: Acute Current Visit: Yes Qualifiers: Pulmonary embolism type: other Chronicity: unspecified Annotation/Comment:: Anticoagulation as above. (5) Depression SNOMED Code(s): 16369702 Code(s): F32.9 - MAJOR DEPRESSIVE DISORDER, SINGLE EPISODE, UNSPECIFIED Status: Chronic Current Visit: Yes Qualifiers: Depression Type: major depressive disorder Psychotic features: without psychotic features Annotation/Comment:: Abilify started 10/18/17. Tolerating well. Continues to improve. Increase social support, get patient into the sun and doing activities as much as possible. (6) Hypoalbuminemia SNOMED Code(s): 692941827 Code(s): E88.09 - OTH DISORDERS OF PLASMA-PROTEIN METABOLISM, NEC Status: Chronic Current Visit: Yes Annotation/Comment:: Continue high protein diet and mineral supplements to aid in wound healing. We will recheck albumin level tomorrow. (7) Multiple sclerosis SNOMED Code(s): 92440721 Code(s): G35 - MULTIPLE SCLEROSIS Status: Chronic Current Visit: Yes Annotation/Comment:: Continue PT/OT. Q2hour repositioning. Will need to work with guardian to pursue ultimate disposition. Patient prefers to stay in [facility]. (8) Urinary retention with incomplete bladder emptying SNOMED Code(s): 428722116 Code(s): R33.9 - RETENTION OF URINE, UNSPECIFIED Status: Acute Current Visit: Yes Annotation/Comment:: Continues with incontinence and intermittent straight catheterization about once daily. 4 times a day bladder scans. - Problem List Review Problem List Initiated/Reviewed/Updated: Yes - My Orders Last 24 Hours: My Active Orders 11/22/17 17:30 Vancomycin Pharmacy to Dose [Pharmacy to Dose - Vancomycin] 1 dose .XX ASDIRECTED 11/22/17 18:33 Sodium Chloride 0.9% [Saline Flush] 10 ml FLUSH ASDIRECTED PRN Peripheral IV Insertion Adult [OM.PC] Routine 11/23/17 09:00 Vancomycin 2,000 mg Sodium Chloride 0.9% [Normal Saline] 500 ml IV Q12H 11/24/17 08:30 VANCOMYCIN TROUGH [CHEM] Timed 11/25/17 08:25 INR,PT,PROTHROMBIN TIME [COAG] Q2D 11/27/17 08:25 INR,PT,PROTHROMBIN TIME [COAG] Q2D 05/01/18 08:25 INR,PT,PROTHROMBIN TIME [COAG] Q2D 12/01/17 08:25 INR,PT,PROTHROMBIN TIME [COAG] Q2D 12/03/17 08:25 INR,PT,PROTHROMBIN TIME [COAG] Q2D
[2017-11-23] MEDS: Warfarin 4 MG Tab PO SCH (15:42)
[2017-11-23] MEDS: atorvaSTATin 40 MG Tab PO SCH (21:51)
[2017-11-24] MEDS: Furosemide 40 MG Tab PO SCH (09:45)
[2017-11-24] MEDS: DULoxetine 60 MG Cap PO SCH (09:45)
[2017-11-24] MEDS: Docusate Sodium 250 MG Cap PO SCH ×2 (09:45→20:50)
[2017-11-24] MEDS: Zinc Sulfate 220 MG Cap PO SCH (09:46)
[2017-11-24] MEDS: Ascorbic Acid 500 MG Tab PO SCH (09:46)
[2017-11-24] MEDS: buPROPion 150 MG Tab.ER PO SCH (09:46)
[2017-11-24] MEDS: Baclofen 10 MG Tab PO SCH ×3 (09:46→20:50)
--- NOTE | 2017-11-24 12:16 | PCM.PN ---
- General Info Date of Service: 11/24/17 Subjective Update: Patient is a 67-year-old gentleman currently on swing bed day #29 for decubitus ulcer with wound vacuum. Was started on vancomycin on the which would begin 7 days of therapy for complicated UTI with MRSA. Patient is doing well today. He has been afebrile. Vital signs are stable. No chest pain, no shortness of breath, no nausea, no vomiting. Appetite is good. Wound VAC changed yesterday and I looked at the wound. Continues to show some improvement although quite slow. - Patient Data Vitals - Most Recent: Last Vital Signs Temp 37.4 C 11/23/17 08:00 Pulse 99 11/23/17 08:00 Resp 18 11/23/17 08:00 BP 118/60 11/23/17 08:00 Pulse Ox 93 L 11/23/17 08:00 Weight - Most Recent: 138.572 kg I&O - Last 24 Hours: Intake & Output 11/23/17 11/24/17 11/24/17 22:59 06:59 14:59 Intake Total 625 500 Output Total 850 200 Balance -225 300 Lab Results Last 24 Hours: Laboratory Results - last 24 hr 11/24/17 11/24/17 Range/Units 08:30 08:30 PT 20.2 H (8.7-11.1) INR 1.97 H (0.89-1.13) Vancomycin Trough 15.4 H (5.0-10.0) ug/mL Jean-Pierre Results Last 24 Hours: Microbiology 11/21/17 17:19 Aerobic Blood Culture - Preliminary Blood - Venous NO GROWTH AFTER 2 DAYS Anaerobic Blood Culture - Preliminary NO GROWTH AFTER 2 DAYS 11/21/17 19:25 Urine Culture - Final Urine, Catheterized (Mrsa) Staphylococcus Aureus Med Orders - Current: Current Medications Acetaminophen (Tylenol) 650 mg PO Q4H PRN PRN Reason: PAIN Last Admin: 11/23/17 08:07 Dose: 650 mg Albuterol/Ipratropium (Duoneb 3.0-0.5 Mg/3 Ml) 3 ml NEB QID PRN PRN Reason: wheezing Aripiprazole (Abilify) 2 mg PO DAILY [facility] Last Admin: 11/24/17 09:45 Dose: 2 mg Ascorbic Acid (Vitamin C) 500 mg PO DAILY [facility] Last Admin: 11/24/17 09:46 Dose: 500 mg Atorvastatin Calcium (Lipitor) 40 mg PO BEDTIME [facility] Last Admin: 11/23/17 21:51 Dose: 40 mg Baclofen (Lioresal) 10 mg PO TID [facility] Last Admin: 11/24/17 09:46 Dose: 10 mg Bupropion HCl (Wellbutrin Xl) 300 mg PO DAILY [facility] Last Admin: 11/24/17 09:46 Dose: 300 mg Docusate Sodium (Dok) 250 mg PO BID [facility] Last Admin: 11/24/17 09:45 Dose: 250 mg Duloxetine HCl (Cymbalta) 60 mg PO DAILY [facility] Last Admin: 11/24/17 09:45 Dose: 60 mg Furosemide (Lasix) 40 mg PO DAILY [facility] Last Admin: 11/24/17 09:45 Dose: 40 mg Vancomycin HCl 2,000 mg/ (Sodium Chloride) 500 mls @ 250 mls/hr IV Q12H [facility] Last Admin: 11/24/17 09:43 Dose: 250 mls/hr Sodium Chloride (Saline Flush) 10 ml FLUSH ASDIRECTED PRN PRN Reason: Keep Vein Open Last Admin: 11/23/17 22:59 Dose: 10 ml Sodium Chloride (Saline Flush) 10 ml FLUSH ASDIRECTED PRN PRN Reason: Keep Vein Open Vancomycin HCl (Pharmacy To Dose - Vancomycin) 1 dose .XX ASDIRECTED [facility] Warfarin Sodium (Coumadin Sliding Scale) 0 each PO ASDIRECTED [facility] Warfarin Sodium (Coumadin) 5 mg PO 11/24/17@1600 [facility] Stop: 11/24/17 17:00 Zinc Sulfate (Zincate) 220 mg PO DAILY [facility] Last Admin: 11/24/17 09:46 Dose: 220 mg Discontinued Medications Enoxaparin Sodium (Lovenox) 140 mg SUBCUT Q12H [facility] Last Admin: 10/27/17 20:30 Dose: 140 mg Vancomycin HCl 2,500 mg/ (Sodium Chloride) 500 mls @ 200 mls/hr IV Q18H [facility] Last Admin: 11/22/17 18:35 Dose: 200 mls/hr Levofloxacin (Levaquin) 500 mg PO Q24H [facility] Last Admin: 11/07/17 13:23 Dose: 500 mg Levofloxacin (Levaquin) 750 mg PO Q24H [facility] Last Admin: 11/23/17 00:53 Dose: 750 mg Warfarin Sodium (Coumadin) 7.5 mg PO 1600 [facility] Stop: 10/27/17 16:01 Last Admin: 10/27/17 16:17 Dose: 7.5 mg Warfarin Sodium (Coumadin) 2.5 mg PO 1600 [facility] Stop: 10/28/17 16:01 Last Admin: 10/28/17 16:52 Dose: 2.5 mg Warfarin Sodium (Coumadin) 2.5 mg PO 1600 [facility] Stop: 10/29/17 16:01 Last Admin: 10/29/17 16:28 Dose: 2.5 mg Warfarin Sodium (Coumadin) 3 mg PO 1600 [facility] Stop: 10/30/17 16:01 Last Admin: 10/30/17 16:58 Dose: 3 mg Warfarin Sodium (Coumadin) Confirm Administered Dose 1 mg .ROUTE .[facility] Stop: 10/30/17 16:56 Last Admin: 10/30/17 16:57 Dose: Not Given Warfarin Sodium (Coumadin) Confirm Administered Dose 2 mg .ROUTE .[facility] Stop: 10/30/17 16:56 Last Admin: 10/30/17 18:07 Dose: Not Given Warfarin Sodium 5 mg/ Warfarin (Sodium 2.5 mg) 7.5 mg PO 1600 [facility] Stop: 10/31/17 16:01 Last Admin: 10/31/17 16:55 Dose: 7.5 mg Warfarin Sodium 5 mg/ Warfarin (Sodium 2.5 mg) 7.5 mg PO 1600 [facility] Stop: 11/01/17 16:01 Last Admin: 11/01/17 16:01 Dose: 7.5 mg Warfarin Sodium (Coumadin) 5 mg PO 1600 [facility] Stop: 11/02/17 16:30 Last Admin: 11/02/17 15:38 Dose: 5 mg Warfarin Sodium (Coumadin) 2 mg PO 1600 [facility] Stop: 11/03/17 16:01 Last Admin: 11/03/17 18:19 Dose: 2 mg Warfarin Sodium (Coumadin) 4 mg PO DAILY@1600 [facility] Last Admin: 11/12/17 16:57 Dose: 4 mg Warfarin Sodium (Coumadin) 2 mg PO 1600 [facility] Stop: 11/14/17 16:01 Last Admin: 11/14/17 17:42 Dose: 2 mg Warfarin Sodium (Coumadin) 3 mg PO 1600 [facility] Last Admin: 11/16/17 16:24 Dose: 3 mg Warfarin Sodium (Coumadin) 5 mg PO [address] [place] Stop: 11/17/17 16:01 Last Admin: 11/17/17 16:20 Dose: 5 mg Warfarin Sodium (Coumadin) 4 mg PO DAILY@1600 [place] Last Admin: 11/23/17 15:42 Dose: 4 mg Zinc Sulfate (Zincate) 220 mg PO DAILY@1200 [place] Last Admin: 10/28/17 13:11 Dose: 220 mg - Exam General: Alert, Cooperative, No Acute Distress - Problem List & Annotations (1) Complicated UTI (urinary tract infection) SNOMED Code(s): 24802391 Code(s): N39.0 - URINARY TRACT INFECTION, SITE NOT SPECIFIED Status: Acute Current Visit: Yes Annotation/Comment:: Diagnosed 11/21/17 after patient spiked a fever of 102.3. Patient was started on Levaquin with defervescence. Vanco started 11/22/17 with prelim ID of gram+ cocci. Final ID/Sens showed MRSA. Once blood cultures have been negative for 3 days, can de-escalate to PO antibiotic therapy for a total of 7 days MRSA coverage. Would suggest Bactrim DS. (2) Decubitus skin ulcer SNOMED Code(s): 959668639 Code(s): L89.90 - PRESSURE ULCER OF UNSPECIFIED SITE, UNSPECIFIED STAGE Status: Acute Current Visit: Yes Qualifiers: Pressure ulcer location: buttock Pressure ulcer stage: stage 3 Laterality : right Qualified Code(s): L89.313 - Pressure ulcer of right buttock, stage 3 Annotation/Comment:: Surgery continues to follow. Wound VAC in place. May require further debridement per Dr. Hough. 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 Continue warfarin. Would recommend lifetime therapy for this patient as long as he continues to have limited mobility. Indication as DVT/PE. (4) Pulmonary emboli SNOMED Code(s): 93778051 Code(s): I26.99 - OTHER PULMONARY EMBOLISM WITHOUT ACUTE COR PULMONALE Status: Acute Current Visit: Yes Qualifiers: Pulmonary embolism type: other Chronicity: unspecified Annotation/Comment:: Anticoagulation as above. (5) Depression SNOMED Code(s): 27191453 Code(s): F32.9 - MAJOR DEPRESSIVE DISORDER, SINGLE EPISODE, UNSPECIFIED Status: Chronic Current Visit: Yes Qualifiers: Depression Type: major depressive disorder Psychotic features: without psychotic features Annotation/Comment:: Abilify started 10/18/17. Tolerating well. Continues to improve. Increase social support, get patient into the sun and doing activities as much as possible. (6) Hypoalbuminemia SNOMED Code(s): 077234293 Code(s): E88.09 - OT DISORDERS OF PLASMA-PROTEIN METABOLISM, NEC Status: Chronic Current Visit: Yes Annotation/Comment:: Continue high protein diet and mineral supplements to aid in wound healing. Follow albumin. (7) Multiple sclerosis SNOMED Code(s): 17550553 Code(s): G35 - MULTIPLE SCLEROSIS Status: Chronic Current Visit: Yes Annotation/Comment:: Continue PT/OT. Q2hour repositioning. Will need to work with guardian to pursue ultimate disposition. Patient prefers to stay in [facility]. (8) Urinary retention with incomplete bladder emptying SNOMED Code(s): 298266717 Code(s): R33.9 - RETENTION OF URINE, UNSPECIFIED Status: Acute Current Visit: Yes Annotation/Comment:: Continues with incontinence and intermittent straight catheterization about once daily. 4 times a day bladder scans. (9) MRSA (methicillin resistant staph aureus) culture positive SNOMED Code(s): 456699813 Code(s): Z22.322 - CARRIER OR SUSPECTED CARRIER OF METHICILLIN RESIS STAPH Status: Acute Current Visit: Yes Annotation/Comment:: Given the long-term risks to this patient of MRSA wound infection, after having reviewed the literature I feel it would be in his best interest to attempt decolonization after he's completed his course of antibiotic therapy. This will be done with chlorhexidine washes daily and mupirocin ointment to the anterior nares 3 times a day for 7-10 days. Although long-term success of elimination of MRSA in a patient like this is somewhere around 50%, given the patient's debility, immunocompromised state, and very slowly healing open wound, I do feel it ought to be attempted. - Problem List Review Problem List Initiated/Reviewed/Updated: Yes - My Orders Last 24 Hours: My Active Orders 11/24/17 16:00 Warfarin [Coumadin] 5 mg PO 11/24/17@1600 11/25/17 08:06 INR,PT,PROTHROMBIN TIME [COAG] DAILY 11/26/17 08:06 INR,PT,PROTHROMBIN TIME [COAG] DAILY 11/27/17 08:06 INR,PT,PROTHROMBIN TIME [COAG] DAILY 11/28/17 08:06 INR,PT,PROTHROMBIN TIME [COAG] DAILY 11/29/17 08:06 INR,PT,PROTHROMBIN TIME [COAG] DAILY 11/30/17 08:06 INR,PT,PROTHROMBIN TIME [COAG] DAILY 12/01/17 08:06 INR,PT,PROTHROMBIN TIME [COAG] DAILY 12/02/17 08:06 INR,PT,PROTHROMBIN TIME [COAG] DAILY 12/03/17 08:06 INR,PT,PROTHROMBIN TIME [COAG] DAILY 12/04/17 08:06 INR,PT,PROTHROMBIN TIME [COAG] DAILY - Plan Plan:: 1. Continue current care. Dr. Hough in charge of wound management
[2017-11-24] MEDS ORDERED: Warfarin 5 MG Tab PO SCH (16:00)
[2017-11-24] MEDS: atorvaSTATin 40 MG Tab PO SCH (20:50)
[2017-11-24] MEDS: Acetaminophen 325 MG Tab PO PRN (20:54)
[2017-11-25] MEDS: Baclofen 10 MG Tab PO SCH ×3 (08:48→21:34)
[2017-11-25] MEDS: DULoxetine 60 MG Cap PO SCH (08:48)
[2017-11-25] MEDS: Zinc Sulfate 220 MG Cap PO SCH (08:48)
[2017-11-25] MEDS: Docusate Sodium 250 MG Cap PO SCH ×2 (08:48→21:33)
[2017-11-25] MEDS: buPROPion 150 MG Tab.ER PO SCH (08:48)
[2017-11-25] MEDS: Ascorbic Acid 500 MG Tab PO SCH (08:49)
[2017-11-25] MEDS: Furosemide 40 MG Tab PO SCH (08:49)
[2017-11-25] MEDS: Sodium Chloride 0.9% 10 ML Syringe FLUSH PRN ×2 (08:52→11:11)
[2017-11-25] MEDS ORDERED: Warfarin 5 MG Tab PO SCH (16:00)
[2017-11-25] MEDS: atorvaSTATin 40 MG Tab PO SCH (21:35)
[2017-11-25] MEDS: Sulfamethoxazole/Trimethoprim 800-160 MG Tab PO SCH (21:35)
[2017-11-26] MEDS: Zinc Sulfate 220 MG Cap PO SCH (08:29)
[2017-11-26] MEDS: Sulfamethoxazole/Trimethoprim 800-160 MG Tab PO SCH ×2 (08:29→20:12)
[2017-11-26] MEDS: DULoxetine 60 MG Cap PO SCH (08:29)
[2017-11-26] MEDS: buPROPion 150 MG Tab.ER PO SCH (08:29)
[2017-11-26] MEDS: Ascorbic Acid 500 MG Tab PO SCH (08:30)
[2017-11-26] MEDS: Docusate Sodium 250 MG Cap PO SCH ×2 (08:30→20:13)
[2017-11-26] MEDS: Furosemide 40 MG Tab PO SCH (08:30)
[2017-11-26] MEDS: Baclofen 10 MG Tab PO SCH ×3 (08:30→20:11)
[2017-11-26] MEDS ORDERED: Warfarin 3 MG Tab PO SCH (16:00)
[2017-11-26] MEDS: atorvaSTATin 40 MG Tab PO SCH (20:12)
[2017-11-27] MEDS: Docusate Sodium 250 MG Cap PO SCH ×2 (08:05→20:36)
[2017-11-27] MEDS: Furosemide 40 MG Tab PO SCH (08:05)
[2017-11-27] MEDS: DULoxetine 60 MG Cap PO SCH (08:05)
[2017-11-27] MEDS: buPROPion 150 MG Tab.ER PO SCH (08:05)
[2017-11-27] MEDS: Sulfamethoxazole/Trimethoprim 800-160 MG Tab PO SCH ×2 (08:05→20:37)
[2017-11-27] MEDS: Zinc Sulfate 220 MG Cap PO SCH (08:05)
[2017-11-27] MEDS: Ascorbic Acid 500 MG Tab PO SCH (08:05)
[2017-11-27] MEDS: Baclofen 10 MG Tab PO SCH ×3 (08:06→20:37)
[2017-11-27] MEDS ORDERED: Warfarin 3 MG Tab PO ONE (16:00)
[2017-11-27] MEDS: atorvaSTATin 40 MG Tab PO SCH (20:37)
[2017-11-28] MEDS: DULoxetine 60 MG Cap PO SCH (09:42)
[2017-11-28] MEDS: Ascorbic Acid 500 MG Tab PO SCH (09:43)
[2017-11-28] MEDS: Zinc Sulfate 220 MG Cap PO SCH (09:43)
[2017-11-28] MEDS: Furosemide 40 MG Tab PO SCH (09:43)
[2017-11-28] MEDS: Sulfamethoxazole/Trimethoprim 800-160 MG Tab PO SCH ×2 (09:43→21:17)
[2017-11-28] MEDS: buPROPion 150 MG Tab.ER PO SCH (09:43)
[2017-11-28] MEDS: Baclofen 10 MG Tab PO SCH ×3 (09:43→21:17)
[2017-11-28] MEDS: Docusate Sodium 250 MG Cap PO SCH ×2 (09:44→21:16)
[2017-11-28] MEDS: Megestrol Susp 40 MG/ML ML (240 ML Bottle) PO SCH (11:33)
[2017-11-28] MEDS: Warfarin 4 MG Tab PO SCH (16:50)
[2017-11-28] MEDS: atorvaSTATin 40 MG Tab PO SCH (21:17)
--- NOTE | 2017-11-29 07:53 | PCM.SN ---
- Free Text/Narrative Note: was present during dressing change yesterday. wound is granulating nicely and valeriano as well. some necrotic fascia was removed.
[2017-11-29] MEDS: Docusate Sodium 250 MG Cap PO SCH ×2 (08:39→20:15)
[2017-11-29] MEDS: DULoxetine 60 MG Cap PO SCH (08:39)
[2017-11-29] MEDS: Baclofen 10 MG Tab PO SCH ×3 (08:41→20:15)
[2017-11-29] MEDS: Sulfamethoxazole/Trimethoprim 800-160 MG Tab PO SCH ×2 (08:42→20:15)
[2017-11-29] MEDS: buPROPion 150 MG Tab.ER PO SCH (08:42)
[2017-11-29] MEDS: Ascorbic Acid 500 MG Tab PO SCH (08:42)
[2017-11-29] MEDS: Megestrol Susp 40 MG/ML ML (240 ML Bottle) PO SCH (08:43)
[2017-11-29] MEDS: Zinc Sulfate 220 MG Cap PO SCH (08:43)
[2017-11-29] MEDS: Furosemide 40 MG Tab PO SCH (08:48)
[2017-11-29] MEDS: Sodium Chloride 0.9% 10 ML Syringe FLUSH PRN (11:15)
[2017-11-29] MEDS ORDERED: Iopamidol 755 Mg/ML 100 ML Bottle IV ONE (13:53)
--- NOTE | 2017-11-29 15:13 | CT ---
INDICATION: Follow-up right upper lobe pneumonia and pulmonary emboli. COMPUTERIZED TOMOGRAPHY ANGIOGRAPHY OF THE CHEST FOR PULMONARY ARTERIES: Spiral 1.25-mm axial sections were obtained through the chest with sagittal and coronal reconstructions, utilizing 83 mL Isovue-370 at 3.5 mL per second, 2017, and were compared with previous examination of 10/18/2017. Total Exam DLP = 937.48 mGy-cm. Pneumonia present in the right upper lobe, extending into the right lower lobe, has largely resolved with some minimal residual likely fibrotic in nature producing subpleural densities. Some very minimal residual active disease in those areas cannot be entirely excluded, but is felt to be less likely. A new acute process was not suggested. The heart appears slightly prominent in size. No mediastinal masses were identified. A mild degree of mediastinal lymphadenopathy is noted, which is nonspecific. Minimal calcifications are noted in the aorta. Findings compatible with cholelithiasis are noted. A mild degree of renal cortical scarring is suggested. A pulmonary embolus previously seen dilating a left upper lobe pulmonary artery on axial image #75 is now shown to be free of embolus on axial image #84 on the current study. No new pulmonary emboli were seen. IMPRESSION: 1. Resolution of previous left upper lobe pulmonary artery embolus. No further emboli seen. 2. Almost complete resolution of pneumonia in the right upper lobe and right lower lobe with some residual subpleural changes in the right lower lobe, most likely representing fibrosis, but could represent some minimal residual active disease. 3. ASHD with mild cardiomegaly. 4. Cholelithiasis. 5. ASD. MTDD
[2017-11-29] MEDS: Warfarin 4 MG Tab PO SCH (19:01)
[2017-11-29] MEDS: atorvaSTATin 40 MG Tab PO SCH (20:15)
[2017-11-30] MEDS: Ascorbic Acid 500 MG Tab PO SCH (08:01)
[2017-11-30] MEDS: DULoxetine 60 MG Cap PO SCH (08:01)
[2017-11-30] MEDS: Baclofen 10 MG Tab PO SCH ×3 (08:01→20:55)
[2017-11-30] MEDS: Sulfamethoxazole/Trimethoprim 800-160 MG Tab PO SCH (08:01)
[2017-11-30] MEDS: Docusate Sodium 250 MG Cap PO SCH ×2 (08:01→20:55)
[2017-11-30] MEDS: Zinc Sulfate 220 MG Cap PO SCH (08:01)
[2017-11-30] MEDS: Furosemide 40 MG Tab PO SCH (08:01)
[2017-11-30] MEDS: Megestrol Susp 40 MG/ML ML (240 ML Bottle) PO SCH (08:02)
[2017-11-30] MEDS: buPROPion 150 MG Tab.ER PO SCH (08:02)
[2017-11-30] MEDS: Warfarin 4 MG Tab PO SCH (17:01)
[2017-11-30] MEDS: atorvaSTATin 40 MG Tab PO SCH (20:55)
[2017-12-01] MEDS: Docusate Sodium 250 MG Cap PO SCH ×2 (08:48→19:59)
[2017-12-01] MEDS: Megestrol Susp 40 MG/ML ML (240 ML Bottle) PO SCH (08:49)
[2017-12-01] MEDS: Ascorbic Acid 500 MG Tab PO SCH (08:49)
[2017-12-01] MEDS: Baclofen 10 MG Tab PO SCH ×3 (08:49→19:59)
[2017-12-01] MEDS: Zinc Sulfate 220 MG Cap PO SCH (08:49)
[2017-12-01] MEDS: Furosemide 40 MG Tab PO SCH (08:50)
[2017-12-01] MEDS: DULoxetine 60 MG Cap PO SCH (08:50)
[2017-12-01] MEDS: buPROPion 150 MG Tab.ER PO SCH (08:50)
--- NOTE | 2017-12-01 12:18 | PN ---
DATE SEEN: 12/01/2017 REASON FOR VISIT: Continued care. HISTORY OF PRESENT ILLNESS: This is a 67-year-old male who was in swing bed for a wound decubitus ulcer and depression, PE, and pneumonia. This morning, he feels well. Complains of no pain and overall he feels that his appetite and mood has improved. I started him on Megace to improve his appetite and protein intake two days ago. He also finished Bactrim yesterday for a MRSA UTI. The nurses had complained that they were unable to do condom catheter, it was not sticking, and as such, a Rivera was placed on Tuesday. There has been no report of fever or chills. REVIEW OF SYSTEMS: All other systems were negative. CURRENT MEDICATIONS: Please see his [employer]. PHYSICAL EXAMINATION: GENERAL: He is not in any distress this morning. VITAL SIGNS: Blood pressure is normal. He is afebrile. CHEST: Clear. CARDIOVASCULAR: Normal. MENTAL STATUS: He is alert. Normal affect. Answers questions well. Speech is normal in rate, volume, and content. LABORATORY DATA: No new labs today. CT scan that was done on 11/29/2017 revealed significantly improved and resolved left upper pulmonary artery embolus. Almost complete resolution of the pneumonia in the right upper lobe was also found. There was some incidental cholelithiasis in that image. FINAL IMPRESSION: 1. Methicillin-resistant Staphylococcus aureus infection of the urine. 2. Depression. 3. Pulmonary embolus, on chronic anticoagulation. 4. Hypoalbuminemia. 5. Multiple sclerosis with neurogenic bladder. 6. Methicillin-resistant Staphylococcus aureus culture positive urine and also on the wound from September of 2017. PLAN: 1. Dr. Hough will continue wound management. Contact precautions have been reinforced. 2. Obtain a urine and culture today. Consider decolonization of MRSA. 3. Continue Megace 800 mg daily and the rest of his medications as well. 4. I have discontinued the Rivera catheter and will go back to intermittent catheterization, that is more practical than condom catheter. /[id number] [place]/MODL
[2017-12-01] MEDS: Warfarin 4 MG Tab PO SCH (16:00)
[2017-12-01] MEDS: atorvaSTATin 40 MG Tab PO SCH (19:59)
[2017-12-02] MEDS: DULoxetine 60 MG Cap PO SCH (09:41)
[2017-12-02] MEDS: Megestrol Susp 40 MG/ML ML (240 ML Bottle) PO SCH (09:42)
[2017-12-02] MEDS: Furosemide 40 MG Tab PO SCH (09:42)
[2017-12-02] MEDS: Baclofen 10 MG Tab PO SCH ×3 (09:42→21:07)
[2017-12-02] MEDS: Ascorbic Acid 500 MG Tab PO SCH (09:43)
[2017-12-02] MEDS: Zinc Sulfate 220 MG Cap PO SCH (09:44)
[2017-12-02] MEDS: buPROPion 150 MG Tab.ER PO SCH (09:44)
[2017-12-02] MEDS: Docusate Sodium 250 MG Cap PO SCH ×2 (09:45→21:07)
[2017-12-02] MEDS: Warfarin 4 MG Tab PO SCH (17:34)
[2017-12-02] MEDS: atorvaSTATin 40 MG Tab PO SCH (21:07)
[2017-12-03] MEDS: DULoxetine 60 MG Cap PO SCH (08:37)
[2017-12-03] MEDS: buPROPion 150 MG Tab.ER PO SCH (08:37)
[2017-12-03] MEDS: Baclofen 10 MG Tab PO SCH ×3 (08:37→21:36)
[2017-12-03] MEDS: Ascorbic Acid 500 MG Tab PO SCH (08:37)
[2017-12-03] MEDS: Zinc Sulfate 220 MG Cap PO SCH (08:37)
[2017-12-03] MEDS: Megestrol Susp 40 MG/ML ML (240 ML Bottle) PO SCH (08:38)
[2017-12-03] MEDS: Docusate Sodium 250 MG Cap PO SCH ×2 (08:38→21:36)
[2017-12-03] MEDS: Furosemide 40 MG Tab PO SCH (08:38)
[2017-12-03] MEDS: Acetaminophen 325 MG Tab PO PRN (12:44)
--- NOTE | 2017-12-03 13:07 | PCM.PN ---
- General Info Date of Service: 12/03/17 Subjective Update: Patient is a 67-year-old male currently on swing bed day #38 for decubitus ulcer with wound vacuum. Patient has a Salvador catheter in place for incontinence/ intermittent urinary retention/patient request. Denies chest pain, shortness of breath, nausea, vomiting. No diarrhea. Appetite has been better. He is very alert today and talkative for him. He still doesn't know what city the hospital is in or the date but does know he is here for a sore on his buttock. - Patient Data Vitals - Most Recent: Last Vital Signs Temp 36.7 C 12/03/17 08:30 Pulse 76 12/03/17 08:30 Resp 20 12/03/17 08:30 BP 119/74 12/03/17 08:30 Pulse Ox 94 L 12/03/17 08:30 Weight - Most Recent: 138.346 kg I&O - Last 24 Hours: Intake & Output 12/02/17 12/03/17 12/03/17 22:59 06:59 14:59 Intake Total 100 Output Total 450 550 Balance -350 -550 Lab Results Last 24 Hours: Laboratory Results - last 24 hr 12/03/17 12/03/17 Range/Units 06:25 06:25 WBC 9.1 (4.5-12.0) X10-3/uL RBC 5.65 (4.30-5.75) x10(6)uL Hgb 11.4 L (11.5-15.5) g/dL Hct 36.8 (30.0-51.3) % MCV 65.2 L (80-96) fL MCH 20.2 L (27.7-33.6) pg MCHC 30.9 L (32.2-35.4) g/dL RDW 17.2 H (11.5-15.5) % Plt Count 775 H (125-369) X10(3)uL MPV 7.5 (7.4-10.4) fL Neut % (Auto) 54.6 (46-82) % Lymph % (Auto) 30.5 (13-37) % [place] % (Auto) 9.4 (4-12) % Eos % (Auto) 5 (1.0-5.0) % Baso % (Auto) 1 (0-2) % Neut # (Auto) 4.9 (1.6-8.3) # Lymph # (Auto) 2.8 (0.6-5.0) # [place] # (Auto) 0.9 (0.0-1.3) # Eos # (Auto) 0.4 (0.0-0.8) # Baso # (Auto) 0.1 (0.0-0.2) # Sodium 138 (135-145) mmol/L Potassium 4.0 (3.5-5.3) mmol/L Chloride 105 (100-110) mmol/L Carbon Dioxide 25 (21-32) mmol/L BUN 17 (7-18) mg/dL Creatinine 0.7 (0.70-1.30) mg/dL Est Cr Clr Drug Dosing 88.10 mL/min Estimated GFR (MDRD) > 60 (>60) BUN/Creatinine Ratio 24.3 H (9-20) Glucose 104 (80-116) mg/dL Calcium 8.7 (8.6-10.2) mg/dL Total Bilirubin 0.3 (0.1-1.3) mg/dL AST 22 D (5-25) IU/L ALT 47 H (12-36) U/L Alkaline Phosphatase 120 H (56-112) IU/L Total Protein 7.2 (6.0-8.0) g/dL Albumin 2.3 L (3.2-4.6) g/dL Globulin 4.9 g/dL Albumin/Globulin Ratio 0.5 Med Orders - Current: Current Medications Acetaminophen (Tylenol) 650 mg PO Q4H PRN PRN Reason: PAIN Last Admin: 12/03/17 12:44 Dose: 650 mg Albuterol/Ipratropium (Duoneb 3.0-0.5 Mg/3 Ml) 3 ml NEB QID PRN PRN Reason: wheezing Aripiprazole (Abilify) 2 mg PO DAILY [facility] Last Admin: 12/03/17 08:37 Dose: 2 mg Ascorbic Acid (Vitamin C) 500 mg PO DAILY [facility] Last Admin: 12/03/17 08:37 Dose: 500 mg Atorvastatin Calcium (Lipitor) 40 mg PO BEDTIME [facility] Last Admin: 12/02/17 21:07 Dose: 40 mg Baclofen (Lioresal) 10 mg PO TID [facility] Last Admin: 12/03/17 08:37 Dose: 10 mg Bupropion HCl (Wellbutrin Xl) 300 mg PO DAILY [facility] Last Admin: 12/03/17 08:37 Dose: 300 mg Docusate Sodium (Dok) 250 mg PO BID [facility] Last Admin: 12/03/17 08:38 Dose: 250 mg Duloxetine HCl (Cymbalta) 60 mg PO DAILY [facility] Last Admin: 12/03/17 08:37 Dose: 60 mg Furosemide (Lasix) 40 mg PO DAILY [facility] Last Admin: 12/03/17 08:38 Dose: 40 mg Megestrol Acetate (Megace 40 Mg/Ml Susp) 800 mg PO DAILY [facility] Last Admin: 12/03/17 08:38 Dose: 800 mg Sodium Chloride (Saline Flush) 10 ml FLUSH ASDIRECTED PRN PRN Reason: Keep Vein Open Last Admin: 11/29/17 11:15 Dose: 10 ml Sodium Chloride (Saline Flush) 10 ml FLUSH ASDIRECTED PRN PRN Reason: Keep Vein Open Warfarin Sodium (Coumadin Sliding Scale) 0 each PO ASDIRECTED [facility] Warfarin Sodium (Coumadin) 4 mg PO DAILY@1600 [facility] Last Admin: 12/02/17 17:34 Dose: 4 mg Zinc Sulfate (Zincate) 220 mg PO DAILY [facility] Last Admin: 12/03/17 08:37 Dose: 220 mg Discontinued Medications Enoxaparin Sodium (Lovenox) 140 mg SUBCUT Q12H [facility] Last Admin: 10/27/17 20:30 Dose: 140 mg Vancomycin HCl 2,500 mg/ (Sodium Chloride) 500 mls @ 200 mls/hr IV Q18H [facility] Last Admin: 11/22/17 18:35 Dose: 200 mls/hr Vancomycin HCl 2,000 mg/ (Sodium Chloride) 500 mls @ 250 mls/hr IV Q12H [facility] Last Admin: 11/25/17 08:52 Dose: 250 mls/hr Iopamidol (Isovue-370 (76%)) 83 ml IV . DIRECTED ONE Stop: 11/29/17 13:54 Last Admin: 11/29/17 14:10 Dose: 83 ml Levofloxacin (Levaquin) 500 mg PO Q24H [facility] Last Admin: 11/07/17 13:23 Dose: 500 mg Levofloxacin (Levaquin) 750 mg PO Q24H [facility] Last Admin: 11/23/17 00:53 Dose: 750 mg Trimethoprim/Sulfamethoxazole (Septra Ds) 1 tab PO BID [facility] Stop: 11/30/17 09:01 Last Admin: 11/30/17 08:01 Dose: 1 tab Vancomycin HCl (Pharmacy To Dose - Vancomycin) 1 dose .XX ASDIRECTED [facility] Warfarin Sodium (Coumadin) 7.5 mg PO 1600 [facility] Stop: 10/27/17 16:01 Last Admin: 10/27/17 16:17 Dose: 7.5 mg Warfarin Sodium (Coumadin) 2.5 mg PO 1600 [facility] Stop: 10/28/17 16:01 Last Admin: 10/28/17 16:52 Dose: 2.5 mg Warfarin Sodium (Coumadin) 2.5 mg PO 1600 [facility] Stop: 10/29/17 16:01 Last Admin: 10/29/17 16:28 Dose: 2.5 mg Warfarin Sodium (Coumadin) 3 mg PO 1600 [facility] Stop: 10/30/17 16:01 Last Admin: 10/30/17 16:58 Dose: 3 mg Warfarin Sodium (Coumadin) Confirm Administered Dose 1 mg .ROUTE .STK-MED ONE Stop: 10/30/17 16:56 Last Admin: 10/30/17 16:57 Dose: Not Given Warfarin Sodium (Coumadin) Confirm Administered Dose 2 mg .ROUTE .STK-MED ONE Stop: 10/30/17 16:56 Last Admin: 10/30/17 18:07 Dose: Not Given Warfarin Sodium 5 mg/ Warfarin (Sodium 2.5 mg) 7.5 mg PO 1600 [facility] Stop: 10/31/17 16:01 Last Admin: 10/31/17 16:55 Dose: 7.5 mg Warfarin Sodium 5 mg/ Warfarin (Sodium 2.5 mg) 7.5 mg PO 1600 [facility] Stop: 11/01/17 16:01 Last Admin: 11/01/17 16:01 Dose: 7.5 mg Warfarin Sodium (Coumadin) 5 mg PO 1600 [facility] Stop: 11/02/17 16:30 Last Admin: 11/02/17 15:38 Dose: 5 mg Warfarin Sodium (Coumadin) 2 mg PO 1600 [facility] Stop: 11/03/17 16:01 Last Admin: 11/03/17 18:19 Dose: 2 mg Warfarin Sodium (Coumadin) 4 mg PO DAILY@1600 [facility] Last Admin: 11/12/17 16:57 Dose: 4 mg Warfarin Sodium (Coumadin) 2 mg PO 1600 [facility] Stop: 11/14/17 16:01 Last Admin: 11/14/17 17:42 Dose: 2 mg Warfarin Sodium (Coumadin) 3 mg PO 1600 [facility] Last Admin: 11/16/17 16:24 Dose: 3 mg Warfarin Sodium (Coumadin) 5 mg PO 1600 [facility] Stop: 11/17/17 16:01 Last Admin: 11/17/17 16:20 Dose: 5 mg Warfarin Sodium (Coumadin) 4 mg PO DAILY@1600 [facility] Last Admin: 11/23/17 15:42 Dose: 4 mg Warfarin Sodium (Coumadin) 5 mg PO 11/24/17@1600 [facility] Stop: 11/24/17 17:00 Last Admin: 11/24/17 16:35 Dose: 5 mg Warfarin Sodium (Coumadin) 5 mg PO 11/25/17@1600 [facility] Stop: 11/25/17 18:00 Last Admin: 11/25/17 15:58 Dose: 5 mg Warfarin Sodium (Coumadin) 3 mg PO 1600 [facility] Stop: 11/26/17 17:30 Last Admin: 11/26/17 15:20 Dose: 3 mg Warfarin Sodium (Coumadin) 3 mg PO ONETIME ONE Stop: 11/27/17 16:01 Last Admin: 11/27/17 15:46 Dose: 3 mg Zinc Sulfate (Zincate) 220 mg PO DAILY@1200 [facility] Last Admin: 10/28/17 13:11 Dose: 220 mg - Exam General: Alert, Cooperative, No Acute Distress HEENT: Pupils Equal, Pupils Reactive Neck: Supple Lungs: Clear to Auscultation, Normal Respiratory Effort Cardiovascular: Regular Rate, Regular Rhythm, No Murmurs GI/Abdominal Exam: Normal Bowel Sounds, Soft, Non-Tender, No Distention Extremities: Pedal Edema (trace) - Problem List & Annotations (1) Complicated UTI (urinary tract infection) SNOMED Code(s): 03681121 Code(s): N39.0 - URINARY TRACT INFECTION, SITE NOT SPECIFIED Status: Acute Current Visit: Yes Annotation/Comment:: Diagnosed 11/21/17 after patient spiked a fever of 102.3. Patient was started on Levaquin with defervescence. Vanco started 11/22/17 with prelim ID of gram+ cocci. Final ID/Sens showed MRSA. After negative blood cultures was changed to by mouth Bactrim and completed course of therapy on 11/28. Recurrent symptoms. Salvador catheter replaced on 12/01 reportedly per patient request because of discomfort with straight catheterization. (2) Decubitus skin ulcer SNOMED Code(s): 777652561 Code(s): L89.90 - PRESSURE ULCER OF UNSPECIFIED SITE, UNSPECIFIED STAGE Status: Acute Current Visit: Yes Qualifiers: Pressure ulcer location: buttock Pressure ulcer stage: stage 3 Laterality : right Qualified Code(s): L89.313 - Pressure ulcer of right buttock, stage 3 Annotation/Comment:: Surgery continues to follow. Wound VAC in place. Significantly improved. (3) Chronic anticoagulation SNOMED Code(s): 994835166 Code(s): Z79.01 - PRISON (CURRENT) USE OF ANTICOAGULANTS Status: Acute Current Visit: Yes Annotation/Comment:: Patient's insurance will not cover direct oral anticoagulants. Continue warfarin. Would recommend lifetime therapy for this patient as long as he continues to have limited mobility. Indication as DVT/PE. (4) Pulmonary emboli SNOMED Code(s): 97264606 Code(s): I26.99 - OTHER PULMONARY EMBOLISM WITHOUT ACUTE COR PULMONALE Status: Acute Current Visit: Yes Qualifiers: Pulmonary embolism type: other Chronicity: unspecified Annotation/Comment:: Anticoagulation as above. (5) Depression SNOMED Code(s): 89940224 Code(s): F32.9 - MAJOR DEPRESSIVE DISORDER, SINGLE EPISODE, UNSPECIFIED Status: Chronic Current Visit: Yes Qualifiers: Depression Type: major depressive disorder Psychotic features: without psychotic features Annotation/Comment:: Abilify started 10/18/17. Tolerating well. Continues to improve. Increase social support, get patient into the sun and doing activities as much as possible. (6) Hypoalbuminemia SNOMED Code(s): 972455914 Code(s): E88.09 - OTH DISORDERS OF PLASMA-PROTEIN METABOLISM, NEC Status: Chronic Current Visit: Yes Annotation/Comment:: Continue high protein diet and mineral supplements to aid in wound healing. Follow albumin. (7) Multiple sclerosis SNOMED Code(s): 48017640 Code(s): G35 - MULTIPLE SCLEROSIS Status: Chronic Current Visit: Yes Annotation/Comment:: Continue PT/OT. Q2hour repositioning. Will continue to work with guardian to pursue ultimate disposition. Patient prefers to stay in [facility]. (8) Urinary retention with incomplete bladder emptying SNOMED Code(s): 085858962 Code(s): R33.9 - RETENTION OF URINE, UNSPECIFIED Status: Acute Current Visit: Yes Annotation/Comment:: Was previously having incontinence and intermittent straight catheterization about once daily with 4 times a day bladder scans. Now salvador catheter has been replaced. Reviewed with patient and guardian increased risk of infection with indwelling catheter versus intermittent straight catheterization. We will leave salvador in for now for patient comfort but should consider trial without when patient's wound heals. (9) MRSA (methicillin resistant staph aureus) culture positive SNOMED Code(s): 286813382 Code(s): Z22.322 - CARRIER OR SUSPECTED CARRIER OF METHICILLIN RESIS STAPH Status: Acute Current Visit: Yes Annotation/Comment:: Given the long-term risks to this patient of MRSA wound infection, after having reviewed the literature I feel it would be in his best interest to attempt decolonization. However, given the initial wound culture which showed colonization of wound at the time of admission, it would be impossible to decolonize the wound at this time. Recommend once ulcer is healed, trial of decolonization to protect patient and reduce his social isolation. This would be done with chlorhexidine washes daily and mupirocin ointment to the anterior nares 3 times a day for 7- 10 days. Although long-term success of elimination of MRSA in a patient like this is somewhere around 50%, given the patient's depression and risk from social isolation would be worth attempting. Discussed this at length with patient's POA. - Problem List Review Problem List Initiated/Reviewed/Updated: Yes - Plan Plan:: As patient was so alert today, discussed CODE STATUS with him. When I asked the patient if he knew what CPR was, he indicated yes and that he would never want it. He told me spontaneously that if he he would just want to be allowed to and not have any resuscitation done. When asked if he would want a breathing tube placed if he had such a bad pneumonia that we thought he would without it, he told me, "You mean a respirator? I never want to be on a respirator." As this is a significant change from the patient's previous CODE STATUS, I contacted his power of rotary driller and reviewed this with him. He said that a year ago they had had a discussion about CODE STATUS just as a social conversation and the patient had expressed similar wishes at that time. Thus patient's CODE STATUS will be changed to reflect his previously expressed and currently expressed wishes, DNR/DNI.
[2017-12-03] MEDS: Warfarin 4 MG Tab PO SCH (17:44)
[2017-12-03] MEDS: atorvaSTATin 40 MG Tab PO SCH (21:37)
[2017-12-04] MEDS: Baclofen 10 MG Tab PO SCH ×3 (08:43→20:26)
[2017-12-04] MEDS: Docusate Sodium 250 MG Cap PO SCH ×2 (08:43→20:26)
[2017-12-04] MEDS: Furosemide 40 MG Tab PO SCH (08:43)
[2017-12-04] MEDS: DULoxetine 60 MG Cap PO SCH (08:43)
[2017-12-04] MEDS: Megestrol Susp 40 MG/ML ML (240 ML Bottle) PO SCH (08:44)
[2017-12-04] MEDS: buPROPion 150 MG Tab.ER PO SCH (08:44)
[2017-12-04] MEDS: Zinc Sulfate 220 MG Cap PO SCH (08:44)
[2017-12-04] MEDS: Ascorbic Acid 500 MG Tab PO SCH (08:44)
[2017-12-04] MEDS: Warfarin 4 MG Tab PO SCH (16:43)
[2017-12-04] MEDS: atorvaSTATin 40 MG Tab PO SCH (20:26)
[2017-12-05] MEDS: DULoxetine 60 MG Cap PO SCH (08:00)
[2017-12-05] MEDS: Zinc Sulfate 220 MG Cap PO SCH (08:00)
[2017-12-05] MEDS: Docusate Sodium 250 MG Cap PO SCH (08:00)
[2017-12-05] MEDS: Baclofen 10 MG Tab PO SCH ×2 (08:00→13:40)
[2017-12-05] MEDS: Ascorbic Acid 500 MG Tab PO SCH (08:00)
[2017-12-05] MEDS: Furosemide 40 MG Tab PO SCH (08:00)
[2017-12-05] MEDS: buPROPion 150 MG Tab.ER PO SCH (08:00)
[2017-12-05] MEDS: Megestrol Susp 40 MG/ML ML (240 ML Bottle) PO SCH (08:01)
[2017-12-05] MEDS ORDERED: Warfarin 5 MG, Warfarin 2.5 MG PO SCH ×2 (16:00)
[2017-12-06] MEDS: atorvaSTATin 40 MG Tab PO SCH ×2 (03:45→20:15)
[2017-12-06] MEDS: Baclofen 10 MG Tab PO SCH ×4 (03:45→20:15)
[2017-12-06] MEDS: Docusate Sodium 250 MG Cap PO SCH ×3 (03:45→20:15)
[2017-12-06] MEDS: Ascorbic Acid 500 MG Tab PO SCH (08:08)
[2017-12-06] MEDS: Furosemide 40 MG Tab PO SCH (08:08)
[2017-12-06] MEDS: Zinc Sulfate 220 MG Cap PO SCH (08:08)
[2017-12-06] MEDS: Megestrol Susp 40 MG/ML ML (240 ML Bottle) PO SCH (08:08)
[2017-12-06] MEDS: buPROPion 150 MG Tab.ER PO SCH (08:08)
[2017-12-06] MEDS: DULoxetine 60 MG Cap PO SCH (08:08)
[2017-12-06] MEDS: Warfarin 5 MG Tab PO SCH (17:14)
[2017-12-07] MEDS: Acetaminophen 325 MG Tab PO PRN (08:45)
[2017-12-07] MEDS: Docusate Sodium 250 MG Cap PO SCH ×2 (08:46→20:19)
[2017-12-07] MEDS: Ascorbic Acid 500 MG Tab PO SCH (08:46)
[2017-12-07] MEDS: Megestrol Susp 40 MG/ML ML (240 ML Bottle) PO SCH (08:46)
[2017-12-07] MEDS: DULoxetine 60 MG Cap PO SCH (08:46)
[2017-12-07] MEDS: Zinc Sulfate 220 MG Cap PO SCH (08:46)
[2017-12-07] MEDS: buPROPion 150 MG Tab.ER PO SCH (08:46)
[2017-12-07] MEDS: Furosemide 40 MG Tab PO SCH (08:46)
[2017-12-07] MEDS: Baclofen 10 MG Tab PO SCH ×3 (08:46→20:19)
--- NOTE | 2017-12-07 08:57 | PCM.PN ---
- General Info Date of Service: 12/07/17 Subjective Update: Patient is a 67-year-old male currently on swing bed day #42 for wound VAC treatment of a decubitus ulcer. Patient is doing well today. Vital signs have been stable. He denies chest pain, shortness of breath, nausea or vomiting. Feels his appetite is improved. He feels his mood has improved as well. He's been reading the paper and more engaged with others although he still prefers [employer] card games. Salvador continues in place. - Patient Data Vitals - Most Recent: Last Vital Signs Temp 36.3 C 12/07/17 06:30 Pulse 78 12/07/17 06:30 Resp 18 12/07/17 06:30 BP 134/72 12/07/17 06:30 Pulse Ox 96 12/07/17 06:30 Weight - Most Recent: 139.253 kg I&O - Last 24 Hours: Intake & Output 12/06/17 12/07/17 12/07/17 22:59 06:59 14:59 Intake Total 987 200 Output Total 550 1100 Balance 437 -900 Med Orders - Current: Current Medications Acetaminophen (Tylenol) 650 mg PO Q4H PRN PRN Reason: PAIN Last Admin: 12/07/17 08:45 Dose: 650 mg Albuterol/Ipratropium (Duoneb 3.0-0.5 Mg/3 Ml) 3 ml NEB QID PRN PRN Reason: wheezing Aripiprazole (Abilify) 2 mg PO DAILY [facility] Last Admin: 12/07/17 08:46 Dose: 2 mg Ascorbic Acid (Vitamin C) 500 mg PO DAILY [facility] Last Admin: 12/07/17 08:46 Dose: 500 mg Atorvastatin Calcium (Lipitor) 40 mg PO BEDTIME [facility] Last Admin: 12/06/17 20:15 Dose: 40 mg Baclofen (Lioresal) 10 mg PO TID [facility] Last Admin: 12/07/17 08:46 Dose: 10 mg Bupropion HCl (Wellbutrin Xl) 300 mg PO DAILY [facility] Last Admin: 12/07/17 08:46 Dose: 300 mg Docusate Sodium (Dok) 250 mg PO BID [facility] Last Admin: 12/07/17 08:46 Dose: 250 mg Duloxetine HCl (Cymbalta) 60 mg PO DAILY [facility] Last Admin: 12/07/17 08:46 Dose: 60 mg Furosemide (Lasix) 40 mg PO DAILY [facility] Last Admin: 12/07/17 08:46 Dose: 40 mg Megestrol Acetate (Megace 40 Mg/Ml Susp) 800 mg PO DAILY [facility] Last Admin: 12/07/17 08:46 Dose: 800 mg Sodium Chloride (Saline Flush) 10 ml FLUSH ASDIRECTED PRN PRN Reason: Keep Vein Open Last Admin: 11/29/17 11:15 Dose: 10 ml Sodium Chloride (Saline Flush) 10 ml FLUSH ASDIRECTED PRN PRN Reason: Keep Vein Open Warfarin Sodium (Coumadin Sliding Scale) 0 each PO ASDIRECTED [facility] Warfarin Sodium (Coumadin) 5 mg PO 1600 [facility] Last Admin: 12/06/17 17:14 Dose: 5 mg Zinc Sulfate (Zincate) 220 mg PO DAILY [facility] Last Admin: 12/07/17 08:46 Dose: 220 mg Discontinued Medications Enoxaparin Sodium (Lovenox) 140 mg SUBCUT Q12H [facility] Last Admin: 10/27/17 20:30 Dose: 140 mg Vancomycin HCl 2,500 mg/ (Sodium Chloride) 500 mls @ 200 mls/hr IV Q18H [facility] Last Admin: 11/22/17 18:35 Dose: 200 mls/hr Vancomycin HCl 2,000 mg/ (Sodium Chloride) 500 mls @ 250 mls/hr IV Q12H [facility] Last Admin: 11/25/17 08:52 Dose: 250 mls/hr Iopamidol (Isovue-370 (76%)) 83 ml IV . DIRECTED ONE Stop: 11/29/17 13:54 Last Admin: 11/29/17 14:10 Dose: 83 ml Levofloxacin (Levaquin) 500 mg PO Q24H [facility] Last Admin: 11/07/17 13:23 Dose: 500 mg Levofloxacin (Levaquin) 750 mg PO Q24H [facility] Last Admin: 11/23/17 00:53 Dose: 750 mg Trimethoprim/Sulfamethoxazole (Septra Ds) 1 tab PO BID [facility] Stop: 11/30/17 09:01 Last Admin: 11/30/17 08:01 Dose: 1 tab Vancomycin HCl (Pharmacy To Dose - Vancomycin) 1 dose .XX ASDIRECTED [facility] Warfarin Sodium (Coumadin) 7.5 mg PO 1600 [facility] Stop: 10/27/17 16:01 Last Admin: 10/27/17 16:17 Dose: 7.5 mg Warfarin Sodium (Coumadin) 2.5 mg PO 1600 [facility] Stop: 10/28/17 16:01 Last Admin: 10/28/17 16:52 Dose: 2.5 mg Warfarin Sodium (Coumadin) 2.5 mg PO 1600 [facility] Stop: 10/29/17 16:01 Last Admin: 10/29/17 16:28 Dose: 2.5 mg Warfarin Sodium (Coumadin) 3 mg PO 1600 [facility] Stop: 10/30/17 16:01 Last Admin: 10/30/17 16:58 Dose: 3 mg Warfarin Sodium (Coumadin) Confirm Administered Dose 1 mg .ROUTE .STK-MED [facility] Stop: 10/30/17 16:56 Last Admin: 10/30/17 16:57 Dose: Not Given Warfarin Sodium (Coumadin) Confirm Administered Dose 2 mg .ROUTE .STK-MED [facility] Stop: 10/30/17 16:56 Last Admin: 10/30/17 18:07 Dose: Not Given Warfarin Sodium 5 mg/ Warfarin (Sodium 2.5 mg) 7.5 mg PO 1600 [facility] Stop: 10/31/17 16:01 Last Admin: 10/31/17 16:55 Dose: 7.5 mg Warfarin Sodium 5 mg/ Warfarin (Sodium 2.5 mg) 7.5 mg PO 1600 [facility] Stop: 11/01/17 16:01 Last Admin: 11/01/17 16:01 Dose: 7.5 mg Warfarin Sodium (Coumadin) 5 mg PO 1600 [facility] Stop: 11/02/17 16:30 Last Admin: 11/02/17 15:38 Dose: 5 mg Warfarin Sodium (Coumadin) 2 mg PO 1600 [facility] Stop: 11/03/17 16:01 Last Admin: 11/03/17 18:19 Dose: 2 mg Warfarin Sodium (Coumadin) 4 mg PO DAILY@1600 [facility] Last Admin: 11/12/17 16:57 Dose: 4 mg Warfarin Sodium (Coumadin) 2 mg PO 1600 [facility] Stop: 11/14/17 16:01 Last Admin: 11/14/17 17:42 Dose: 2 mg Warfarin Sodium (Coumadin) 3 mg PO 1600 [facility] Last Admin: 11/16/17 16:24 Dose: 3 mg Warfarin Sodium (Coumadin) 5 mg PO 1600 [facility] Stop: 11/17/17 16:01 Last Admin: 11/17/17 16:20 Dose: 5 mg Warfarin Sodium (Coumadin) 4 mg PO DAILY@1600 [facility] Last Admin: 11/23/17 15:42 Dose: 4 mg Warfarin Sodium (Coumadin) 5 mg PO 11/24/17@1600 [facility] Stop: 11/24/17 17:00 Last Admin: 11/24/17 16:35 Dose: 5 mg Warfarin Sodium (Coumadin) 5 mg PO 11/25/17@1600 [facility] Stop: 11/25/17 18:00 Last Admin: 11/25/17 15:58 Dose: 5 mg Warfarin Sodium (Coumadin) 3 mg PO 1600 [facility] Stop: 11/26/17 17:30 Last Admin: 11/26/17 15:20 Dose: 3 mg Warfarin Sodium (Coumadin) 3 mg PO ONETIME ONE Stop: 11/27/17 16:01 Last Admin: 11/27/17 15:46 Dose: 3 mg Warfarin Sodium (Coumadin) 4 mg PO DAILY@1600 [facility] Last Admin: 12/04/17 16:43 Dose: 4 mg Warfarin Sodium 5 mg/ Warfarin (Sodium 2.5 mg) 7.5 mg PO 1600 [facility] Stop: 12/05/17 16:01 Last Admin: 12/06/17 03:45 Dose: Not Given Zinc Sulfate (Zincate) 220 mg PO DAILY@1200 [facility] Last Admin: 10/28/17 13:11 Dose: 220 mg - Exam General: Alert, Cooperative, No Acute Distress HEENT: Pupils Equal, Pupils Reactive Neck: Supple Lungs: Clear to Auscultation, Normal Respiratory Effort Cardiovascular: Regular Rate, Regular Rhythm, No Murmurs GI/Abdominal Exam: Normal Bowel Sounds, Soft, Non-Tender, No Distention Extremities: Pedal Edema (Trace bilateral.) Psy/Mental Status: Alert - Problem List & Annotations (1) Complicated UTI (urinary tract infection) SNOMED Code(s): 55423865 Code(s): N39.0 - URINARY TRACT INFECTION, SITE NOT SPECIFIED Status: Acute Current Visit: Yes Annotation/Comment:: Diagnosed 11/21/17 after patient spiked a fever of 102.3. Patient was started on Levaquin with defervescence. Vanco started 11/22/17 with prelim ID of gram+ cocci. Final ID/Sens showed MRSA. After negative blood cultures was changed to by mouth Bactrim and completed course of therapy on 11/28. Recurrent symptoms. Salvador catheter replaced on 12/01 reportedly per patient request because of discomfort with straight catheterization. No symptoms of UTI at this time. (2) Decubitus skin ulcer SNOMED Code(s): 886677455 Code(s): L89.90 - PRESSURE ULCER OF UNSPECIFIED SITE, UNSPECIFIED STAGE Status: Acute Current Visit: Yes Qualifiers: Pressure ulcer location: buttock Pressure ulcer stage: stage 3 Laterality : right Qualified Code(s): L89.313 - Pressure ulcer of right buttock, stage 3 Annotation/Comment:: Surgery continues to follow. Wound VAC in place. Significantly improved. (3) Chronic anticoagulation SNOMED Code(s): 410329417 Code(s): Z79.01 - VEHICLE OPERATOR (CURRENT) USE OF ANTICOAGULANTS Status: Acute Current Visit: Yes Annotation/Comment:: Patient's insurance will not cover direct oral anticoagulants. Continue warfarin. Would recommend lifetime therapy for this patient as long as he continues to have limited mobility. Indication as DVT/PE. (4) Pulmonary emboli SNOMED Code(s): 93873605 Code(s): I26.99 - OTHER PULMONARY EMBOLISM WITHOUT ACUTE COR PULMONALE Status: Acute Current Visit: Yes Qualifiers: Pulmonary embolism type: other Chronicity: unspecified Annotation/Comment:: Anticoagulation as above. (5) Depression SNOMED Code(s): 29192763 Code(s): F32.9 - MAJOR DEPRESSIVE DISORDER, SINGLE EPISODE, UNSPECIFIED Status: Chronic Current Visit: Yes Qualifiers: Depression Type: major depressive disorder Psychotic features: without psychotic features Annotation/Comment:: Abilify started 10/18/17. Tolerating well. Continues to improve. Increase social support, get patient into the sun and doing activities as much as possible. (6) Hypoalbuminemia SNOMED Code(s): 715277124 Code(s): E88.09 - OTH DISORDERS OF PLASMA-PROTEIN METABOLISM, NEC Status: Chronic Current Visit: Yes Annotation/Comment:: Continue high protein diet and mineral supplements to aid in wound healing. Follow albumin. Monitor for excessive weight gain as the patient is morbidly obese with a BMI of 52. Goal for decrease calorie intake to affect L weight loss of 1-2 pounds per month with albumin increasing. High protein/low carbohydrate diet is recommended at this time. (7) Multiple sclerosis SNOMED Code(s): 37520166 Code(s): G35 - MULTIPLE SCLEROSIS Status: Chronic Current Visit: Yes Annotation/Comment:: Continue PT/OT. Q2hour repositioning. Will continue to work with guardian to pursue ultimate disposition. Patient prefers to stay in [facility]. (8) Urinary retention with incomplete bladder emptying SNOMED Code(s): 219996582 Code(s): R33.9 - RETENTION OF URINE, UNSPECIFIED Status: Acute Current Visit: Yes Annotation/Comment:: Was previously having incontinence and intermittent straight catheterization about once daily with 4 times a day bladder scans. Now salvador catheter has been replaced. Reviewed with patient and guardian increased risk of infection with indwelling catheter versus intermittent straight catheterization. We will leave salvador in for now for patient comfort but should consider trial without when patient's wound heals. (9) MRSA (methicillin resistant staph aureus) culture positive SNOMED Code(s): 370890011 Code(s): Z22.322 - CARRIER OR SUSPECTED CARRIER OF METHICILLIN RESIS STAPH Status: Acute Current Visit: Yes Annotation/Comment:: Given the long-term risks to this patient of MRSA wound infection, after having reviewed the literature I feel it would be in his best interest to attempt decolonization. However, given the initial wound culture which showed colonization of wound at the time of admission, it would be impossible to decolonize the wound at this time. Recommend once ulcer is healed, trial of decolonization to protect patient and reduce his social isolation. This would be done with chlorhexidine washes daily and mupirocin ointment to the anterior nares 3 times a day for 7- 10 days. Although long-term success of elimination of MRSA in a patient like this is somewhere around 50%, given the patient's depression and risk from social isolation would be worth attempting. Discussed this at length with patient's POA. - Problem List Review Problem List Initiated/Reviewed/Updated: Yes - My Orders Last 24 Hours: My Active Orders 12/06/17 16:00 Warfarin [Coumadin] 5 mg PO 1600 - Plan Plan:: Discussed CODE STATUS with patient on 12/03. When I asked the patient if he knew what CPR was, he indicated yes and that he would never want it. He told me spontaneously that if he he would just want to be allowed to and not have any resuscitation done. When asked if he would want a breathing tube placed if he had such a bad pneumonia that we thought he would without it, he told me, "You mean a respirator? 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 He said that a year ago they had had a discussion about CODE STATUS and the patient had expressed similar wishes at that time. Thus patient's CODE STATUS reflects his previously expressed and currently expressed wishes, DNR/DNI.
[2017-12-07] MEDS: Warfarin 5 MG Tab PO SCH (16:35)
[2017-12-07] MEDS: atorvaSTATin 40 MG Tab PO SCH (20:19)
[2017-12-08] MEDS: Ascorbic Acid 500 MG Tab PO SCH (08:23)
[2017-12-08] MEDS: buPROPion 150 MG Tab.ER PO SCH (08:23)
[2017-12-08] MEDS: Furosemide 40 MG Tab PO SCH (08:23)
[2017-12-08] MEDS: Baclofen 10 MG Tab PO SCH ×3 (08:23→20:07)
[2017-12-08] MEDS: Docusate Sodium 250 MG Cap PO SCH ×2 (08:23→20:07)
[2017-12-08] MEDS: Zinc Sulfate 220 MG Cap PO SCH (08:23)
[2017-12-08] MEDS: DULoxetine 60 MG Cap PO SCH (08:23)
[2017-12-08] MEDS: Warfarin 5 MG Tab PO SCH (16:26)
[2017-12-08] MEDS: atorvaSTATin 40 MG Tab PO SCH (20:07)
[2017-12-09] MEDS: Baclofen 10 MG Tab PO SCH ×3 (08:08→20:03)
[2017-12-09] MEDS: Zinc Sulfate 220 MG Cap PO SCH (08:08)
[2017-12-09] MEDS: DULoxetine 60 MG Cap PO SCH (08:08)
[2017-12-09] MEDS: buPROPion 150 MG Tab.ER PO SCH (08:08)
[2017-12-09] MEDS: Docusate Sodium 250 MG Cap PO SCH ×2 (08:09→20:03)
[2017-12-09] MEDS: Furosemide 40 MG Tab PO SCH (08:09)
[2017-12-09] MEDS: Ascorbic Acid 500 MG Tab PO SCH (08:09)
[2017-12-09] MEDS: Warfarin 5 MG Tab PO SCH (16:17)
[2017-12-09] MEDS: atorvaSTATin 40 MG Tab PO SCH (20:04)
[2017-12-10] MEDS: Furosemide 40 MG Tab PO SCH (08:53)
[2017-12-10] MEDS: Ascorbic Acid 500 MG Tab PO SCH (08:53)
[2017-12-10] MEDS: buPROPion 150 MG Tab.ER PO SCH (08:53)
[2017-12-10] MEDS: Baclofen 10 MG Tab PO SCH ×3 (08:53→21:25)
[2017-12-10] MEDS: DULoxetine 60 MG Cap PO SCH (08:53)
[2017-12-10] MEDS: Docusate Sodium 250 MG Cap PO SCH ×2 (08:53→21:26)
[2017-12-10] MEDS: Zinc Sulfate 220 MG Cap PO SCH (08:53)
[2017-12-10] MEDS: Warfarin 5 MG Tab PO SCH (16:49)
[2017-12-10] MEDS: atorvaSTATin 40 MG Tab PO SCH (21:25)
[2017-12-11] MEDS: Docusate Sodium 250 MG Cap PO SCH ×2 (08:42→20:25)
[2017-12-11] MEDS: DULoxetine 60 MG Cap PO SCH (08:42)
[2017-12-11] MEDS: Furosemide 40 MG Tab PO SCH (08:42)
[2017-12-11] MEDS: Zinc Sulfate 220 MG Cap PO SCH (08:43)
[2017-12-11] MEDS: buPROPion 150 MG Tab.ER PO SCH (08:43)
[2017-12-11] MEDS: Ascorbic Acid 500 MG Tab PO SCH (08:43)
[2017-12-11] MEDS: Baclofen 10 MG Tab PO SCH ×3 (08:43→20:26)
[2017-12-11] MEDS: Warfarin 5 MG Tab PO SCH (17:13)
[2017-12-11] MEDS: atorvaSTATin 40 MG Tab PO SCH (20:25)
[2017-12-12] MEDS: Docusate Sodium 250 MG Cap PO SCH ×2 (08:28→20:03)
[2017-12-12] MEDS: Ascorbic Acid 500 MG Tab PO SCH (08:28)
[2017-12-12] MEDS: buPROPion 150 MG Tab.ER PO SCH (08:28)
[2017-12-12] MEDS: DULoxetine 60 MG Cap PO SCH (08:28)
[2017-12-12] MEDS: Zinc Sulfate 220 MG Cap PO SCH (08:28)
[2017-12-12] MEDS: Furosemide 40 MG Tab PO SCH (08:28)
[2017-12-12] MEDS: Baclofen 10 MG Tab PO SCH ×3 (08:28→20:03)
[2017-12-12] MEDS: Warfarin 5 MG Tab PO SCH (15:53)
[2017-12-12] MEDS: atorvaSTATin 40 MG Tab PO SCH (20:03)
[2017-12-13] MEDS: Acetaminophen 325 MG Tab PO PRN (08:21)
[2017-12-13] MEDS: DULoxetine 60 MG Cap PO SCH (08:23)
[2017-12-13] MEDS: Furosemide 40 MG Tab PO SCH (08:23)
[2017-12-13] MEDS: buPROPion 150 MG Tab.ER PO SCH (08:23)
[2017-12-13] MEDS: Ascorbic Acid 500 MG Tab PO SCH (08:23)
[2017-12-13] MEDS: Docusate Sodium 250 MG Cap PO SCH ×2 (08:23→21:25)
[2017-12-13] MEDS: Zinc Sulfate 220 MG Cap PO SCH (08:23)
[2017-12-13] MEDS: Baclofen 10 MG Tab PO SCH ×3 (08:25→21:25)
[2017-12-13] MEDS: Warfarin 5 MG Tab PO SCH (17:06)
[2017-12-13] MEDS: atorvaSTATin 40 MG Tab PO SCH (21:26)
[2017-12-14] MEDS: Acetaminophen 325 MG Tab PO PRN (08:23)
[2017-12-14] MEDS: Zinc Sulfate 220 MG Cap PO SCH (08:25)
[2017-12-14] MEDS: Docusate Sodium 250 MG Cap PO SCH ×2 (08:25→20:10)
[2017-12-14] MEDS: Baclofen 10 MG Tab PO SCH ×3 (08:25→20:10)
[2017-12-14] MEDS: Ascorbic Acid 500 MG Tab PO SCH (08:25)
[2017-12-14] MEDS: Furosemide 40 MG Tab PO SCH (08:26)
[2017-12-14] MEDS: DULoxetine 60 MG Cap PO SCH (08:26)
[2017-12-14] MEDS: buPROPion 150 MG Tab.ER PO SCH (08:26)
--- NOTE | 2017-12-14 08:27 | PCM.PN ---
- General Info Date of Service: 12/14/17 Admission Dx/Problem (Free Text): Patient without complaints. Says the wounds healing nicely. No chest pain, fevers or shortness of breath. Psychologically denies depression or anxiety. - Patient Data Vitals - Most Recent: Last Vital Signs Temp 98.7 F 12/13/17 07:30 Pulse 90 12/13/17 07:30 Resp 18 12/13/17 07:30 BP 108/78 12/13/17 07:30 Pulse Ox 93 L 12/13/17 07:30 Weight - Most Recent: 307 lb 1.6 oz I&O - Last 24 Hours: Intake & Output 12/13/17 12/14/17 12/14/17 22:59 06:59 14:59 Intake Total 600 Output Total 450 900 Balance 150 -900 Lab Results Last 24 Hours: Laboratory Results - last 24 hr 12/14/17 Range/Units 06:15 PT 23.3 H (8.7-11.1) INR 2.42 H (0.89-1.13) Med Orders - Current: Current Medications Acetaminophen (Tylenol) 650 mg PO Q4H PRN PRN Reason: PAIN Last Admin: 12/13/17 08:21 Dose: 650 mg Albuterol/Ipratropium (Duoneb 3.0-0.5 Mg/3 Ml) 3 ml NEB QID PRN PRN Reason: wheezing Aripiprazole (Abilify) 2 mg PO DAILY [facility] Last Admin: 12/13/17 08:23 Dose: 2 mg Ascorbic Acid (Vitamin C) 500 mg PO DAILY [facility] Last Admin: 12/13/17 08:23 Dose: 500 mg Atorvastatin Calcium (Lipitor) 40 mg PO BEDTIME [facility] Last Admin: 12/13/17 21:26 Dose: 40 mg Baclofen (Lioresal) 10 mg PO TID [facility] Last Admin: 12/13/17 21:25 Dose: 10 mg Bupropion HCl (Wellbutrin Xl) 300 mg PO DAILY [facility] Last Admin: 12/13/17 08:23 Dose: 300 mg Docusate Sodium (Dok) 250 mg PO BID [facility] Last Admin: 12/13/17 21:25 Dose: 250 mg Duloxetine HCl (Cymbalta) 60 mg PO DAILY [facility] Last Admin: 12/13/17 08:23 Dose: 60 mg Furosemide (Lasix) 40 mg PO DAILY [facility] Last Admin: 12/13/17 08:23 Dose: 40 mg Sodium Chloride (Saline Flush) 10 ml FLUSH ASDIRECTED PRN PRN Reason: Keep Vein Open Last Admin: 11/29/17 11:15 Dose: 10 ml Sodium Chloride (Saline Flush) 10 ml FLUSH ASDIRECTED PRN PRN Reason: Keep Vein Open Warfarin Sodium (Coumadin Sliding Scale) 0 each PO ASDIRECTED [facility] Warfarin Sodium (Coumadin) 5 mg PO 1600 [facility] Last Admin: 12/13/17 17:06 Dose: 5 mg Zinc Sulfate (Zincate) 220 mg PO DAILY [facility] Last Admin: 12/13/17 08:23 Dose: 220 mg Discontinued Medications Enoxaparin Sodium (Lovenox) 140 mg SUBCUT Q12H [facility] Last Admin: 10/27/17 20:30 Dose: 140 mg Vancomycin HCl 2,500 mg/ (Sodium Chloride) 500 mls @ 200 mls/hr IV Q18H [facility] Last Admin: 11/22/17 18:35 Dose: 200 mls/hr Vancomycin HCl 2,000 mg/ (Sodium Chloride) 500 mls @ 250 mls/hr IV Q12H [facility] Last Admin: 11/25/17 08:52 Dose: 250 mls/hr Iopamidol (Isovue-370 (76%)) 83 ml IV . DIRECTED ONE Stop: 11/29/17 13:54 Last Admin: 11/29/17 14:10 Dose: 83 ml Levofloxacin (Levaquin) 500 mg PO Q24H [facility] Last Admin: 11/07/17 13:23 Dose: 500 mg Levofloxacin (Levaquin) 750 mg PO Q24H [facility] Last Admin: 11/23/17 00:53 Dose: 750 mg Megestrol Acetate (Megace 40 Mg/Ml Susp) 800 mg PO DAILY [facility] Last Admin: 12/07/17 08:46 Dose: 800 mg Trimethoprim/Sulfamethoxazole (Septra Ds) 1 tab PO BID [facility] Stop: 11/30/17 09:01 Last Admin: 11/30/17 08:01 Dose: 1 tab Vancomycin HCl (Pharmacy To Dose - Vancomycin) 1 dose .XX ASDIRECTED [facility] Warfarin Sodium (Coumadin) 7.5 mg PO 1600 [facility] Stop: 10/27/17 16:01 Last Admin: 10/27/17 16:17 Dose: 7.5 mg Warfarin Sodium (Coumadin) 2.5 mg PO 1600 [facility] Stop: 10/28/17 16:01 Last Admin: 10/28/17 16:52 Dose: 2.5 mg Warfarin Sodium (Coumadin) 2.5 mg PO 1600 [facility] Stop: 10/29/17 16:01 Last Admin: 10/29/17 16:28 Dose: 2.5 mg Warfarin Sodium (Coumadin) 3 mg PO 1600 [facility] Stop: 10/30/17 16:01 Last Admin: 10/30/17 16:58 Dose: 3 mg Warfarin Sodium (Coumadin) Confirm Administered Dose 1 mg .ROUTE .STK-MED ONE Stop: 10/30/17 16:56 Last Admin: 10/30/17 16:57 Dose: Not Given Warfarin Sodium (Coumadin) Confirm Administered Dose 2 mg .ROUTE .STK-MED [facility] Stop: 10/30/17 16:56 Last Admin: 10/30/17 18:07 Dose: Not Given Warfarin Sodium 5 mg/ Warfarin (Sodium 2.5 mg) 7.5 mg PO 1600 [facility] Stop: 10/31/17 16:01 Last Admin: 10/31/17 16:55 Dose: 7.5 mg Warfarin Sodium 5 mg/ Warfarin (Sodium 2.5 mg) 7.5 mg PO 1600 [facility] Stop: 11/01/17 16:01 Last Admin: 11/01/17 16:01 Dose: 7.5 mg Warfarin Sodium (Coumadin) 5 mg PO 1600 [facility] Stop: 11/02/17 16:30 Last Admin: 11/02/17 15:38 Dose: 5 mg Warfarin Sodium (Coumadin) 2 mg PO 1600 [facility] Stop: 11/03/17 16:01 Last Admin: 11/03/17 18:19 Dose: 2 mg Warfarin Sodium (Coumadin) 4 mg PO DAILY@1600 [facility] Last Admin: 11/12/17 16:57 Dose: 4 mg Warfarin Sodium (Coumadin) 2 mg PO 1600 [facility] Stop: 11/14/17 16:01 Last Admin: 11/14/17 17:42 Dose: 2 mg Warfarin Sodium (Coumadin) 3 mg PO 1600 [facility] Last Admin: 11/16/17 16:24 Dose: 3 mg Warfarin Sodium (Coumadin) 5 mg PO 1600 [facility] Stop: 11/17/17 16:01 Last Admin: 11/17/17 16:20 Dose: 5 mg Warfarin Sodium (Coumadin) 4 mg PO DAILY@1600 [facility] Last Admin: 11/23/17 15:42 Dose: 4 mg Warfarin Sodium (Coumadin) 5 mg PO 11/24/17@1600 [facility] Stop: 11/24/17 17:00 Last Admin: 11/24/17 16:35 Dose: 5 mg Warfarin Sodium (Coumadin) 5 mg PO 11/25/17@1600 [facility] Stop: 11/25/17 18:00 Last Admin: 11/25/17 15:58 Dose: 5 mg Warfarin Sodium (Coumadin) 3 mg PO 1600 [facility] Stop: 11/26/17 17:30 Last Admin: 11/26/17 15:20 Dose: 3 mg Warfarin Sodium (Coumadin) 3 mg PO ONETIME ONE Stop: 11/27/17 16:01 Last Admin: 11/27/17 15:46 Dose: 3 mg Warfarin Sodium (Coumadin) 4 mg PO DAILY@1600 [facility] Last Admin: 12/04/17 16:43 Dose: 4 mg Warfarin Sodium 5 mg/ Warfarin (Sodium 2.5 mg) 7.5 mg PO 1600 [facility] Stop: 12/05/17 16:01 Last Admin: 12/06/17 03:45 Dose: Not Given Zinc Sulfate (Zincate) 220 mg PO DAILY@1200 [facility] Last Admin: 10/28/17 13:11 Dose: 220 mg - Exam General: Alert, Oriented, Cooperative Lungs: Clear to Auscultation, Stridor Cardiovascular: Regular Rate, Regular Rhythm, No Murmurs Psy/Mental Status: Alert, Normal Affect, Normal Mood - Problem List & Annotations (1) DVT (deep venous thrombosis) SNOMED Code(s): 987113023 Code(s): I82.409 - ACUTE EMBOLISM AND THOMBOS UNSP DEEP VN UNSP LOWER EXTREMITY Status: Acute Current Visit: Yes Qualifiers: DVT location: lower extremity Chronicity: unspecified (2) Decubitus skin ulcer SNOMED Code(s): 397969927 Code(s): L89.90 - PRESSURE ULCER OF UNSPECIFIED SITE, UNSPECIFIED STAGE Status: Acute Current Visit: Yes Qualifiers: Pressure ulcer location: buttock Pressure ulcer stage: stage 3 Laterality : right Qualified Code(s): L89.313 - Pressure ulcer of right buttock, stage 3 Annotation/Comment:: Surgery continues to follow. Wound VAC in place. Significantly improved. (3) Encounter for management of wound VAC SNOMED Code(s): 015333980 Code(s): NPI7785 - Status: Acute Current Visit: Yes (4) Pulmonary emboli SNOMED Code(s): 12139544 Code(s): I26.99 - OTHER PULMONARY EMBOLISM WITHOUT ACUTE COR PULMONALE Status: Acute Current Visit: Yes Qualifiers: Pulmonary embolism type: other Chronicity: unspecified Annotation/Comment:: Anticoagulation as above. - Problem List Review Problem List Initiated/Reviewed/Updated: Yes - Plan Plan:: Continue wound VAC and anticoagulation. Continue current care.
[2017-12-14] MEDS: Warfarin 5 MG Tab PO SCH (17:52)
[2017-12-14] MEDS: atorvaSTATin 40 MG Tab PO SCH (20:10)
[2017-12-15] MEDS: Baclofen 10 MG Tab PO SCH ×3 (08:29→20:35)
[2017-12-15] MEDS: Ascorbic Acid 500 MG Tab PO SCH (08:29)
[2017-12-15] MEDS: Furosemide 40 MG Tab PO SCH (08:29)
[2017-12-15] MEDS: Docusate Sodium 250 MG Cap PO SCH ×2 (08:29→20:35)
[2017-12-15] MEDS: DULoxetine 60 MG Cap PO SCH (08:29)
[2017-12-15] MEDS: buPROPion 150 MG Tab.ER PO SCH (08:29)
[2017-12-15] MEDS: Zinc Sulfate 220 MG Cap PO SCH (08:29)
[2017-12-15] MEDS: Warfarin 5 MG Tab PO SCH (16:45)
[2017-12-15] MEDS: atorvaSTATin 40 MG Tab PO SCH (20:35)
[2017-12-16] MEDS: Baclofen 10 MG Tab PO SCH ×3 (07:59→21:05)
[2017-12-16] MEDS: Furosemide 40 MG Tab PO SCH (07:59)
[2017-12-16] MEDS: Docusate Sodium 250 MG Cap PO SCH ×2 (07:59→21:05)
[2017-12-16] MEDS: Zinc Sulfate 220 MG Cap PO SCH (08:00)
[2017-12-16] MEDS: buPROPion 150 MG Tab.ER PO SCH (08:00)
[2017-12-16] MEDS: Ascorbic Acid 500 MG Tab PO SCH (08:00)
[2017-12-16] MEDS: DULoxetine 60 MG Cap PO SCH (08:00)
[2017-12-16] MEDS: Warfarin 5 MG Tab PO SCH (16:15)
[2017-12-16] MEDS: atorvaSTATin 40 MG Tab PO SCH (21:05)
[2017-12-17] MEDS: Zinc Sulfate 220 MG Cap PO SCH (08:50)
[2017-12-17] MEDS: DULoxetine 60 MG Cap PO SCH (08:50)
[2017-12-17] MEDS: Baclofen 10 MG Tab PO SCH ×3 (08:50→21:33)
[2017-12-17] MEDS: Furosemide 40 MG Tab PO SCH (08:50)
[2017-12-17] MEDS: buPROPion 150 MG Tab.ER PO SCH (08:50)
[2017-12-17] MEDS: Ascorbic Acid 500 MG Tab PO SCH (08:50)
[2017-12-17] MEDS: Docusate Sodium 250 MG Cap PO SCH ×2 (08:50→21:33)
[2017-12-17] MEDS: Warfarin 5 MG Tab PO SCH (16:12)
[2017-12-17] MEDS: atorvaSTATin 40 MG Tab PO SCH (21:34)
[2017-12-18] MEDS: Baclofen 10 MG Tab PO SCH ×3 (08:51→21:42)
[2017-12-18] MEDS: DULoxetine 60 MG Cap PO SCH (08:51)
[2017-12-18] MEDS: Ascorbic Acid 500 MG Tab PO SCH (08:51)
[2017-12-18] MEDS: Furosemide 40 MG Tab PO SCH (08:51)
[2017-12-18] MEDS: Docusate Sodium 250 MG Cap PO SCH ×2 (08:51→21:42)
[2017-12-18] MEDS: buPROPion 150 MG Tab.ER PO SCH (08:52)
[2017-12-18] MEDS: Zinc Sulfate 220 MG Cap PO SCH (08:52)
[2017-12-18] MEDS: Warfarin 5 MG Tab PO SCH (16:40)
[2017-12-18] MEDS: atorvaSTATin 40 MG Tab PO SCH (21:42)
[2017-12-19] MEDS: DULoxetine 60 MG Cap PO SCH (08:02)
[2017-12-19] MEDS: Docusate Sodium 250 MG Cap PO SCH ×2 (08:02→20:30)
[2017-12-19] MEDS: Baclofen 10 MG Tab PO SCH ×3 (08:03→20:30)
[2017-12-19] MEDS: Ascorbic Acid 500 MG Tab PO SCH (08:03)
[2017-12-19] MEDS: buPROPion 150 MG Tab.ER PO SCH (08:03)
[2017-12-19] MEDS: Furosemide 40 MG Tab PO SCH (08:03)
[2017-12-19] MEDS: Zinc Sulfate 220 MG Cap PO SCH (08:04)
[2017-12-19] MEDS: Warfarin 5 MG Tab PO SCH (15:55)
--- NOTE | 2017-12-19 15:57 | PN ---
DATE SEEN: 12/19/2017 SUBJECTIVE: Mr. Lunsford is a 67-year-old male, outpatient treatment for complicated buttocks decubitus ulcer. Response was satisfactory. Wound observation today revealed good interval healing, the patient is comfortable with well being. Discharge status under consideration. Medications reviewed and appropriate. No complicating issue. PHYSICAL EXAMINATION: VITAL SIGNS: Stable. 36.8, 119/75, 89 means blood pressure, weight 140.783 kg, respirations 16, O2 saturation 95%. SKIN: Wound inspection is noted. CHEST: Clear. HEART: Regular. ABDOMEN: Rotund. IMPRESSION: Ulcer under review. PLAN: Medications, care and treatment appropriate. Lengthy stay suspected. /[id number] /SUSAN
[2017-12-19] MEDS: atorvaSTATin 40 MG Tab PO SCH (20:30)
[2017-12-20] MEDS: Zinc Sulfate 220 MG Cap PO SCH (08:59)
[2017-12-20] MEDS: Ascorbic Acid 500 MG Tab PO SCH (08:59)
[2017-12-20] MEDS: buPROPion 150 MG Tab.ER PO SCH (08:59)
[2017-12-20] MEDS: DULoxetine 60 MG Cap PO SCH (08:59)
[2017-12-20] MEDS: Baclofen 10 MG Tab PO SCH ×3 (08:59→20:26)
[2017-12-20] MEDS: Furosemide 40 MG Tab PO SCH (08:59)
[2017-12-20] MEDS: Docusate Sodium 250 MG Cap PO SCH ×2 (08:59→20:26)
[2017-12-20] MEDS: Warfarin 5 MG Tab PO SCH (16:18)
[2017-12-20] MEDS: atorvaSTATin 40 MG Tab PO SCH (20:27)
[2017-12-21] MEDS: DULoxetine 60 MG Cap PO SCH (08:05)
[2017-12-21] MEDS: Docusate Sodium 250 MG Cap PO SCH ×2 (08:05→20:22)
[2017-12-21] MEDS: Furosemide 40 MG Tab PO SCH (08:05)
[2017-12-21] MEDS: buPROPion 150 MG Tab.ER PO SCH (08:06)
[2017-12-21] MEDS: Zinc Sulfate 220 MG Cap PO SCH (08:06)
[2017-12-21] MEDS: Ascorbic Acid 500 MG Tab PO SCH (08:06)
[2017-12-21] MEDS: Baclofen 10 MG Tab PO SCH ×3 (08:06→20:22)
--- NOTE | 2017-12-21 10:15 | PN ---
DATE SEEN: 12/21/2017 Mr. Lunsford is a 67-year-old male. A long-term stay for right buttocks ulcer. Clinical response was satisfactory. Wound was inspected during his last change. The pain was controlled. The patient was comfortable, all complementary in that regard. Continue present treatment. Dr. Hough following accordingly. /[id number] YUDITH/SUSAN
[2017-12-21] MEDS: Warfarin 5 MG Tab PO SCH (16:13)
[2017-12-21] MEDS: atorvaSTATin 40 MG Tab PO SCH (20:22)
[2017-12-22] MEDS: buPROPion 150 MG Tab.ER PO SCH (09:18)
[2017-12-22] MEDS: Docusate Sodium 250 MG Cap PO SCH ×2 (09:18→20:33)
[2017-12-22] MEDS: DULoxetine 60 MG Cap PO SCH (09:18)
[2017-12-22] MEDS: Furosemide 40 MG Tab PO SCH (09:18)
[2017-12-22] MEDS: Baclofen 10 MG Tab PO SCH ×3 (09:18→20:33)
[2017-12-22] MEDS: Ascorbic Acid 500 MG Tab PO SCH (09:18)
[2017-12-22] MEDS: Zinc Sulfate 220 MG Cap PO SCH (09:19)
--- NOTE | 2017-12-22 12:16 | PN ---
DATE SEEN: 12/22/2017 Crow Lunsford is a 67-year-old male, seen today for review. Long-term stay, underlying MS, left buttocks ulcer. Upon review, declining size, improving healing, and less . Medications reviewed and appropriate. No changes required. The patient appears comfortable, wheelchair availability in progress. /[id number] YUDITH/SUSAN
[2017-12-22] MEDS: Warfarin 5 MG Tab PO SCH (17:36)
[2017-12-22] MEDS: atorvaSTATin 40 MG Tab PO SCH (20:33)
[2017-12-23] MEDS: Docusate Sodium 250 MG Cap PO SCH ×2 (09:40→21:20)
[2017-12-23] MEDS: DULoxetine 60 MG Cap PO SCH (09:40)
[2017-12-23] MEDS: Furosemide 40 MG Tab PO SCH (09:41)
[2017-12-23] MEDS: buPROPion 150 MG Tab.ER PO SCH (09:41)
[2017-12-23] MEDS: Baclofen 10 MG Tab PO SCH ×3 (09:41→21:20)
[2017-12-23] MEDS: Zinc Sulfate 220 MG Cap PO SCH (09:41)
[2017-12-23] MEDS: Ascorbic Acid 500 MG Tab PO SCH (09:41)
[2017-12-23] MEDS: Warfarin 5 MG Tab PO SCH (16:12)
[2017-12-23] MEDS: atorvaSTATin 40 MG Tab PO SCH (21:21)
[2017-12-24] MEDS: DULoxetine 60 MG Cap PO SCH (08:00)
[2017-12-24] MEDS: buPROPion 150 MG Tab.ER PO SCH (08:01)
[2017-12-24] MEDS: Baclofen 10 MG Tab PO SCH ×3 (08:01→20:15)
[2017-12-24] MEDS: Docusate Sodium 250 MG Cap PO SCH ×2 (08:01→20:14)
[2017-12-24] MEDS: Ascorbic Acid 500 MG Tab PO SCH (08:01)
[2017-12-24] MEDS: Furosemide 40 MG Tab PO SCH (08:01)
[2017-12-24] MEDS: Zinc Sulfate 220 MG Cap PO SCH (08:01)
[2017-12-24] MEDS: Warfarin 5 MG Tab PO SCH (17:27)
[2017-12-24] MEDS: atorvaSTATin 40 MG Tab PO SCH (20:15)
[2017-12-25] MEDS: Baclofen 10 MG Tab PO SCH ×3 (09:28→21:01)
[2017-12-25] MEDS: Furosemide 40 MG Tab PO SCH (09:28)
[2017-12-25] MEDS: Docusate Sodium 250 MG Cap PO SCH ×2 (09:28→21:00)
[2017-12-25] MEDS: DULoxetine 60 MG Cap PO SCH (09:28)
[2017-12-25] MEDS: buPROPion 150 MG Tab.ER PO SCH (09:29)
[2017-12-25] MEDS: Ascorbic Acid 500 MG Tab PO SCH (09:29)
[2017-12-25] MEDS: Zinc Sulfate 220 MG Cap PO SCH (09:29)
[2017-12-25] MEDS: Warfarin 5 MG Tab PO SCH (16:10)
[2017-12-25] MEDS: atorvaSTATin 40 MG Tab PO SCH (21:01)
[2017-12-26] MEDS: DULoxetine 60 MG Cap PO SCH (08:03)
[2017-12-26] MEDS: Docusate Sodium 250 MG Cap PO SCH ×2 (08:03→20:14)
[2017-12-26] MEDS: buPROPion 150 MG Tab.ER PO SCH (08:04)
[2017-12-26] MEDS: Zinc Sulfate 220 MG Cap PO SCH (08:04)
[2017-12-26] MEDS: Ascorbic Acid 500 MG Tab PO SCH (08:04)
[2017-12-26] MEDS: Baclofen 10 MG Tab PO SCH ×3 (08:04→20:15)
[2017-12-26] MEDS: Furosemide 40 MG Tab PO SCH (08:04)
[2017-12-26] MEDS: Warfarin 5 MG Tab PO SCH (15:48)
[2017-12-26] MEDS: atorvaSTATin 40 MG Tab PO SCH (20:15)
[2017-12-27] MEDS: Furosemide 40 MG Tab PO SCH (08:24)
[2017-12-27] MEDS: Zinc Sulfate 220 MG Cap PO SCH (08:24)
[2017-12-27] MEDS: Baclofen 10 MG Tab PO SCH ×3 (08:24→23:50)
[2017-12-27] MEDS: Docusate Sodium 250 MG Cap PO SCH ×2 (08:24→23:49)
[2017-12-27] MEDS: DULoxetine 60 MG Cap PO SCH (08:24)
[2017-12-27] MEDS: Ascorbic Acid 500 MG Tab PO SCH (08:24)
[2017-12-27] MEDS: buPROPion 150 MG Tab.ER PO SCH (08:24)
[2017-12-27] MEDS: Warfarin 5 MG Tab PO SCH (15:07)
[2017-12-27] MEDS: atorvaSTATin 40 MG Tab PO SCH (23:50)
[2017-12-28] MEDS: buPROPion 150 MG Tab.ER PO SCH (08:28)
[2017-12-28] MEDS: Zinc Sulfate 220 MG Cap PO SCH (08:28)
[2017-12-28] MEDS: DULoxetine 60 MG Cap PO SCH (08:28)
[2017-12-28] MEDS: Docusate Sodium 250 MG Cap PO SCH ×2 (08:28→20:27)
[2017-12-28] MEDS: Ascorbic Acid 500 MG Tab PO SCH (08:28)
[2017-12-28] MEDS: Baclofen 10 MG Tab PO SCH ×3 (08:28→20:27)
[2017-12-28] MEDS: Furosemide 40 MG Tab PO SCH (08:28)
[2017-12-28] MEDS: Warfarin 5 MG Tab PO SCH (17:08)
[2017-12-28] MEDS: atorvaSTATin 40 MG Tab PO SCH (20:27)
[2017-12-29] MEDS: buPROPion 150 MG Tab.ER PO SCH (08:59)
[2017-12-29] MEDS: Furosemide 40 MG Tab PO SCH (08:59)
[2017-12-29] MEDS: Baclofen 10 MG Tab PO SCH ×3 (08:59→20:24)
[2017-12-29] MEDS: Zinc Sulfate 220 MG Cap PO SCH (08:59)
[2017-12-29] MEDS: Ascorbic Acid 500 MG Tab PO SCH (08:59)
[2017-12-29] MEDS: DULoxetine 60 MG Cap PO SCH (08:59)
[2017-12-29] MEDS: Docusate Sodium 250 MG Cap PO SCH ×2 (08:59→20:24)
[2017-12-29] MEDS: Warfarin 5 MG Tab PO SCH (16:01)
[2017-12-29] MEDS: atorvaSTATin 40 MG Tab PO SCH (20:23)
[2017-12-30] MEDS: Zinc Sulfate 220 MG Cap PO SCH (08:18)
[2017-12-30] MEDS: buPROPion 150 MG Tab.ER PO SCH (08:18)
[2017-12-30] MEDS: Docusate Sodium 250 MG Cap PO SCH ×2 (08:18→20:48)
[2017-12-30] MEDS: Ascorbic Acid 500 MG Tab PO SCH (08:18)
[2017-12-30] MEDS: DULoxetine 60 MG Cap PO SCH (08:18)
[2017-12-30] MEDS: Baclofen 10 MG Tab PO SCH ×3 (08:18→20:49)
[2017-12-30] MEDS: Furosemide 40 MG Tab PO SCH (08:19)
--- NOTE | 2017-12-30 08:30 | PCM.PN ---
- General Info Date of Service: 12/31/17 Admission Dx/Problem (Free Text): Decubitus ulcer, wound care. Subjective Update: Patient is a 67-year-old male admitted to the hospital on 10/14/17 with a large infected decubitus ulcer requiring surgical debridement. Patient has a history of nonambulatory status due to multiple sclerosis. Not amenable to treatment per his outpatient neurologist. He was admitted to swing bed on 10/27/2017 for wound VAC and continued management of decubitus ulcer. Patient is currently on swing bed day #66. Doing well today. He has no complaints. He seems to be getting a little bit stronger each week. He has lost about 16 pounds since admission and were really focusing on a high-protein diet to promote small amounts of weight loss perhaps 1-2 pounds per month. - Patient Data Vitals - Most Recent: Last Vital Signs Temp 36.6 C 12/30/17 07:50 Pulse 80 12/30/17 07:50 Resp 20 12/30/17 07:50 BP 124/69 12/30/17 07:50 Pulse Ox 93 L 12/30/17 07:50 Weight - Most Recent: 134.037 kg I&O - Last 24 Hours: Intake & Output 12/29/17 12/30/17 12/30/17 22:59 06:59 14:59 Output Total 400 1200 Balance -400 -1200 Med Orders - Current: Current Medications Acetaminophen (Tylenol) 650 mg PO Q4H PRN PRN Reason: PAIN Last Admin: 12/14/17 08:23 Dose: 650 mg Albuterol/Ipratropium (Duoneb 3.0-0.5 Mg/3 Ml) 3 ml NEB QID PRN PRN Reason: wheezing Aripiprazole (Abilify) 2 mg PO DAILY [facility] Last Admin: 12/30/17 08:18 Dose: 2 mg Ascorbic Acid (Vitamin C) 500 mg PO DAILY [facility] Last Admin: 12/30/17 08:18 Dose: 500 mg Atorvastatin Calcium (Lipitor) 40 mg PO BEDTIME [facility] Last Admin: 12/29/17 20:23 Dose: 40 mg Baclofen (Lioresal) 10 mg PO TID [facility] Last Admin: 12/30/17 08:18 Dose: 10 mg Bupropion HCl (Wellbutrin Xl) 300 mg PO DAILY [facility] Last Admin: 12/30/17 08:18 Dose: 300 mg Docusate Sodium (Dok) 250 mg PO BID [facility] Last Admin: 12/30/17 08:18 Dose: 250 mg Duloxetine HCl (Cymbalta) 60 mg PO DAILY [facility] Last Admin: 12/30/17 08:18 Dose: 60 mg Furosemide (Lasix) 40 mg PO DAILY [facility] Last Admin: 12/30/17 08:19 Dose: 40 mg Sodium Chloride (Saline Flush) 10 ml FLUSH ASDIRECTED PRN PRN Reason: Keep Vein Open Last Admin: 11/29/17 11:15 Dose: 10 ml Sodium Chloride (Saline Flush) 10 ml FLUSH ASDIRECTED PRN PRN Reason: Keep Vein Open Warfarin Sodium (Coumadin) 5 mg PO 1600 [facility] Last Admin: 12/29/17 16:01 Dose: 5 mg Zinc Sulfate (Zincate) 220 mg PO DAILY [facility] Last Admin: 12/30/17 08:18 Dose: 220 mg Discontinued Medications Enoxaparin Sodium (Lovenox) 140 mg SUBCUT Q12H [facility] Last Admin: 10/27/17 20:30 Dose: 140 mg Vancomycin HCl 2,500 mg/ (Sodium Chloride) 500 mls @ 200 mls/hr IV Q18H [facility] Last Admin: 11/22/17 18:35 Dose: 200 mls/hr Vancomycin HCl 2,000 mg/ (Sodium Chloride) 500 mls @ 250 mls/hr IV Q12H [facility] Last Admin: 11/25/17 08:52 Dose: 250 mls/hr Iopamidol (Isovue-370 (76%)) 83 ml IV . DIRECTED ONE Stop: 11/29/17 13:54 Last Admin: 11/29/17 14:10 Dose: 83 ml Levofloxacin (Levaquin) 500 mg PO Q24H [facility] Last Admin: 11/07/17 13:23 Dose: 500 mg Levofloxacin (Levaquin) 750 mg PO Q24H [facility] Last Admin: 11/23/17 00:53 Dose: 750 mg Megestrol Acetate (Megace 40 Mg/Ml Susp) 800 mg PO DAILY [facility] Last Admin: 12/07/17 08:46 Dose: 800 mg Trimethoprim/Sulfamethoxazole (Septra Ds) 1 tab PO BID [facility] Stop: 11/30/17 09:01 Last Admin: 11/30/17 08:01 Dose: 1 tab Vancomycin HCl (Pharmacy To Dose - Vancomycin) 1 dose .XX ASDIRECTED [facility] Warfarin Sodium (Coumadin) 7.5 mg PO 1600 [facility] Stop: 10/27/17 16:01 Last Admin: 10/27/17 16:17 Dose: 7.5 mg Warfarin Sodium (Coumadin) 2.5 mg PO 1600 [facility] Stop: 10/28/17 16:01 Last Admin: 10/28/17 16:52 Dose: 2.5 mg Warfarin Sodium (Coumadin) 2.5 mg PO 1600 [facility] Stop: 10/29/17 16:01 Last Admin: 10/29/17 16:28 Dose: 2.5 mg Warfarin Sodium (Coumadin) 3 mg PO 1600 [facility] Stop: 10/30/17 16:01 Last Admin: 10/30/17 16:58 Dose: 3 mg Warfarin Sodium (Coumadin) Confirm Administered Dose 1 mg .ROUTE .STK-MED [facility] Stop: 10/30/17 16:56 Last Admin: 10/30/17 16:57 Dose: Not Given Warfarin Sodium (Coumadin) Confirm Administered Dose 2 mg .ROUTE .STK-MED ONE Stop: 10/30/17 16:56 Last Admin: 10/30/17 18:07 Dose: Not Given Warfarin Sodium 5 mg/ Warfarin (Sodium 2.5 mg) 7.5 mg PO 1600 [facility] Stop: 10/31/17 16:01 Last Admin: 10/31/17 16:55 Dose: 7.5 mg Warfarin Sodium 5 mg/ Warfarin (Sodium 2.5 mg) 7.5 mg PO 1600 [facility] Stop: 11/01/17 16:01 Last Admin: 11/01/17 16:01 Dose: 7.5 mg Warfarin Sodium (Coumadin) 5 mg PO 1600 [facility] Stop: 11/02/17 16:30 Last Admin: 11/02/17 15:38 Dose: 5 mg Warfarin Sodium (Coumadin) 2 mg PO 1600 [facility] Stop: 11/03/17 16:01 Last Admin: 11/03/17 18:19 Dose: 2 mg Warfarin Sodium (Coumadin) 4 mg PO DAILY@1600 [facility] Last Admin: 11/12/17 16:57 Dose: 4 mg Warfarin Sodium (Coumadin) 2 mg PO 1600 [facility] Stop: 11/14/17 16:01 Last Admin: 11/14/17 17:42 Dose: 2 mg Warfarin Sodium (Coumadin) 3 mg PO 1600 [facility] Last Admin: 11/16/17 16:24 Dose: 3 mg Warfarin Sodium (Coumadin) 5 mg PO 1600 [facility] Stop: 11/17/17 16:01 Last Admin: 11/17/17 16:20 Dose: 5 mg Warfarin Sodium (Coumadin) 4 mg PO DAILY@1600 [facility] Last Admin: 11/23/17 15:42 Dose: 4 mg Warfarin Sodium (Coumadin) 5 mg PO 11/24/17@1600 [facility] Stop: 11/24/17 17:00 Last Admin: 11/24/17 16:35 Dose: 5 mg Warfarin Sodium (Coumadin) 5 mg PO 11/25/17@1600 [facility] Stop: 11/25/17 18:00 Last Admin: 11/25/17 15:58 Dose: 5 mg Warfarin Sodium (Coumadin) 3 mg PO 1600 [facility] Stop: 11/26/17 17:30 Last Admin: 11/26/17 15:20 Dose: 3 mg Warfarin Sodium (Coumadin) 3 mg PO ONETIME ONE Stop: 11/27/17 16:01 Last Admin: 11/27/17 15:46 Dose: 3 mg Warfarin Sodium (Coumadin) 4 mg PO DAILY@1600 [facility] Last Admin: 12/04/17 16:43 Dose: 4 mg Warfarin Sodium 5 mg/ Warfarin (Sodium 2.5 mg) 7.5 mg PO 1600 [facility] Stop: 12/05/17 16:01 Last Admin: 12/06/17 03:45 Dose: Not Given Zinc Sulfate (Zincate) 220 mg PO DAILY@1200 [facility] Last Admin: 10/28/17 13:11 Dose: 220 mg - Exam General: Alert, Cooperative, No Acute Distress HEENT: Pupils Equal, Pupils Reactive Neck: Supple Lungs: Clear to Auscultation, Normal Respiratory Effort Cardiovascular: Regular Rate, Regular Rhythm, No Murmurs GI/Abdominal Exam: Normal Bowel Sounds, Soft, Non-Tender, No Distention Extremities: Pedal Edema (trace.) Skin: Warm, Dry Psy/Mental Status: Alert, Normal Mood (Verbal and smiling with me today.) - Problem List & Annotations (1) Decubitus skin ulcer SNOMED Code(s): 762710922 Code(s): L89.90 - PRESSURE ULCER OF UNSPECIFIED SITE, UNSPECIFIED STAGE Status: Acute Current Visit: Yes Qualifiers: Pressure ulcer location: buttock Pressure ulcer stage: stage 3 Laterality : right Qualified Code(s): L89.313 - Pressure ulcer of right buttock, stage 3 Annotation/Comment:: Surgery continues to follow. Wound VAC in place. Significantly improved. (2) Chronic anticoagulation SNOMED Code(s): 862430870 Code(s): Z79.01 - FDC (CURRENT) USE OF ANTICOAGULANTS Status: Acute Current Visit: Yes Annotation/Comment:: Patient's insurance will not cover direct oral anticoagulants. Continue warfarin. Would recommend lifetime therapy for this patient as long as he continues to have limited mobility. Indication as DVT/PE. (3) Pulmonary emboli SNOMED Code(s): 10863249 Code(s): I26.99 - OTHER PULMONARY EMBOLISM WITHOUT ACUTE COR PULMONALE Status: Acute Current Visit: Yes Qualifiers: Pulmonary embolism type: other Chronicity: unspecified Annotation/Comment:: Anticoagulation as above. (4) Depression SNOMED Code(s): 08426187 Code(s): F32.9 - MAJOR DEPRESSIVE DISORDER, SINGLE EPISODE, UNSPECIFIED Status: Chronic Current Visit: Yes Qualifiers: Depression Type: major depressive disorder Psychotic features: without psychotic features Annotation/Comment:: Abilify started 10/18/17. Tolerating well. Stable, although social isolation is an issue. Continue socialization as able. (5) Hypoalbuminemia SNOMED Code(s): 272676803 Code(s): E88.09 - [facility] DISORDERS OF PLASMA-PROTEIN METABOLISM, NEC Status: Chronic Current Visit: Yes Annotation/Comment:: Continue high protein diet and mineral supplements to aid in wound healing. Follow albumin. Baseline BMI was 52. Continue weight loss with goal for BMI < 40. High protein diet to promote wound healing. Low carbohydrates for weight loss. (6) Multiple sclerosis SNOMED Code(s): 21875522 Code(s): G35 - MULTIPLE SCLEROSIS Status: Chronic Current Visit: Yes Annotation/Comment:: Continue PT/OT. Q2hour repositioning. Will continue to work with guardian to pursue ultimate disposition. Patient prefers to stay in [place] area. (7) Urinary retention with incomplete bladder emptying SNOMED Code(s): 209154693 Code(s): R33.9 - RETENTION OF URINE, UNSPECIFIED Status: Acute Current Visit: Yes Annotation/Comment:: Was previously having incontinence and intermittent straight catheterization about once daily with 4 times a day bladder scans. Currently has salvador catheter. Consider trial of bladder training/intermittent catheterization after wound heals. (8) MRSA (methicillin resistant staph aureus) culture positive SNOMED Code(s): 314623858 Code(s): Z22.322 - CARRIER OR SUSPECTED CARRIER OF METHICILLIN RESIS STAPH Status: Acute Current Visit: Yes Annotation/Comment:: Given the long-term risks to this patient of MRSA wound infection, after having reviewed the literature I feel it would be in his best interest to attempt decolonization. However, given the initial wound culture which showed colonization of wound at the time of admission, it would be impossible to decolonize the wound at this time. Recommend once ulcer is healed, trial of decolonization to protect patient and reduce his social isolation. This would be done with chlorhexidine washes daily and mupirocin ointment to the anterior nares 3 times a day for 7- 10 days. Although long-term success of elimination of MRSA in a patient like this is somewhere around 50%, given the patient's depression and risk from social isolation would be worth attempting. Discussed previously with patient' s POA. - Problem List Review Problem List Initiated/Reviewed/Updated: Yes - My Orders Last 24 Hours: My Active Orders 01/03/18 05:11 CBC WITH AUTO DIFF [HEME] AM COMPREHENSIVE METABOLIC PN,CMP [CHEM] AM - Plan Plan:: Continue wound VAC and anticoagulation. Continue current care.
[2017-12-30] MEDS ORDERED: Warfarin Sliding Scale PO SCH (15:00)
[2017-12-30] MEDS: Warfarin 5 MG Tab PO SCH (15:58)
--- NOTE | 2017-12-30 17:25 | PCM.SN ---
- Free Text/Narrative Note: Present for the dressing change this am. wound bed is granulating nicely and showing contracture. no changes to therapy recommended.
[2017-12-30] MEDS: atorvaSTATin 40 MG Tab PO SCH (20:49)
[2017-12-31] MEDS: Ascorbic Acid 500 MG Tab PO SCH (09:16)
[2017-12-31] MEDS: Furosemide 40 MG Tab PO SCH (09:16)
[2017-12-31] MEDS: Docusate Sodium 250 MG Cap PO SCH ×2 (09:16→20:36)
[2017-12-31] MEDS: Baclofen 10 MG Tab PO SCH ×3 (09:16→20:36)
[2017-12-31] MEDS: DULoxetine 60 MG Cap PO SCH (09:16)
[2017-12-31] MEDS: Zinc Sulfate 220 MG Cap PO SCH (09:17)
[2017-12-31] MEDS: buPROPion 150 MG Tab.ER PO SCH (09:17)
[2017-12-31] MEDS: Warfarin 5 MG Tab PO SCH (17:06)
[2017-12-31] MEDS: atorvaSTATin 40 MG Tab PO SCH (20:37)
[2018-01-01] MEDS: DULoxetine 60 MG Cap PO SCH (10:15)
[2018-01-01] MEDS: Docusate Sodium 250 MG Cap PO SCH ×2 (10:15→20:03)
[2018-01-01] MEDS: Furosemide 40 MG Tab PO SCH (10:15)
[2018-01-01] MEDS: buPROPion 150 MG Tab.ER PO SCH (10:16)
[2018-01-01] MEDS: Ascorbic Acid 500 MG Tab PO SCH (10:16)
[2018-01-01] MEDS: Baclofen 10 MG Tab PO SCH ×3 (10:16→20:04)
[2018-01-01] MEDS: Zinc Sulfate 220 MG Cap PO SCH (10:17)
[2018-01-01] MEDS: Warfarin 5 MG Tab PO SCH (15:15)
[2018-01-01] MEDS: atorvaSTATin 40 MG Tab PO SCH (20:04)
[2018-01-02] MEDS: DULoxetine 60 MG Cap PO SCH (08:16)
[2018-01-02] MEDS: Docusate Sodium 250 MG Cap PO SCH ×2 (08:16→20:12)
[2018-01-02] MEDS: Furosemide 40 MG Tab PO SCH (08:16)
[2018-01-02] MEDS: Baclofen 10 MG Tab PO SCH ×3 (08:17→20:12)
[2018-01-02] MEDS: buPROPion 150 MG Tab.ER PO SCH (08:17)
[2018-01-02] MEDS: Zinc Sulfate 220 MG Cap PO SCH (08:17)
[2018-01-02] MEDS: Ascorbic Acid 500 MG Tab PO SCH ×2 (08:17→20:12)
--- NOTE | 2018-01-02 12:37 | PCM.PN ---
- General Info Date of Service: 01/02/18 Subjective Update: Patient is a 67-year-old male currently on swing bed day #68 for decubitus ulcer with wound VAC care. Patient is doing well today. I took a look at the wound with the physical therapist changing the wound VAC and although it's improved significantly, the patient still has palpable bone at the base of the wound and today he found a small piece of bony material present in the wound. I suspect this is either a cartilaginous piece of debris that is gradually worked its way out of the wound or a calcified scale off the bone itself. She denies chest pain, shortness of breath, nausea or vomiting. For physical standpoint he' s actually doing a bit better. He was able to sit forward for me today without assistance and able to raise him or his arms and were reasonable were his right leg without help. His left leg is still quite weak. 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 I don't know if that' s accurate or not. - Patient Data Vitals - Most Recent: Last Vital Signs Temp 36.4 C 01/02/18 08:21 Pulse 86 01/02/18 08:21 Resp 18 01/02/18 08:21 BP 140/79 01/02/18 08:21 Pulse Ox 95 01/02/18 08:21 Weight - Most Recent: 132.313 kg I&O - Last 24 Hours: Intake & Output 01/01/18 01/02/18 01/02/18 22:59 06:59 14:59 Output Total 1600 Balance -1600 Med Orders - Current: Current Medications Acetaminophen (Tylenol) 650 mg PO Q4H PRN PRN Reason: PAIN Last Admin: 12/14/17 08:23 Dose: 650 mg Albuterol/Ipratropium (Duoneb 3.0-0.5 Mg/3 Ml) 3 ml NEB QID PRN PRN Reason: wheezing Aripiprazole (Abilify) 2 mg PO DAILY [facility] Last Admin: 01/02/18 08:16 Dose: 2 mg Ascorbic Acid (Vitamin C) 500 mg PO BID [facility] Atorvastatin Calcium (Lipitor) 40 mg PO BEDTIME [facility] Last Admin: 01/01/18 20:04 Dose: 40 mg Baclofen (Lioresal) 10 mg PO TID [facility] Last Admin: 01/02/18 08:17 Dose: 10 mg Bupropion HCl (Wellbutrin Xl) 300 mg PO DAILY [facility] Last Admin: 01/02/18 08:17 Dose: 300 mg Docusate Sodium (Dok) 250 mg PO BID [facility] Last Admin: 01/02/18 08:16 Dose: 250 mg Duloxetine HCl (Cymbalta) 60 mg PO DAILY [facility] Last Admin: 01/02/18 08:16 Dose: 60 mg Furosemide (Lasix) 40 mg PO DAILY [facility] Last Admin: 01/02/18 08:16 Dose: 40 mg Sodium Chloride (Saline Flush) 10 ml FLUSH ASDIRECTED PRN PRN Reason: Keep Vein Open Last Admin: 11/29/17 11:15 Dose: 10 ml Sodium Chloride (Saline Flush) 10 ml FLUSH ASDIRECTED PRN PRN Reason: Keep Vein Open Warfarin Sodium (Coumadin) 5 mg PO 1600 [facility] Last Admin: 01/01/18 15:15 Dose: 5 mg Warfarin Sodium (Coumadin Sliding Scale) 0 each PO ASDIRECTED [facility] Zinc Sulfate (Zincate) 220 mg PO DAILY [facility] Last Admin: 01/02/18 08:17 Dose: 220 mg Discontinued Medications Ascorbic Acid (Vitamin C) 500 mg PO DAILY [facility] Last Admin: 01/02/18 08:17 Dose: 500 mg Enoxaparin Sodium (Lovenox) 140 mg SUBCUT Q12H [facility] Last Admin: 10/27/17 20:30 Dose: 140 mg Vancomycin HCl 2,500 mg/ (Sodium Chloride) 500 mls @ 200 mls/hr IV Q18H [facility] Last Admin: 11/22/17 18:35 Dose: 200 mls/hr Vancomycin HCl 2,000 mg/ (Sodium Chloride) 500 mls @ 250 mls/hr IV Q12H [facility] Last Admin: 11/25/17 08:52 Dose: 250 mls/hr Iopamidol (Isovue-370 (76%)) 83 ml IV . DIRECTED ONE Stop: 11/29/17 13:54 Last Admin: 11/29/17 14:10 Dose: 83 ml Levofloxacin (Levaquin) 500 mg PO Q24H [facility] Last Admin: 11/07/17 13:23 Dose: 500 mg Levofloxacin (Levaquin) 750 mg PO Q24H [facility] Last Admin: 11/23/17 00:53 Dose: 750 mg Megestrol Acetate (Megace 40 Mg/Ml Susp) 800 mg PO DAILY [facility] Last Admin: 12/07/17 08:46 Dose: 800 mg Trimethoprim/Sulfamethoxazole (Septra Ds) 1 tab PO BID [facility] Stop: 11/30/17 09:01 Last Admin: 11/30/17 08:01 Dose: 1 tab Vancomycin HCl (Pharmacy To Dose - Vancomycin) 1 dose .XX ASDIRECTED [facility] Warfarin Sodium (Coumadin) 7.5 mg PO 1600 [facility] Stop: 10/27/17 16:01 Last Admin: 10/27/17 16:17 Dose: 7.5 mg Warfarin Sodium (Coumadin) 2.5 mg PO 1600 [facility] Stop: 10/28/17 16:01 Last Admin: 10/28/17 16:52 Dose: 2.5 mg Warfarin Sodium (Coumadin) 2.5 mg PO 1600 [facility] Stop: 10/29/17 16:01 Last Admin: 10/29/17 16:28 Dose: 2.5 mg Warfarin Sodium (Coumadin) 3 mg PO 1600 [facility] Stop: 10/30/17 16:01 Last Admin: 10/30/17 16:58 Dose: 3 mg Warfarin Sodium (Coumadin) Confirm Administered Dose 1 mg .ROUTE .STK-MED [facility] Stop: 10/30/17 16:56 Last Admin: 10/30/17 16:57 Dose: Not Given Warfarin Sodium (Coumadin) Confirm Administered Dose 2 mg .ROUTE .STK-MED [facility] Stop: 10/30/17 16:56 Last Admin: 10/30/17 18:07 Dose: Not Given Warfarin Sodium 5 mg/ Warfarin (Sodium 2.5 mg) 7.5 mg PO 1600 [facility] Stop: 10/31/17 16:01 Last Admin: 10/31/17 16:55 Dose: 7.5 mg Warfarin Sodium 5 mg/ Warfarin (Sodium 2.5 mg) 7.5 mg PO 1600 [facility] Stop: 11/01/17 16:01 Last Admin: 11/01/17 16:01 Dose: 7.5 mg Warfarin Sodium (Coumadin) 5 mg PO 1600 [facility] Stop: 11/02/17 16:30 Last Admin: 11/02/17 15:38 Dose: 5 mg Warfarin Sodium (Coumadin) 2 mg PO 1600 [facility] Stop: 11/03/17 16:01 Last Admin: 11/03/17 18:19 Dose: 2 mg Warfarin Sodium (Coumadin) 4 mg PO DAILY@1600 [facility] Last Admin: 11/12/17 16:57 Dose: 4 mg Warfarin Sodium (Coumadin) 2 mg PO 1600 [facility] Stop: 11/14/17 16:01 Last Admin: 11/14/17 17:42 Dose: 2 mg Warfarin Sodium (Coumadin) 3 mg PO 1600 [facility] Last Admin: 11/16/17 16:24 Dose: 3 mg Warfarin Sodium (Coumadin) 5 mg PO 1600 [facility] Stop: 11/17/17 16:01 Last Admin: 11/17/17 16:20 Dose: 5 mg Warfarin Sodium (Coumadin) 4 mg PO DAILY@1600 [facility] Last Admin: 11/23/17 15:42 Dose: 4 mg Warfarin Sodium (Coumadin) 5 mg PO 11/24/17@1600 [facility] Stop: 11/24/17 17:00 Last Admin: 11/24/17 16:35 Dose: 5 mg Warfarin Sodium (Coumadin) 5 mg PO 11/25/17@1600 [facility] Stop: 11/25/17 18:00 Last Admin: 11/25/17 15:58 Dose: 5 mg Warfarin Sodium (Coumadin) 3 mg PO 1600 [facility] Stop: 11/26/17 17:30 Last Admin: 11/26/17 15:20 Dose: 3 mg Warfarin Sodium (Coumadin) 3 mg PO ONETIME ONE Stop: 11/27/17 16:01 Last Admin: 11/27/17 15:46 Dose: 3 mg Warfarin Sodium (Coumadin) 4 mg PO DAILY@1600 [facility] Last Admin: 12/04/17 16:43 Dose: 4 mg Warfarin Sodium 5 mg/ Warfarin (Sodium 2.5 mg) 7.5 mg PO 1600 [facility] Stop: 12/05/17 16:01 Last Admin: 12/06/17 03:45 Dose: Not Given Zinc Sulfate (Zincate) 220 mg PO DAILY@1200 [facility] Last Admin: 10/28/17 13:11 Dose: 220 mg - Exam General: Alert, Cooperative, No Acute Distress HEENT: Pupils Equal, Pupils Reactive Neck: Supple Lungs: Clear to Auscultation, Normal Respiratory Effort Cardiovascular: Regular Rate, Regular Rhythm, No Murmurs GI/Abdominal Exam: Normal Bowel Sounds, Soft, Non-Tender, No Distention Extremities: Normal Inspection, No Pedal Edema Psy/Mental Status: Alert - Problem List & Annotations (1) Decubitus skin ulcer SNOMED Code(s): 050324998 Code(s): L89.90 - PRESSURE ULCER OF UNSPECIFIED SITE, UNSPECIFIED STAGE Status: Acute Current Visit: Yes Qualifiers: Pressure ulcer location: buttock Pressure ulcer stage: stage 3 Laterality : right Qualified Code(s): L89.313 - Pressure ulcer of right buttock, stage 3 Annotation/Comment:: Surgery continues to follow. Wound VAC in place. Significantly improved. (2) Chronic anticoagulation SNOMED Code(s): 537166579 Code(s): Z79.01 - HALFWAY (CURRENT) USE OF ANTICOAGULANTS Status: Acute Current Visit: Yes Annotation/Comment:: Patient's insurance will not cover direct oral anticoagulants. Continue warfarin. Would recommend lifetime therapy for this patient as long as he continues to have limited mobility. Indication as DVT/PE. (3) Pulmonary emboli SNOMED Code(s): 61419065 Code(s): I26.99 - OTHER PULMONARY EMBOLISM WITHOUT ACUTE COR PULMONALE Status: Acute Current Visit: Yes Qualifiers: Pulmonary embolism type: other Chronicity: unspecified Annotation/Comment:: Anticoagulation as above. (4) Depression SNOMED Code(s): 07252672 Code(s): F32.9 - MAJOR DEPRESSIVE DISORDER, SINGLE EPISODE, UNSPECIFIED Status: Chronic Current Visit: Yes Qualifiers: Depression Type: major depressive disorder Psychotic features: without psychotic features Annotation/Comment:: Abilify started 10/18/17. Tolerating well. Stable, although social isolation is an issue. Continue socialization as able. (5) Hypoalbuminemia SNOMED Code(s): 841477990 Code(s): E88.09 - [facility] DISORDERS OF PLASMA-PROTEIN METABOLISM, NEC Status: Chronic Current Visit: Yes Annotation/Comment:: Continue high protein diet and mineral supplements to aid in wound healing. Follow albumin. Baseline BMI was 52. Continue weight loss with goal for BMI < 40. High protein diet to promote wound healing. Low carbohydrates for weight loss. (6) Multiple sclerosis SNOMED Code(s): 82873862 Code(s): G35 - MULTIPLE SCLEROSIS Status: Chronic Current Visit: Yes Annotation/Comment:: Continue PT/OT. Q2hour repositioning. Will continue to work with guardian to pursue ultimate disposition. Patient prefers to stay in [place] area. (7) Urinary retention with incomplete bladder emptying SNOMED Code(s): 396778990 Code(s): R33.9 - RETENTION OF URINE, UNSPECIFIED Status: Acute Current Visit: Yes Annotation/Comment:: Was previously having incontinence and intermittent straight catheterization about once daily with 4 times a day bladder scans. Currently has salvador catheter. Consider trial of bladder training/intermittent catheterization after wound heals. (8) MRSA (methicillin resistant staph aureus) culture positive SNOMED Code(s): 773886907 Code(s): Z22.322 - CARRIER OR SUSPECTED CARRIER OF METHICILLIN RESIS STAPH Status: Acute Current Visit: Yes Annotation/Comment:: Given the long-term risks to this patient of MRSA wound infection, after having reviewed the literature I feel it would be in his best interest to attempt decolonization. However, given the initial wound culture which showed colonization of wound at the time of admission, it would be impossible to decolonize the wound at this time. Recommend once ulcer is healed, trial of decolonization to protect patient and reduce his social isolation. This would be done with chlorhexidine washes daily and mupirocin ointment to the anterior nares 3 times a day for 7- 10 days. Although long-term success of elimination of MRSA in a patient like this is somewhere around 50%, given the patient's depression and risk from social isolation would be worth attempting. Discussed previously with patient' s POA. (9) Debility SNOMED Code(s): 59622834 Code(s): R53.81 - OTHER MALAISE Status: Acute Current Visit: Yes Annotation/Comment:: Patient showing significant improvement in strength and mobility on limited bedside exam. I'd like to have physical therapy and occupational therapy reassess to see if there is some room for [place] for this patient. Now that his protein level is more adequate his muscles may be more apt to improve strength with physical therapy. - Problem List Review Problem List Initiated/Reviewed/Updated: Yes - My Orders Last 24 Hours: My Active Orders 01/02/18 21:00 Ascorbic Acid [Vitamin C] 500 mg PO BID 01/03/18 05:11 CBC WITH AUTO DIFF [HEME] AM COMPREHENSIVE METABOLIC PN,CMP [CHEM] AM - Plan Plan:: Continue wound VAC and anticoagulation. Continue current care.
[2018-01-02] MEDS: Warfarin 5 MG Tab PO SCH (15:40)
[2018-01-02] MEDS: atorvaSTATin 40 MG Tab PO SCH (20:12)
[2018-01-03] MEDS: buPROPion 150 MG Tab.ER PO SCH (08:35)
[2018-01-03] MEDS: Zinc Sulfate 220 MG Cap PO SCH (08:35)
[2018-01-03] MEDS: Furosemide 40 MG Tab PO SCH (08:35)
[2018-01-03] MEDS: DULoxetine 60 MG Cap PO SCH (08:35)
[2018-01-03] MEDS: Docusate Sodium 250 MG Cap PO SCH ×2 (08:35→21:19)
[2018-01-03] MEDS: Baclofen 10 MG Tab PO SCH ×3 (08:35→21:19)
[2018-01-03] MEDS: Ascorbic Acid 500 MG Tab PO SCH ×2 (08:51→21:20)
[2018-01-03] MEDS: Warfarin 5 MG Tab PO SCH (16:04)
[2018-01-03] MEDS: atorvaSTATin 40 MG Tab PO SCH (21:20)
[2018-01-04] MEDS: buPROPion 150 MG Tab.ER PO SCH (08:13)
[2018-01-04] MEDS: Baclofen 10 MG Tab PO SCH ×3 (08:13→21:09)
[2018-01-04] MEDS: Ascorbic Acid 500 MG Tab PO SCH ×2 (08:13→21:09)
[2018-01-04] MEDS: Furosemide 40 MG Tab PO SCH (08:13)
[2018-01-04] MEDS: Docusate Sodium 250 MG Cap PO SCH ×2 (08:13→21:09)
[2018-01-04] MEDS: DULoxetine 60 MG Cap PO SCH (08:13)
[2018-01-04] MEDS: Warfarin 5 MG Tab PO SCH (17:27)
[2018-01-04] MEDS: atorvaSTATin 40 MG Tab PO SCH (21:09)
[2018-01-05] MEDS: Docusate Sodium 250 MG Cap PO SCH ×2 (08:56→20:04)
[2018-01-05] MEDS: Ascorbic Acid 500 MG Tab PO SCH ×2 (08:56→20:04)
[2018-01-05] MEDS: Furosemide 40 MG Tab PO SCH (08:56)
[2018-01-05] MEDS: DULoxetine 60 MG Cap PO SCH (08:57)
[2018-01-05] MEDS: buPROPion 150 MG Tab.ER PO SCH (08:57)
[2018-01-05] MEDS: Baclofen 10 MG Tab PO SCH ×3 (08:58→20:04)
[2018-01-05] MEDS: Warfarin 5 MG Tab PO SCH (17:16)
[2018-01-05] MEDS: atorvaSTATin 40 MG Tab PO SCH (20:04)
[2018-01-06] MEDS: Ascorbic Acid 500 MG Tab PO SCH ×2 (08:10→20:38)
[2018-01-06] MEDS: Furosemide 40 MG Tab PO SCH (08:10)
[2018-01-06] MEDS: Docusate Sodium 250 MG Cap PO SCH ×2 (08:10→20:38)
[2018-01-06] MEDS: buPROPion 150 MG Tab.ER PO SCH (08:11)
[2018-01-06] MEDS: Baclofen 10 MG Tab PO SCH ×3 (08:11→20:38)
[2018-01-06] MEDS: DULoxetine 60 MG Cap PO SCH (08:11)
[2018-01-06] MEDS: Warfarin 5 MG Tab PO SCH (16:11)
[2018-01-06] MEDS: atorvaSTATin 40 MG Tab PO SCH (20:38)
[2018-01-07] MEDS: DULoxetine 60 MG Cap PO SCH (08:21)
[2018-01-07] MEDS: buPROPion 150 MG Tab.ER PO SCH (08:22)
[2018-01-07] MEDS: Baclofen 10 MG Tab PO SCH ×3 (08:22→20:16)
[2018-01-07] MEDS: Docusate Sodium 250 MG Cap PO SCH ×2 (08:22→20:16)
[2018-01-07] MEDS: Furosemide 40 MG Tab PO SCH (08:22)
[2018-01-07] MEDS: Ascorbic Acid 500 MG Tab PO SCH ×2 (08:22→20:17)
[2018-01-07] MEDS: Warfarin 5 MG Tab PO SCH (16:11)
[2018-01-07] MEDS: atorvaSTATin 40 MG Tab PO SCH (20:17)
[2018-01-08] MEDS: Furosemide 40 MG Tab PO SCH (08:11)
[2018-01-08] MEDS: DULoxetine 60 MG Cap PO SCH (08:11)
[2018-01-08] MEDS: Ascorbic Acid 500 MG Tab PO SCH ×2 (08:11→20:33)
[2018-01-08] MEDS: Docusate Sodium 250 MG Cap PO SCH ×2 (08:11→20:33)
[2018-01-08] MEDS: buPROPion 150 MG Tab.ER PO SCH (08:11)
[2018-01-08] MEDS: Baclofen 10 MG Tab PO SCH ×3 (08:11→20:33)
[2018-01-08] MEDS: Warfarin 5 MG Tab PO SCH (16:43)
[2018-01-08] MEDS: atorvaSTATin 40 MG Tab PO SCH (20:33)
[2018-01-09] MEDS: DULoxetine 60 MG Cap PO SCH (08:14)
[2018-01-09] MEDS: Baclofen 10 MG Tab PO SCH ×3 (08:14→20:38)
[2018-01-09] MEDS: Furosemide 40 MG Tab PO SCH (08:14)
[2018-01-09] MEDS: buPROPion 150 MG Tab.ER PO SCH (08:15)
[2018-01-09] MEDS: Docusate Sodium 250 MG Cap PO SCH ×2 (08:15→20:38)
[2018-01-09] MEDS: Ascorbic Acid 500 MG Tab PO SCH ×2 (08:15→20:38)
--- NOTE | 2018-01-09 08:56 | PCM.PN ---
- General Info Date of Service: 01/09/18 Admission Dx/Problem (Free Text): Patient is without complaints. Currently changing his wound and re-doing the wound VAC. - Patient Data Vitals - Most Recent: Last Vital Signs Temp 98.1 F 01/08/18 07:10 Pulse 78 01/08/18 07:10 Resp 18 01/08/18 07:10 BP 129/75 01/08/18 07:10 Pulse Ox 94 L 01/08/18 07:10 Weight - Most Recent: 295 lb I&O - Last 24 Hours: Intake & Output 01/08/18 01/09/18 01/09/18 22:59 06:59 14:59 Intake Total 750 300 Output Total 800 850 Balance -50 -550 Med Orders - Current: Current Medications Acetaminophen (Tylenol) 650 mg PO Q4H PRN PRN Reason: PAIN Last Admin: 12/14/17 08:23 Dose: 650 mg Albuterol/Ipratropium (Duoneb 3.0-0.5 Mg/3 Ml) 3 ml NEB QID PRN PRN Reason: wheezing Aripiprazole (Abilify) 2 mg PO DAILY [facility] Last Admin: 01/09/18 08:14 Dose: 2 mg Ascorbic Acid (Vitamin C) 500 mg PO BID [facility] Last Admin: 01/09/18 08:15 Dose: 500 mg Atorvastatin Calcium (Lipitor) 40 mg PO BEDTIME [facility] Last Admin: 01/08/18 20:33 Dose: 40 mg Baclofen (Lioresal) 10 mg PO TID [facility] Last Admin: 01/09/18 08:14 Dose: 10 mg Bupropion HCl (Wellbutrin Xl) 300 mg PO DAILY [facility] Last Admin: 01/09/18 08:15 Dose: 300 mg Docusate Sodium (Dok) 250 mg PO BID [facility] Last Admin: 01/09/18 08:15 Dose: 250 mg Duloxetine HCl (Cymbalta) 60 mg PO DAILY [facility] Last Admin: 01/09/18 08:14 Dose: 60 mg Furosemide (Lasix) 40 mg PO DAILY [facility] Last Admin: 01/09/18 08:14 Dose: 40 mg Sodium Chloride (Saline Flush) 10 ml FLUSH ASDIRECTED PRN PRN Reason: Keep Vein Open Warfarin Sodium (Coumadin) 5 mg PO 1600 [facility] Last Admin: 01/08/18 16:43 Dose: 5 mg Warfarin Sodium (Coumadin Sliding Scale) 0 each PO ASDIRECTED [facility] Discontinued Medications Ascorbic Acid (Vitamin C) 500 mg PO DAILY [facility] Last Admin: 01/02/18 08:17 Dose: 500 mg Enoxaparin Sodium (Lovenox) 140 mg SUBCUT Q12H [facility] Last Admin: 10/27/17 20:30 Dose: 140 mg Vancomycin HCl 2,500 mg/ (Sodium Chloride) 500 mls @ 200 mls/hr IV Q18H [facility] Last Admin: 11/22/17 18:35 Dose: 200 mls/hr Vancomycin HCl 2,000 mg/ (Sodium Chloride) 500 mls @ 250 mls/hr IV Q12H [facility] Last Admin: 11/25/17 08:52 Dose: 250 mls/hr Iopamidol (Isovue-370 (76%)) 83 ml IV . DIRECTED ONE Stop: 11/29/17 13:54 Last Admin: 11/29/17 14:10 Dose: 83 ml Levofloxacin (Levaquin) 500 mg PO Q24H [facility] Last Admin: 11/07/17 13:23 Dose: 500 mg Levofloxacin (Levaquin) 750 mg PO Q24H [facility] Last Admin: 11/23/17 00:53 Dose: 750 mg Megestrol Acetate (Megace 40 Mg/Ml Susp) 800 mg PO DAILY [facility] Last Admin: 12/07/17 08:46 Dose: 800 mg Sodium Chloride (Saline Flush) 10 ml FLUSH ASDIRECTED PRN PRN Reason: Keep Vein Open Last Admin: 11/29/17 11:15 Dose: 10 ml Trimethoprim/Sulfamethoxazole (Septra Ds) 1 tab PO BID [facility] Stop: 11/30/17 09:01 Last Admin: 11/30/17 08:01 Dose: 1 tab Vancomycin HCl (Pharmacy To Dose - Vancomycin) 1 dose .XX ASDIRECTED [facility] Warfarin Sodium (Coumadin) 7.5 mg PO 1600 [facility] Stop: 10/27/17 16:01 Last Admin: 10/27/17 16:17 Dose: 7.5 mg Warfarin Sodium (Coumadin) 2.5 mg PO 1600 [facility] Stop: 10/28/17 16:01 Last Admin: 10/28/17 16:52 Dose: 2.5 mg Warfarin Sodium (Coumadin) 2.5 mg PO 1600 [facility] Stop: 10/29/17 16:01 Last Admin: 10/29/17 16:28 Dose: 2.5 mg Warfarin Sodium (Coumadin) 3 mg PO 1600 [facility] Stop: 10/30/17 16:01 Last Admin: 10/30/17 16:58 Dose: 3 mg Warfarin Sodium (Coumadin) Confirm Administered Dose 1 mg .ROUTE .STK-MED ONE Stop: 10/30/17 16:56 Last Admin: 10/30/17 16:57 Dose: Not Given Warfarin Sodium (Coumadin) Confirm Administered Dose 2 mg .ROUTE .STK-MED ONE Stop: 10/30/17 16:56 Last Admin: 10/30/17 18:07 Dose: Not Given Warfarin Sodium 5 mg/ Warfarin (Sodium 2.5 mg) 7.5 mg PO 1600 [facility] Stop: 10/31/17 16:01 Last Admin: 10/31/17 16:55 Dose: 7.5 mg Warfarin Sodium 5 mg/ Warfarin (Sodium 2.5 mg) 7.5 mg PO 1600 [facility] Stop: 11/01/17 16:01 Last Admin: 11/01/17 16:01 Dose: 7.5 mg Warfarin Sodium (Coumadin) 5 mg PO 1600 [facility] Stop: 11/02/17 16:30 Last Admin: 11/02/17 15:38 Dose: 5 mg Warfarin Sodium (Coumadin) 2 mg PO 1600 [facility] Stop: 11/03/17 16:01 Last Admin: 11/03/17 18:19 Dose: 2 mg Warfarin Sodium (Coumadin) 4 mg PO DAILY@1600 [facility] Last Admin: 11/12/17 16:57 Dose: 4 mg Warfarin Sodium (Coumadin) 2 mg PO 1600 [facility] Stop: 11/14/17 16:01 Last Admin: 11/14/17 17:42 Dose: 2 mg Warfarin Sodium (Coumadin) 3 mg PO 1600 [facility] Last Admin: 11/16/17 16:24 Dose: 3 mg Warfarin Sodium (Coumadin) 5 mg PO 1600 [facility] Stop: 11/17/17 16:01 Last Admin: 11/17/17 16:20 Dose: 5 mg Warfarin Sodium (Coumadin) 4 mg PO DAILY@1600 [place] Last Admin: 11/23/17 15:42 Dose: 4 mg Warfarin Sodium (Coumadin) 5 mg PO 11/24/17@1600 [facility] Stop: 11/24/17 17:00 Last Admin: 11/24/17 16:35 Dose: 5 mg Warfarin Sodium (Coumadin) 5 mg PO 11/25/17@1600 [facility] Stop: 11/25/17 18:00 Last Admin: 11/25/17 15:58 Dose: 5 mg Warfarin Sodium (Coumadin) 3 mg PO 1600 [facility] Stop: 11/26/17 17:30 Last Admin: 11/26/17 15:20 Dose: 3 mg Warfarin Sodium (Coumadin) 3 mg PO ONETIME ONE Stop: 11/27/17 16:01 Last Admin: 11/27/17 15:46 Dose: 3 mg Warfarin Sodium (Coumadin) 4 mg PO DAILY@1600 [facility] Last Admin: 12/04/17 16:43 Dose: 4 mg Warfarin Sodium 5 mg/ Warfarin (Sodium 2.5 mg) 7.5 mg PO 1600 [facility] Stop: 12/05/17 16:01 Last Admin: 12/06/17 03:45 Dose: Not Given Zinc Sulfate (Zincate) 220 mg PO DAILY@1200 [place] Last Admin: 10/28/17 13:11 Dose: 220 mg Zinc Sulfate (Zincate) 220 mg PO DAILY [facility] Last Admin: 01/03/18 08:35 Dose: 220 mg - Exam General: Alert, Oriented, Cooperative Skin: Other (Deep ulcer of the buttocks. Good granulation tissue. No drainage.) - Problem List & Annotations (1) DVT (deep venous thrombosis) SNOMED Code(s): 096960449 Code(s): I82.409 - ACUTE EMBOLISM AND THOMBOS UNSP DEEP VN UNSP LOWER EXTREMITY Status: Acute Current Visit: Yes Qualifiers: DVT location: lower extremity Chronicity: unspecified (2) Decubitus skin ulcer SNOMED Code(s): 394704465 Code(s): L89.90 - PRESSURE ULCER OF UNSPECIFIED SITE, UNSPECIFIED STAGE Status: Acute Current Visit: Yes Qualifiers: Pressure ulcer location: buttock Pressure ulcer stage: stage 3 Laterality : right Qualified Code(s): L89.313 - Pressure ulcer of right buttock, stage 3 Annotation/Comment:: Surgery continues to follow. Wound VAC in place. Significantly improved. (3) Encounter for management of wound VAC SNOMED Code(s): 836274381 Code(s): XHB2051 - Status: Acute Current Visit: Yes (4) Pulmonary emboli SNOMED Code(s): 45412929 Code(s): I26.99 - OTHER PULMONARY EMBOLISM WITHOUT ACUTE COR PULMONALE Status: Acute Current Visit: Yes Qualifiers: Pulmonary embolism type: other Chronicity: unspecified Annotation/Comment:: Anticoagulation as above. - Problem List Review Problem List Initiated/Reviewed/Updated: Yes - Plan Plan:: Continue current care
[2018-01-09] MEDS: Warfarin 5 MG Tab PO SCH (17:30)
[2018-01-09] MEDS: atorvaSTATin 40 MG Tab PO SCH (20:38)
[2018-01-10] MEDS: Docusate Sodium 250 MG Cap PO SCH ×2 (08:19→20:06)
[2018-01-10] MEDS: Furosemide 40 MG Tab PO SCH (08:19)
[2018-01-10] MEDS: buPROPion 150 MG Tab.ER PO SCH (08:19)
[2018-01-10] MEDS: Baclofen 10 MG Tab PO SCH ×3 (08:19→20:06)
[2018-01-10] MEDS: Ascorbic Acid 500 MG Tab PO SCH ×2 (08:19→20:06)
[2018-01-10] MEDS: DULoxetine 60 MG Cap PO SCH (08:19)
[2018-01-10] MEDS: Warfarin 5 MG Tab PO SCH (15:38)
[2018-01-10] MEDS: atorvaSTATin 40 MG Tab PO SCH (20:06)
[2018-01-11] MEDS: DULoxetine 60 MG Cap PO SCH (08:00)
[2018-01-11] MEDS: Docusate Sodium 250 MG Cap PO SCH ×2 (08:00→20:41)
[2018-01-11] MEDS: Baclofen 10 MG Tab PO SCH ×3 (08:00→20:41)
[2018-01-11] MEDS: Ascorbic Acid 500 MG Tab PO SCH ×2 (08:00→20:42)
[2018-01-11] MEDS: buPROPion 150 MG Tab.ER PO SCH (08:00)
[2018-01-11] MEDS: Furosemide 40 MG Tab PO SCH (08:00)
[2018-01-11] MEDS: Warfarin 5 MG Tab PO SCH (15:49)
[2018-01-11] MEDS: atorvaSTATin 40 MG Tab PO SCH (20:41)
[2018-01-12] MEDS: Furosemide 40 MG Tab PO SCH (08:17)
[2018-01-12] MEDS: Baclofen 10 MG Tab PO SCH ×3 (08:17→20:06)
[2018-01-12] MEDS: Ascorbic Acid 500 MG Tab PO SCH ×2 (08:17→20:06)
[2018-01-12] MEDS: Docusate Sodium 250 MG Cap PO SCH ×2 (08:17→20:05)
[2018-01-12] MEDS: buPROPion 150 MG Tab.ER PO SCH (08:18)
[2018-01-12] MEDS: DULoxetine 60 MG Cap PO SCH (08:18)
[2018-01-12] MEDS: Warfarin 5 MG Tab PO SCH (16:39)
[2018-01-12] MEDS: atorvaSTATin 40 MG Tab PO SCH (20:06)
[2018-01-13] MEDS: DULoxetine 60 MG Cap PO SCH (08:00)
[2018-01-13] MEDS: Baclofen 10 MG Tab PO SCH ×3 (08:00→20:40)
[2018-01-13] MEDS: Docusate Sodium 250 MG Cap PO SCH ×2 (08:01→20:40)
[2018-01-13] MEDS: Ascorbic Acid 500 MG Tab PO SCH ×2 (08:01→20:41)
[2018-01-13] MEDS: Furosemide 40 MG Tab PO SCH (08:01)
[2018-01-13] MEDS: buPROPion 150 MG Tab.ER PO SCH (08:01)
[2018-01-13] MEDS: Warfarin 5 MG Tab PO SCH (17:22)
[2018-01-13] MEDS: atorvaSTATin 40 MG Tab PO SCH (20:41)
[2018-01-14] MEDS: Furosemide 40 MG Tab PO SCH (08:57)
[2018-01-14] MEDS: Ascorbic Acid 500 MG Tab PO SCH ×2 (08:57→20:15)
[2018-01-14] MEDS: buPROPion 150 MG Tab.ER PO SCH (08:57)
[2018-01-14] MEDS: DULoxetine 60 MG Cap PO SCH (08:57)
[2018-01-14] MEDS: Baclofen 10 MG Tab PO SCH ×3 (08:57→20:15)
[2018-01-14] MEDS: Docusate Sodium 250 MG Cap PO SCH ×2 (08:57→20:15)
[2018-01-14] MEDS: Warfarin 5 MG Tab PO SCH (15:15)
[2018-01-14] MEDS: atorvaSTATin 40 MG Tab PO SCH (20:15)
[2018-01-15] MEDS: buPROPion 150 MG Tab.ER PO SCH (10:14)
[2018-01-15] MEDS: Ascorbic Acid 500 MG Tab PO SCH ×2 (10:14→21:12)
[2018-01-15] MEDS: Docusate Sodium 250 MG Cap PO SCH ×2 (10:14→21:11)
[2018-01-15] MEDS: DULoxetine 60 MG Cap PO SCH (10:14)
[2018-01-15] MEDS: Furosemide 40 MG Tab PO SCH (10:14)
[2018-01-15] MEDS: Baclofen 10 MG Tab PO SCH ×3 (10:15→21:11)
[2018-01-15] MEDS: Warfarin 5 MG Tab PO SCH (15:39)
[2018-01-15] MEDS: atorvaSTATin 40 MG Tab PO SCH (21:12)
[2018-01-16] MEDS: DULoxetine 60 MG Cap PO SCH (08:12)
[2018-01-16] MEDS: Furosemide 40 MG Tab PO SCH (08:13)
[2018-01-16] MEDS: Baclofen 10 MG Tab PO SCH ×3 (08:13→20:27)
[2018-01-16] MEDS: Docusate Sodium 250 MG Cap PO SCH ×2 (08:13→20:27)
[2018-01-16] MEDS: Ascorbic Acid 500 MG Tab PO SCH ×2 (08:13→20:27)
[2018-01-16] MEDS: buPROPion 150 MG Tab.ER PO SCH (08:14)
[2018-01-16] MEDS: Warfarin 5 MG Tab PO SCH (16:46)
[2018-01-16] MEDS: atorvaSTATin 40 MG Tab PO SCH (20:27)
[2018-01-17] MEDS: Docusate Sodium 250 MG Cap PO SCH ×2 (09:03→20:23)
[2018-01-17] MEDS: DULoxetine 60 MG Cap PO SCH (09:03)
[2018-01-17] MEDS: Baclofen 10 MG Tab PO SCH ×3 (09:04→20:24)
[2018-01-17] MEDS: Furosemide 40 MG Tab PO SCH (09:04)
[2018-01-17] MEDS: buPROPion 150 MG Tab.ER PO SCH (09:05)
[2018-01-17] MEDS: Ascorbic Acid 500 MG Tab PO SCH ×2 (09:05→20:24)
[2018-01-17] MEDS: Warfarin 5 MG Tab PO SCH (16:37)
[2018-01-17] MEDS: atorvaSTATin 40 MG Tab PO SCH (20:24)
[2018-01-18] MEDS: DULoxetine 60 MG Cap PO SCH (08:12)
[2018-01-18] MEDS: Furosemide 40 MG Tab PO SCH (08:13)
[2018-01-18] MEDS: Ascorbic Acid 500 MG Tab PO SCH ×2 (08:13→20:41)
[2018-01-18] MEDS: buPROPion 150 MG Tab.ER PO SCH (08:13)
[2018-01-18] MEDS: Docusate Sodium 250 MG Cap PO SCH ×2 (08:13→20:40)
[2018-01-18] MEDS: Baclofen 10 MG Tab PO SCH ×3 (08:13→20:40)
[2018-01-18] MEDS: Warfarin 5 MG Tab PO SCH (16:56)
[2018-01-18] MEDS: atorvaSTATin 40 MG Tab PO SCH (20:41)
[2018-01-19] MEDS: Docusate Sodium 250 MG Cap PO SCH ×2 (08:04→20:01)
[2018-01-19] MEDS: Ascorbic Acid 500 MG Tab PO SCH ×2 (08:04→20:02)
[2018-01-19] MEDS: Baclofen 10 MG Tab PO SCH ×3 (08:04→20:02)
[2018-01-19] MEDS: buPROPion 150 MG Tab.ER PO SCH (08:04)
[2018-01-19] MEDS: DULoxetine 60 MG Cap PO SCH (08:04)
[2018-01-19] MEDS: Furosemide 40 MG Tab PO SCH (08:04)
[2018-01-19] MEDS: Warfarin 5 MG Tab PO SCH (15:49)
[2018-01-19] MEDS: atorvaSTATin 40 MG Tab PO SCH (20:02)
[2018-01-20] MEDS: DULoxetine 60 MG Cap PO SCH (08:30)
[2018-01-20] MEDS: Furosemide 40 MG Tab PO SCH (08:30)
[2018-01-20] MEDS: Docusate Sodium 250 MG Cap PO SCH ×2 (08:30→21:04)
[2018-01-20] MEDS: Baclofen 10 MG Tab PO SCH ×3 (08:30→21:05)
[2018-01-20] MEDS: Ascorbic Acid 500 MG Tab PO SCH ×2 (08:30→21:05)
[2018-01-20] MEDS: buPROPion 150 MG Tab.ER PO SCH (08:31)
[2018-01-20] MEDS: Warfarin 5 MG Tab PO SCH (15:59)
[2018-01-20] MEDS: atorvaSTATin 40 MG Tab PO SCH (21:05)
[2018-01-21] MEDS: DULoxetine 60 MG Cap PO SCH (08:22)
[2018-01-21] MEDS: Ascorbic Acid 500 MG Tab PO SCH ×2 (08:23→20:09)
[2018-01-21] MEDS: Furosemide 40 MG Tab PO SCH (08:23)
[2018-01-21] MEDS: Baclofen 10 MG Tab PO SCH ×3 (08:23→20:10)
[2018-01-21] MEDS: Docusate Sodium 250 MG Cap PO SCH ×2 (08:23→20:09)
[2018-01-21] MEDS: buPROPion 150 MG Tab.ER PO SCH (08:23)
[2018-01-21] MEDS: Warfarin 5 MG Tab PO SCH (16:13)
[2018-01-21] MEDS: Acetaminophen 325 MG Tab PO PRN (16:15)
[2018-01-21] MEDS: atorvaSTATin 40 MG Tab PO SCH (20:09)
[2018-01-22] MEDS: Ascorbic Acid 500 MG Tab PO SCH ×2 (08:34→20:27)
[2018-01-22] MEDS: Baclofen 10 MG Tab PO SCH ×3 (08:34→20:27)
[2018-01-22] MEDS: Docusate Sodium 250 MG Cap PO SCH ×2 (08:34→20:26)
[2018-01-22] MEDS: buPROPion 150 MG Tab.ER PO SCH (08:34)
[2018-01-22] MEDS: DULoxetine 60 MG Cap PO SCH (08:35)
[2018-01-22] MEDS: Furosemide 40 MG Tab PO SCH (08:35)
[2018-01-22] MEDS: Warfarin 5 MG Tab PO SCH (16:30)
[2018-01-22] MEDS: atorvaSTATin 40 MG Tab PO SCH (20:27)
--- NOTE | 2018-01-23 08:43 | PCM.PN ---
- General Info Date of Service: 01/23/18 Admission Dx/Problem (Free Text): Patient is without concerns. PT/OT will be changing his wound today. - Patient Data Vitals - Most Recent: Last Vital Signs Temp 97.5 F 01/21/18 08:22 Pulse 93 01/21/18 08:22 Resp 18 01/21/18 08:22 BP 133/88 01/21/18 08:22 Pulse Ox 91 L 01/21/18 08:22 Weight - Most Recent: 291 lb 14.4 oz I&O - Last 24 Hours: Intake & Output 01/22/18 01/23/18 01/23/18 22:59 06:59 14:59 Intake Total 875 200 Output Total 500 500 Balance 375 -300 Med Orders - Current: Current Medications Acetaminophen (Tylenol) 650 mg PO Q4H PRN PRN Reason: PAIN Last Admin: 01/21/18 16:15 Dose: 650 mg Albuterol/Ipratropium (Duoneb 3.0-0.5 Mg/3 Ml) 3 ml NEB QID PRN PRN Reason: wheezing Aripiprazole (Abilify) 2 mg PO DAILY [facility] Last Admin: 01/22/18 08:34 Dose: 2 mg Ascorbic Acid (Vitamin C) 500 mg PO BID [facility] Last Admin: 01/22/18 20:27 Dose: 500 mg Atorvastatin Calcium (Lipitor) 40 mg PO BEDTIME [facility] Last Admin: 01/22/18 20:27 Dose: 40 mg Baclofen (Lioresal) 10 mg PO TID [facility] Last Admin: 01/22/18 20:27 Dose: 10 mg Bupropion HCl (Wellbutrin Xl) 300 mg PO DAILY [facility] Last Admin: 01/22/18 08:34 Dose: 300 mg Docusate Sodium (Dok) 250 mg PO BID [facility] Last Admin: 01/22/18 20:26 Dose: 250 mg Duloxetine HCl (Cymbalta) 60 mg PO DAILY [facility] Last Admin: 01/22/18 08:35 Dose: 60 mg Furosemide (Lasix) 40 mg PO DAILY [facility] Last Admin: 01/22/18 08:35 Dose: 40 mg Sodium Chloride (Saline Flush) 10 ml FLUSH ASDIRECTED PRN PRN Reason: Keep Vein Open Warfarin Sodium (Coumadin) 5 mg PO 1600 [facility] Last Admin: 01/22/18 16:30 Dose: 5 mg Warfarin Sodium (Coumadin Sliding Scale) 0 each PO ASDIRECTED [facility] Discontinued Medications Ascorbic Acid (Vitamin C) 500 mg PO DAILY [facility] Last Admin: 01/02/18 08:17 Dose: 500 mg Enoxaparin Sodium (Lovenox) 140 mg SUBCUT Q12H [facility] Last Admin: 10/27/17 20:30 Dose: 140 mg Vancomycin HCl 2,500 mg/ (Sodium Chloride) 500 mls @ 200 mls/hr IV Q18H [facility] Last Admin: 11/22/17 18:35 Dose: 200 mls/hr Vancomycin HCl 2,000 mg/ (Sodium Chloride) 500 mls @ 250 mls/hr IV Q12H [facility] Last Admin: 11/25/17 08:52 Dose: 250 mls/hr Iopamidol (Isovue-370 (76%)) 83 ml IV . DIRECTED ONE Stop: 11/29/17 13:54 Last Admin: 11/29/17 14:10 Dose: 83 ml Levofloxacin (Levaquin) 500 mg PO Q24H [facility] Last Admin: 11/07/17 13:23 Dose: 500 mg Levofloxacin (Levaquin) 750 mg PO Q24H [facility] Last Admin: 11/23/17 00:53 Dose: 750 mg Megestrol Acetate (Megace 40 Mg/Ml Susp) 800 mg PO DAILY [facility] Last Admin: 12/07/17 08:46 Dose: 800 mg Sodium Chloride (Saline Flush) 10 ml FLUSH ASDIRECTED PRN PRN Reason: Keep Vein Open Last Admin: 11/29/17 11:15 Dose: 10 ml Trimethoprim/Sulfamethoxazole (Septra Ds) 1 tab PO BID [facility] Stop: 11/30/17 09:01 Last Admin: 11/30/17 08:01 Dose: 1 tab Vancomycin HCl (Pharmacy To Dose - Vancomycin) 1 dose .XX ASDIRECTED [facility] Warfarin Sodium (Coumadin) 7.5 mg PO 1600 [facility] Stop: 10/27/17 16:01 Last Admin: 10/27/17 16:17 Dose: 7.5 mg Warfarin Sodium (Coumadin) 2.5 mg PO 1600 [facility] Stop: 10/28/17 16:01 Last Admin: 10/28/17 16:52 Dose: 2.5 mg Warfarin Sodium (Coumadin) 2.5 mg PO 1600 [facility] Stop: 10/29/17 16:01 Last Admin: 10/29/17 16:28 Dose: 2.5 mg Warfarin Sodium (Coumadin) 3 mg PO 1600 [facility] Stop: 10/30/17 16:01 Last Admin: 10/30/17 16:58 Dose: 3 mg Warfarin Sodium (Coumadin) Confirm Administered Dose 1 mg .ROUTE .STK-MED ONE Stop: 10/30/17 16:56 Last Admin: 10/30/17 16:57 Dose: Not Given Warfarin Sodium (Coumadin) Confirm Administered Dose 2 mg .ROUTE .STK-MED ONE Stop: 10/30/17 16:56 Last Admin: 10/30/17 18:07 Dose: Not Given Warfarin Sodium 5 mg/ Warfarin (Sodium 2.5 mg) 7.5 mg PO 1600 [facility] Stop: 10/31/17 16:01 Last Admin: 10/31/17 16:55 Dose: 7.5 mg Warfarin Sodium 5 mg/ Warfarin (Sodium 2.5 mg) 7.5 mg PO 1600 [facility] Stop: 11/01/17 16:01 Last Admin: 11/01/17 16:01 Dose: 7.5 mg Warfarin Sodium (Coumadin) 5 mg PO 1600 [facility] Stop: 11/02/17 16:30 Last Admin: 11/02/17 15:38 Dose: 5 mg Warfarin Sodium (Coumadin) 2 mg PO 1600 [facility] Stop: 11/03/17 16:01 Last Admin: 11/03/17 18:19 Dose: 2 mg Warfarin Sodium (Coumadin) 4 mg PO DAILY@1600 [facility] Last Admin: 11/12/17 16:57 Dose: 4 mg Warfarin Sodium (Coumadin) 2 mg PO 1600 [facility] Stop: 11/14/17 16:01 Last Admin: 11/14/17 17:42 Dose: 2 mg Warfarin Sodium (Coumadin) 3 mg PO 1600 [facility] Last Admin: 11/16/17 16:24 Dose: 3 mg Warfarin Sodium (Coumadin) 5 mg PO 1600 [facility] Stop: 11/17/17 16:01 Last Admin: 11/17/17 16:20 Dose: 5 mg Warfarin Sodium (Coumadin) 4 mg PO DAILY@1600 [facility] Last Admin: 11/23/17 15:42 Dose: 4 mg Warfarin Sodium (Coumadin) 5 mg PO 11/24/17@1600 [facility] Stop: 11/24/17 17:00 Last Admin: 11/24/17 16:35 Dose: 5 mg Warfarin Sodium (Coumadin) 5 mg PO 11/25/17@1600 [facility] Stop: 11/25/17 18:00 Last Admin: 11/25/17 15:58 Dose: 5 mg Warfarin Sodium (Coumadin) 3 mg PO 1600 [facility] Stop: 11/26/17 17:30 Last Admin: 11/26/17 15:20 Dose: 3 mg Warfarin Sodium (Coumadin) 3 mg PO ONETIME ONE Stop: 11/27/17 16:01 Last Admin: 11/27/17 15:46 Dose: 3 mg Warfarin Sodium (Coumadin) 4 mg PO DAILY@1600 [facility] Last Admin: 12/04/17 16:43 Dose: 4 mg Warfarin Sodium 5 mg/ Warfarin (Sodium 2.5 mg) 7.5 mg PO 1600 [facility] Stop: 12/05/17 16:01 Last Admin: 12/06/17 03:45 Dose: Not Given Zinc Sulfate (Zincate) 220 mg PO DAILY@1200 [facility] Last Admin: 10/28/17 13:11 Dose: 220 mg Zinc Sulfate (Zincate) 220 mg PO DAILY [facility] Last Admin: 01/03/18 08:35 Dose: 220 mg - Exam General: Alert, Oriented, Cooperative Skin: Other (Open wound right but talks. They removed the wound VAC and it's improving. Still open and needing wound care.) - Problem List & Annotations (1) DVT (deep venous thrombosis) SNOMED Code(s): 511991976 Code(s): I82.409 - ACUTE EMBOLISM AND THOMBOS UNSP DEEP VN UNSP LOWER EXTREMITY Status: Acute Current Visit: Yes Qualifiers: DVT location: lower extremity Chronicity: unspecified (2) Decubitus skin ulcer SNOMED Code(s): 586160508 Code(s): L89.90 - PRESSURE ULCER OF UNSPECIFIED SITE, UNSPECIFIED STAGE Status: Acute Current Visit: Yes Qualifiers: Pressure ulcer location: buttock Pressure ulcer stage: stage 3 Laterality : right Qualified Code(s): L89.313 - Pressure ulcer of right buttock, stage 3 Annotation/Comment:: Surgery continues to follow. Wound VAC in place. Significantly improved. (3) Encounter for management of wound VAC SNOMED Code(s): 233660165 Code(s): IRE6571 - Status: Acute Current Visit: Yes (4) Pulmonary emboli SNOMED Code(s): 95389079 Code(s): I26.99 - OTHER PULMONARY EMBOLISM WITHOUT ACUTE COR PULMONALE Status: Acute Current Visit: Yes Qualifiers: Pulmonary embolism type: other Chronicity: unspecified Annotation/Comment:: Anticoagulation as above. - Problem List Review Problem List Initiated/Reviewed/Updated: Yes - My Orders Last 24 Hours: My Active Orders 01/22/18 15:08 Bladder Scan [RC] ONETIME 01/23/18 08:10 Ready for Discharge [RC] PER UNIT ROUTINE - Plan Plan:: Discharge to [facility] with a wound VAC, Rivera catheter, Coumadin.
--- NOTE | 2018-01-23 08:46 | PCM.DCSUM1 ---
Discharge Summary - Hospital Course Free Text/Narrative:: Hospital course-patient was places swing bed for wound care. He had the wound VAC changed 3 times a week. And slowly the wound improved. And nutritional consult for weight loss and also for protein to help the wound healed. He is on Coumadin was managed by pharmacy for his DVT/PE. [facility] and Rivera catheter Coumadin. Brief History: History of present illness: Patient has a history of multiple sclerosis and has been confined to a wheelchair for the most part for the past few years. A few months ago he was found to have a decubitus ulcer which she had seen Dr. Hough 4. He was supposed to follow up and when he came back into the clinic yesterday for follow-up, the original decubitus ulcer had healed but he developed a very large second decubitus ulcer which Dr. Hough felt should be debrided in the operating room. The patient's white count was quite elevated at almost 17,000 and he was admitted to the hospital for further management and antibiotic therapy. Patient currently lives in an assisted living type setting and requires significant help because of his weight and lack of mobility in repositioning so recommendation was made to look for long-term placement where the patient will have 24-hour nursing care. Diagnosis: Stroke: No Modified Troy Scale: No Symptoms at All Modified Troy Scale Score: 0 - Discharge Data Discharge Date: 01/23/18 Discharge Disposition: DC/Tfer to [facility] Condition: Good - Discharge Diagnosis/Problem(s) (1) DVT (deep venous thrombosis) SNOMED Code(s): 304582697 ICD Code: I82.409 - ACUTE EMBOLISM AND THOMBOS UNSP DEEP VN UNSP LOWER EXTREMITY Status: Acute Current Visit: Yes Qualifiers: DVT location: lower extremity Chronicity: unspecified (2) Decubitus skin ulcer SNOMED Code(s): 224097346 ICD Code: L89.90 - PRESSURE ULCER OF UNSPECIFIED SITE, UNSPECIFIED STAGE Status: Acute Current Visit: Yes Problem Details: Surgery continues to follow. Wound VAC in place. Significantly improved. Qualifiers: Pressure ulcer location: buttock Pressure ulcer stage: stage 3 Laterality : right Qualified Code(s): L89.313 - Pressure ulcer of right buttock, stage 3 (3) Encounter for management of wound VAC SNOMED Code(s): 159852982 ICD Code: [id number] - Status: Acute Current Visit: Yes (4) Pulmonary emboli SNOMED Code(s): 34985048 ICD Code: I26.99 - OTHER PULMONARY EMBOLISM WITHOUT ACUTE COR PULMONALE Status: Acute Current Visit: Yes Problem Details: Anticoagulation as above. Qualifiers: Pulmonary embolism type: other Chronicity: unspecified - Patient Summary/Data Consults: Consultations 10/27/17 12:50 PT Evaluation and Treatment [CONS] Routine Please Evaluate and Treat. PT Reason for Consult: Ambulation, wound vac management This query below is only for informational purposes and is not editable. 01/02/18 14:16 OT Evaluation and Treatment [CONS] Routine Please Evaluate and Treat. OT Reason for Consult: weight bearing This query below is only for informational purposes and is not editable. Admission Diagnosis/Problem: Weakness 01/02/18 14:17 PT Evaluation and Treatment [CONS] Routine Please Evaluate and Treat. PT Reason for Consult: work on weight bearing This query below is only for informational purposes and is not editable. Admission Diagnosis/Problem: Weakness 01/02/18 14:30 OT Evaluation and Treatment [CONS] Routine Please Evaluate and Treat. OT Reason for Consult: weight bearing This query below is only for informational purposes and is not editable. - Patient Instructions Diet, Other: High-protein Activity, Other: Wheelchair, as tolerated Driving: Do Not Drive Showering/Bathing: May Shower Notify Provider of: Fever, Drainage Other/Special Instructions: 1. Recheck with Dr. Hough in one month. 2. Transfer to [facility]. 3. Wound care with a wound VAC. 4. Set him up for the INR clinic at [place]. 5. Wound care per PT. 6. Rivera catheter - Discharge Plan Prescriptions/Med Rec: Ascorbic Acid [Vitamin C] 500 mg PO BID #60 tablet Warfarin [Coumadin] 5 mg PO 1600 #30 tablet Home Medications: Home Meds Acetaminophen 650 mg PO Q4H PRN 10/14/17 [History] Baclofen 10 mg PO TID 10/14/17 [History] DULoxetine [Cymbalta] 60 mg PO DAILY 10/14/17 [History] Docusate Calcium [Stool Softener] 240 mg PO BID 10/14/17 [History] Furosemide [Lasix] 40 mg PO DAILY 10/14/17 [History] Psyllium [Metamucil] 1 gm PO DAILY 10/14/17 [History] atorvaSTATin [Lipitor] 40 mg PO BEDTIME 10/14/17 [History] buPROPion HCl [Wellbutrin Xl] 300 mg PO DAILY 10/14/17 [History] ARIPiprazole [Abilify] 2 mg PO DAILY #30 tablet 10/27/17 [Rx] Albuterol/Ipratropium [DuoNeb 3.0-0.5 MG/3 ML] 3 ml NEB QIDRT PRN #60 neb [Rx] Ascorbic Acid [Vitamin C] 500 mg PO DAILY #30 tablet 10/27/17 [Rx] Ascorbic Acid [Vitamin C] 500 mg PO BID #60 tablet 01/23/18 [Rx] Warfarin [Coumadin] 5 mg PO 1600 #30 tablet 01/23/18 [Rx] Patient Handouts: Stroke Prevention, [id number], Ischemic Stroke, Easy-to- Read, Preventing Antibiotic Resistance Forms: Take Home DC Nutrition Plan - Discharge Summary/Plan Comment DC Time >30 min.: No - Patient Data Vitals - Most Recent: Last Vital Signs Temp 97.5 F 01/21/18 08:22 Pulse 93 01/21/18 08:22 Resp 18 01/21/18 08:22 BP 133/88 01/21/18 08:22 Pulse Ox 91 L 01/21/18 08:22 Weight - Most Recent: 291 lb 14.4 oz I&O - Last 24 hours: Intake & Output 01/22/18 01/23/18 01/23/18 22:59 06:59 14:59 Intake Total 875 200 Output Total 500 500 Balance 375 -300 Med Orders - Current: Current Medications Acetaminophen (Tylenol) 650 mg PO Q4H PRN PRN Reason: PAIN Last Admin: 01/21/18 16:15 Dose: 650 mg Albuterol/Ipratropium (Duoneb 3.0-0.5 Mg/3 Ml) 3 ml NEB QID PRN PRN Reason: wheezing Aripiprazole (Abilify) 2 mg PO DAILY [facility] Last Admin: 01/22/18 08:34 Dose: 2 mg Ascorbic Acid (Vitamin C) 500 mg PO BID [facility] Last Admin: 01/22/18 20:27 Dose: 500 mg Atorvastatin Calcium (Lipitor) 40 mg PO BEDTIME [facility] Last Admin: 01/22/18 20:27 Dose: 40 mg Baclofen (Lioresal) 10 mg PO TID [facility] Last Admin: 01/22/18 20:27 Dose: 10 mg Bupropion HCl (Wellbutrin Xl) 300 mg PO DAILY [facility] Last Admin: 01/22/18 08:34 Dose: 300 mg Docusate Sodium (Dok) 250 mg PO BID [facility] Last Admin: 01/22/18 20:26 Dose: 250 mg Duloxetine HCl (Cymbalta) 60 mg PO DAILY [facility] Last Admin: 01/22/18 08:35 Dose: 60 mg Furosemide (Lasix) 40 mg PO DAILY [facility] Last Admin: 01/22/18 08:35 Dose: 40 mg Sodium Chloride (Saline Flush) 10 ml FLUSH ASDIRECTED PRN PRN Reason: Keep Vein Open Warfarin Sodium (Coumadin) 5 mg PO 1600 [facility] Last Admin: 01/22/18 16:30 Dose: 5 mg Warfarin Sodium (Coumadin Sliding Scale) 0 each PO ASDIRECTED [facility] Discontinued Medications Ascorbic Acid (Vitamin C) 500 mg PO DAILY [facility] Last Admin: 01/02/18 08:17 Dose: 500 mg Enoxaparin Sodium (Lovenox) 140 mg SUBCUT Q12H [facility] Last Admin: 10/27/17 20:30 Dose: 140 mg Vancomycin HCl 2,500 mg/ (Sodium Chloride) 500 mls @ 200 mls/hr IV Q18H [facility] Last Admin: 11/22/17 18:35 Dose: 200 mls/hr Vancomycin HCl 2,000 mg/ (Sodium Chloride) 500 mls @ 250 mls/hr IV Q12H [facility] Last Admin: 11/25/17 08:52 Dose: 250 mls/hr Iopamidol (Isovue-370 (76%)) 83 ml IV . DIRECTED ONE Stop: 11/29/17 13:54 Last Admin: 11/29/17 14:10 Dose: 83 ml Levofloxacin (Levaquin) 500 mg PO Q24H [facility] Last Admin: 11/07/17 13:23 Dose: 500 mg Levofloxacin (Levaquin) 750 mg PO Q24H [facility] Last Admin: 11/23/17 00:53 Dose: 750 mg Megestrol Acetate (Megace 40 Mg/Ml Susp) 800 mg PO DAILY [facility] Last Admin: 12/07/17 08:46 Dose: 800 mg Sodium Chloride (Saline Flush) 10 ml FLUSH ASDIRECTED PRN PRN Reason: Keep Vein Open Last Admin: 11/29/17 11:15 Dose: 10 ml Trimethoprim/Sulfamethoxazole (Septra Ds) 1 tab PO BID [facility] Stop: 11/30/17 09:01 Last Admin: 11/30/17 08:01 Dose: 1 tab Vancomycin HCl (Pharmacy To Dose - Vancomycin) 1 dose .XX ASDIRECTED [facility] Warfarin Sodium (Coumadin) 7.5 mg PO 1600 [facility] Stop: 10/27/17 16:01 Last Admin: 10/27/17 16:17 Dose: 7.5 mg Warfarin Sodium (Coumadin) 2.5 mg PO 1600 [facility] Stop: 10/28/17 16:01 Last Admin: 10/28/17 16:52 Dose: 2.5 mg Warfarin Sodium (Coumadin) 2.5 mg PO 1600 [facility] Stop: 10/29/17 16:01 Last Admin: 10/29/17 16:28 Dose: 2.5 mg Warfarin Sodium (Coumadin) 3 mg PO 1600 [facility] Stop: 10/30/17 16:01 Last Admin: 10/30/17 16:58 Dose: 3 mg Warfarin Sodium (Coumadin) Confirm Administered Dose 1 mg .ROUTE .STK-MED [facility] Stop: 10/30/17 16:56 Last Admin: 10/30/17 16:57 Dose: Not Given Warfarin Sodium (Coumadin) Confirm Administered Dose 2 mg .ROUTE .STK-MED ONE Stop: 10/30/17 16:56 Last Admin: 10/30/17 18:07 Dose: Not Given Warfarin Sodium 5 mg/ Warfarin (Sodium 2.5 mg) 7.5 mg PO 1600 [facility] Stop: 10/31/17 16:01 Last Admin: 10/31/17 16:55 Dose: 7.5 mg Warfarin Sodium 5 mg/ Warfarin (Sodium 2.5 mg) 7.5 mg PO 1600 [facility] Stop: 11/01/17 16:01 Last Admin: 11/01/17 16:01 Dose: 7.5 mg Warfarin Sodium (Coumadin) 5 mg PO 1600 [facility] Stop: 11/02/17 16:30 Last Admin: 11/02/17 15:38 Dose: 5 mg Warfarin Sodium (Coumadin) 2 mg PO 1600 [facility] Stop: 11/03/17 16:01 Last Admin: 11/03/17 18:19 Dose: 2 mg Warfarin Sodium (Coumadin) 4 mg PO DAILY@1600 [facility] Last Admin: 11/12/17 16:57 Dose: 4 mg Warfarin Sodium (Coumadin) 2 mg PO 1600 [facility] Stop: 11/14/17 16:01 Last Admin: 11/14/17 17:42 Dose: 2 mg Warfarin Sodium (Coumadin) 3 mg PO 1600 [facility] Last Admin: 11/16/17 16:24 Dose: 3 mg Warfarin Sodium (Coumadin) 5 mg PO 1600 [facility] Stop: 11/17/17 16:01 Last Admin: 11/17/17 16:20 Dose: 5 mg Warfarin Sodium (Coumadin) 4 mg PO DAILY@1600 [facility] Last Admin: 11/23/17 15:42 Dose: 4 mg Warfarin Sodium (Coumadin) 5 mg PO 11/24/17@1600 [facility] Stop: 11/24/17 17:00 Last Admin: 11/24/17 16:35 Dose: 5 mg Warfarin Sodium (Coumadin) 5 mg PO 11/25/17@1600 [facility] Stop: 11/25/17 18:00 Last Admin: 11/25/17 15:58 Dose: 5 mg Warfarin Sodium (Coumadin) 3 mg PO 1600 [facility] Stop: 11/26/17 17:30 Last Admin: 11/26/17 15:20 Dose: 3 mg Warfarin Sodium (Coumadin) 3 mg PO ONETIME ONE Stop: 11/27/17 16:01 Last Admin: 11/27/17 15:46 Dose: 3 mg Warfarin Sodium (Coumadin) 4 mg PO DAILY@1600 [facility] Last Admin: 12/04/17 16:43 Dose: 4 mg Warfarin Sodium 5 mg/ Warfarin (Sodium 2.5 mg) 7.5 mg PO 1600 [facility] Stop: 12/05/17 16:01 Last Admin: 12/06/17 03:45 Dose: Not Given Zinc Sulfate (Zincate) 220 mg PO DAILY@1200 [facility] Last Admin: 10/28/17 13:11 Dose: 220 mg Zinc Sulfate (Zincate) 220 mg PO DAILY [facility] Last Admin: 01/03/18 08:35 Dose: 220 mg
[2018-01-23] MEDS: Docusate Sodium 250 MG Cap PO SCH (08:56)
[2018-01-23] MEDS: Ascorbic Acid 500 MG Tab PO SCH (08:56)
[2018-01-23] MEDS: buPROPion 150 MG Tab.ER PO SCH (08:56)
[2018-01-23] MEDS: Baclofen 10 MG Tab PO SCH (08:56)
[2018-01-23] MEDS: DULoxetine 60 MG Cap PO SCH (08:56)
[2018-01-23] MEDS: Furosemide 40 MG Tab PO SCH (08:56)
[2018-01-23] MEDS ORDERED: Tuberculin, PPD 5 Units/0.1 ML 1 ML MDV IDERM ONE (09:06)
[2018-01-23] MEDS ORDERED: Tuberculin, PPD 5 Units/0.1 ML 1 ML MDV ONE (09:09)
== END 2018-01-23 09:30 | DRG 592 ==
LOC: FB.MS 10:00
PROVIDERS: ADMIT Family Medicine; ATTEND Family Medicine
DX: L89.313 Pressure ulcer of right buttock, stage 3 (principal); J18.9 Pneumonia, unspecified organism; I26.99 Other pulmonary embolism without acute cor pulmonale; Z66 Do not resuscitate; N39.0 Urinary tract infection, site not specified; I82.409 Acute embolism and thrombosis of unspecified deep veins of unspecified lower extremity; Z68.43 Body mass index [BMI] 50.0-59.9, adult; E66.2 Morbid (severe) obesity with alveolar hypoventilation; Y95 Nosocomial condition; B95.62 Methicillin resistant Staphylococcus aureus infection as the cause of diseases classified elsewhere; G35 Multiple sclerosis; Z99.3 Dependence on wheelchair; F32.9 Major depressive disorder, single episode, unspecified; E78.5 Hyperlipidemia, unspecified; G62.9 Polyneuropathy, unspecified; Z11.1 Encounter for screening for respiratory tuberculosis; R32 Unspecified urinary incontinence; E88.09 Other disorders of plasma-protein metabolism, not elsewhere classified; D56.9 Thalassemia, unspecified; R33.9 Retention of urine, unspecified; Z51.89 Encounter for other specified aftercare; Z79.01 Long term (current) use of anticoagulants; H54.7 Unspecified visual loss; Z88.8 Allergy status to other drugs, medicaments and biological substances; Z92.89 Personal history of other medical treatment; Z22.322 Carrier or suspected carrier of Methicillin resistant Staphylococcus aureus; N31.9 Neuromuscular dysfunction of bladder, unspecified
CPT/HCPCS: 36415; 51701; 51702; 51798; 71275; 80053; 80202; 81001; 82040; 85025; 85610; 86580; 87040; 87086; 87088; 87186; 97110-GO; 97168-GO; 97530-GO; 97542-GO; 97606-GP; A9270-GY; J1650; J3370; J7040; J7050; Q9967

== ENCOUNTER → 2019-06-20 | Outpatient (CLI) | payer MEDICARE, OTHER | LOC: FB.LABRIV 04:10 | PROVIDERS: ATTEND Internal Medicine | DX: L89.314 Pressure ulcer of right buttock, stage 4 (principal) | CPT/HCPCS: 36415; 82565; 85027; 86140 ==

== ENCOUNTER 2019-11-17 10:15 | Emergency (ER) | payer MEDICARE, OTHER ==
[2019-11-17] MEDS: Sodium Chloride 0.9% 10 ML Syringe FLUSH PRN ×2 (10:20→12:10)
[2019-11-17] MEDS ORDERED: Furosemide 40 MG/4 ML VIAL ONE (10:23)
[2019-11-17] MEDS ORDERED: Albuterol/Ipratropium 3.0-0.5 MG/3 ML Neb Soln ONE (10:27)
[2019-11-17] MEDS ORDERED: Azithromycin 500 MG Vial ONE (10:29)
[2019-11-17] MEDS ORDERED: Albuterol/Ipratropium 3.0-0.5 MG/3 ML Neb Soln NEB ONE ×3 (10:42→11:44)
--- NOTE | 2019-11-17 10:47 | EDM.PDOC ---
ED HPI GENERAL MEDICAL PROBLEM - General Chief Complaint: Respiratory Problem Stated Complaint: RESPIRATORY DISTRESS Time Seen by Provider: 11/17/19 10:15 Source of Information: Reports: Patient, Residential Records History Limitations: Reports: No Limitations, Respiratory Distress - History of Present Illness INITIAL COMMENTS - FREE TEXT/NARRATIVE: pt sent in from SNF has been diagnosed 11/06/2019 with COVID-19 , had been stable till last 2 nights when noted to have decreasing oxygen saturation this am oxygen was down to 85% was given oxygen via NC and increased to 88% has not been able to improve since then has co-morbid conditions MRSA Chronic foot ulcer Pulmonary embolism Multiple sclerosis Onset: Today, Gradual Onset Date: 11/16/19 Duration: Day(s): (2), Getting Worse, Waxing/Waning Location: Reports: Chest (developed chest pain this am with sob , which has since improved) Quality: Reports: Pressure Severity: Mild Improves with: Reports: Medication Context: Reports: Sick Contact Associated Symptoms: Reports: Cough, Malaise, Shortness of Breath - Related Data Allergies Allergy/AdvReac Type Severity Reaction Status Date / Time procaine [From Novocain] Allergy Numbness Verified 11/17/19 11:04 vancomycin Allergy Rash Verified 11/17/19 11:04 Home Meds: Home Meds Acetaminophen 650 mg PO Q4H PRN 10/14/17 [History] Baclofen 10 mg PO TID 10/14/17 [History] DULoxetine [Cymbalta] 60 mg PO DAILY 10/14/17 [History] Docusate Calcium [Stool Softener] 240 mg PO BID 10/14/17 [History] buPROPion HCl [Wellbutrin Xl] 150 mg PO DAILY 10/14/17 [History] Albuterol/Ipratropium [DuoNeb 3.0-0.5 MG/3 ML] 3 ml NEB QIDRT PRN #60 neb [Rx] Magnesium Hydroxide [Milk of Magnesia] 30 ml PO DAILY PRN 02/07/18 [History] Multivitamin with Minerals [Multivitamins with Minerals] 1 each PO DAILY [History] Apixaban [Eliquis] 5 mg PO BID 11/17/19 [History] Ascorbic Acid [Vitamin C] 1,000 mg PO DAILY 11/17/19 [History] Calcium Polycarbophil 1,250 mg PO DAILY 11/17/19 [History] Morphine [Morphine 20 MG/ML Soln] 5 mg PO Q4H PRN 11/17/19 [History] Saccharomyces Boulardii [Florastor] 250 mg PO BID 11/17/19 [History] Past Medical History HEENT History: Reports: Impaired Vision Other HEENT History: wears glasses that are not with him Cardiovascular History: Reports: High Cholesterol Other Cardiovascular History: edema to lower extremeties, had DVT this hospitalization Respiratory History: Reports: PE, SOB, Other (See Below) Other Respiratory History: sob with activity partly from obese abdomen Gastrointestinal History: Reports: None Genitourinary History: Reports: Urinary Incontinence, Other (See Below) Other Genitourinary History: has salvador inplace due to inc and woundvac Musculoskeletal History: Reports: Other (See Below) Other Musculoskeletal History: multiple sclerosis muscle spasms requires a full body lift Neurological History: Reports: CVA, Other (See Below) Other Neuro History: neuropathic pain, left sided weakness Psychiatric History: Reports: Depression Other Psychiatric History: from record has depressive disorder Endocrine/Metabolic History: Reports: None Hematologic History: Reports: None Immunologic History: Reports: None Oncologic (Cancer) History: Reports: None Other Dermatologic History: scabbed areas on knees also decubitus of right buttock. 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 buttock - Infectious Disease History Infectious Disease History: Reports: Influenza, Measles, Mononucleosis, Mumps, Pertussis (Whooping Cough), Rheumatic Fever - Past Surgical History Head Surgeries/Procedures: Reports: None HEENT Surgical History: Reports: Other (See Below) Other HEENT Surgeries/Procedures: states he has dental implants Cardiovascular Surgical History: Reports: None Respiratory Surgical History: Reports: None GI Surgical History: Reports: EGD Male Surgical History: Reports: Other (See Below) Other Male Surgeries/Procedures: hypertrophy of prostate without urinary obstruction Endocrine Surgical History: Reports: None Neurological Surgical History: Reports: None Musculoskeletal Surgical History: Reports: None Oncologic Surgical History: Reports: None Dermatological Surgical History: Reports: Other (See Below) Social & Family History - Family History Family Medical History: Noncontributory Endocrine/Metabolic: Reports: Diabetes, type II - Caffeine Use Caffeine Use: Reports: Tea Caffeine Use Comment: 1-2 cups a day ED ROS GENERAL - Review of Systems Review Of Systems: Comprehensive ROS is negative, except as noted in HPI. Constitutional: Reports: Malaise, Weakness, Decreased Appetite. Denies: Fever HEENT: Reports: No Symptoms Respiratory: Reports: Shortness of Breath, Cough. Denies: Wheezing, Sputum, Hemoptysis Cardiovascular: Reports: Chest Pain, Dyspnea on Exertion Endocrine: Reports: No Symptoms GI/Abdominal: Reports: No Symptoms : Reports: No Symptoms Musculoskeletal: Reports: No Symptoms Skin: Denies: Wound (one the heals and in the perineum) Neurological: Reports: Weakness Psychiatric: Reports: No Symptoms Hematologic/Lymphatic: Reports: Anemia Immunologic: Reports: No Symptoms ED EXAM, GENERAL - Physical Exam Exam: See Below Exam Limited By: No Limitations General Appearance: Alert, WD/WN, Mild Distress Eye Exam: Bilateral Eye: EOMI Ears: Normal External Exam Nose: Normal Inspection Throat/Mouth: Normal Oropharynx Head: Atraumatic, Normocephalic Neck: Normal Inspection, Supple, Non-Tender Respiratory/Chest: Decreased Breath Sounds, Crackles (bilateral bawses , worse on the left side) Cardiovascular: Regular Rate, Rhythm GI/Abdominal: Soft, Non-Tender Extremities: Pedal Edema, Slow Capillary Refill, Joint Swelling, Leg Pain, Mottled, Pallor, Redness, Other (pt in boot : has healing ulcer) Neurological: Alert, Oriented, CN II-XII Intact Psychiatric: Normal Affect, Normal Mood Skin Exam: Decubitus (heel and perineum) EKG INTERPRETATION Rhythm: NSR [place]: Normal P-Wave: Present QRS: Normal ST-T: Normal Course - Vital Signs Last Recorded V/S: Last Vital Signs Temp Pulse 90 11/17/19 11:50 Resp BP Pulse Ox 92 L 11/17/19 11:50 - Orders/Labs/Meds Orders: Active Orders 24 hr Category Date Time Status EKG Documentation Completion [RC] ASDIRECTED Care 11/17/19 10:15 Active RT Aerosol Therapy [RC] ASDIRECTED Care 11/17/19 10:42 Active RT Aerosol Therapy [RC] ASDIRECTED Care 11/17/19 10:56 Active RT Aerosol Therapy [RC] ASDIRECTED Care 11/17/19 11:44 Active Chest 1V Frontal [CR] Stat Exams 11/17/19 10:28 Taken EKG 12 Lead [EK] Routine Ther 11/17/19 10:15 Ordered Labs: Laboratory Tests 11/17/19 11/17/19 11/17/19 Range/Units 10:35 10:35 10:35 WBC 6.3 (4.5-12.0) X10-3/uL RBC 6.13 H (4.30-5.75) x10(6)uL Hgb 13.2 L (13.5-17.8) g/dL Hct 41.6 (30.0-51.3) % MCV 67.9 L (80-96) fL MCH 21.5 L (27.7-33.6) pg MCHC 31.6 L (32.2-35.4) g/dL RDW 15.7 H (11.5-15.5) % Plt Count 450 H (125-369) X10(3)uL MPV 7.3 L (7.4-10.4) fL Add Manual Diff Yes Neutrophils % (Manual) 84 H (46-82) % Band Neutrophils % 1 (0-6) % Lymphocytes % (Manual) 11 L (13-37) % Monocytes % (Manual) 4 (4-12) % Hypochromasia Few Microcytosis Many H PT (9.0-11.1) sec INR (1.00-1.24) Sodium 138 (135-145) mmol/L Potassium 4.4 (3.5-5.3) mmol/L Chloride 102 (100-110) mmol/L Carbon Dioxide 26 (21-32) mmol/L BUN 13 (7-18) mg/dL Creatinine 0.8 (0.70-1.30) mg/dL Est Cr Clr Drug Dosing TNP Estimated GFR (MDRD) > 60 (>60) BUN/Creatinine Ratio 16.3 (9-20) Glucose 131 H (80-116) mg/dL Lactic Acid (0.4-2.0) mmol/L Calcium 8.1 L (8.6-10.2) mg/dL Total Bilirubin 0.5 (0.1-1.3) mg/dL AST 70 H D (5-25) IU/L ALT 71 H D (12-36) U/L Alkaline Phosphatase 143 H (56-112) IU/L Troponin I 54.0 (4.0-60.3) pg/mL C-Reactive Protein (0.5-0.9) mg/dL NT-Pro-B Natriuret Pep (<=125) pg/mL Total Protein 7.1 (6.0-8.0) g/dL Albumin 2.3 L (3.2-4.6) g/dL Globulin 4.8 g/dL Albumin/Globulin Ratio 0.5 11/17/19 11/17/19 11/17/19 Range/Units 10:35 10:35 10:35 WBC (4.5-12.0) X10-3/uL RBC (4.30-5.75) x10(6)uL Hgb (13.5-17.8) g/dL Hct (30.0-51.3) % MCV (80-96) fL MCH (27.7-33.6) pg MCHC (32.2-35.4) g/dL RDW (11.5-15.5) % Plt Count (125-369) X10(3)uL MPV (7.4-10.4) fL Add Manual Diff Neutrophils % (Manual) (46-82) % Band Neutrophils % (0-6) % Lymphocytes % (Manual) (13-37) % Monocytes % (Manual) (4-12) % Hypochromasia Microcytosis PT 10.7 (9.0-11.1) sec INR 0.99 L (1.00-1.24) Sodium (135-145) mmol/L Potassium (3.5-5.3) mmol/L Chloride (100-110) mmol/L Carbon Dioxide (21-32) mmol/L BUN (7-18) mg/dL Creatinine (0.70-1.30) mg/dL Est Cr Clr Drug Dosing Estimated GFR (MDRD) (>60) BUN/Creatinine Ratio (9-20) Glucose (80-116) mg/dL Lactic Acid 1.6 (0.4-2.0) mmol/L Calcium (8.6-10.2) mg/dL Total Bilirubin (0.1-1.3) mg/dL AST (5-25) IU/L ALT (12-36) U/L Alkaline Phosphatase (56-112) IU/L Troponin I (4.0-60.3) pg/mL C-Reactive Protein 18.6 H* (0.5-0.9) mg/dL NT-Pro-B Natriuret Pep 47 (<=125) pg/mL Total Protein (6.0-8.0) g/dL Albumin (3.2-4.6) g/dL Globulin g/dL Albumin/Globulin Ratio Meds: Medications Discontinued Medications Generic Name Dose Route Start Last Admin Trade Name Amador PRN Reason Stop Dose Admin Albuterol/Ipratropium Confirm 11/17/19 10:27 11/17/19 10:57 Duoneb 3.0-0.5 Mg/3 Ml Administered 11/17/19 10:28 Not Given Dose 3 ml .ROUTE .STK-MED ONE Albuterol/Ipratropium 3 ml 11/17/19 10:42 11/17/19 10:18 Duoneb 3.0-0.5 Mg/3 Ml NEB 11/17/19 10:43 3 ml ONETIME ONE Administration Albuterol/Ipratropium 3 ml 11/17/19 10:56 11/17/19 10:29 Duoneb 3.0-0.5 Mg/3 Ml NEB 11/17/19 10:57 3 ml ONETIME ONE Administration Albuterol/Ipratropium 3 ml 11/17/19 11:44 11/17/19 11:50 Duoneb 3.0-0.5 Mg/3 Ml NEB 11/17/19 11:45 3 ml ONETIME ONE Administration Azithromycin Confirm 11/17/19 10:29 11/17/19 10:57 Zithromax Administered 11/17/19 10:30 Not Given Dose 500 mg .ROUTE .STK-MED ONE Furosemide Confirm 11/17/19 10:23 11/17/19 10:57 Lasix Administered 11/17/19 10:24 Not Given Dose 40 mg .ROUTE .STK-MED ONE Furosemide 40 mg 11/17/19 10:56 11/17/19 10:26 Lasix IVPUSH 11/17/19 10:57 40 mg STAT ONE Administration Azithromycin 500 mg/ Sodium 250 mls @ 250 mls/hr 11/17/19 10:57 11/17/19 10: 35 Chloride IV 11/17/19 11:56 250 mls/hr STAT ONE Administration Sodium Chloride 10 ml 11/17/19 10:20 11/17/19 12:10 Saline Flush FLUSH 10 ml ASDIRECTED PRN Administration IV Use - Re-Assessments/Exams Free Text/Narrative Re-Assessment/Exam: 11/17/19 11:26 pt presents with a 2 day history of hypoxia, and today chest pain with shortness of breath was diagnoses with COVID on 11/05 ( result noted 11/07) . has been stable till now currently afebrile but there is concern for worsening hypoxia : has bee on 2 liters of oxygen via NC and no improvement in oxygenation pt given Duoneb X2 and lasix 40mg , placed on NRB and oxygenation improved from 88% to 94-95% Afebrile and BP is stable family concerned about condition not staying stable : [facility] be [facility] management 11/17/19 11:30 Departure - Departure Time of Disposition: 12:10 Disposition: DC/Tfer to [facility] Clinical Impression: Respiratory distress, Hypoxia, COVID-19, MRSA (methicillin resistant Staphylococcus aureus), Chronic ulcer of ankle, Multiple sclerosis, DNR (do not resuscitate), DNI (do not intubate), Morbid obesity with alveolar hypoventilation Pulmonary embolism Qualifiers: Pulmonary embolism type: other Chronicity: unspecified - Discharge Information *PRESCRIPTION DRUG MONITORING PROGRAM REVIEWED*: Not Applicable *COPY OF PRESCRIPTION DRUG MONITORING REPORT IN PATIENT [facility]: Not Applicable Referrals: Des Crandall MD [Primary Care Provider] - Forms: ED Department Discharge Sepsis Event Note - Focused Exam Vital Signs: Vital Signs Pulse Pulse Pulse Ox Pulse Ox 11/17/19 11:50 90 90 92 L 11/17/19 10:40 90 L 11/17/19 10:29 99 11/17/19 10:18 88 L 11/17/19 10:15 88 L Date Exam was Performed: 11/17/19 Time Exam was Performed: 19:10 - My Orders Last 24 Hours: My Active Orders 11/17/19 10:15 EKG Documentation Completion [RC] ASDIRECTED EKG 12 Lead [EK] Routine 11/17/19 10:28 Chest 1V Frontal [CR] Stat 11/17/19 10:42 RT Aerosol Therapy [RC] ASDIRECTED 11/17/19 10:56 RT Aerosol Therapy [RC] ASDIRECTED 11/17/19 11:44 RT Aerosol Therapy [RC] ASDIRECTED - Assessment/Plan Last 24 Hours: My Active Orders 11/17/19 10:15 EKG Documentation Completion [RC] ASDIRECTED EKG 12 Lead [EK] Routine 11/17/19 10:28 Chest 1V Frontal [CR] Stat 11/17/19 10:42 RT Aerosol Therapy [RC] ASDIRECTED 11/17/19 10:56 RT Aerosol Therapy [RC] ASDIRECTED 11/17/19 11:44 RT Aerosol Therapy [RC] ASDIRECTED
[2019-11-17] MEDS ORDERED: Furosemide 40 MG/4 ML VIAL IVPUSH ONE (10:56)
[2019-11-17] MEDS ORDERED: Azithromycin 500 MG in Sodium Chloride 0.9% 250 ML IV ONE (10:57)
[2019-11-17 11:58] VITALS: PULSE 90
== END 2019-11-17 12:20 | disposition critical access hospital (66) ==
LOC: FB.ED 10:15
DX: U07.1 COVID-19 (principal); A49.02 Methicillin resistant Staphylococcus aureus infection, unspecified site; G35 Multiple sclerosis; L97.309 Non-pressure chronic ulcer of unspecified ankle with unspecified severity; E66.2 Morbid (severe) obesity with alveolar hypoventilation; Z68.41 Body mass index [BMI] 40.0-44.9, adult; F32.9 Major depressive disorder, single episode, unspecified; Z86.73 Personal history of transient ischemic attack (TIA), and cerebral infarction without residual deficits; Z66 Do not resuscitate; Z88.8 Allergy status to other drugs, medicaments and biological substances; Z88.1 Allergy status to other antibiotic agents; Z79.899 Other long term (current) drug therapy; Z79.01 Long term (current) use of anticoagulants
CPT/HCPCS: 36415; 71045; 80053; 83605; 83880; 84484; 85025; 85610; 86140; 93005; 94640; 96365; 96375; 99285; 99285-25; J0456; J1940; J7050; J7620-GY

== ENCOUNTER 2020-07-21 13:49 | Emergency (ER) | payer MEDICARE, OTHER ==
[2020-07-21 15:02] LABS: BASE EXCESS VENOUS,POC 3 mmol/L (-2-3); HCO3 VENOUS,POC 28 mmol/L (21-29); PCO2 VENOUS,POC 46 mmHg (41-51); PH VENOUS,POC 7.39 pH Units (7.32-7.43)
--- NOTE | 2020-07-21 16:21 | EDM.PDOC ---
ED HPI GENERAL MEDICAL PROBLEM - General Stated Complaint: COVID SYMPTOMS Time Seen by Provider: 07/21/20 14:00 Source of Information: Reports: Patient, [facility] Living Records History Limitations: Reports: No Limitations - History of Present Illness INITIAL COMMENTS - FREE TEXT/NARRATIVE: c/o weakness from residential, nonambulatory, lift assist to transfer has been weak today, no pain, no cough/sob, no f/c/d does have damp forehead on PE pleasant, joking, states he ate bfast and lunch has multiple problems, no cognitive issues MEDS includes eliquis ALL procaine, vanco CxR 1v is neg on prelim ED view labs unremarkable with lactic acid 1.0, does have CRP 6.7 altho CRP is chronically elevated COVID pending - Related Data Allergies Allergy/AdvReac Type Severity Reaction Status Date / Time procaine [From Novocain] Allergy Numbness Verified 07/21/20 18:14 vancomycin Allergy Rash Verified 07/21/20 18:14 Home Meds: Home Meds Acetaminophen 650 mg PO Q4H PRN 10/14/17 [History] Baclofen 10 mg PO TID 10/14/17 [History] DULoxetine [Cymbalta] 60 mg PO DAILY 10/14/17 [History] Docusate Calcium [Stool Softener] 240 mg PO BID 10/14/17 [History] buPROPion HCL [Wellbutrin Xl] 150 mg PO DAILY 10/14/17 [History] Albuterol/Ipratropium [DuoNeb 3.0-0.5 MG/3 ML] 3 ml NEB QIDRT PRN #60 neb 10/27/17 [Rx] Magnesium Hydroxide [Milk of Magnesia] 30 ml PO DAILY PRN 02/07/18 [History] Multivitamin with Minerals [Multivitamins with Minerals] 1 each PO DAILY 02/07/18 [History] Apixaban [Eliquis] 5 mg PO BID 11/17/19 [History] Ascorbic Acid [Vitamin C] 1,000 mg PO DAILY 11/17/19 [History] Calcium Polycarbophil 1,250 mg PO DAILY 11/17/19 [History] Morphine [Morphine 20 MG/ML Soln] 5 mg PO Q4H PRN 11/17/19 [History] Saccharomyces Boulardii [Florastor] 250 mg PO BID 11/17/19 [History] Past Medical History HEENT History: Reports: Impaired Vision Other HEENT History: wears glasses that are not with him Cardiovascular History: Reports: High Cholesterol Other Cardiovascular History: edema to lower extremeties, had DVT this hospitalization Respiratory History: Reports: PE, SOB, Other (See Below) Other Respiratory History: sob with activity partly from obese abdomen Gastrointestinal History: Reports: None Genitourinary History: Reports: Urinary Incontinence, Other (See Below) Other Genitourinary History: has salvador inplace due to inc and woundvac Musculoskeletal History: Reports: Other (See Below) Other Musculoskeletal History: multiple sclerosis muscle spasms requires a full body lift Neurological History: Reports: CVA, Other (See Below) Other Neuro History: neuropathic pain, left sided weakness Psychiatric History: Reports: Depression Other Psychiatric History: from record has depressive disorder Endocrine/Metabolic History: Reports: None Hematologic History: Reports: None Immunologic History: Reports: None Oncologic (Cancer) History: Reports: None Other Dermatologic History: scabbed areas on knees also decubitus of right buttock. 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 buttock - Infectious Disease History Infectious Disease History: Reports: Influenza, Measles, Mononucleosis, Mumps, Pertussis (Whooping Cough), Rheumatic Fever - Past Surgical History Head Surgeries/Procedures: Reports: None HEENT Surgical History: Reports: Other (See Below) Other HEENT Surgeries/Procedures: states he has dental implants Cardiovascular Surgical History: Reports: None Respiratory Surgical History: Reports: None GI Surgical History: Reports: EGD Male Surgical History: Reports: Other (See Below) Other Male Surgeries/Procedures: hypertrophy of prostate without urinary obstruction Endocrine Surgical History: Reports: None Neurological Surgical History: Reports: None Musculoskeletal Surgical History: Reports: None Oncologic Surgical History: Reports: None Dermatological Surgical History: Reports: Other (See Below) Social & Family History - Family History Family Medical History: No Pertinent Family History Endocrine/Metabolic: Reports: Diabetes, type II - Caffeine Use Caffeine Use: Reports: Tea Caffeine Use Comment: 1-2 cups a day ED ROS GENERAL - Review of Systems Review Of Systems: See Below Constitutional: Reports: Weakness. Denies: Fever, Chills, Night Sweats, Diaphoresis, Decreased Appetite HEENT: Reports: No Symptoms Respiratory: Reports: No Symptoms Cardiovascular: Reports: No Symptoms Endocrine: Reports: No Symptoms GI/Abdominal: Reports: No Symptoms : Reports: No Symptoms Musculoskeletal: Reports: No Symptoms Skin: Reports: No Symptoms Neurological: Reports: No Symptoms Psychiatric: Reports: No Symptoms Hematologic/Lymphatic: Reports: No Symptoms Immunologic: Reports: No Symptoms ED EXAM, GENERAL - Physical Exam Exam: See Below Exam Limited By: No Limitations General Appearance: Alert, WD/WN, No Apparent Distress, Other (pleasant, good eye contact, normal speech) Eye Exam: Bilateral Eye: EOMI, PERRL Ears: Normal External Exam, Hearing Grossly Normal Nose: Normal Inspection, Normal Mucosa, No Blood Throat/Mouth: Normal Inspection, Normal Lips, Normal Teeth, Normal Gums, Normal Oropharynx, Normal Voice, No Airway Compromise Head: Atraumatic, Normocephalic Neck: Normal Inspection, Supple, Non-Tender, Full Range of Motion. No: Lymphadenopathy (R), Lymphadenopathy (L) Respiratory/Chest: No Respiratory Distress, Lungs Clear, Normal Breath Sounds, No Accessory Muscle Use, Chest Non-Tender Cardiovascular: Regular Rate, Rhythm, Other (2/6 STEPHANIE at LSB, good 2+ edema to knees b/l with inc'd LE adipose tissue, symmetric, no cords, no Homans) GI/Abdominal: Soft, Non-Tender, No Distention Back Exam: Normal Inspection, Full Range of Motion, NT Extremities: Normal Inspection, Normal Range of Motion, Non-Tender, No Pedal Edema Neurological: Alert, Oriented, CN II-XII Intact, Normal Cognition, No Motor/Sensory Deficits Psychiatric: Normal Affect, Normal Mood Skin Exam: Warm, Dry, Intact, Normal Color, No Rash Lymphatic: No Adenopathy Course - Vital Signs Last Recorded V/S: Last Vital Signs Temp 36.8 C 07/21/20 13:49 Pulse 72 07/21/20 13:49 Resp 20 07/21/20 13:49 BP 126/64 07/21/20 13:49 Pulse Ox 92 L 07/21/20 13:49 - Orders/Labs/Meds Orders: Active Orders 24 hr Category Date Time Status EKG Documentation Completion [RC] ASDIRECTED Care 07/21/20 14:21 Active CULTURE BLOOD [BC] Urgent Lab 07/21/20 14:15 Received CULTURE BLOOD [BC] Urgent Lab 07/21/20 14:20 Received Blood Culture x2 Reflex Set [OM.PC] Urgent Oth 07/21/20 14:20 Ordered EKG 12 Lead [EK] Routine Ther 07/21/20 14:20 Ordered Labs: Laboratory Tests 07/21/20 07/21/20 07/21/20 Range/Units 14:15 14:15 14:15 WBC 7.3 (3.2-10.1) x10-3/uL RBC 6.73 H (3.90-5.90) x10(6)uL Hgb 13.6 (12.9-17.7) g/dL Hct 43.5 (38.3-50.1) % MCV 64.7 L (80.8-98.7) fL MCH 20.3 L (27.0-33.3) pg MCHC 31.4 (28.7-35.3) g/dL RDW 16.6 H (12.4-15.0) % Plt Count 452 (117-477) x10(3)uL MPV 7.6 (6.7-11.0) fL Neut % (Auto) 56.2 (40.3-71.8) % Lymph % (Auto) 27.7 (15.8-45.3) % Baxter % (Auto) 11.7 (5.5-15.2) % Eos % (Auto) 3.6 (0.1-6.8) % Baso % (Auto) 0.8 (0.3-3.8) % Neut # (Auto) 4.1 (1.7-6.9) x10-3/uL Lymph # (Auto) 2.0 (0.5-4.5) x10-3/uL Baxter # (Auto) 0.9 (0.0-1.2) x10-3/uL Eos # (Auto) 0.3 (0.0-0.6) x10-3/uL Baso # (Auto) 0.1 (0.0-0.3) x10-3/uL POC VBG pH (7.32-7.43) pH Units POC VBG pCO2 (41-51) mmHg POC VBG HCO3 (21-29) mmol/L VBG Base Excess (-2-3) mmol/L O2 Delivery Device Sodium 139 (135-145) mmol/L Potassium 3.5 (3.5-5.3) mmol/L Chloride 103 (100-110) mmol/L Carbon Dioxide 27 (21-32) mmol/L BUN 17 (7-18) mg/dL Creatinine 0.8 (0.70-1.30) mg/dL Est Cr Clr Drug Dosing TNP Estimated GFR (MDRD) > 60 (>60) BUN/Creatinine Ratio 21.3 H (9-20) Glucose 117 H (80-116) mg/dL Lactic Acid (0.4-2.0) mmol/L Calcium 8.9 (8.6-10.2) mg/dL Total Bilirubin 0.3 (0.1-1.3) mg/dL AST 22 (5-25) IU/L ALT 31 D (12-36) U/L Alkaline Phosphatase 87 (56-112) IU/L Troponin I 25.0 (4.0-60.3) pg/mL C-Reactive Protein 6.7 H* (0.5-0.9) mg/dL Total Protein 7.2 (6.0-8.0) g/dL Albumin 2.9 L (3.2-4.6) g/dL Globulin 4.3 g/dL Albumin/Globulin Ratio 0.7 Urine Color (YELLOW) Urine Appearance (CLEAR) Urine pH (5.0-6.5) Ur Specific [place] (1.010-1.025) Urine Protein (NEGATIVE) mg/dL Urine Glucose (UA) (NORMAL) mg/dL Urine Ketones (NEGATIVE) mg/dL Urine Occult Blood (NEGATIVE) Urine Nitrite (NEGATIVE) Urine Bilirubin (NEGATIVE) Urine Urobilinogen (NEGATIVE) mg/dL Ur Leukocyte Esterase (NEGATIVE) Urine RBC (0-5) Urine WBC (0-5) Ur Squamous Epith Cells (NS,R,O) Urine Bacteria (NS) SARS-CoV-2 RNA (JOHN) (NEGATIVE) 07/21/20 07/21/20 07/21/20 Range/Units 14:15 14:15 17:40 WBC (3.2-10.1) x10-3/uL RBC (3.90-5.90) x10(6)uL Hgb (12.9-17.7) g/dL Hct (38.3-50.1) % MCV (80.8-98.7) fL MCH (27.0-33.3) pg MCHC (28.7-35.3) g/dL RDW (12.4-15.0) % Plt Count (117-477) x10(3)uL MPV (6.7-11.0) fL Neut % (Auto) (40.3-71.8) % Lymph % (Auto) (15.8-45.3) % Baxter % (Auto) (5.5-15.2) % Eos % (Auto) (0.1-6.8) % Baso % (Auto) (0.3-3.8) % Neut # (Auto) (1.7-6.9) x10-3/uL Lymph # (Auto) (0.5-4.5) x10-3/uL Baxter # (Auto) (0.0-1.2) x10-3/uL Eos # (Auto) (0.0-0.6) x10-3/uL Baso # (Auto) (0.0-0.3) x10-3/uL POC VBG pH 7.39 (7.32-7.43) pH Units POC VBG pCO2 46 (41-51) mmHg POC VBG HCO3 28 (21-29) mmol/L VBG Base Excess 3 (-2-3) mmol/L O2 Delivery Device Room air Sodium (135-145) mmol/L Potassium (3.5-5.3) mmol/L Chloride (100-110) mmol/L Carbon Dioxide (21-32) mmol/L BUN (7-18) mg/dL Creatinine (0.70-1.30) mg/dL Est Cr Clr Drug Dosing Estimated GFR (MDRD) (>60) BUN/Creatinine Ratio (9-20) Glucose (80-116) mg/dL Lactic Acid 1.0 (0.4-2.0) mmol/L Calcium (8.6-10.2) mg/dL Total Bilirubin (0.1-1.3) mg/dL AST (5-25) IU/L ALT (12-36) U/L Alkaline Phosphatase (56-112) IU/L Troponin I (4.0-60.3) pg/mL C-Reactive Protein (0.5-0.9) mg/dL Total Protein (6.0-8.0) g/dL Albumin (3.2-4.6) g/dL Globulin g/dL Albumin/Globulin Ratio Urine Color Yellow (YELLOW) Urine Appearance Clear (CLEAR) Urine pH 5.0 (5.0-6.5) Ur Specific [place] 1.015 (1.010-1.025) Urine Protein Negative (NEGATIVE) mg/dL Urine Glucose (UA) Normal (NORMAL) mg/dL Urine Ketones 15 H (NEGATIVE) mg/dL Urine Occult Blood Negative (NEGATIVE) Urine Nitrite Negative (NEGATIVE) Urine Bilirubin Negative (NEGATIVE) Urine Urobilinogen 1 H (NEGATIVE) mg/dL Ur Leukocyte Esterase Negative (NEGATIVE) Urine RBC 0-5 (0-5) Urine WBC 0-5 (0-5) Ur Squamous Epith Cells Rare (NS,R,O) Urine Bacteria Few H (NS) SARS-CoV-2 RNA (JOHN) (NEGATIVE) 07/21/20 Range/Units 17:40 WBC (3.2-10.1) x10-3/uL RBC (3.90-5.90) x10(6)uL Hgb (12.9-17.7) g/dL Hct (38.3-50.1) % MCV (80.8-98.7) fL MCH (27.0-33.3) pg MCHC (28.7-35.3) g/dL RDW (12.4-15.0) % Plt Count (117-477) x10(3)uL MPV (6.7-11.0) fL Neut % (Auto) (40.3-71.8) % Lymph % (Auto) (15.8-45.3) % Baxter % (Auto) (5.5-15.2) % Eos % (Auto) (0.1-6.8) % Baso % (Auto) (0.3-3.8) % Neut # (Auto) (1.7-6.9) x10-3/uL Lymph # (Auto) (0.5-4.5) x10-3/uL Baxter # (Auto) (0.0-1.2) x10-3/uL Eos # (Auto) (0.0-0.6) x10-3/uL Baso # (Auto) (0.0-0.3) x10-3/uL POC VBG pH (7.32-7.43) pH Units POC VBG pCO2 (41-51) mmHg POC VBG HCO3 (21-29) mmol/L VBG Base Excess (-2-3) mmol/L O2 Delivery Device Sodium (135-145) mmol/L Potassium (3.5-5.3) mmol/L Chloride (100-110) mmol/L Carbon Dioxide (21-32) mmol/L BUN (7-18) mg/dL Creatinine (0.70-1.30) mg/dL Est Cr Clr Drug Dosing Estimated GFR (MDRD) (>60) BUN/Creatinine Ratio (9-20) Glucose (80-116) mg/dL Lactic Acid (0.4-2.0) mmol/L Calcium (8.6-10.2) mg/dL Total Bilirubin (0.1-1.3) mg/dL AST (5-25) IU/L ALT (12-36) U/L Alkaline Phosphatase (56-112) IU/L Troponin I (4.0-60.3) pg/mL C-Reactive Protein (0.5-0.9) mg/dL Total Protein (6.0-8.0) g/dL Albumin (3.2-4.6) g/dL Globulin g/dL Albumin/Globulin Ratio Urine Color (YELLOW) Urine Appearance (CLEAR) Urine pH (5.0-6.5) Ur Specific [place] (1.010-1.025) Urine Protein (NEGATIVE) mg/dL Urine Glucose (UA) (NORMAL) mg/dL Urine Ketones (NEGATIVE) mg/dL Urine Occult Blood (NEGATIVE) Urine Nitrite (NEGATIVE) Urine Bilirubin (NEGATIVE) Urine Urobilinogen (NEGATIVE) mg/dL Ur Leukocyte Esterase (NEGATIVE) Urine RBC (0-5) Urine WBC (0-5) Ur Squamous Epith Cells (NS,R,O) Urine Bacteria (NS) SARS-CoV-2 RNA (JOHN) Negative (NEGATIVE) - Re-Assessments/Exams Free Text/Narrative Re-Assessment/Exam: 07/21/20 18:45 w/u is neg for active infection CRP is elevated, however it is chronically elevated and clinical sig is uncertain pt in excellent spirits, quite polite, was satisfied with returning to [place], no had no c/o on arrival or at d/c only positive physical finding was slightly damp forehead on arrival (no beads of sweat), and this resolved EKG with SR 69, LAFB, no acute changes Departure - Departure Time of Disposition: 18:41 Disposition: Home, Self-Care 01 Condition: Good Clinical Impression: Weakness, Mild dehydration, Ketonuria, Elevated C-reactive protein (CRP), Hypoalbuminemia - Discharge Information *PRESCRIPTION DRUG MONITORING PROGRAM REVIEWED*: Not Applicable *COPY OF PRESCRIPTION DRUG MONITORING REPORT IN PATIENT [facility]: Not Applicable Referrals: Kaden Perez MD [Primary Care Provider] - Additional Instructions: Your tests check out okay here in the Emergency Department. There is no clinical evidence of infection, including in the urine. Your blood counts are at baseline. Your COVID test is negative. Continue your current routine and current meds. See your doctor in one week for further recommendations. Return to Emergency Department if you are feeling worse. You are mildly dehydrated and increasing fluids is recommended. Sepsis Event Note (ED) - Focused Exam Vital Signs: Vital Signs Temp Pulse Resp BP Pulse Ox 07/21/20 13:49 36.8 C 72 20 126/64 92 L - My Orders Last 24 Hours: My Active Orders 07/21/20 14:15 CULTURE BLOOD [BC] Urgent 07/21/20 14:20 CULTURE BLOOD [BC] Urgent Blood Culture x2 Reflex Set [OM.PC] Urgent EKG 12 Lead [EK] Routine 07/21/20 14:21 EKG Documentation Completion [RC] ASDIRECTED - Assessment/Plan Last 24 Hours: My Active Orders 07/21/20 14:15 CULTURE BLOOD [BC] Urgent 07/21/20 14:20 CULTURE BLOOD [BC] Urgent Blood Culture x2 Reflex Set [OM.PC] Urgent EKG 12 Lead [EK] Routine 07/21/20 14:21 EKG Documentation Completion [RC] ASDIRECTED
--- NOTE | 2020-07-21 16:26 | CR ---
INDICATION: Weak, positive COVID 11/17/19. CHEST ONE VIEW: AP upright portable view of the chest 07/21/20 was compared with 11/17/19 and 03/02/18. The appearance of pulmonary vascular congestion is no longer present. There is question of some slightly heavy markings in the right mid lung field which may represent residual scarring or possibly minimal patchy bronchopneumonia. Likewise, there is some increased density at the left lung base and could represent similar findings. No definite consolidating pneumonia or effusion was seen. The heart did not appear enlarged. The aorta is tortuous. IMPRESSION: 1. No definite acute process, but difficult to exclude areas of minimal patchy bronchopneumonia in the right mid lung field and left lung base. 2. ASD aorta, 3. Exogenous obesity. MTDD
== END 2020-07-21 19:03 | disposition home or self-care (01) ==
LOC: FB.ED 13:49
DX: E86.0 Dehydration (principal); E88.09 Other disorders of plasma-protein metabolism, not elsewhere classified; R82.4 Acetonuria; R79.82 Elevated C-reactive protein (CRP); F32.9 Major depressive disorder, single episode, unspecified; Z20.828 Contact with and (suspected) exposure to other viral communicable diseases; Z88.1 Allergy status to other antibiotic agents; Z79.01 Long term (current) use of anticoagulants; Z79.899 Other long term (current) drug therapy
CPT/HCPCS: 36415; 71045; 80053; 81001; 83605; 84484; 85025; 86140; 87040; 93005; 93010; 99283; 99285; U0002

== ENCOUNTER 2021-04-08 17:05 | Emergency (ER) | payer MEDICARE ==
[2021-04-08] MEDS ORDERED: Lidocaine 2% HCl 6 ML JEL.PF.APP MM STA (17:43)
[2021-04-08] MEDS ORDERED: Sodium Chloride 0.9% 1,000 ML IV SCH (17:45)
[2021-04-08] MEDS: Sodium Chloride 0.9% 10 ML Syringe FLUSH PRN (18:38)
[2021-04-08] MEDS ORDERED: Piperacillin/Tazobactam 4.5 GM in Sodium Chloride 0.9% 100 ML IV STA (18:53)
[2021-04-08] MEDS ORDERED: Linezolid 600 MG in Premix Bag 1 BAG IV STA (18:53)
--- NOTE | 2021-04-08 19:04 | EDM.PDOC ---
ED HPI GENERAL MEDICAL PROBLEM - General Chief Complaint: Genitourinary Problem Stated Complaint: BLOOD IN CATH Time Seen by Provider: 04/08/21 17:45 Source of Information: Reports: Patient History Limitations: Reports: No Limitations - History of Present Illness INITIAL COMMENTS - FREE TEXT/NARRATIVE: Patient is a 70 YO WM from [facility] who presented to the ED be of hematuria.He is on a salvador due to urinary incontinence. He is taking eliquis 5 mg p.o. BID for a DVT and PE. The salvador was reolaced twice and irrigated only to clog up again with quarter size clots. While he was in the ED he became hypotensive and diaphoretic with BP of 84/58 and a liter of saline bolus was infused, IV antibiotics-Zosyn and Linezolid was started. [facility] doesn't have a bed so patient will stay in the ED for a while. - Related Data Allergies Allergy/AdvReac Type Severity Reaction Status Date / Time procaine [From Novocain] Allergy Numbness Verified 07/21/20 18:14 vancomycin Allergy Rash Verified 07/21/20 18:14 Home Meds: Home Meds Acetaminophen 650 mg PO Q4H PRN 10/14/17 [History] Baclofen 10 mg PO TID 10/14/17 [History] DULoxetine [Cymbalta] 60 mg PO DAILY 10/14/17 [History] Docusate Calcium [Stool Softener] 240 mg PO BID 10/14/17 [History] buPROPion HCL [Wellbutrin Xl] 150 mg PO DAILY 10/14/17 [History] Albuterol/Ipratropium [DuoNeb 3.0-0.5 MG/3 ML] 3 ml NEB QIDRT PRN #60 neb 10/27/17 [Rx] Magnesium Hydroxide [Milk of Magnesia] 30 ml PO DAILY PRN 02/07/18 [History] Multivitamin with Minerals [Multivitamins with Minerals] 1 each PO DAILY 02/07/18 [History] Apixaban [Eliquis] 5 mg PO BID 11/17/19 [History] Calcium Polycarbophil 1,250 mg PO DAILY 11/17/19 [History] Saccharomyces Boulardii [Florastor] 250 mg PO BID 11/17/19 [History] Past Medical History HEENT History: Reports: Impaired Vision Other HEENT History: wears glasses that are not with him Cardiovascular History: Reports: High Cholesterol Other Cardiovascular History: edema to lower extremeties, had DVT this hospitalization Respiratory History: Reports: PE, SOB, Other (See Below) Other Respiratory History: sob with activity partly from obese abdomen Gastrointestinal History: Reports: None Genitourinary History: Reports: Urinary Incontinence Other Genitourinary History: has salvador inplace due to inc and woundvac Musculoskeletal History: Reports: Other (See Below) Other Musculoskeletal History: multiple sclerosis muscle spasms requires a full body lift Neurological History: Reports: CVA, Other (See Below) Other Neuro History: neuropathic pain, left sided weakness Psychiatric History: Reports: Depression Other Psychiatric History: from record has depressive disorder Endocrine/Metabolic History: Reports: Obesity/BMI 30+ Hematologic History: Reports: None Immunologic History: Reports: None Oncologic (Cancer) History: Reports: None Dermatologic History: Reports: Cellulitis Other Dermatologic History: scabbed areas on knees also decubitus of right buttock. 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 buttock - Infectious Disease History Infectious Disease History: Reports: Influenza, Measles, Mononucleosis, Mumps, Pertussis (Whooping Cough), Rheumatic Fever - Past Surgical History Head Surgeries/Procedures: Reports: None HEENT Surgical History: Reports: Other (See Below) Other HEENT Surgeries/Procedures: states he has dental implants Cardiovascular Surgical History: Reports: None Respiratory Surgical History: Reports: None GI Surgical History: Reports: EGD Male Surgical History: Reports: Other (See Below) Other Male Surgeries/Procedures: hypertrophy of prostate without urinary obstruction Endocrine Surgical History: Reports: None Neurological Surgical History: Reports: None Musculoskeletal Surgical History: Reports: None Oncologic Surgical History: Reports: None Dermatological Surgical History: Reports: Other (See Below) Social & Family History - Family History Family Medical History: No Pertinent Family History Endocrine/Metabolic: Reports: Diabetes, type II - Caffeine Use Caffeine Use: Reports: None Caffeine Use Comment: 1-2 cups a day ED ROS GENERAL - Review of Systems Review Of Systems: See Below Constitutional: Reports: No Symptoms HEENT: Reports: No Symptoms Respiratory: Reports: No Symptoms Cardiovascular: Reports: No Symptoms Endocrine: Reports: No Symptoms GI/Abdominal: Reports: No Symptoms : Reports: No Symptoms Musculoskeletal: Reports: No Symptoms Skin: Reports: Wound Neurological: Reports: No Symptoms Psychiatric: Reports: No Symptoms Hematologic/Lymphatic: Reports: No Symptoms ED EXAM, GENERAL - Physical Exam Exam: See Below Exam Limited By: No Limitations General Appearance: Alert, No Apparent Distress Eye Exam: Bilateral Eye: PERRL Ears: Normal External Exam, Normal Canal Nose: Normal Inspection, Normal Mucosa, No Blood Throat/Mouth: Normal Inspection, Normal Lips, Normal Teeth Head: Atraumatic, Normocephalic Neck: Normal Inspection, Supple, Non-Tender, Full Range of Motion Respiratory/Chest: No Respiratory Distress, Lungs Clear, Normal Breath Sounds Cardiovascular: Normal Peripheral Pulses, Regular Rate, Rhythm, No Edema, No Gallop, No JVD, No Murmur GI/Abdominal: Normal Bowel Sounds, Soft, Non-Tender, No Organomegaly Back Exam: Normal Inspection, Full Range of Motion Extremities: Normal Inspection, Normal Range of Motion, Non-Tender Neurological: Alert, Oriented, CN II-XII Intact, Normal Cognition Psychiatric: Normal Affect Skin Exam: Warm, Other (quarter size coccygeal ulcer-grade 3) #1 Interpretation EKG Date: 04/08/21 Time: 18:43 Rhythm: Other (Bhat=inus Tach) Rate (Beats/Min): 103 [place]: Normal P-Wave: Present QRS: Normal ST-T: Normal QT: Normal NM/PQ Interval: 167 Comparison: No Change EKG Interpretation Comments: Sinus Tach Course - Vital Signs Text/Narrative:: Lab/CXR/EKG result was reviewed and discussed with patient NS 1 L bolus Zosyn 4.75 gm IV Q6 Linezolid 600 mg IV Q12 Case discussed with Dr Cr of [facility] Last Recorded V/S: Last Vital Signs Temp 36.3 C 04/08/21 17:30 Pulse 97 04/09/21 02:07 Resp 16 04/09/21 02:07 BP 124/77 04/09/21 02:07 Pulse Ox 93 L 04/09/21 02:07 - Orders/Labs/Meds Orders: Active Orders 24 hr Category Date Time Status CULTURE BLOOD [BC] Urgent Lab 04/08/21 17:55 Received CULTURE BLOOD [BC] Urgent Lab 04/08/21 18:55 Received Blood Culture x2 Reflex Set [OM.PC] Urgent Oth 04/08/21 18:45 Ordered Saline Lock Insert [OM.PC] Routine Oth 04/08/21 17:41 Ordered EKG 12 Lead [EK] Routine Ther 04/08/21 17:41 Ordered Labs: Laboratory Tests 04/08/21 04/08/21 04/08/21 Range/Units 18:00 18:00 18:00 WBC 19.4 H (3.2-10.1) x10-3/uL RBC 7.34 H (3.90-5.90) x10(6)uL Hgb 14.2 (12.9-17.7) g/dL Hct 45.6 (38.3-50.1) % MCV 62.1 L (80.8-98.7) fL MCH 19.4 L (27.0-33.3) pg MCHC 31.1 (28.7-35.3) g/dL RDW 17.4 H (12.4-15.0) % Plt Count 451 (117-477) x10(3)uL MPV 7.6 (6.7-11.0) fL Neut % (Auto) 77.6 H (40.3-71.8) % Lymph % (Auto) 12.1 L (15.8-45.3) % [place] % (Auto) 9.5 (5.5-15.2) % Eos % (Auto) 0.2 (0.1-6.8) % Baso % (Auto) 0.6 (0.3-3.8) % Neut # (Auto) 15.0 H (1.7-6.9) x10-3/uL Lymph # (Auto) 2.3 (0.5-4.5) x10-3/uL [place] # (Auto) 1.8 H (0.0-1.2) x10-3/uL Eos # (Auto) 0.0 (0.0-0.6) x10-3/uL Baso # (Auto) 0.1 (0.0-0.3) x10-3/uL Add Manual Diff Neutrophils % (Manual) (46-82) % Lymphocytes % (Manual) (13-37) % Monocytes % (Manual) (4-12) % Microcytosis Sodium 136 (135-145) mmol/L Potassium 4.1 (3.5-5.3) mmol/L Chloride 103 (100-110) mmol/L Carbon Dioxide 24 (21-32) mmol/L BUN 18 (7-18) mg/dL Creatinine 0.9 (0.70-1.30) mg/dL Est Cr Clr Drug Dosing TNP Estimated GFR (MDRD) > 60 (>60) BUN/Creatinine Ratio 20.0 (9-20) Glucose 154 H (80-116) mg/dL Lactic Acid (0.4-2.0) mmol/L Calcium 8.4 L (8.6-10.2) mg/dL Total Bilirubin 0.4 (0.1-1.3) mg/dL AST 61 H D (5-25) IU/L ALT 51 H D (12-36) U/L Alkaline Phosphatase 146 H (56-112) IU/L Troponin I 38.5 (4.0-60.3) pg/mL Total Protein 7.6 (6.0-8.0) g/dL Albumin 3.0 L (3.2-4.6) g/dL Globulin 4.6 g/dL Albumin/Globulin Ratio 0.7 04/08/21 04/08/21 04/09/21 Range/Units 18:00 19:10 07:07 WBC 20.3 H (3.2-10.1) x10-3/uL RBC 6.82 H (3.90-5.90) x10(6)uL Hgb 13.2 (12.9-17.7) g/dL Hct 42.0 (38.3-50.1) % MCV 61.6 L (80.8-98.7) fL MCH 19.3 L (27.0-33.3) pg MCHC 31.3 (28.7-35.3) g/dL RDW 17.4 H (12.4-15.0) % Plt Count 439 (117-477) x10(3)uL MPV 7.6 (6.7-11.0) fL Neut % (Auto) (40.3-71.8) % Lymph % (Auto) (15.8-45.3) % Bulloch % (Auto) (5.5-15.2) % Eos % (Auto) (0.1-6.8) % Baso % (Auto) (0.3-3.8) % Neut # (Auto) (1.7-6.9) x10-3/uL Lymph # (Auto) (0.5-4.5) x10-3/uL [place] # (Auto) (0.0-1.2) x10-3/uL Eos # (Auto) (0.0-0.6) x10-3/uL Baso # (Auto) (0.0-0.3) x10-3/uL Add Manual Diff Yes Neutrophils % (Manual) 82 (46-82) % Lymphocytes % (Manual) 13 (13-37) % Monocytes % (Manual) 5 (4-12) % Microcytosis Few Sodium (135-145) mmol/L Potassium (3.5-5.3) mmol/L Chloride (100-110) mmol/L Carbon Dioxide (21-32) mmol/L BUN (7-18) mg/dL Creatinine (0.70-1.30) mg/dL Est Cr Clr Drug Dosing Estimated GFR (MDRD) (>60) BUN/Creatinine Ratio (9-20) Glucose (80-116) mg/dL Lactic Acid 2.4 H* 1.7 (0.4-2.0) mmol/L Calcium (8.6-10.2) mg/dL Total Bilirubin (0.1-1.3) mg/dL AST (5-25) IU/L ALT (12-36) U/L Alkaline Phosphatase (56-112) IU/L Troponin I (4.0-60.3) pg/mL Total Protein (6.0-8.0) g/dL Albumin (3.2-4.6) g/dL Globulin g/dL Albumin/Globulin Ratio 04/09/21 Range/Units 07:07 WBC (3.2-10.1) x10-3/uL RBC (3.90-5.90) x10(6)uL Hgb (12.9-17.7) g/dL Hct (38.3-50.1) % MCV (80.8-98.7) fL MCH (27.0-33.3) pg MCHC (28.7-35.3) g/dL RDW (12.4-15.0) % Plt Count (117-477) x10(3)uL MPV (6.7-11.0) fL Neut % (Auto) (40.3-71.8) % Lymph % (Auto) (15.8-45.3) % [place] % (Auto) (5.5-15.2) % Eos % (Auto) (0.1-6.8) % Baso % (Auto) (0.3-3.8) % Neut # (Auto) (1.7-6.9) x10-3/uL Lymph # (Auto) (0.5-4.5) x10-3/uL [place] # (Auto) (0.0-1.2) x10-3/uL Eos # (Auto) (0.0-0.6) x10-3/uL Baso # (Auto) (0.0-0.3) x10-3/uL Add Manual Diff Neutrophils % (Manual) (46-82) % Lymphocytes % (Manual) (13-37) % Monocytes % (Manual) (4-12) % Microcytosis Sodium 141 (135-145) mmol/L Potassium 4.1 (3.5-5.3) mmol/L Chloride 106 (100-110) mmol/L Carbon Dioxide 26 (21-32) mmol/L BUN 23 H (7-18) mg/dL Creatinine 1.0 (0.70-1.30) mg/dL Est Cr Clr Drug Dosing 73.00 Estimated GFR (MDRD) > 60 (>60) BUN/Creatinine Ratio 23.0 H (9-20) Glucose 164 H (80-116) mg/dL Lactic Acid (0.4-2.0) mmol/L Calcium 8.5 L (8.6-10.2) mg/dL Total Bilirubin (0.1-1.3) mg/dL AST (5-25) IU/L ALT (12-36) U/L Alkaline Phosphatase (56-112) IU/L Troponin I (4.0-60.3) pg/mL Total Protein (6.0-8.0) g/dL Albumin (3.2-4.6) g/dL Globulin g/dL Albumin/Globulin Ratio Meds: Medications Discontinued Medications Generic Name Dose Route Start Last Admin Trade Name Freq PRN Reason Stop Dose Admin Sodium Chloride 1,000 mls @ 999 mls/hr 04/08/21 17:45 04/08/21 18:38 Normal Saline IV 999 mls/hr ASDIRECTED CHADWICK Administration Piperacillin Sod/Tazobactam 100 mls @ 200 mls/hr 04/08/21 18:53 04/08/21 19:20 Sod 4.5 gm/ Sodium Chloride IV 04/08/21 19:22 200 mls/hr NOW STA Administration Linezolid 600 mg/ Premix 300 mls @ 300 mls/hr 04/08/21 18:53 04/08/21 20:05 IV 04/08/21 19:52 300 mls/hr NOW STA Administration Linezolid 600 mg/ Premix 300 mls @ 300 mls/hr 04/08/21 19:45 04/09/21 08:32 IV 300 mls/hr Q12H CHADWICK Administration Piperacillin Sod/Tazobactam 100 mls @ 200 mls/hr 04/08/21 19:45 04/09/21 07:18 Sod 4.5 gm/ Sodium Chloride IV 200 mls/hr Q6H CHADWICK Administration Lidocaine HCl 5 ml 04/08/21 17:43 04/08/21 18:37 Lidocaine 2% Hcl 6 Ml Jel.Pf.Jeffrey MM 04/08/21 17:44 5 ml NOW STA Administration Sodium Chloride 10 ml 04/08/21 17:41 04/09/21 02:18 Sodium Chloride 0.9% 10 Ml Syringe FLUSH 10 ml ASDIRECTED PRN Administration Keep Vein Open Departure - Departure Time of Disposition: 17:00 Disposition: DC/Tfer to Acute Hospital 02 Condition: Fair Clinical Impression: Sepsis, Hematuria - Discharge Information Referrals: Des Crandall MD [Primary Care Provider] - Forms: ED Department Discharge - My Orders Last 24 Hours: My Active Orders 04/08/21 17:41 Saline Lock Insert [OM.PC] Routine EKG 12 Lead [EK] Routine 04/08/21 17:55 CULTURE BLOOD [BC] Urgent 04/08/21 18:45 Blood Culture x2 Reflex Set [OM.PC] Urgent 04/08/21 18:55 CULTURE BLOOD [BC] Urgent - Assessment/Plan Last 24 Hours: My Active Orders 04/08/21 17:41 Saline Lock Insert [OM.PC] Routine EKG 12 Lead [EK] Routine 04/08/21 17:55 CULTURE BLOOD [BC] Urgent 04/08/21 18:45 Blood Culture x2 Reflex Set [OM.PC] Urgent 04/08/21 18:55 CULTURE BLOOD [BC] Urgent
[2021-04-09] MEDS: Linezolid 600 MG in Premix Bag 1 BAG IV SCH ×2 (02:07→08:32)
[2021-04-09] MEDS: Piperacillin/Tazobactam 4.5 GM in Sodium Chloride 0.9% 100 ML IV SCH ×3 (02:08→07:18)
[2021-04-09] MEDS: Sodium Chloride 0.9% 10 ML Syringe FLUSH PRN (02:18)
--- NOTE | 2021-04-09 10:21 | CR ---
CHEST ONE VIEW INDICATION: Sepsis. FINDINGS: Portable AP upright view of the chest 04/08/21 was compared with 07/21/20 and 11/17/19. The heart remains normal in size. The aorta is tortuous. Calcification is noted in the arch of the aota. A definite active infiltrate or effusion was not identified. Exogenous obesity is noted. IMPRESSION: No acute process. MTDD
== END 2021-04-09 11:52 ==
LOC: FB.ED 17:05
DX: A41.9 Sepsis, unspecified organism (principal); R31.9 Hematuria, unspecified; R00.0 Tachycardia, unspecified; E66.9 Obesity, unspecified; Z68.39 Body mass index [BMI] 39.0-39.9, adult; Z86.711 Personal history of pulmonary embolism; Z86.718 Personal history of other venous thrombosis and embolism; Z79.01 Long term (current) use of anticoagulants; Z88.1 Allergy status to other antibiotic agents; Z79.899 Other long term (current) drug therapy
CPT/HCPCS: 36415; 71045; 80048; 80053; 83605; 84484; 85025; 87040; 93005; 96365; 96366; 96367; 99285; A9270; J2020; J2543; J7030

== ENCOUNTER 2021-04-17 01:40 | Emergency (ER) | payer MEDICARE ==
--- NOTE | 2021-04-17 02:43 | EDM.PDOC ---
ED HPI GENERAL MEDICAL PROBLEM - General Chief Complaint: Genitourinary Problem Stated Complaint: BLEEDING Time Seen by Provider: 04/17/21 01:55 Source of Information: Reports: Patient, Longterm Records History Limitations: Reports: No Limitations - History of Present Illness INITIAL COMMENTS - FREE TEXT/NARRATIVE: Patient presented to the ED from [facility] because of gross hematuria. He was transferred and admitted at [facility] on 04/09/21 due to gross hematuria, nondraining cath and sepsis. He was discharged back to [facility] on 04/13.During his stay at [facility] a pigtail suprapubic cath was placed by IR and a UTI which grew Pseudomonas was treated with cefepime then cipro as outpatient. His wbc count this morning is normal and he is afebrile with normal mentation. - Related Data Allergies Allergy/AdvReac Type Severity Reaction Status Date / Time procaine [From Novocain] Allergy Numbness Verified 07/21/20 18:14 vancomycin Allergy Rash Verified 07/21/20 18:14 Home Meds: Home Meds Acetaminophen 650 mg PO Q4H PRN 10/14/17 [History] Baclofen 10 mg PO TID 10/14/17 [History] DULoxetine [Cymbalta] 60 mg PO DAILY 10/14/17 [History] Docusate Calcium [Stool Softener] 240 mg PO BID 10/14/17 [History] buPROPion HCL [Wellbutrin Xl] 150 mg PO DAILY 10/14/17 [History] Albuterol/Ipratropium [DuoNeb 3.0-0.5 MG/3 ML] 3 ml NEB QIDRT PRN #60 neb 10/27/17 [Rx] Magnesium Hydroxide [Milk of Magnesia] 30 ml PO DAILY PRN 02/07/18 [History] Multivitamin with Minerals [Multivitamins with Minerals] 1 each PO DAILY 02/07/18 [History] Apixaban [Eliquis] 5 mg PO BID 11/17/19 [History] Calcium Polycarbophil 1,250 mg PO DAILY 11/17/19 [History] Saccharomyces Boulardii [Florastor] 250 mg PO BID 11/17/19 [History] Past Medical History HEENT History: Reports: Impaired Vision Other HEENT History: wears glasses that are not with him Cardiovascular History: Reports: High Cholesterol Other Cardiovascular History: edema to lower extremeties, had DVT this hospitalization Respiratory History: Reports: PE, SOB, Other (See Below) Other Respiratory History: sob with activity partly from obese abdomen Gastrointestinal History: Reports: None Genitourinary History: Reports: Prostate Disorder, Urinary Incontinence Other Genitourinary History: has salvador inplace due to inc and woundvac Musculoskeletal History: Reports: Other (See Below) Other Musculoskeletal History: multiple sclerosis muscle spasms requires a full body lift Neurological History: Reports: CVA, Other (See Below) Other Neuro History: neuropathic pain, left sided weakness Psychiatric History: Reports: Depression Other Psychiatric History: from record has depressive disorder Endocrine/Metabolic History: Reports: Obesity/BMI 30+ Hematologic History: Reports: None Immunologic History: Reports: None Oncologic (Cancer) History: Reports: None Dermatologic History: Reports: Cellulitis Other Dermatologic History: scabbed areas on knees also decubitus of right buttock. 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 buttock - Infectious Disease History Infectious Disease History: Reports: Influenza, Measles, Mononucleosis, Mumps, Pertussis (Whooping Cough), Rheumatic Fever - Past Surgical History Head Surgeries/Procedures: Reports: None HEENT Surgical History: Reports: Other (See Below) Other HEENT Surgeries/Procedures: states he has dental implants Cardiovascular Surgical History: Reports: None Respiratory Surgical History: Reports: None GI Surgical History: Reports: EGD Male Surgical History: Reports: Other (See Below) Other Male Surgeries/Procedures: hypertrophy of prostate without urinary obstruction Endocrine Surgical History: Reports: None Neurological Surgical History: Reports: None Musculoskeletal Surgical History: Reports: None Oncologic Surgical History: Reports: None Dermatological Surgical History: Reports: Other (See Below) Social & Family History - Family History Family Medical History: No Pertinent Family History Endocrine/Metabolic: Reports: Diabetes, type II - Caffeine Use Caffeine Use: Reports: None Caffeine Use Comment: 1-2 cups a day ED ROS GENERAL - Review of Systems Review Of Systems: See Below Constitutional: Reports: No Symptoms HEENT: Reports: No Symptoms Respiratory: Reports: No Symptoms Cardiovascular: Reports: No Symptoms Endocrine: Reports: No Symptoms GI/Abdominal: Reports: No Symptoms : Reports: Hematuria Musculoskeletal: Reports: No Symptoms Skin: Reports: No Symptoms Neurological: Reports: No Symptoms Psychiatric: Reports: No Symptoms ED EXAM, RENAL/ - Physical Exam Exam: See Below Exam Limited By: No Limitations General Appearance: Alert, No Apparent Distress Eye Exam: Bilateral Eye: PERRL Ears: Normal External Exam, Normal Canal, Hearing Grossly Normal Nose: Normal Inspection, Normal Mucosa, No Blood Throat/Mouth: Normal Inspection, Normal Lips, Normal Teeth Head: Atraumatic, Normocephalic Neck: Normal Inspection, Supple, Non-Tender, Full Range of Motion Respiratory/Chest: No Respiratory Distress, Lungs Clear, Normal Breath Sounds, No Accessory Muscle Use, Chest Non-Tender Cardiovascular: Normal Peripheral Pulses, Regular Rate, Rhythm, No Edema, No Gallop, No JVD, No Murmur GI/Abdominal: Normal Bowel Sounds, Soft, Non-Tender, No Organomegaly, No Distention, No Abnormal Bruit, No Mass (Male) Exam: Other (suprpubic cath in place, draining a grossly bloody urine.) Back Exam: Normal Inspection, Full Range of Motion Extremities: Normal Inspection, Normal Range of Motion, Non-Tender, No Pedal Edema, Normal Capillary Refill Neurological: Alert, Oriented, CN II-XII Intact, Normal Cognition, Normal Gait, Normal Reflexes, No Motor/Sensory Deficits Psychiatric: Normal Affect Course - Vital Signs Text/Narrative:: Lab reviewed and discussed with patient There is drop in his hb from 13.2 on 04/09 to 11.4 [facility] will take him pending discharges today. He will be given priority for transfer since he is a post surgical patient. - Orders/Labs/Meds Orders: Active Orders 24 hr Category Date Time Status Patient Status [ADT] Routine ADT 04/17/21 03:07 Ordered Cardiac Monitoring [RC] INTERMITTENT Care 04/17/21 03:10 Ordered Intake and Output [RC] QSHIFT Care 04/17/21 03:10 Ordered Oxygen Therapy [RC] PRN Care 04/17/21 03:07 Ordered RT Aerosol Therapy [RC] ASDIRECTED Care 04/17/21 03:14 Ordered VTE/DVT Education [RC] Per Unit Routine Care 04/17/21 03:07 Ordered Vital Signs [RC] Q4H Care 04/17/21 03:07 Ordered Nothing per Oral Now Diet [DIET] Diet 04/17/21 Breakfast Ordered Albuterol/Ipratropium [DuoNeb 3.0-0.5 MG/3 ML] Med 04/17/21 03:12 Ordered 3 ml NEB QIDRT PRN Sodium Chloride 0.9% @ 125 MLS/HR (1000ml) Med 04/17/21 03:15 Ordered Sodium Chloride 0.9% [Normal Saline] 1,000 ml IV ASDIRECTED Sodium Chloride 0.9% [Saline Flush] Med 04/17/21 03:14 Ordered 10 ml FLUSH ASDIRECTED PRN Saline Lock Insert [OM.PC] Routine Oth 04/17/21 03:14 Ordered Sequential Compression Device [OM.PC] Per Unit Routine Oth 04/17/21 03:11 Ordered Resuscitation Status Routine Resus Stat 04/17/21 03:07 Ordered Medication Orders Albuterol/Ipratropium (Albuterol/Ipratropium 3.0-0.5 Mg/3 Ml Neb Soln) 3 ml NEB QIDRT PRN PRN Reason: Wheezing Sodium Chloride (Normal Saline) 1,000 mls @ 125 mls/hr IV ASDIRECTED CHADWICK Sodium Chloride (Sodium Chloride 0.9% 10 Ml Syringe) 10 ml FLUSH ASDIRECTED PRN PRN Reason: Keep Vein Open Meds: Medications Generic Name Dose Route Start Last Admin Trade Name Freq PRN Reason Stop Dose Admin Albuterol/Ipratropium 3 ml 04/17/21 03:12 Albuterol/Ipratropium 3.0-0.5 Mg/3 Ml Neb Soln NEB QIDRT PRN Wheezing Sodium Chloride 1,000 mls @ 125 mls/hr 04/17/21 03:15 Normal Saline IV ASDIRECTED CHADWICK Sodium Chloride 10 ml 04/17/21 03:14 Sodium Chloride 0.9% 10 Ml Syringe FLUSH ASDIRECTED PRN Keep Vein Open Departure - Departure Time of Disposition: 03:00 Disposition: DC/Tfer to Acute Hospital 02 Condition: Good Clinical Impression: Suprapubic catheter dysfunction, Hematuria, Pseudomonas urinary tract infection, Pressure ulcer - Discharge Information Referrals: Des Crandall MD [Primary Care Provider] - Forms: ED Department Discharge - My Orders Last 24 Hours: My Active Orders 04/17/21 03:07 Patient Status [ADT] Routine Oxygen Therapy [RC] PRN VTE/DVT Education [RC] Per Unit Routine Vital Signs [RC] Q4H Resuscitation Status Routine 04/17/21 03:10 Cardiac Monitoring [RC] INTERMITTENT Intake and Output [RC] QSHIFT 04/17/21 03:11 Sequential Compression Device [OM.PC] Per Unit Routine 04/17/21 03:12 Albuterol/Ipratropium [DuoNeb 3.0-0.5 MG/3 ML] 3 ml NEB QIDRT PRN 04/17/21 03:14 RT Aerosol Therapy [RC] ASDIRECTED Sodium Chloride 0.9% [Saline Flush] 10 ml FLUSH ASDIRECTED PRN Saline Lock Insert [OM.PC] Routine 04/17/21 03:15 Sodium Chloride 0.9% @ 125 MLS/HR (1000ml) Sodium Chloride 0.9% [Normal Saline] 1,000 ml IV ASDIRECTED 04/17/21 Breakfast Nothing per Oral Now Diet [DIET] - Assessment/Plan Last 24 Hours: My Active Orders 04/17/21 03:07 Patient Status [ADT] Routine Oxygen Therapy [RC] PRN VTE/DVT Education [RC] Per Unit Routine Vital Signs [RC] Q4H Resuscitation Status Routine 04/17/21 03:10 Cardiac Monitoring [RC] INTERMITTENT Intake and Output [RC] QSHIFT 04/17/21 03:11 Sequential Compression Device [OM.PC] Per Unit Routine 04/17/21 03:12 Albuterol/Ipratropium [DuoNeb 3.0-0.5 MG/3 ML] 3 ml NEB QIDRT PRN 04/17/21 03:14 RT Aerosol Therapy [RC] ASDIRECTED Sodium Chloride 0.9% [Saline Flush] 10 ml FLUSH ASDIRECTED PRN Saline Lock Insert [OM.PC] Routine 04/17/21 03:15 Sodium Chloride 0.9% @ 125 MLS/HR (1000ml) Sodium Chloride 0.9% [Normal Saline] 1,000 ml IV ASDIRECTED 04/17/21 Breakfast Nothing per Oral Now Diet [DIET]
[2021-04-17] MEDS ORDERED: Albuterol/Ipratropium 3.0-0.5 MG/3 ML Neb Soln NEB PRN (03:12)
[2021-04-17] MEDS ORDERED: Sodium Chloride 0.9% 10 ML Syringe FLUSH PRN (03:14)
[2021-04-17] MEDS ORDERED: Sodium Chloride 0.9% 1,000 ML IV SCH ×3 (03:15→14:30)
[2021-04-17] MEDS ORDERED: Lidocaine 2% HCl 6 ML JEL.PF.APP MM STA ×2 (13:33→19:10)
[2021-04-17] MEDS ORDERED: Belladonna Alkaloids/Opium 16.2-30 MG Supp RECTAL ONE (22:11)
[2021-04-18] MEDS ORDERED: Belladonna Alkaloids/Opium 16.2-30 MG Supp RECTAL ONE (09:50)
[2021-04-18] MEDS ORDERED: Oxybutynin 5 MG Tab.ER PO ONE (09:52)
[2021-04-18] MEDS ORDERED: Belladonna Alkaloids/Opium 16.2-30 MG Supp ONE (12:31)
[2021-04-18] MEDS: Oxybutynin 5 MG Tab ONE ×2 (13:39→13:51)
[2021-04-18] MEDS ORDERED: Oxybutynin 5 MG Tab PO ONE (13:53)
[2021-04-18] MEDS ORDERED: Ciprofloxacin in D5W 400 MG in Premix Bag 1 BAG IV ONE ×2 (15:55)
[2021-04-18] MEDS ORDERED: cefTRIAXone 1 GM in Sodium Chloride 0.9% 50 ML IV ONE (16:09)
--- NOTE | 2021-04-18 16:15 | PCM.SN.2 ---
- Free Text/Narrative Note: 70-year-old gentleman with history of multiple sclerosis and chronic indwelling catheter had a suprapubic catheter placed on 04/09/2021. He was sent back to the care home but on 04/17/2021 began to have bloody discharge. He was sent to the emergency department. Emergency department attempted to transfer the patient back to [facility] in [place], [place]. They did not have any beds and advised irrigation. Over the course of the day irrigation was initially successful but began to become difficult. Nursing placed larger Rivera catheter for irrigation but still could not restart irrigation. CT exam performed on 04/18/2021 at approximately 11:09 AM showed suprapubic catheter in the urinary bladder with a large amount of dense material within the urinary bladder. Air in the bladder. Findings probably related to hemorrhage, underlying mass not excluded. CT also showed that the Rivera catheter was not advanced all the way into the bladder. Patient had been given belladonna/opium suppository late in the evening on 04/17/2021 with no positive results. After CT exam patient was given oxybutynin, 5 mg ER and second belladonna/opium suppository with no positive results. Attempts to advance the catheter into the urinary bladder were unsuccessful. The suprapubic catheter still does not drain. I spoke with urology at [facility] and they will try to treat the patient in the emergency department at [facility]. Patient will be transferred at this time. Time Documentation
[2021-04-18] MEDS ORDERED: cefTRIAXone 1 GM Vial IVPUSH ONE (16:31)
== END 2021-04-18 17:15 ==
LOC: FB.ED 01:40 → UNDOADMOB 03:07 → FB.MS 03:07 → FB.ED 04-18 17:15
DX: T83.098A Other mechanical complication of other urinary catheter, initial encounter (principal); R31.9 Hematuria, unspecified; N39.0 Urinary tract infection, site not specified; L89.90 Pressure ulcer of unspecified site, unspecified stage; E78.00 Pure hypercholesterolemia, unspecified; E66.9 Obesity, unspecified; Z68.41 Body mass index [BMI] 40.0-44.9, adult; Z88.8 Allergy status to other drugs, medicaments and biological substances; Z79.899 Other long term (current) drug therapy
CPT/HCPCS: 36415; 74176; 80048; 83605; 85014; 85018; 85025; 87040; A9270; J0696; J0744; J7030

== ENCOUNTER 2021-08-02 14:26 | Emergency (ER) | payer MEDICARE ==
--- NOTE | 2021-08-02 15:16 | EDM.PDOC ---
ED HPI GENERAL MEDICAL PROBLEM - General Chief Complaint: General Stated Complaint: POSSIBLE INFECTION Time Seen by Provider: 08/02/21 14:45 Source of Information: Reports: Patient - History of Present Illness INITIAL COMMENTS - FREE TEXT/NARRATIVE: 70-year-old gentleman is a resident at [facility]. He has history of stroke with left-sided weakness. He has been unable to ambulate for quite some time now. He has a suprapubic catheter. He has a history of sacral ulcer which underwent significant treatment over the last year. However, [facility] staff noticed increased redness and discharge from the area of the ulcer with redness extending superiorly from the ulcer. Patient states that he does not have any pain or discomfort and does not feel particularly weak but [facility] staff reports that he seems weaker and more allergic than normal. Patient denies fever, chills, chest pain, shortness of breath, change in bowel or bladder habits. - Related Data Allergies Allergy/AdvReac Type Severity Reaction Status Date / Time procaine [From Novocain] Allergy Numbness Verified 08/02/21 16:01 vancomycin Allergy Rash Verified 08/02/21 16:01 Home Meds: Home Meds Acetaminophen 650 mg PO Q4H PRN 10/14/17 [History] Baclofen 10 mg PO TID 10/14/17 [History] DULoxetine [Cymbalta] 60 mg PO DAILY 10/14/17 [History] buPROPion HCL [Wellbutrin Xl] 150 mg PO DAILY 10/14/17 [History] Multivitamin with Minerals [Multivitamins with Minerals] 1 each PO DAILY 02/07/18 [History] Apixaban [Eliquis] 5 mg PO BID 11/17/19 [History] Ascorbic Acid [C-1000] 1,000 mg PO DAILY 04/17/21 [History] Docusate Sodium [Dok] 250 mg PO BID 04/17/21 [History] Ferrous Sulfate 325 mg PO TID 04/17/21 [History] L. Acidophilus/L.bulgaricus [Lactobacillus Tablet] 1 each PO BID 04/17/21 [History] Mupirocin Oint [Bactroban Oint] 1 applic TOP BID 04/17/21 [History] Omeprazole 20 mg PO DAILY 04/17/21 [History] polyethylene glycoL 3350 [Miralax] 17 gm PO DAILY 04/17/21 [History] Sulfamethoxazole/Trimethoprim [Bactrim Ds Tablet] 1 each PO BID #20 tablet 08/02/21 [Rx] Past Medical History HEENT History: Reports: Impaired Vision Other HEENT History: wears glasses that are not with him Cardiovascular History: Reports: High Cholesterol Other Cardiovascular History: edema to lower extremeties, had DVT this hospitalization Respiratory History: Reports: PE, SOB, Other (See Below) Other Respiratory History: sob with activity partly from obese abdomen Gastrointestinal History: Reports: None Genitourinary History: Reports: Prostate Disorder, Urinary Incontinence Other Genitourinary History: has salvador inplace due to inc and woundvac Musculoskeletal History: Reports: Other (See Below) Other Musculoskeletal History: multiple sclerosis muscle spasms requires a full body lift Neurological History: Reports: CVA, Other (See Below) Other Neuro History: neuropathic pain, left sided weakness Psychiatric History: Reports: Depression Other Psychiatric History: from record has depressive disorder Endocrine/Metabolic History: Reports: Obesity/BMI 30+ Hematologic History: Reports: None Immunologic History: Reports: None Oncologic (Cancer) History: Reports: None Dermatologic History: Reports: Cellulitis Other Dermatologic History: scabbed areas on knees also decubitus of right buttock. 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 buttock - Infectious Disease History Infectious Disease History: Reports: Influenza, Measles, Mononucleosis, Mumps, Pertussis (Whooping Cough), Rheumatic Fever - Past Surgical History Head Surgeries/Procedures: Reports: None HEENT Surgical History: Reports: Other (See Below) Other HEENT Surgeries/Procedures: states he has dental implants Cardiovascular Surgical History: Reports: None Respiratory Surgical History: Reports: None GI Surgical History: Reports: EGD Male Surgical History: Reports: Other (See Below) Other Male Surgeries/Procedures: hypertrophy of prostate without urinary obstruction Endocrine Surgical History: Reports: None Neurological Surgical History: Reports: None Musculoskeletal Surgical History: Reports: None Oncologic Surgical History: Reports: None Dermatological Surgical History: Reports: Other (See Below) Social & Family History - Family History Family Medical History: No Pertinent Family History Endocrine/Metabolic: Reports: Diabetes, type II - Caffeine Use Caffeine Use: Reports: None Caffeine Use Comment: 1-2 cups a day ED ROS GENERAL - Review of Systems Review Of Systems: See Below Constitutional: Reports: No Symptoms HEENT: Reports: No Symptoms Respiratory: Reports: No Symptoms Cardiovascular: Reports: No Symptoms Endocrine: Reports: No Symptoms GI/Abdominal: Reports: No Symptoms : Reports: No Symptoms Musculoskeletal: Reports: No Symptoms Skin: Reports: Other (Sacral ulcer, chronic) Neurological: Reports: Pre-Existing Deficit Psychiatric: Reports: Depression Hematologic/Lymphatic: Reports: No Symptoms Immunologic: Reports: No Symptoms ED EXAM, GENERAL - Physical Exam Exam: See Below Exam Limited By: Physical Impairment General Appearance: Alert, Lethargic Eye Exam: Bilateral Eye: EOMI Head: Atraumatic, Normocephalic Respiratory/Chest: No Respiratory Distress, Crackles Cardiovascular: Other (Heart sounds are distant and difficult to auscultate) Peripheral Pulses: 2+: Radial (L), Radial (R), Dorsalis Pedis (L), Dorsalis Pedis (R) GI/Abdominal: Normal Bowel Sounds, Non-Tender Rectal (Males) Exam: Other (Ulcer at the superior sacrum, mild purulent discharge, erythema, mild edema, erythema extends superiorly 4 to 6 cm) Extremities: Pedal Edema Neurological: Alert, Oriented, Normal Cognition, Other (Left-sided weakness, lower extremity greater than upper extremity) Psychiatric: Depressed Mood, Flat Affect Skin Exam: Erythema, Wound/Incision Course - Vital Signs Text/Narrative:: Due to patient's history of MRSA and visual inspection of his sacral wound there is suspicion for cellulitis. We will treat with Bactrim double strength twice daily for 10 days. Last Recorded V/S: Last Vital Signs Temp 36.6 C 08/02/21 14:26 Pulse 67 08/02/21 14:26 Resp 16 08/02/21 14:26 BP 110/51 L 08/02/21 14:26 Pulse Ox 93 L 08/02/21 14:26 - Orders/Labs/Meds Orders: Active Orders 24 hr Category Date Time Status CULTURE BLOOD [BC] Urgent Lab 08/02/21 15:20 Received CULTURE BLOOD [BC] Urgent Lab 08/02/21 15:25 Received Blood Culture x2 Reflex Set [OM.PC] Urgent Oth 08/02/21 15:02 Ordered Labs: Laboratory Tests 08/02/21 08/02/21 08/02/21 Range/Units 15:20 15:20 15:29 WBC 7.3 (3.2-10.1) x10-3/uL RBC 6.31 H (3.90-5.90) x10(6)uL Hgb 11.4 L (12.9-17.7) g/dL Hct 37.3 L (38.3-50.1) % MCV 59.2 L (80.8-98.7) fL MCH 18.1 L (27.0-33.3) pg MCHC 30.5 (28.7-35.3) g/dL RDW 17.4 H (12.4-15.0) % Plt Count 370 (117-477) x10(3)uL MPV 8.0 (6.7-11.0) fL Neut % (Auto) 61.7 (40.3-71.8) % Lymph % (Auto) 21.3 (15.8-45.3) % [place] % (Auto) 14.1 (5.5-15.2) % Eos % (Auto) 2.1 (0.1-6.8) % Baso % (Auto) 0.8 (0.3-3.8) % Neut # (Auto) 4.5 (1.7-6.9) x10-3/uL Lymph # (Auto) 1.6 (0.5-4.5) x10-3/uL [place] # (Auto) 1.0 (0.0-1.2) x10-3/uL Eos # (Auto) 0.2 (0.0-0.6) x10-3/uL Baso # (Auto) 0.1 (0.0-0.3) x10-3/uL Sodium 137 (135-145) mmol/L Potassium 4.0 (3.5-5.3) mmol/L Chloride 102 (100-110) mmol/L Carbon Dioxide 28 (21-32) mmol/L BUN 24 H (7-18) mg/dL Creatinine 0.7 (0.70-1.30) mg/dL Est Cr Clr Drug Dosing TNP Estimated GFR (MDRD) > 60 (>60) BUN/Creatinine Ratio 34.3 H (9-20) Glucose 114 (80-116) mg/dL Calcium 8.3 L (8.6-10.2) mg/dL Total Bilirubin 0.2 (0.1-1.3) mg/dL AST 22 D (5-25) IU/L ALT 30 (12-36) U/L Alkaline Phosphatase 95 (56-112) IU/L Total Protein 6.8 (6.0-8.0) g/dL Albumin 2.4 L (3.2-4.6) g/dL Globulin 4.4 g/dL Albumin/Globulin Ratio 0.6 Urine Color Yellow (YELLOW) Urine Appearance Slightly cloudy (CLEAR) Urine pH 5.0 (5.0-6.5) Ur Specific [place] 1.015 (1.010-1.025) Urine Protein Trace (NEGATIVE) mg/dL Urine Glucose (UA) Normal (NORMAL) mg/dL Urine Ketones Negative (NEGATIVE) mg/dL Urine Occult Blood Trace (NEGATIVE) Urine Nitrite Negative (NEGATIVE) Urine Bilirubin Negative (NEGATIVE) Urine Urobilinogen Normal (NEGATIVE) mg/dL Ur Leukocyte Esterase Moderate H (NEGATIVE) Urine RBC 5-10 H (0-5) Urine WBC 10-20 H (0-5) Ur Squamous Epith Cells Occasional (NS,R,O) Urine Bacteria Many H (NS) Departure - Departure Time of Disposition: 16:14 Disposition: DC/Tfer to [facility] 03 Condition: Fair Clinical Impression: Cellulitis, Urinary tract infection, History of MRSA infection - Discharge Information *PRESCRIPTION DRUG MONITORING PROGRAM REVIEWED*: Not Applicable *COPY OF PRESCRIPTION DRUG MONITORING REPORT IN PATIENT [facility]: Not Applicable Prescriptions: Sulfamethoxazole/Trimethoprim [Bactrim Ds Tablet] 1 each PO BID #20 tablet Instructions: Urinary Tract Infection, Adult, [id number], Cellulitis, Adult, [id number] Referrals: PCP,Unknown [Ordering Only Provider] - Forms: ED Department Discharge Additional Instructions: Please make an appointment for this patient to be seen and evaluated by general surgery for wound care as soon as possible. Please ensure that you take medication as directed until completed. Return to the emergency department if the patient develops fever, fatigue, lethargy. The patient is getting plenty of fluids and proper protein diet. Sepsis Event Note (ED) - Focused Exam Vital Signs: Vital Signs Temp Pulse Resp BP Pulse Ox 08/02/21 14:26 36.6 C 67 16 110/51 L 93 L - My Orders Last 24 Hours: My Active Orders 08/02/21 15:02 Blood Culture x2 Reflex Set [OM.PC] Urgent 08/02/21 15:20 CULTURE BLOOD [BC] Urgent 08/02/21 15:25 CULTURE BLOOD [BC] Urgent - Assessment/Plan Last 24 Hours: My Active Orders 08/02/21 15:02 Blood Culture x2 Reflex Set [OM.PC] Urgent 08/02/21 15:20 CULTURE BLOOD [BC] Urgent 08/02/21 15:25 CULTURE BLOOD [BC] Urgent
[2021-08-02] MEDS ORDERED: Sulfamethoxazole/Trimethoprim 800-160 MG Tab PO ONE (16:17)
== END 2021-08-02 16:40 ==
LOC: FB.ED 14:26
DX: N39.0 Urinary tract infection, site not specified (principal); L03.312 Cellulitis of back [any part except buttock and flank]; E78.00 Pure hypercholesterolemia, unspecified; E66.9 Obesity, unspecified; Z68.30 Body mass index [BMI] 30.0-30.9, adult; Z88.1 Allergy status to other antibiotic agents; Z88.8 Allergy status to other drugs, medicaments and biological substances; Z79.01 Long term (current) use of anticoagulants; Z79.899 Other long term (current) drug therapy; Z86.73 Personal history of transient ischemic attack (TIA), and cerebral infarction without residual deficits; Z86.14 Personal history of Methicillin resistant Staphylococcus aureus infection
CPT/HCPCS: 36415; 80053; 81001; 85025; 87040; 87086; 87088; 87186; 99284; A9270

== ENCOUNTER 2021-08-25 16:10 | Emergency (ER) | payer MEDICARE ==
[2021-08-25] MEDS ORDERED: Sodium Chloride 0.9% 10 ML Syringe FLUSH PRN (16:20)
== END 2021-08-25 18:40 | disposition home or self-care (01) ==
LOC: FB.ED 16:10
DX: R31.9 Hematuria, unspecified (principal); E78.00 Pure hypercholesterolemia, unspecified; K21.9 Gastro-esophageal reflux disease without esophagitis; G35 Multiple sclerosis; E66.9 Obesity, unspecified; Z68.34 Body mass index [BMI] 34.0-34.9, adult; Z86.73 Personal history of transient ischemic attack (TIA), and cerebral infarction without residual deficits; Z88.1 Allergy status to other antibiotic agents; Z88.8 Allergy status to other drugs, medicaments and biological substances; Z79.01 Long term (current) use of anticoagulants; Z79.899 Other long term (current) drug therapy
CPT/HCPCS: 36415; 80053; 81001; 83605; 85025; 99283

== ENCOUNTER 2023-06-14 10:19 | Day surgery (SDC) | payer MEDICARE ==
[~2023-06-14 10:19] MED LIST: Lactated Ringers 1,000 ML IV PRN
[2023-06-14] MEDS ORDERED: Midazolam 1 MG/ML 2 ML SDV IV ONE (10:20)
[2023-06-14] MEDS ORDERED: fentaNYL 100 MCG/2 ML SDV IV ONE (10:20)
[2023-06-14] MEDS: Sodium Chloride 0.9% 10 ML Syringe FLUSH PRN ×2 (10:30→10:31)
[2023-06-14] MEDS ORDERED: acetaZOLAMIDE 500 MG Cap.ER PO ONE (11:45)
== END 2023-06-14 12:17 | disposition home or self-care (01) ==
LOC: FB.SDS 10:19
PROVIDERS: ATTEND Ophthalmology
DX: H25.13 Age-related nuclear cataract, bilateral (principal); H31.091 Other chorioretinal scars, right eye; H50.112 Monocular exotropia, left eye; H52.13 Myopia, bilateral; M86.68 Other chronic osteomyelitis, other site; G35 Multiple sclerosis; E11.622 Type 2 diabetes mellitus with other skin ulcer; G82.20 Paraplegia, unspecified; L89.314 Pressure ulcer of right buttock, stage 4; L89.134 Pressure ulcer of right lower back, stage 4; L89.214 Pressure ulcer of right hip, stage 4; E78.00 Pure hypercholesterolemia, unspecified; F32.9 Major depressive disorder, single episode, unspecified; E66.01 Morbid (severe) obesity due to excess calories; Z68.31 Body mass index [BMI] 31.0-31.9, adult; Z93.3 Colostomy status; Z86.16 Personal history of COVID-19; Z79.899 Other long term (current) drug therapy
CPT/HCPCS: A9270-GY; J2250; J3010; J3490; V2632

== ENCOUNTER 2023-06-28 08:27 | Day surgery (SDC) | payer MEDICARE ==
[2023-06-28] MEDS ORDERED: Midazolam 1 MG/ML 2 ML SDV IV ONE (08:28)
[2023-06-28] MEDS ORDERED: fentaNYL 100 MCG/2 ML SDV IV ONE (08:28)
[2023-06-28] MEDS ORDERED: Sodium Chloride 0.9% 10 ML Syringe IV ONE (08:28)
[2023-06-28] MEDS ORDERED: Lactated Ringers 1,000 ML IV PRN (09:00)
[2023-06-28] MEDS ORDERED: Sodium Chloride 0.9% 10 ML Syringe FLUSH PRN (09:00)
[2023-06-28] MEDS ORDERED: acetaZOLAMIDE 500 MG Cap.ER PO ONE (11:00)
== END 2023-06-28 11:45 ==
LOC: FB.SDS 08:27
PROVIDERS: ATTEND Ophthalmology
DX: H26.9 Unspecified cataract (principal); M86.68 Other chronic osteomyelitis, other site; G35 Multiple sclerosis; G82.20 Paraplegia, unspecified; E66.9 Obesity, unspecified; Z68.31 Body mass index [BMI] 31.0-31.9, adult; Z93.3 Colostomy status; F32.9 Major depressive disorder, single episode, unspecified; Z79.899 Other long term (current) drug therapy
CPT/HCPCS: 66984; A9270; J2250; J3010; J3490; V2632

== ENCOUNTER 2024-11-10 10:34 | Emergency (ER) | payer MEDICARE | END 2024-11-10 11:50 | LOC: FB.ED 10:34 | DX: S09.90XA Unspecified injury of head, initial encounter (principal); E66.9 Obesity, unspecified; K21.9 Gastro-esophageal reflux disease without esophagitis; Z88.8 Allergy status to other drugs, medicaments and biological substances; Z79.899 Other long term (current) drug therapy; Z79.01 Long term (current) use of anticoagulants; Z68.37 Body mass index [BMI] 37.0-37.9, adult; W19.XXXA Unspecified fall, initial encounter | CPT/HCPCS: 70450; 99283; 99285 ==

== ENCOUNTER 2024-12-02 21:15 | Emergency (ER) | payer MEDICARE ==
[2024-12-02] MEDS ORDERED: Sodium Chloride 0.9% 10 ML Syringe FLUSH PRN (21:36)
[2024-12-02 21:49] LABS: HEMOGLOBIN 15.5 g/dL (12.9-17.7)
[2024-12-02 21:53] LABS: BLOOD UREA NITROGEN,BUN 24 mg/dL (7-18); BUN/CREATININE RATIO 18.5 (9-20); CARBON DIOXIDE,CO2 24 mmol/L (21-32); CHLORIDE,CL 101 mmol/L (100-110); CREATININE 1.3 mg/dL (0.70-1.30); ESTIMATED GFR 58 mL/min (>60); GLUCOSE RANDOM 130 mg/dL (80-116); POTASSIUM,K 4.1 mmol/L (3.5-5.3); SODIUM,NA 138 mmol/L (135-145)
[2024-12-02 21:54] LABS: HEMATOCRIT 46.6 % (38.3-50.1); MEAN CORPUSCULAR HEMOGLOBIN 21.5 pg (27.0-33.3); MEAN CORPUSCULAR HGB CONC 33.2 g/dL (28.7-35.3); MEAN CORPUSCULAR VOLUME 64.8 fL (80.8-98.7); MEAN PLATELET VOLUME 7.7 fL (6.7-11.0); PLATELET COUNT,PLT 347 x10(3)uL (117-477); RED CELL DISTRIBUTION WIDTH 16.2 % (12.4-15.0); WHITE BLOOD CELL COUNT,WBC 9.3 x10-3/uL (3.2-10.1)
[2024-12-02 21:58] LABS: A/G RATIO 0.8; ALANINE AMINOTRANSFERASE,ALT 32 U/L (12-36); ALBUMIN 3.4 g/dL (3.2-4.6); ALKALINE PHOSPHATASE 139 IU/L (56-112); ASPARTATE AMNIOTRANSFERASE,AST 29 IU/L (5-25); BILIRUBIN TOTAL 0.7 mg/dL (0.1-1.3); PROTEIN TOTAL,TP 7.8 g/dL (6.0-8.0)
[2024-12-02 22:03] LABS: C-REACTIVE PROTEIN 2.42 mg/dL (<0.50); TROPONIN I 27.8 pg/mL (4.0-60.3)
[2024-12-02 22:05] LABS: ANISOCYTOSIS RARE; BAND PERCENT MAN 4 % (0-6); LYMPHOCYTES PERCENT MAN 3 % (13-37); MICROCYTOSIS MODERATE; MONOCYTES PERCENT MAN 1 % (4-12); SEG NEUTROPHILS PERCENT MAN 92 % (46-82)
[2024-12-02 22:06] LABS: LACTIC ACID 6.1 mmol/L (0.4-2.0)
[2024-12-02 22:15] LABS: BILIRUBIN,URINE NEGATIVE (NEGATIVE); COLOR,URINE YELLOW (YELLOW); GLUCOSE,URINE NORMAL (NORMAL); KETONES,URINE NEGATIVE (NEGATIVE); LEUKOCYTE ESTERASE,URINE LARGE (NEGATIVE); NITRITE,URINE NEGATIVE (NEGATIVE); OCCULT BLOOD,URINE LARGE (NEGATIVE); PROTEIN,URINE NEGATIVE (NEGATIVE); UROBILINOGEN,URINE NORMAL (NEGATIVE)
[2024-12-02 22:16] LABS: APPEARANCE,URINE SLIGHTLY CLOUDY (CLEAR)
[2024-12-02] MEDS: Iopamidol 755 Mg/ML 100 ML Bottle IV SCH (22:16)
[2024-12-02 22:20] LABS: BACTERIA,URINE MANY (NS); RBC,URINE 20-30 (0-5); SQUAMOUS EPITHELIAL CELLS,UR RARE (NS,R,O); WBC,URINE 40-50 (0-5)
[2024-12-02] MEDS: Sodium Chloride 0.9% 1,000 ML IV SCH (22:52)
[2024-12-02] MEDS: Ciprofloxacin in D5W 400 MG in Premix Bag 1 BAG IV ONE (22:54)
== END 2024-12-03 01:30 ==
LOC: FB.ED 21:15
DX: K43.5 Parastomal hernia without obstruction or gangrene (principal); N39.0 Urinary tract infection, site not specified; E86.0 Dehydration; K21.9 Gastro-esophageal reflux disease without esophagitis; Z86.73 Personal history of transient ischemic attack (TIA), and cerebral infarction without residual deficits; Z88.1 Allergy status to other antibiotic agents; Z88.8 Allergy status to other drugs, medicaments and biological substances; Z79.01 Long term (current) use of anticoagulants; Z79.899 Other long term (current) drug therapy
CPT/HCPCS: 36415; 71045; 74177; 80053; 81001; 83605; 84484; 85025; 86140; 87086; 87088; 87186; 93005; 93010; 96361; 96365; 99285; J0744; J7030; Q9967

== ENCOUNTER 2024-12-03 09:34 | Inpatient (IN) | payer MEDICARE ==
[2024-12-03] MEDS: Sodium Chloride 0.9% 1,000 ML IV ONE ×3 (10:04→12:33)
[2024-12-03 10:10] LABS: HEMATOCRIT 43.4 % (38.3-50.1)
[2024-12-03] MEDS: cefTRIAXone 1 GM Vial IVPUSH STA (10:10)
[2024-12-03 10:14] LABS: BLOOD UREA NITROGEN,BUN 36 mg/dL (7-18); CALCIUM 8.6 mg/dL (8.6-10.2); CARBON DIOXIDE,CO2 21 mmol/L (21-32); CHLORIDE,CL 103 mmol/L (100-110); CREATININE 1.8 mg/dL (0.70-1.30); ESTIMATED GFR 40 mL/min (>60); GLUCOSE RANDOM 150 mg/dL (80-116); POTASSIUM,K 3.9 mmol/L (3.5-5.3); SODIUM,NA 139 mmol/L (135-145)
[2024-12-03 10:20] LABS: A/G RATIO 0.7; ALANINE AMINOTRANSFERASE,ALT 33 U/L (12-36); ALBUMIN 2.8 g/dL (3.2-4.6); ALKALINE PHOSPHATASE 102 IU/L (56-112); ASPARTATE AMNIOTRANSFERASE,AST 32 IU/L (5-25); BILIRUBIN TOTAL 0.5 mg/dL (0.1-1.3); PROTEIN TOTAL,TP 6.9 g/dL (6.0-8.0)
[2024-12-03 10:22] LABS: HEMOGLOBIN 14.2 g/dL (12.9-17.7); MEAN CORPUSCULAR HGB CONC 32.8 g/dL (28.7-35.3); MEAN PLATELET VOLUME 8.9 fL (6.7-11.0); PLATELET COUNT,PLT 255 x10(3)uL (117-477); RED BLOOD CELL COUNT 6.77 x10(6)uL (3.90-5.90); RED CELL DISTRIBUTION WIDTH 16.4 % (12.4-15.0)
[2024-12-03 10:24] LABS: WHITE BLOOD CELL COUNT,WBC 42.3 x10-3/uL (3.2-10.1)
[2024-12-03 10:31] LABS: BAND PERCENT MAN 10 % (0-6); LYMPHOCYTES PERCENT MAN 3 % (13-37); MONOCYTES PERCENT MAN 6 % (4-12); SEG NEUTROPHILS PERCENT MAN 81 % (46-82)
[2024-12-03 10:33] LABS: ANISOCYTOSIS FEW; MICROCYTOSIS MODERATE
[2024-12-03] MEDS ORDERED: Ondansetron 4 MG/2 ML SDV IV PRN (12:39)
[2024-12-03] MEDS ORDERED: COD LIVER OIL TOP SCH (12:45)
[2024-12-03] MEDS ORDERED: guaiFENesin 100 MG/5 ML Soln 5 ML UD Cup PO PRN (12:45)
[2024-12-03] MEDS ORDERED: ZINC OXIDE TOP SCH (12:45)
[2024-12-03] MEDS ORDERED: Cocoa Butter/Phenylephrine Rectal Supp RECTAL PRN (12:45)
[2024-12-03] MEDS ORDERED: Magnesium Hydroxide 400 MG/5 ML Susp 30 ML Cup PO PRN (12:54)
[2024-12-03] MEDS ORDERED: Carboxymethylcellulose Sodium 0.5% Ophth Soln 15 ML Bottle EYEBOTH PRN (12:56)
[2024-12-03] MEDS ORDERED: Aluminum Hydroxide/Magnesium Hydroxide Susp 30 ML Cup PO PRN (12:58)
[2024-12-03] MEDS: Sodium Chloride 0.9% 1,000 ML IV SCH (13:35)
[2024-12-03] MEDS: Saccharomyces Boulardii (Probiotic) 250 MG Cap PO SCH (14:17)
[2024-12-03] MEDS: cefTRIAXone 1 GM Vial IVPUSH ONE (14:17)
[2024-12-03] MEDS: Baclofen 10 MG Tab PO SCH (14:18)
[2024-12-03] MEDS: Acetaminophen 325 MG Tab PO PRN (14:31)
[2024-12-03 17:27] LABS: HEMATOCRIT 36.5 % (38.3-50.1); MEAN CORPUSCULAR HEMOGLOBIN 21.1 pg (27.0-33.3); MEAN CORPUSCULAR VOLUME 64.2 fL (80.8-98.7); MEAN PLATELET VOLUME 8.6 fL (6.7-11.0); PLATELET COUNT,PLT 185 x10(3)uL (117-477); RED BLOOD CELL COUNT 5.68 x10(6)uL (3.90-5.90)
[2024-12-03 17:35] LABS: A/G RATIO 0.6; ALANINE AMINOTRANSFERASE,ALT 33 U/L (12-36); ALBUMIN 2.1 g/dL (3.2-4.6); ALKALINE PHOSPHATASE 93 IU/L (56-112); ASPARTATE AMNIOTRANSFERASE,AST 52 IU/L (5-25); BILIRUBIN TOTAL 0.4 mg/dL (0.1-1.3); BLOOD UREA NITROGEN,BUN 35 mg/dL (7-18); BUN/CREATININE RATIO 20.6 (9-20); CALCIUM 7.6 mg/dL (8.6-10.2); CARBON DIOXIDE,CO2 22 mmol/L (21-32); CHLORIDE,CL 108 mmol/L (100-110); CREATININE 1.7 mg/dL (0.70-1.30); ESTIMATED GFR 42 mL/min (>60); GLUCOSE RANDOM 126 mg/dL (80-116); POTASSIUM,K 4.1 mmol/L (3.5-5.3); PROTEIN TOTAL,TP 5.7 g/dL (6.0-8.0); SODIUM,NA 141 mmol/L (135-145)
[2024-12-03 17:42] LABS: ANISOCYTOSIS FEW; BAND PERCENT MAN 11 % (0-6); LYMPHOCYTES PERCENT MAN 2 % (13-37); MICROCYTOSIS MODERATE; MONOCYTES PERCENT MAN 4 % (4-12); SEG NEUTROPHILS PERCENT MAN 83 % (46-82)
[2024-12-03] MEDS: Norepinephrine Bit/D5W Premix 4 MG in Premix Bag 1 BAG IV SCH (17:44)
[2024-12-03] MEDS: Multivitamins with Iron/Calcium/Folic Acid/Minerals Tab PO SCH (19:44)
[2024-12-03] MEDS ORDERED: Acetic Acid 0.25% Solution 1,000 ML Bottle IRR SCH (21:00)
[2024-12-03] MEDS ORDERED: Docusate Sodium 100 MG Cap PO SCH (21:00)
[2024-12-03] MEDS ORDERED: Apixaban 5 MG Tab PO SCH (21:00)
[2024-12-03] MEDS ORDERED: D MANNOSE 500 MG PO SCH (21:00)
[2024-12-04] MEDS ORDERED: Pantoprazole 40 MG Tab.CR PO SCH (06:00)
[2024-12-04] MEDS ORDERED: Mupirocin Oint 22 GM Tube TOP SCH (08:00)
[2024-12-04] MEDS ORDERED: Polyethylene Glycol 3350 Powder 17 GM Packet PO SCH (09:00)
[2024-12-04] MEDS ORDERED: Ascorbic Acid 500 MG Tab PO SCH (09:00)
[2024-12-04] MEDS ORDERED: Cholecalciferol (Vitamin D3) 25 MCG Tab PO SCH (09:00)
[2024-12-04] MEDS ORDERED: DULoxetine 60 MG Cap PO SCH (09:00)
[2024-12-04] MEDS ORDERED: cefTRIAXone 2 GM Vial IVPUSH SCH (10:00)
[2024-12-05] MEDS ORDERED: Ferrous Sulfate 325 MG Tab PO SCH (08:00)
[2024-12-07] MEDS ORDERED: PYRITHIONE ZINC TOP SCH (12:45)
== END 2024-12-03 20:18 | DRG 871 ==
LOC: FB.ED 09:34 → FB.MS 10:42
PROVIDERS: ADMIT Family Medicine; ATTEND Family Medicine
DX: A41.9 Sepsis, unspecified organism (principal); L89.314 Pressure ulcer of right buttock, stage 4; R65.21 Severe sepsis with septic shock; N17.9 Acute kidney failure, unspecified; N12 Tubulo-interstitial nephritis, not specified as acute or chronic; M86.8X8 Other osteomyelitis, other site; Z66 Do not resuscitate; Z68.38 Body mass index [BMI] 38.0-38.9, adult; H54.7 Unspecified visual loss; E78.00 Pure hypercholesterolemia, unspecified; K59.09 Other constipation; K21.9 Gastro-esophageal reflux disease without esophagitis; N42.9 Disorder of prostate, unspecified; G35 Multiple sclerosis; F32.A Depression, unspecified; D64.9 Anemia, unspecified; E66.811 Obesity, class 1; I95.9 Hypotension, unspecified; N20.0 Calculus of kidney; E86.0 Dehydration; R53.1 Weakness; Z79.01 Long term (current) use of anticoagulants; Z88.8 Allergy status to other drugs, medicaments and biological substances; Z86.711 Personal history of pulmonary embolism; Z98.49 Cataract extraction status, unspecified eye; Z86.73 Personal history of transient ischemic attack (TIA), and cerebral infarction without residual deficits; Z98.890 Other specified postprocedural states; Z79.899 Other long term (current) drug therapy
CPT/HCPCS: 36415; 80053; 83605; 85025; 96361; 96374; 99285; J0696; J7030; 70450; 87040; 99236; A9270-GY